=== PATIENT | female | born 1985 | race Caucasian/White ===

== ENCOUNTER 2022-10-27 16:14 | Emergency (ER) | payer MEDICAID, SELFPAY ==
[2022-10-27 16:15] VITALS: BP 140/79; PULSE 69; RESP 16; TEMP 36.2; O2SAT 99; BMI 33.6
--- NOTE | 2022-10-27 16:21 | EKG12_ITS ---
Test Reason : PALPATATIONS Blood Pressure : / mmHG Vent. Rate : 064 BPM Atrial Rate : 064 BPM P-R Int : 148 ms QRS Dur : 088 ms QT Int : 436 ms P-R-T Axes : 033 041 029 degrees QTc Int : 449 ms Normal sinus rhythm Normal ECG Confirmed by CARLOS CAT, WYATT ([id number]), can sorter SAMINA NEGRETE ([id number]) on 10/31/2022 8:39:08 AM Referred By: Confirmed By:IRWIN GONZALEZ MD
--- NOTE | 2022-10-27 16:24 | EDS_ITS ---
HPI History of Present Illness Chief Complaint: Palpitations PFSH PFSH Home Medications alprazolam 0.5 mg tablet 0.5 mg PO TID PRN PRN Anxiety 07/01/14 [History Last Taken 02/17/16 13:00] naproxen 500 mg tablet 500 mg PO BID #20 tabs 02/17/16 [Rx Last Taken Unknown] Allergy/AdvReac Type Severity Reaction Status Date / Time cephalexin monohydrate Allergy Hives Verified 11/03/15 11:57 [From Keflex] ciprofloxacin [From Cipro] Allergy Hives Verified 11/03/15 11:57 ciprofloxacin HCl Allergy Hives Verified 11/03/15 11:57 [From Cipro] sulfamethoxazole Allergy Hives Verified 11/03/15 11:57 [From Bactrim] trimethoprim [From Bactrim] Allergy Hives Verified 11/03/15 11:57 Surgical History (Updated 10/27/22 @ 16:24 by Coy Lam) Status post surgical removal of both fallopian tubes Social History Smoking Status: Current every day smoker EXAM Physical Exam Const Vital Signs: 10/27/22 16:15 Temperature 97.1 F L Temperature Source Temporal Pulse Rate 69 Respiratory Rate 16 Blood Pressure 140/79 H Blood Pressure Mean 99 Pulse Ox 99 Oxygen Delivery Method Room Air MDM MDM MDM Narrative Medical decision making narrative: HISTORY OF PRESENT ILLNESS: 36-year-old female here with concern for palpitations. She is currently asymptomatic at this time. States this began over the last day. States she was outside more than usual this weekend but says she drink plenty of water. She notes 3 episodes of chest discomfort but denies chest pain or shortness of breath at this time. Denies any bleeding diathesis. The patient denies recent surgery in the last 4 weeks or immobilization in the last 3 days, denies previous diagnosis of DVT or PE, hemoptysis, unilateral leg swelling or malignancy with treatment the last 6 months. No estrogen use noted. She denies any syncope. Denies any focal loss of sensation. Denies any family history of early cardiac . Denies any history of CAD, abnormal heart rhythms, heart failure or surgery to her heart. REVIEW OF SYSTEMS: Pertinent positives: Palpitations Pertinent negatives: Chest pain, shortness of breath, leg swelling, syncope PHYSICAL EXAM: Nursing triage notes reviewed, Vital signs reviewed Constitutional: please see mdm HENT: MMM Eyes: Pupils equal round and reactive to light, Extraocular muscles intact, no proptosis Neck: No stridor, no JVD, full neck ROM, no thyromegaly Lungs: Clear to auscultation, No wheezing or rales. No increased work of breathing, no conversational dyspnea, no accessory muscle use, no nasal flaring. No respiratory distress noted Heart: Regular rate and rhythm, No murmurs, No rubs and No gallops, 2+ distal pulses (radial, femoral, posterior tibial) in all extremities Abdomen: Soft, there is no tenderness, rigidity, rebound or guarding, no obvious peritoneal signs, no palpable pulsatile abdominal masses, no auscultated abdominal bruit : No CVAT Extremities: No edema Neuro: No focal neurological deficits, cranial nerves II through XII intact, 5/5 strength in all extremities. Intact sensation to light touch in all extremities, 2+ reflexes bilateral patella tendons. Normal gait. No ataxia. Skin: No rash or lesions noted MEDICAL DECISION MAKING: Chief Complaint: Palpitations External records reviewed: EKG from 2016 showed, normal sinus rhythm, normal axis, normal intervals, no STEMI, no WPW, no ARVD, no Brugada syndrome Factors affecting care: none Social determinants of health: Denies illicit drug use such as methamphetamine or cocaine History obtained from others: none Consults: none ALL IMAGES (IF OBTAINED) HAVE BEEN PERSONALLY REVIEWED AND INTERPRETED BY MYSELF. EKG with normal sinus rhythm, normal axis, normal intervals, no ST or T wave changes to suggest ischemia. No evidence of WPW, Brugada, ARVD. MDM Narrative: Patient was hemodynamically stable, afebrile, nontoxic-appearing. Patient appears well-hydrated. There is no bleeding diathesis noted on exam. Heart and lungs were clear. Pulses were symmetric. I considered the following differential diagnosis: Arrhythmia, myocardial ischemia, dehydration, anemia, thyroid dysfunction EKG without evidence of arrhythmia, myocardial ischemia. The patient was well- hydrated on exam. She had no bleeding diathesis. She no proptosis or overt vital sign abnormalities to suggest hyperthyroidism. She did not use drugs. She denied any chest pain or shortness of breath. For this patient for a life- limiting etiology at this time. Given the patient's young age, limited past medical history and normal EKG there is no indication for further testing at this time. I gave follow-up instructions her PCP for Holter monitor, echocardiogram and other testing that here she is always appropriate. If strict return precautions with the patient. The patient and/or family, caregivers express understanding. The patient and/or family, caregivers agrees with the plan. Shared decision making: I will have a discussion with the patient and or visitors regarding risk/benefits of further testing or admission. They will be made aware of of the risk/benefits inherent in this decision they will be given the opportunity to voice understanding. Total critical care time today provided was at least 0 minutes. This excludes separately billable procedures. Critical care time (if documented) is secondary to the patient having high probability of clinically significant/life threatening deterioration in the patient's condition which required my urgent intervention. Discharge Plan Triage Chief Complaint: Palpitations ED Provider: Ramon Hay Dx/Rx/DC Orders Clinical Impression: Palpitations Prescriptions: No Action alprazolam 0.5 MG tablet 0.5 mg PO TID PRN PRN (Reason: Anxiety) naproxen 500 MG tablet 500 mg PO BID Qty: 20 0RF Primary Care Provider: Care Physician,No Primary Referrals: Christina Grajeda MD [Med Staff - Active Staff] - Activity Restrictions/Additional Instructions: Thank you for trusting us with your care today! Please drink plenty of fluids. I recommend Pedialyte, body armor and Gatorade. Please return to the emergency department if your symptoms change or worsen. Specifically if you lose consciousness, develop chest pain, develop racing he art, develop leg swelling, develop focal numbness weakness or loss of sensation. Please follow with your primary care physician for further outpatient evaluation and management. Disposition Disposition: Home, Self Care
== END 2022-10-27 16:58 | disposition home or self-care (01) ==
LOC: ED 16:56
PROVIDERS: Emergency Provider Emergency Medicine; Visit Provider Emergency Medicine
DX: R00.2 Palpitations (principal); F17.200 Nicotine dependence, unspecified, uncomplicated
CPT/HCPCS: 93005; 99282

== ENCOUNTER 2023-03-05 16:52 | Emergency (ER) | payer MEDICAID, SELFPAY ==
[2023-03-05 16:53] VITALS: BP 132/80; PULSE 80; RESP 14; TEMP 36.8; O2SAT 100; BMI 32.7
--- NOTE | 2023-03-05 17:24 | ED.VIS.LOWEX ---
HPI History of Present Illness HPI Narrative: Right ankle pain, swelling and redness after joint injection at 9 AM this morning. Chief Complaint: Lower Extremity Injury Informant: patient and spouse/S.O. Occured/Mechanism Mechanism/Context: No injury and No blunt trauma Onset/Context/Timing Onset: Today and Hours Context: Gradual Onset Timing: Continuous Quality of Pain: Dull and Aching Current Severity: Mild Maximum Severity: Mild Associated Symptoms Associated Symptoms: Negative for Parasthesia, Weakness or Loss of Funtion Narrative Narrative: 37-year-old female has had 3 prior fractures to her right ankle. Never needed surgery. She sees an orthopedic physician in [facility] [place], Dr. Frederick. Their office did a right ankle joint injection today by the nurse practitioner using dexamethasone single-use vial. Patient's had this done 2 other times of the last year and a half. Never had any problems. 2 to 3 hours after the injection today has developed redness, swelling and pain in her right ankle. Denies any fall or trauma. No history of gout. No fever. Prior similar symptoms: No Recent Illness/Hospitalization: No PFSH PFSH Medical History Ankle fracture, left Ankle fracture, right Home Medications alprazolam 0.5 mg tablet 0.5 mg PO TID PRN PRN Anxiety 07/01/14 [History Last Taken 02/17/16 13:00] naproxen 500 mg tablet 500 mg PO BID #20 tabs 02/17/16 [Rx Last Taken Unknown] Allergy/AdvReac Type Severity Reaction Status Date / Time cephalexin monohydrate Allergy Hives Verified 03/05/23 16:53 [From Keflex] ciprofloxacin [From Cipro] Allergy Hives Verified 03/05/23 16:53 ciprofloxacin HCl Allergy Hives Verified 03/05/23 16:53 [From Cipro] sulfamethoxazole Allergy Hives Verified 03/05/23 16:53 [From Bactrim] trimethoprim [From Bactrim] Allergy Hives Verified 03/05/23 16:53 Surgical History Status post surgical removal of both fallopian tubes Social History Smoking Status: Current every day smoker tobacco type: cigarettes ROS ROS ED ROS Narrative Recent URI. Review of Systems ROS Unobtainable: Denies due to encephalopathy Constitutional Constitutional ED: Denies chills or fever(s) Eyes Eyes: Denies blurry vision ENT ENT ED: Denies ear pain Cardiovascular Cardiovascular: Denies chest pain Respiratory/Chest Respiratory/Chest: Reports cough Gastrointestinal Gastrointestinal: Denies abdominal pain Genitourinary Genitourinary ED: Denies dysuria Musculoskeletal Musculoskeletal: Denies arthralgias Integumentary Denies abscess Neurologic Neurologic: Denies headache(s) Psychiatric Psychiatric: Denies anxiety Endocrine Endocrinology: Denies polydipsia or polyphagia Hematologic/Lymphatic Hematologic/Lymphatic: Denies easy bleeding or easy bruising Allergic/Immunologic Allergic/Immunologic ED: Denies mouth swelling, tongue swelling or urticaria EXAM Physical Exam Narrative Exam Narrative: 2-year-old female no acute distress. Vital signs stable afebrile. H EENT exam unremarkable. Neck nontender. Lungs clear. Heart regular rhythm. Rate about 80. Abdomen soft nontender. Moving all 4 extremities. Neurovascular intact. Right hip and knee nontender full range of motion. No inguinal lymphadenopathy. Right ankle minimal swelling. There is redness just above the ankle to about the midfoot. Warm to the touch. She can do flexion extension mild discomfort. Mildly tender. DP pulse intact. Able to wiggle her toes. Normal touch sensation. Calf nontender nonswollen. No lymphangitic streaking. Other extremities are unremarkable. Const Vital Signs: 03/05/23 16:53 Temperature 98.2 F Temperature Source Temporal Pulse Rate 80 Respiratory Rate 14 Blood Pressure 132/80 H Blood Pressure Mean 97 Pulse Ox 100 Oxygen Delivery Method Room Air Positive well nourished and well developed; Negative for cachectic or contractures General Appearance ED: well developed and NAD; Negative for cachectic or contractures Nutritional Appearance: Negative for cachectic HEENT Reports moist mucous membranes normocephalic and atraumatic; Negative for trauma or tenderness Eyes PERRL Neck full ROM and supple Thyroid: Negative for tender Lymph Lymphatic: Negative for other Chest Wall inspection of chest normal and palpation of chest normal Chest: Negative for other Resp normal respiratory effort, no retractions and clear to auscultation bilaterally Effort and Inspection: Negative for pain with movement Auscultation: Negative for rales, rhonchi or wheezes Cardio regular rate, regular rhythm, S1 normal heart sound, S2 normal heart sound and no murmurs Rate: Negative for bradycardia or tachycardic Rhythm: Negative for abnormal rhythm Bruits: Negative for other GI non-tender, non-distended and no masses Inspection: Negative for abdominal distention Auscultation: normoactive bowel sounds Palpation: soft; Negative for tender or guarding Bladder / Kidney Exam: No other Back/Spine no CVA tenderness General Back: Negative for CVA tenderness Cervical Spine: Negative for cervical spine tenderness Thoracic Spine / Upper Back: Negative for thoracic spinal tenderness Lumbar Spine / Lower Back: Negative for lumbar spinal tenderness Extremity full ROM; Negative for normal to inspection Extremity Narrative: Right ankle mildly tender. Mild swelling. Redness. Warm to touch. Normal range of motion. Only mild discomfort. Neurovascular intact right foot. Normal DP pulse. Able to wiggle her toes. Normal touch sensation. General Extremety ED: Yes edema and weight-bearing difficulty; Negative for cyanosis General Extremity: edema and weight-bearing difficulty; Negative for cyanosis Neuro oriented x3 and CN's II-XII intact bilaterally Sensorium / Orientation: alert, oriented to person, oriented to place and oriented to time; Negative for orientation impaired, confused, lethargic or stuporous Motor Exam: strength 5/5 throughout Psych mental status grossly normal Speech: No other Mood & Affect: Negative for anxious Skin no wounds Lesions: no lesions Rashes: no rashes Trauma: Negative for abrasion, laceration or puncture MDM MDM MDM Narrative Medical decision making narrative: 37-year-old female status post right ankle joint injection done around 9 AM this morning. Several hours later developed pain and redness. Clinically looks infected but the timeline does not make a lot of sense since it is only now about 8 to 9 hours after the injection. I spoke to the orthopedic physician on-call for that office. He is knows the patient and we discussed her case. She will be given a dose of IV antibiotics Unasyn. Her white count is elevated 17,000 and I will reevaluate her tomorrow. Could this be infection versus a reaction to the shot. Repeat exam patient is doing well at 7:35 PM. She will follow-up with her orthopedic physician in [facility] [place], Dr. Frederick, tomorrow. He and I discussed her care over the phone. She did receive a dose of IV Unasyn here. This is either a reaction to the steroid injection versus early infection which clinically does not make sense by the timing. History & Record Review Discussion w/independent historian: Patient Lab Data Attestation: I reviewed the patient's lab results. Lab results narrative: CBC shows a white count of 17,000. H&H 14 and 44. Platelets 406. C-reactive protein is elevated at 4.39. Sed rate is normal at 15. Labs: Laboratory Results - last 24 hr 03/05/23 17:35 WBC 17.0 H RBC 5.04 Hgb 14.8 Hct 44.5 MCV 88.3 MCH 29.4 MCHC 33.3 RDW Std Deviation 40.3 RDW Coeff of Cristy 12.5 Plt Count 406 MPV 8.9 Immature Gran % (Auto) 1.900 H Neut % (Auto) 84.7 H Lymph % (Auto) 10.4 L [place] % (Auto) 2.5 Eos % (Auto) 0.1 Baso % (Auto) 0.4 Absolute Neuts (auto) 14.4 H Absolute Lymphs (auto) 1.77 Nucleated RBC % 0 ESR 15 C-React Prot Ext Range 4.39 H Discharge Plan Triage Chief Complaint: Lower Extremity Injury ED Provider: Edward Vasquez Dx/Rx/DC Orders Clinical Impression: Localized adverse drug reaction Prescriptions: No Action alprazolam 0.5 MG tablet 0.5 mg PO TID PRN PRN (Reason: Anxiety) naproxen 500 MG tablet 500 mg PO BID Qty: 20 0RF Primary Care Provider: Care Physician,No Primary Referrals: Care Physician,No Primary [Primary Care Provider] - Activity Restrictions/Additional Instructions: Call and follow-up with your orthopedic doctor, Dr. Frederick by 9 AM tomorrow morning. If they do not call you first. Ice and elevate your ankle. Motrin and Tylenol for pain and swelling. Very important to follow-up with them to make sure this is an either a local reaction versus an early infection. We did give you a dose of IV Unasyn. Your laboratories tonight showed an elevated white count of 17,000. An elevated CRP of 4.39. And a normal sedimentation rate of 15. Disposition Disposition: Home, Self Care
[2023-03-05 17:45] LABS: Absolute Lymphocyte Count 1.77 X10^3/uL (0.83-4.51); Absolute Neutrophil Count 14.4 X10^3/uL (2.0-7.7); Basophil# 0.07 X10^3/uL; Basophil% 0.4 % (0-1); Eosinophil# 0.01 X10^3/uL; Eosinophils% 0.1 % (0-5); Hematocrit 44.5 % (37-47); Hemoglobin 14.8 g/dL (12.0-15.0); Lymphocyte # 1.77 X10^3/ul (0.83-4.51); Lymphocyte % 10.4 % (19-41); Mean Corp Hgb Conc 33.3 g/dL (32-36); Mean Corpuscular Hgb 29.4 pg (27.0-32.0); Mean Corpuscular Volume 88.3 fL (81-99); Mean Platelet Vol. 8.9 fl (6.2-12.0); Monocyte# 0.42 X10^3/uL; Monocyte% 2.5 % (0-10); NRBC Flagged by Analyzer 0 % (0-5); Neutrophil # 14.37 X10^3/uL (2.7-7.7); Neutrophil % 84.7 % (47-70); Platelet Count 406 K/mm3 (150-450); RBC Distribution Width CV 12.5 % (11.6-14.6); RBC Distribution Width SD 40.3 fl (35.1-43.9); Red Blood Count 5.04 M/mm3 (4.2-5.4)
[2023-03-05 17:59] LABS: CRP 4.39 mg/L (0.0-3.0)
[2023-03-05] MEDS: Ibuprofen 400 MG Tablet 800 MG PO (18:08)
[2023-03-05 18:16] LABS: Erythrocyte Sedimentation Rate 15 mm/hr (0-30)
[2023-03-05] MEDS: Ampicillin/Sulbactam 3 GM in 0.9% Normal Saline (100mL MB+) 100 ML IV (18:28)
== END 2023-03-05 20:27 | disposition home or self-care (01) ==
PROVIDERS: Emergency Provider Emergency Medicine; Referring Provider Emergency Medicine; Visit Provider Emergency Medicine
DX: M25.571 Pain in right ankle and joints of right foot (principal); T38.0X5A Adverse effect of glucocorticoids and synthetic analogues, initial encounter; F17.210 Nicotine dependence, cigarettes, uncomplicated; M25.471 Effusion, right ankle
CPT/HCPCS: 85025; 85652; 86140; 96365; 99283; J0295

== ENCOUNTER 2023-12-29 12:56 | Emergency (ER) | payer MEDICAID, SELFPAY ==
[2023-12-29 12:57] VITALS: BP 137/82; PULSE 60; RESP 16; TEMP 36.2; O2SAT 98; BMI 31.8
--- NOTE | 2023-12-29 13:19 | EDS_ITS ---
HPI History of Present Illness Chief Complaint: Palpitations Detail of Chief Complaint: Feel my heartbeat at night when I attempt to go to sleep Informant: patient Onset/Context/Timing Onset: Weeks Context: Sudden Onset Timing: Intermittent Quality: Palpitations Location: Chest Current Severity: Gone Maximum Severity: Moderate Worsened by: At nighttime when patient is lying down getting ready to go to sleep Relieved by: Nothing Associated Symptoms Associated Symptoms: Lightheadedness if she gets up quickly Narrative Narrative: Patient is a 38-year-old female who presents with palpitations for the past several weeks. She does check her heart rate and states is in 70s. She denies shortness of breath, diaphoresis, has had nausea. She reports lightheadedness if she gets up during the episode. She denies headache, visual, ocular auditory symptoms. She presently has no symptoms. She denies abdominal pain or back pain. Denies black or maroon-colored stool. She states she normally does not check. She denies history of VTE. She has no risk factors for VTE. She does admit to drinking 32 ounces of coffee in the morning. She does not have any caffeinated beverages during the day or at night. Prior similar symptoms: No Recent Illness/Hospitalization: No PFSH PFSH Medical History Ankle fracture, right Ankle fracture, left Home Medications ?Medication ?Instructions ?Recorded ?Last Taken ?Type alprazolam 0.5 mg tablet 0.5 mg PO TID PRN PRN Anxiety 07/01/14 02/17/16 13:00 History naproxen 500 mg tablet 500 mg PO BID #20 tabs 02/17/16 Unknown Rx Allergy/AdvReac Type Severity Reaction Status Date / Time cephalexin monohydrate (From Allergy Hives Verified 03/05/23 16:53 Keflex) ciprofloxacin (From Cipro) Allergy Hives Verified 03/05/23 16:53 ciprofloxacin HCl (From Allergy Hives Verified 03/05/23 16:53 Cipro) sulfamethoxazole (From Allergy Hives Verified 03/05/23 16:53 Bactrim) trimethoprim (From Bactrim) Allergy Hives Verified 03/05/23 16:53 Surgical History Status post surgical removal of both fallopian tubes Social History Smoking Status: Current every day smoker tobacco type: cigarettes ROS ROS ED Constitutional Constitutional ED: Denies chills, fever(s), subjective, sweats or weight loss Eyes Eyes: Denies blurry vision or change in vision ENT ENT ED: Denies ear pain, rhinorrhea or sore throat Cardiovascular Cardiovascular: Reports palpitations; Denies chest pain, orthopnea, paroxysmal nocturnal dyspnea or racing heartbeat Respiratory/Chest Respiratory/Chest: Denies cough, dyspnea, dyspnea on exertion, orthopnea or paroxysmal nocturnal dyspnea Gastrointestinal Gastrointestinal: Denies abdominal pain, diarrhea, melena, nausea or vomiting Musculoskeletal Musculoskeletal: Denies back pain Integumentary Denies rash Neurologic Neurologic: Denies weakness Hematologic/Lymphatic Hematologic/Lymphatic: Reports systems reviewed and no addt'l complaints, except as documented EXAM Physical Exam Const Vital Signs: 12/29/23 12:57 12/29/23 13:22 12/29/23 13:56 Temperature 97.2 F L Temperature Source Temporal Pulse Rate 60 Respiratory Rate 16 16 Respiratory Effort Normal Blood Pressure 137/82 H 122/66 H Blood Pressure Mean 100 84 Pulse Ox 98 Oxygen Delivery Method Room Air 12/29/23 14:00 Temperature Temperature Source Pulse Rate Respiratory Rate Respiratory Effort Blood Pressure 122/66 H Blood Pressure Mean 84 Pulse Ox Oxygen Delivery Method Positive well nourished and well developed General Appearance ED: well developed and NAD; Negative for pallor HEENT Reports moist mucous membranes HEENT Narrative: Ears are normal. Nares patent. Posterior pharynx is normal. Eyes PERRL and EOMs intact bilaterally General Eye ED: Negative for pale conjunctiva or scleral icterus Neck no lymphadenopathy, supple and no JVD Chest Wall inspection of chest normal and palpation of chest normal Resp normal respiratory effort and clear to auscultation bilaterally Cardio regular rate, regular rhythm, S1 normal heart sound, S2 normal heart sound and no murmurs GI normal to inspection, nondistended, normoactive bowel sounds, non-tender, non- distended, hepatosplenomegaly and no masses Extremity Extremity Narrative: There is no asymmetry, swelling, discoloration, leg vein distention, palpable cords or tenderness along the distribution of the deep venous system. Neuro oriented x3 and CN's II-XII intact bilaterally Sensorium / Orientation: alert Psych mental status grossly normal Skin no rashes or lesions noted and no wounds General Skin Exam: Negative for jaundice or pallor MDM MDM MDM Narrative Medical decision making narrative: Patient with palpitations. Doubt this is due to the caffeine that she drinks in the morning. This may be due to stress. She states she is under stress but then made the comment that is not everyone . Will obtain BMP to assess for electrolytes specifically potassium. EKG was obtained to see if there is any ectopy or evidence to suggest WPW, [place] long [place] syndrome, short [place] interval, Brugada or prolonged QT. Lab Data Attestation: I reviewed the patient's lab results. Labs: Laboratory Results - last 24 hr 12/29/23 13:27 Sodium 140 Potassium 3.6 Chloride 106 Carbon Dioxide 28.0 Anion Gap 6 BUN 16 Creatinine 0.86 Estim Creat Clear Calc 109.27 Est GFR (MDRD) Af Amer 94 Est GFR (MDRD) Non-Af 78 BUN/Creatinine Ratio 18.6 Glucose 93 Calcium 9.7 EKG Initial EKG: Attestation: I personally reviewed and interpreted this EKG as follows: Interpretation: Sinus Rhythm (Rate is 60. EKG is normal. [place] interval is 154 ms per cures duration 86 ms per QT duration 418 ms. [place] is normal.) Discharge Plan Triage Chief Complaint: Palpitations ED Provider: Maurice Mercado Dx/Rx/DC Orders Clinical Impression: Palpitations Instructions: ED Palpitations Prescriptions: No Action alprazolam 0.5 MG tablet 0.5 mg PO TID PRN PRN (Reason: Anxiety) naproxen 500 MG tablet 500 mg PO BID Qty: 20 0RF Primary Care Provider: Care Physician,No Primary Referrals: Care Physician,No Primary [Primary Care Provider] - Activity Restrictions/Additional Instructions: Follow-up with your doctor. The name of your doctor will be located on the insurance card submitted to you by [facility] Print Language: Upper Sorbian Disposition Disposition: Home, Self Care
[2023-12-29 13:49] LABS: Anion Gap 6 (5-15); BUN 16 mg/dL (7-18); BUN/Creat Ratio 18.6 RATIO (10-20); Calcium,Total 9.7 mg/dL (8.5-10.1); Chloride 106 mmol/L (98-107); Creatinine, Serum 0.86 mg/dL (0.55-1.02); EST Glomerular Filtration Rate 78 mL/min (>60); Est Glom Filt Rate - Afr Amer 94 mL/min (>60); Estimated Creatinine Clearance 109.27 ml/min; Glucose 93 mg/dL (74-106); Potassium 3.6 mmol/L (3.5-5.1); Sodium Level 140 mmol/L (136-145)
[2023-12-29 13:56] VITALS: BP 122/66; RESP 16
[2023-12-29 14:00] VITALS: BP 122/66
[2023-12-29 14:43] VITALS: BP 118/74; PULSE 78; RESP 16; TEMP 36.7; O2SAT 97
== END 2023-12-29 14:44 | disposition home or self-care (01) ==
PROVIDERS: Emergency Provider Emergency Medicine; Visit Provider Emergency Medicine
DX: R00.2 Palpitations (principal)
CPT/HCPCS: 80048; 93005; 99284; A4216

== ENCOUNTER → 2024-02-10 | Outpatient (CLI) | payer MEDICAID, SELFPAY ==
[2024-02-10 12:57] LABS: Absolute Lymphocyte Count 3.19 X10^3/uL (0.83-4.51); Absolute Neutrophil Count 5.8 X10^3/uL (2.0-7.7); Basophil# 0.09 X10^3/uL; Basophil% 0.9 % (0-1); Eosinophil# 0.32 X10^3/uL; Eosinophils% 3.2 % (0-5); Hematocrit 42.3 % (37-47); Hemoglobin 13.9 g/dL (12.0-15.0); Lymphocyte # 3.19 X10^3/ul (0.83-4.51); Lymphocyte % 32.3 % (19-41); Mean Corp Hgb Conc 32.9 g/dL (32-36); Mean Corpuscular Hgb 29.4 pg (27.0-32.0); Mean Corpuscular Volume 89.4 fL (81-99); Mean Platelet Vol. 8.9 fl (6.2-12.0); Monocyte# 0.48 X10^3/uL; Monocyte% 4.9 % (0-10); NRBC Flagged by Analyzer 0 % (0-5); Neutrophil # 5.75 X10^3/uL (2.7-7.7); Neutrophil % 58.2 % (47-70); Platelet Count 347 K/mm3 (150-450); RBC Distribution Width SD 39.6 fl (35.1-43.9); Red Blood Count 4.73 M/mm3 (4.2-5.4); White Blood Count 9.9 K/mm3 (4.4-11.0)
[2024-02-10 13:23] LABS: Hemoglobin A1c 5.5 % (3.8-5.6)
[2024-02-10 13:29] LABS: ALB/GLOB Ratio 1.3 RATIO (0.9-2.4); AST(SGOT) 14 U/L (15-37); Alanine Aminotransfer ALT/SGPT 23 U/L (13-56); Albumin, Serum 3.9 g/dL (3.2-5.0); Alkaline Phosphatase 74 U/L (45-117); Anion Gap 5 (5-15); BUN 14 mg/dL (7-18); BUN/Creat Ratio 18.3 RATIO (10-20); Calcium,Total 9.1 mg/dL (8.5-10.1); Chloride 109 mmol/L (98-107); Cholesterol 217 mg/dL (200); Creatinine, Serum 0.76 mg/dL (0.55-1.02); EST Glomerular Filtration Rate 89 mL/min (>60); Est Glom Filt Rate - Afr Amer 108 mL/min (>60); Globulin 3.1 g/dL (2.2-4.2); Glucose 92 mg/dL (74-106); High Density Lipoprotein 41 mg/dL; Iron 75 ug/dL (50-170); Iron Binding Capacity,Total 354 ug/dL (250-450); PERCENT IRON SATURATION 21.2 % (15.0-55.0); Sodium Level 139 mmol/L (136-145); T4 Free Direct 0.81 ng/dL (0.76-1.46); Triglycerides 315 mg/dL; Very Low Density Lipoprotein 63 mg/dL (5-40)
[2024-02-10 13:50] LABS: Vitamin B12 272 pg/mL (211-911); Vitamin D,25 Hydroxy 27.5 ng/mL
== END | disposition home or self-care (01) ==
LOC: VSLAB 11:48
PROVIDERS: PCP Nurse Practitioner Family; Visit Provider Nurse Practitioner Family
DX: Z00.00 Encounter for general adult medical examination without abnormal findings (principal); R00.2 Palpitations; E55.9 Vitamin D deficiency, unspecified; D64.9 Anemia, unspecified
CPT/HCPCS: 36415; 80053; 80061; 82306; 82607; 83036; 83540; 83550; 84439; 84443; 85025

== ENCOUNTER 2024-03-04 12:21 | Emergency (ER) | payer MEDICAID, SELFPAY ==
[2024-03-04 12:22] VITALS: BP 113/88; PULSE 62; RESP 18; TEMP 36.6; O2SAT 98; BMI 33.3
--- NOTE | 2024-03-04 12:30 | CT_ITS ---
STUDY: CT ABDOMEN AND PELVIS WITH CONTRAST REASON FOR EXAM: Female, 38 years old. Left lower quadrant pain RADIATION DOSAGE (If Supplied By Facility): CTDIvol = ( 16.08 ) mGy, DLP = ( 1175.25 ) mGycm TECHNIQUE: Transaxial images were obtained from the dome of the diaphragm to the symphysis pubis without oral contrast. IV 100mL Isovue-370 was administered. Sagittal and coronal images were reconstructed. Individualized dose optimization techniques were used for this CT. COMPARISON: None. FINDINGS: The visualized lung bases are unremarkable. The visualized portions of the heart are within normal limits. Liver is unremarkable aside from a 2 cm hemangioma in the right lobe. Normal gallbladder and extrahepatic biliary system. Normal spleen. Normal pancreas. Normal bilateral adrenal glands. Normal right kidney. Normal left kidney. Normal visualized stomach. Normal small intestine. Normal colon. The appendix is visualized and appears normal. Appendix seen on coronal recon image 54 Normal abdominal aorta. Normal inferior vena cava. Normal retroperitoneum. Normal urinary bladder. Uterus is enlarged and contains a low-density 6 cm cystic structure that is impinging upon the endometrium. No suspicious adnexal mass or free fluid additionally there is a left adnexal lesion containing fat and calcifications consistent with a dermoid. It measures approximately 1.5 cm. Normal abdominal wall. Normal osseous structures. CT/Abdomen/Pelvis W IV Cont ONLY IMPRESSION: 2 cm likely hemangioma within the right lobe of the liver, no specific follow-up needed. Enlarged uterus containing a 6.3 cm cystic structure, likely a myometrial cyst. This could be more accurately evaluated with ultrasound. There is also a 1.5 cm dermoid in the left ovary. This could explain the patient''s left pelvic pain. No free intraperitoneal fluid, air, or suspicious adenopathy, normal appendix visualized Electronically Signed: Hernesto Man MD at 14:00 EST Reading Location ID and State: [facility] / [place] , Service support ,
--- NOTE | 2024-03-04 12:34 | EDS_ITS ---
<Statement entered by Genaro Olivier DO - 03/04/24 16:22> Patient was seen and examined with physician assistant account executive Sally All components of the history and physical confirmed and agreed. History of present illness and physical exam: Patient is a 38-year-old female with past medical history anxiety who presents to the emergency department with a chief complaint of left-sided abdominal pain. Patient states that she developed pain last night and has been persistent therefore she came here for further evaluation management. States that she had normal bowel movement this morning. Patient states that she has had a tubal ligation but denies any other abdominal surgeries. States that she is finishing up her current menstrual cycle and feels that these are not menstrual cramps. Review of systems: Agree with above Physical exam: Agree with above MDM Patient is a 38-year-old female who presents to the emerged part with a chief complaint of left-sided abdominal pain. Patient will have a workup performed here on the differential diagnose includes Melamin to diverticulitis, appendicitis, pancreatitis, ovarian cyst, UTI, pyelonephritis, musculoskeletal strain. Once workup is obtained reviewed she will be reevaluated. Patient CBC was reviewed and showed evidence of leukocytosis of 11,000, hemoglobin stable 13.4, plate count was noted to be normal at 296. Patient's sodium was noted to be normal at 140, potassium normal 3.9, creatinine normal at 0.82. Patient's AST and ALT were 19 and 26 respectively with a normal total bilirubin 0.40. Patient's urinalysis showed negative leukocyte esterase negative nitrites no white blood cells seen and 1+ bacteria. Patient's test was negative. Patient's CT abdomen pelvis with IV contrast showed 2 cm likely hemangioma within the right lobe of the liver no specific follow-up needed. Enlarged uterus containing a 6.3 cm cystic structure likely a myometrial cyst. This could be further evaluated with ultrasound there is also a 1.5 cm dermoid in the left ovary. No free air, fluid or suspicious adenopathy normal appendix is visualized. Patient's ultrasound transvaginal was reviewed and showed a 7 cm x 6.2 cm x 5.6 cm uterine fibroid. 1.5 x 1.2 x 1.2 cm echogenic nodule the left ovary may represent a dermoid. Patient was given a hard copy of the result of this and was advised to take this to her OB appointment on the of this month that she was supposed to follow-up with and establish with. Did discuss results with the patient and she would like to go home at this point time. She was also encouraged to follow-up with a primary care physician. She was given prescription for Bentyl. She was advised to use ibuprofen and Tylenol for pain control. All question concerns answered she was discharged home in stable condition. Plan: Final impression: Abdominal pain Ovarian cyst left Uterine fibroid Disposition: Patient will be discharged home in stable condition Supervising attending attestation: Genaro Olivier D.O. HPI HPI - GI History of Present Illness Chief Complaint: Abd Pain Narrative Narrative: Patient presenting today with nonradiating dull and aching left lower quadrant abdominal pain she has had constantly since last night. She had a bowel movement this morning that was normal. She has had intermittent nausea. She denies fevers, chills, vomiting, diarrhea, and urinary symptoms. She is currently on her menstrual period but reports these do not feel like normal menstrual cramps. She denies any history of kidney stones or diverticulitis, she has a history of a tubal ligation but otherwise no other abdominal surgeries. She has a PMH of anxiety. [facility] Medical History Palpable mass of soft tissue of knee Ankle fracture, right Ankle fracture, left Home Medications ?Medication ?Instructions ?Recorded ?Last Taken ?Type alprazolam 0.5 mg tablet 0.5 mg PO TID PRN PRN Anxiety 07/01/14 02/17/16 13:00 History naproxen 500 mg tablet 500 mg PO BID #20 tabs 02/17/16 Unknown Rx dicyclomine 10 mg capsule 20 mg (2 x 10 mg) PO TID PRN 03/04/24 Unknown Rx abdominal pain 7 days #42 caps Allergy/AdvReac Type Severity Reaction Status Date / Time cephalexin monohydrate (From Allergy Hives Verified 03/04/24 12:22 Keflex) ciprofloxacin (From Cipro) Allergy Hives Verified 03/04/24 12:22 ciprofloxacin HCl (From Allergy Hives Verified 03/04/24 12:22 Cipro) sulfamethoxazole (From Allergy Hives Verified 03/04/24 12:22 Bactrim) trimethoprim (From Bactrim) Allergy Hives Verified 03/04/24 12:22 Surgical History History of tubal ligation Status post surgical removal of both fallopian tubes Social History (Updated 03/04/24 @ 13:19 by Tia Theodore) household members: spouse and family housing: house Smoking Status: Current every day smoker tobacco type: cigarettes alcohol intake: never ROS ROS ED Constitutional Constitutional ED: Denies chills or fever(s) Cardiovascular Cardiovascular: Denies chest pain Respiratory/Chest Respiratory/Chest: Denies dyspnea Gastrointestinal Gastrointestinal: Reports abdominal pain and nausea; Denies constipation, diarrhea, melena or vomiting Genitourinary Genitourinary ED: Denies dysuria, hematuria or urinary urgency Musculoskeletal Musculoskeletal: Denies arthralgias or myalgias Integumentary Denies rash Neurologic Neurologic: Denies weakness EXAM Physical Exam Const Vital Signs: 03/04/24 12:22 03/04/24 14:21 Temperature 97.9 F Temperature Source Oral Pulse Rate 62 66 Respiratory Rate 18 16 Blood Pressure 113/88 H Blood Pressure Mean 96 Pulse Ox 98 100 Oxygen Delivery Method Room Air Positive well nourished, well developed and no apparent distress General Appearance ED: well developed HEENT Reports normocephalic and head/scalp atraumatic Mouth ED: Yes moist mucous membranes normal Eyes PERRL and EOMs intact bilaterally Neck full ROM and supple Chest Wall inspection of chest normal Resp normal respiratory effort and clear to auscultation bilaterally Cardio regular rate and regular rhythm GI soft to palpation, non-distended and no masses GI Narrative: Minimal tenderness left lower quadrant, minimal tenderness to McBurney's point, no rigidity or guarding, no right upper quadrant tenderness. Back/Spine normal ROM and normal to inspection Extremity normal to inspection and full ROM Neuro oriented x3, CN's II-XII intact bilaterally, moves all extremities, no focal motor deficits and no sensory deficits noted Sensorium / Orientation: awake and alert Psych mental status grossly normal and thought process normal Skin no rashes or lesions noted and no wounds
--- NOTE | 2024-03-04 12:34 | ED.VIS.GI ---
HPI HPI - GI History of Present Illness Chief Complaint: Abd Pain Narrative Narrative: Patient presenting today with nonradiating dull and aching left lower quadrant abdominal pain she has had constantly since last night. She had a bowel movement this morning that was normal. She has had intermittent nausea. She denies fevers, chills, vomiting, diarrhea, and urinary symptoms. She is currently on her menstrual period but reports these do not feel like normal menstrual cramps. She denies any history of kidney stones or diverticulitis, she has a history of a tubal ligation but otherwise no other abdominal surgeries. She has a PMH of anxiety. PFS PFS Medical History Palpable mass of soft tissue of knee Ankle fracture, right Ankle fracture, left Home Medications ?Medication ?Instructions ?Recorded ?Last Taken ?Type alprazolam 0.5 mg tablet 0.5 mg PO TID PRN PRN Anxiety 07/01/14 02/17/16 13:00 History naproxen 500 mg tablet 500 mg PO BID #20 tabs 02/17/16 Unknown Rx dicyclomine 10 mg capsule 20 mg (2 x 10 mg) PO TID PRN 03/04/24 Unknown Rx abdominal pain 7 days #42 caps Allergy/AdvReac Type Severity Reaction Status Date / Time cephalexin monohydrate (From Allergy Hives Verified 03/04/24 12:22 Keflex) ciprofloxacin (From Cipro) Allergy Hives Verified 03/04/24 12:22 ciprofloxacin HCl (From Allergy Hives Verified 03/04/24 12:22 Cipro) sulfamethoxazole (From Allergy Hives Verified 03/04/24 12:22 Bactrim) trimethoprim (From Bactrim) Allergy Hives Verified 03/04/24 12:22 Surgical History History of tubal ligation Status post surgical removal of both fallopian tubes Social History (Updated 03/04/24 @ 13:19 by Tia Theodore) household members: spouse and family housing: house Smoking Status: Current every day smoker tobacco type: cigarettes alcohol intake: never ROS ROS ED Constitutional Constitutional ED: Denies chills or fever(s) Cardiovascular Cardiovascular: Denies chest pain Respiratory/Chest Respiratory/Chest: Denies dyspnea Gastrointestinal Gastrointestinal: Reports abdominal pain and nausea; Denies constipation, diarrhea, melena or vomiting Genitourinary Genitourinary ED: Denies dysuria, hematuria or urinary urgency Musculoskeletal Musculoskeletal: Denies arthralgias or myalgias Integumentary Denies rash Neurologic Neurologic: Denies weakness EXAM Physical Exam Const Vital Signs: 03/04/24 12:22 03/04/24 14:21 Temperature 97.9 F Temperature Source Oral Pulse Rate 62 66 Respiratory Rate 18 16 Blood Pressure 113/88 H Blood Pressure Mean 96 Pulse Ox 98 100 Oxygen Delivery Method Room Air Positive well nourished, well developed and no apparent distress General Appearance ED: well developed HEENT Reports normocephalic and head/scalp atraumatic Mouth ED: Yes moist mucous membranes normal Eyes PERRL and EOMs intact bilaterally Neck full ROM and supple Chest Wall inspection of chest normal Resp normal respiratory effort and clear to auscultation bilaterally Cardio regular rate and regular rhythm GI soft to palpation, non-distended and no masses GI Narrative: Minimal tenderness left lower quadrant, minimal tenderness to McBurney's point, no rigidity or guarding, no right upper quadrant tenderness. Back/Spine normal ROM and normal to inspection Extremity normal to inspection and full ROM Neuro oriented x3, CN's II-XII intact bilaterally, moves all extremities, no focal motor deficits and no sensory deficits noted Sensorium / Orientation: awake and alert Psych mental status grossly normal and thought process normal Skin no rashes or lesions noted and no wounds MDM MDM MDM Narrative Medical decision making narrative: Patient presenting today with left lower quadrant abdominal pain started last night. She is nontoxic-appearing and in no acute distress, her vitals are unremarkable. Labs will be obtained as well as a CT scan of the abdomen and pelvis to assess for diverticulitis, kidney stone, ovarian cyst, and other etiology. I did offer analgesia and she declined. Her labs are largely unremarkable. CT scan of the abdomen and pelvis shows a myometrial cyst and a 1.5 cm dermoid in the left ovary. Transvaginal ultrasound obtained and shows a 7 cm x 6 cm x 5.6 cm uterine fibroid and the 1.5 cm dermoid on the left ovary. No evidence of ovarian torsion. She does have a follow-up with gynecology this month, recommended that she follow-up closely with them. She will be given a prescription for Bentyl. She can alternate Tylenol and ibuprofen as needed for her pain. She will be discharged home in stable condition. Lab Data Attestation: I reviewed the patient's lab results. Lab results narrative: WBC 11.1, CMP, lipase unremarkable. UA shows 1+ bacteria with 5-10 squamous epithelial cells, negative for UTI. Labs: Laboratory Results - last 24 hr 03/04/24 03/04/24 12:45 12:52 WBC 11.1 H RBC 4.51 Hgb 13.4 Hct 40.1 MCV 88.9 MCH 29.7 MCHC 33.4 RDW Std Deviation 40.8 RDW Coeff of Cristy 12.5 Plt Count 296 MPV 9.0 Immature Gran % (Auto) 0.400 Neut % (Auto) 66.1 Lymph % (Auto) 23.3 [place] % (Auto) 6.2 Eos % (Auto) 3.5 Baso % (Auto) 0.5 Absolute Neuts (auto) 7.3 Absolute Lymphs (auto) 2.58 Nucleated RBC % 0 Sodium 140 Potassium 3.9 Chloride 109 H Carbon Dioxide 26.0 Anion Gap 5 BUN 17 Creatinine 0.82 Estim Creat Clear Calc 117.30 Est GFR (MDRD) Af Amer 99 Est GFR (MDRD) Non-Af 82 BUN/Creatinine Ratio 20.6 H Glucose 126 H Calcium 9.1 Total Bilirubin 0.40 AST 19 ALT 26 Alkaline Phosphatase 82 Total Protein 6.8 Albumin 3.7 Globulin 3.1 Albumin/Globulin Ratio 1.2 Lipase 40 Urine Color Straw Urine Clarity Clear Urine pH 6.0 Ur Specific [place] 1.020 Urine Protein Negative Urine Glucose (UA) Normal Urine Ketones Negative Urine Occult Blood 50 H Urine Nitrite Negative Urine Bilirubin Negative Urine Urobilinogen Normal Ur Leukocyte Esterase Negative Urine RBC 10-25 SEEN Urine WBC 0 SEEN Ur Squamous Epith Cells 5-10 SEEN Urine Bacteria 1+ Urine Mucus 0 SEEN Urine Test Negative Radiography Diagnostic Testing: Clinical Impression(s) from Imaging Studies Abdomen/Pelvis CT 03/04/24 12:30 IMPRESSION: 2 cm likely hemangioma within the right lobe of the liver, no specific follow-up needed. Enlarged uterus containing a 6.3 cm cystic structure, likely a myometrial cyst. This could be more accurately evaluated with ultrasound. There is also a 1.5 cm dermoid in the left ovary. This could explain the patient''s left pelvic pain. No free intraperitoneal fluid, air, or suspicious adenopathy, normal appendix visualized Electronically Signed: Hernesto Man MD at 14:00 EST , Transvaginal US 03/04/24 14:04 IMPRESSION: 7 cm x 6.2 cm x 5.6 cm uterine fibroid. 1.5 cm x 1.2 cm x 1.2 cm echogenic nodule in the left ovary. This may represent a dermoid. Electronically Signed: Maxime Aguiar MD at 15:05 EST , Discharge Plan Triage Chief Complaint: Abd Pain ED Midlevel Provider: Columba Piedra ED Provider: Genaro Olivier Dx/Rx/DC Orders Clinical Impression: Complex cyst of left ovary, Abdominal pain Instructions: ED Ovarian Cyst Prescriptions: New dicyclomine 10 mg capsule 20 mg PO TID PRN (Reason: abdominal pain) 7 Days Qty: 42 0RF No Action alprazolam 0.5 MG tablet 0.5 mg PO TID PRN PRN (Reason: Anxiety) naproxen 500 MG tablet 500 mg PO BID Qty: 20 0RF Primary Care Provider: Hillary Coffey Referrals: Hillary Coffey, [facility]OT[facility] [Primary Care Provider] - Activity Restrictions/Additional Instructions: Follow-up with gynecology and return for any other concerns. Print Language: [place] Disposition Disposition: Home, Self Care
[2024-03-04 12:51] LABS: Absolute Lymphocyte Count 2.58 X10^3/uL (0.83-4.51); Absolute Neutrophil Count 7.3 X10^3/uL (2.0-7.7); Basophil# 0.06 X10^3/uL; Basophil% 0.5 % (0-1); Eosinophil# 0.39 X10^3/uL; Eosinophils% 3.5 % (0-5); Hematocrit 40.1 % (37-47); Hemoglobin 13.4 g/dL (12.0-15.0); Lymphocyte # 2.58 X10^3/ul (0.83-4.51); Lymphocyte % 23.3 % (19-41); Mean Corp Hgb Conc 33.4 g/dL (32-36); Mean Corpuscular Hgb 29.7 pg (27.0-32.0); Mean Corpuscular Volume 88.9 fL (81-99); Monocyte# 0.69 X10^3/uL; Monocyte% 6.2 % (0-10); NRBC Flagged by Analyzer 0 % (0-5); Neutrophil # 7.32 X10^3/uL (2.7-7.7); Neutrophil % 66.1 % (47-70); Platelet Count 296 K/mm3 (150-450); RBC Distribution Width CV 12.5 % (11.6-14.6); RBC Distribution Width SD 40.8 fl (35.1-43.9); Red Blood Count 4.51 M/mm3 (4.2-5.4); White Blood Count 11.1 K/mm3 (4.4-11.0)
[2024-03-04 12:57] LABS: Mucous, Urine 0 SEEN /hpf (<or=2+); White Blood Cells 0 SEEN /hpf (0-5)
[2024-03-04 13:00] LABS: Color, Urine Straw (Yellow); Glucose, Dipstick Normal (Normal); Ketone-Dipstick Negative (Negative); Leukocyte Esterase-Dipstick Negative /ul (Negative); Nitrite-Dipstick Negative (Negative); Occult Blood-Urine 50 /ul (Negative); Protein-Dipstick Negative (Negative); Urine Bilirubin Dipstick Negative (Negative); Urine Clarity Clear (Clear); Urine Urobilinogen Normal (Normal)
[2024-03-04 13:05] LABS: Internal QC Validated? YES +Cl - CLEAR BKGD; Pregnancy, Urine Negative Negative
[2024-03-04 13:12] LABS: Bacteria 1+ /hpf (None Seen); Red Blood Cells-Urine 10-25 SEEN /hpf (0-5); Squamous Epithelial Cells - UA 5-10 SEEN /hpf (5-10)
[2024-03-04 13:18] LABS: ALB/GLOB Ratio 1.2 RATIO (0.9-2.4); AST(SGOT) 19 U/L (15-37); Alanine Aminotransfer ALT/SGPT 26 U/L (13-56); Albumin, Serum 3.7 g/dL (3.2-5.0); Alkaline Phosphatase 82 U/L (45-117); Anion Gap 5 (5-15); BUN 17 mg/dL (7-18); BUN/Creat Ratio 20.6 RATIO (10-20); Calcium,Total 9.1 mg/dL (8.5-10.1); Chloride 109 mmol/L (98-107); Creatinine, Serum 0.82 mg/dL (0.55-1.02); EST Glomerular Filtration Rate 82 mL/min (>60); Est Glom Filt Rate - Afr Amer 99 mL/min (>60); Globulin 3.1 g/dL (2.2-4.2); Glucose 126 mg/dL (74-106); Lipase 40 U/L (13-75); Potassium 3.9 mmol/L (3.5-5.1); Protein, Total 6.8 g/dL (6.4-8.2); Sodium Level 140 mmol/L (136-145)
--- NOTE | 2024-03-04 14:04 | US_ITS ---
STUDY: ULTRASOUND OF THE FEMALE PELVIS - COMPLETE REASON FOR EXAM: Female, 38 years old. LLQ pain LMP: March 02, 2024. TECHNIQUE: Transvaginal TECHNICAL QUALITY: Adequate. COMPARISON: Comparison is made with prior study dated November 03, 2015. FINDINGS: The uterus is anteverted and is in a midline position. The uterus measures 10.1 cm x 7.3 cm x 5.6 cm. Normal uterine cervix. The endometrium measures 6 mm in thickness, and is hyperechoic. There is no demonstrated endometrial mass. There is a 7 cm x 6.2 cm x 5.6 cm fundal fibroid. I.U.D. - The patient does not have an I.U.D. The right ovary is visualized. The right ovary measures 1.6 cm x 1.7 cm x 1.8 cm. There is no right ovarian cyst or ovarian mass. There is no visualized right adnexal mass or complex lesion. There is normal arterial and normal venous vascularity. The left ovary is visualized. The left ovary measures 2.2 cm x 5.7 cm x 3 cm. There is a 1.5 mm x 1.2 cm x 1.2 cm echogenic nodule in the left ovary. This may represent a focal fat deposit in a dermoid. There is no visualized left adnexal mass or complex lesion. There is normal arterial and normal venous vascularity. There is no fluid in the cul-de-sac. US/Transvaginal Non- IMPRESSION: 7 cm x 6.2 cm x 5.6 cm uterine fibroid. 1.5 cm x 1.2 cm x 1.2 cm echogenic nodule in the left ovary. This may represent a dermoid. Electronically Signed: Maxime Aguiar MD at 15:05 EST ,
[2024-03-04 14:21] VITALS: PULSE 66; RESP 16; O2SAT 100
[2024-03-04 15:49] VITALS: BP 126/84; PULSE 66; RESP 16; TEMP 36.4; O2SAT 100
== END 2024-03-04 15:50 | disposition home or self-care (01) ==
PROVIDERS: Physician Assistant; Emergency Provider Emergency Medicine; PCP Nurse Practitioner Family; Referring Provider Emergency Medicine; Visit Provider Emergency Medicine
DX: D27.1 Benign neoplasm of left ovary (principal); D25.9 Leiomyoma of uterus, unspecified; F17.210 Nicotine dependence, cigarettes, uncomplicated; F41.9 Anxiety disorder, unspecified; N85.8 Other specified noninflammatory disorders of uterus; Z98.51 Tubal ligation status
CPT/HCPCS: 74177; 76830; 80053; 81001; 81025; 83690; 85025; 99283; Q9967; A4216

== ENCOUNTER → 2024-10-08 | Outpatient (CLI) | payer MEDICAID, SELFPAY ==
--- NOTE | 2024-10-08 09:50 | RAD_ITS ---
EXAM: XR Cervical Spine, 4 or 5 Views CLINICAL INDICATION: RADICULOPATHY, CERVICAL REGION TECHNIQUE: Frontal, lateral and bilateral oblique views of the cervical spine. COMPARISON: No relevant prior studies available. FINDINGS: VERTEBRAE: Straightening of cervical spine alignment. Mild endplate degenerative changes and disc disease of C4-C7. No acute fracture. DISC SPACES: No acute findings. No significant narrowing. SOFT TISSUES: Unremarkable. RAD/Cerv Spine 2 or 3 Views IMPRESSION: Degenerative changes as above. Reading [facility]
--- OUTSIDE RECORDS SUMMARY | 2024-10-08 16:51 | XMS RPT_ITS | CCD ---
Author Organization [facility] Clini[employer]vt Care Team Providers Care Electric Serviceman Name Role Phone NILDA ORTEGA Unavailable Unavailable [email or web address], Unavailable Unavailable Diana, Anvita Unavailable Unavailable Rony Shraddha Mariposa Unavailable Kassy Ashley Primary Care Provider Kassy Ashley Primary Care Provider [phone] Kassy Ashley MD Primary Care Provider [phone] Kassy Ashley MD Primary Care Provider Kassy Ashley MD Primary Care Provider Unavailable Primary Care Provider Unavailabl e Unavailable Primary Care Provider Unavailabl e Cody Brown Primary Care Unavailable Clifton Multani Attending Unavailable Stephanie ROUTE SERVICE MANAGER - Cody PASTRANA Primary Care Provid er CODY BROWN Primary Care Unavailable SELF, SELF Referring Unavailable CODY BROWN Primary Care Unavailable CODY BROWN Attending Unavailable CODY BROWN Primary Care Unavailable CODY BROWN Attending Unavailable SELF, SELF Referring Unavailable Cody Brown CNP Primary Care Provider No Family, Physician Primary Care Unavailable CODY BROWN Primary Care Unavailable KASSY ASHLEY Primary Care Unavailable CODY BROWN Referring Unavailable CODY BROWN Primary Care Unavailable CODY BROWN Primary Care Unavailable CODY BROWN Referring Unavailable CODY BROWN Primary Care Unavailable No Family, Physician Primary Care Unavailable Pcp ROUTE SERVICE MANAGER, No Primary Care Provider Unavailabl Mercedes Burk MD Primary Care Provider [phone] MERCEDES GRANADOS Attending Unavailable FURNESS, MERCEDES T Primary Care Unavailable FURNESS, MERCEDES T Primary Care Unavailable Unavailable Primary Care Provider Unavailabl e Unavailable Primary Care Provider Unavailabl e FURNESS, MERCEDES T Referring Unavailable FURNESS, MERCEDES T Primary Care Unavailable AIMEE, HILLARY Primary Care Unavailable Aimee ROUTE SERVICE MANAGER-CONTROL CLERK REPAIRS, Hillary Primary Care Provider PROVIDER, UNKNOWN Admitting Unavailable ILIA REYES Attending Unavailable VIRGEN BURGESS Referring Unavailable PROVIDER, UNKNOWN Admitting Unavailable ILIA REYES Attending Unavailable VIRGEN BURGESS Attending Unavailable PROVIDER, UNKNOWN Admitting Unavailable ILIA REYES Referring Unavailable NOLA COOK Attending Unavailable PROVIDER, UNKNOWN Admitting Unavailable Ilia Reyes MD Unavailable Aimee MINE FOREMAN-C, [facility] Primary Care Provider [phone] Aimee MINE FOREMAN-C, Hillary Referring Provider Charan Lake Attending Provider [facility], [facility] Primary Care UnavailEmanuel Gregorio Attending Unavailable Emanuel Higuera Referring Unavailable Aimee VS, [facility] Referring Unavailabl e Aimee VSC, [facility] Primary Care Unavailabl e Aimee VSC, Hillary Attending Unavailabl e Aimee VSC, Hillary Referring Unavailabl e Aimee VSC, [facility] Primary Care Unavailabl e Corby Byrne Attending Unavailable Aimee VSC, [facility] Referring Unavailabl e Aimee VSC, [facility] Primary Care UnavailEmanuel Gregorio Attending Unavailable Balaji Philippe Attending Unavailable [facility], [facility] Primary Care Unavailabl e Aimee VSC, Hillary Referring Unavailabl e Charan Lake Attending Unavailable Aimee VS, [facility] Primary Care Unavailabl e Aimee VSC, [facility] Primary Care Unavailabl e Aimee VSC, Hillary Attending Unavailabl e Genaro Olivier Attending Unavailable Genaro Olivier Referring Unavailable [facility], [facility] Primary Care Unavailabl e Mercado Maurice Attending Unavailable Care Physician, No Primary Primary Care Unava ilable Allergies Allergy Classification Reported Allergen(s) Allergy Type Date of Onset Reaction(s) Facility Cephalosporins (antibiotic) (1 source) Cephalexin Drug Allergy 05-16-19 13 [facility] Quinolones (antibiotic) (1 source) Ciprofloxacin Drug Allergy 05-16-19 13 [facility] Sulfamethoxazole / Trimethoprim (1 source) Sulfamethoxazole / Trimethoprim Drug Allergy 05-16-19 13 [facility] (1 source) Cephalexin; Translations: [Keflex] Drug Allergy [facility] Work Phone: (1 source) Ciprofloxacin; Translations: [Cipro] Drug Allergy [facility] Work Phone: (20 sources) Codeine; Translations: [CODEINE] Drug Allergy 06-23-19 24 Other [facility] (2 sources) Penicillins Allergy to substance (disorder) [facility] Work Phone: (20 sources) Cephalexin; Translations: [cephalexin] Drug Allergy 05-16-19 13 [place], [place] (20 sources) Ciprofloxacin; Translations: [ciprofloxacin] Drug Allergy 05-16-19 13 [place], [place] (20 sources) Sulfamethoxazole / Trimethoprim; Translations: [SULFAMETHOXAZOLE-TR IMETHOPRIM] Drug Allergy 05-16-19 13 [place], [place] (20 sources) Hydroxyquinolines Propensity to adverse reactions to drug 04-10-19 19 [place], [place] (20 sources) Sulfamethoxazole; Translations: [sulfamethoxazole] Drug Allergy 03-26-20 13 [place], [facility] (4 sources) Trimethoprim; Translations: [trimethoprim] Drug Allergy 11-03-19 16 [facility] Rep[facility] (3 sources) Cephalexin; Translations: [cephalexin monohydrate] Drug Allergy 11-03-19 16 [facility] (3 sources) Ciprofloxacin; Translations: [ciprofloxacin HCl] Drug Allergy 11-03-19 16 [facility] (20 sources) FLUoxetine; Translations: [FLUOXETINE HCL] Drug Allergy 03-19-20 Other: See Comments, Other [facility] Work Phone: (20 sources) Sertraline; Translations: [SERTRALINE HCL] Drug Allergy 03-19-20 Other: See Comments, Other [facility] Work Phone: (1 source) Ciprofloxacin Drug Allergy 09-16-[address] [facility] Repository Medications Current Medications Medication Drug Class(es) Dates Sig (Normalized) Sig (Original) acetaminophen 325 mg / HYDROcodone bitartrate 5 mg oral tablet (1 source) Opioid Agonist Start: 05-11-2020 take 1 tablet by mouth every four hours as needed hydroCODone-acetam inophen 5-325 MG tablet Indications: Sprain of right ankle, unspecified ligament, initial encounter Take 1 tablet by mouth every 4 hours as needed for up to 3 days. 5 tablet 0 05/11/2020 Active ALPRAZolam 0.5 mg oral tablet (20 sources) Benzodiazepine Start: 08-10-2020 End: 09-10-2020 take 1 tablet by mouth four times daily for anxiety ALPRAZolam (XANAX) 0.5 MG tablet Indications: Anxiety take 1 tablet by mouth four times a day if needed for anxiety 120 tablet 2 08/10/2020 09/10/2020 Active Start: 05-28-2020 End: 06-27-2020 take 1 tablet by mouth four times daily for anxiety ALPRAZolam (XANAX) 0.5 MG tablet Indications: Anxiety take 1 tablet by mouth four times a day if needed for anxiety 120 tablet 2 05/28/2020 06/27/2020 Active Start: 04-17-2020 End: 05-17-2020 take 1 tablet by mouth four times daily as needed for anxiety ALPRAZolam (XANAX) 0.5 MG tablet Indications: Anxiety Take 1 tablet by mouth 4 times daily as needed for Anxiety for up to 30 days. 120 tablet 0 04/17/2020 05/17/2020 Active Start: 07-12-2019 End: 08-11-2019 take 1 tablet by mouth four times daily as needed for anxiety ALPRAZolam (XANAX) 0.5 MG tablet Indications: Anxiety Take 1 tablet by mouth 4 times daily as needed for Anxiety for up to 30 days. 120 tablet 0 07/12/2019 08/11/2019 Active Start: 06-07-2019 End: 07-07-2019 take 1 tablet by mouth four times daily as needed for anxiety ALPRAZolam (XANAX) 0.5 MG tablet Indications: Anxiety Take 1 tablet by mouth 4 times daily as needed for Anxiety for up to 30 days. 120 tablet 0 06/07/2019 07/07/2019 Active Start: 04-26-2019 End: 05-26-2019 take 1 tablet by mouth four times daily as needed for anxiety ALPRAZolam (XANAX) 0.5 MG tablet Indications: Anxiety Take 1 tablet by mouth 4 times daily as needed for Anxiety for up to 30 days. 120 tablet 0 04/26/2019 05/26/2019 Active Start: 03-15-2019 End: 04-14-2019 take 1 tablet by mouth four times daily as needed for anxiety ALPRAZolam (XANAX) 0.5 MG tablet Indications: Anxiety Take 1 tablet by mouth 4 times daily as needed for Anxiety for up to 30 days. 120 tablet 0 03/15/2019 04/14/2019 Active Start: 11-16-2018 End: 12-16-2018 take 1 tablet by mouth four times daily as needed for anxiety ALPRAZolam (XANAX) 0.5 MG tablet Indications: Anxiety Take 1 tablet by mouth 4 times daily as needed for Anxiety for up to 30 days. 120 tablet 0 11/16/2018 12/16/2018 Active Start: 10-14-2018 End: 11-13-2018 take 1 tablet by mouth four times daily as needed for anxiety ALPRAZolam (XANAX) 0.5 MG tablet Indications: Anxiety Take 1 tablet by mouth 4 times daily as needed for Anxiety for up to 30 days. 120 tablet 0 10/14/2018 11/13/2018 Active Start: 07-01-2014 take 1 tablet by mateus three times daily as needed for anxiety Alprazolam 0.5 MG tablet Active 0.5 mg PO 3 TIMES DAILY NEEDED as needed for Anxiety July 01, 2014 12:00am take 2 tablets by mo [facility] three times daily Xanax Oral Tablet 0.5 mg take 2 tablets (1 mg) by oral route 3 times per day Comment on above: Take 1 tablet by mateus three times daily as needed for Anxiety. amoxicillin 875 mg oral tablet (1 source) Penicillin-class Antibacterial Start: 9 End: 9 take 1 tablet by mouth twice daily amoxicillin (AMOXIL) 875 MG tablet Take 1 tablet by mouth 2 times daily for 10 days 20 tablet 0 12/15/2018 12/25/2018 Active amoxicillin 875 mg / clavulanate 125 mg oral tablet (3 sources) Penicillin-class Antibacterial Start: 0 End: 0 take 1 tablet by mouth twice daily amoxicillin-clavula analia (AUGMENTIN) 875-125 MG per tablet Take 1 tablet by mouth 2 times daily for 10 days 20 tablet 0 07/25/2019 08/04/2019 Active Start: 07-25-2019 End: 07-25-2019 amoxicillin-clavulanate (AUG MENTIN) 875-125 MG per tablet 1 tablet benzoyl peroxide 100 mg/ml medicated liquid soap (18 sources) Start: 03-12-2021 Benzoyl Peroxi de (BENZAC AC) 10 % external wash Indications: Acne vulgaris Apply topically 2 times daily. Reduce usage if excessive drying or peeling occurs. 140 g 1 03/12/2021 Active Start: 05-24-2020 Benzoyl Peroxi de (BENZAC AC) 10 % external wash Indications: Acne vulgaris Apply topically 2 times daily. Reduce usage if excessive drying or peeling occurs. 140 g 1 05/24/2020 Active Start: 02-15-2020 Benzoyl Peroxi de (BENZAC AC) 10 % external wash Indications: Acne vulgaris Apply topically 2 times daily. Reduce usage if excessive drying or peeling occurs. 140 g 1 02/15/2020 Active Start: 07-12-2019 Benzoyl Peroxi de (BENZAC AC) 10 % external wash Indications: Acne vulgaris Apply topically 2 times daily. Reduce usage if excessive drying or peeling occurs. 140 g 1 07/12/2019 Active Start: 02-10-2019 End: 03-23-2019 Benzoyl Peroxide (BENZAC AC) 10 % external wash Indications: Acne vulgaris Apply topically 2 times daily. Reduce usage if excessive drying or peeling occurs. 140 g 1 02/10/2019 03/23/2019 Discontinued clindamycin 10 mg/ml topical solution (20 sources) Lincosamide Antibacterial Start: 05-22-2021 clindamycin (CLEOCIN T) 1 % external solution Indications: Acne vulgaris APPLY TOPICALLY 2 TIMES A DAY AFTER ACNE IS CLEANED WITH BENZOYL PEROXIDE 60 mL 1 05/22/2021 Active Start: 03-17-2020 clindamycin (C LEOCIN-T) 1 % external solution Indications: Acne vulgaris Apply topically 2 times daily after acne is cleaned with benzoyl peroxide. 60 mL 1 03/17/2020 Active Start: 07-26-2019 End: 07-26-2019 clindamycin (CLEOCIN) 600 mg in dextrose 5 % 50 mL IVPB Start: 02-10-2019 End: 03-23-2019 clindamycin (CLEOCIN-T) 1 % external solution Indications: Acne vulgaris Apply topically 2 times daily after acne is cleaned with benzoyl peroxide. 60 mL 1 02/10/2019 03/23/2019 Discontinued End: 06-30-2019 CLINDAMYCIN HCL PO Take by m outh 0 06/30/2019 Discontinued (LIST CLEANUP) CLINDAMYCIN HCL PO Take by mouth 0 Active cyclobenzaprine hydrochloride 10 mg oral tablet (1 source) Muscle Relaxant Start: 07-29-2022 take 0.5-1 tablets by mouth three times daily as needed for pain Cyclobenzaprine 10 MG tablet Indications: Acute pain of right shoulder , Radicular pain in right arm Take 0.5-1 tablets by mouth 3 times daily as needed for Muscle spasms or Moderate Pain. 30 tablet 0 07/29/2022 Active 24 hr desvenlafaxine succinate 25 mg extended release oral tablet (3 sources) Serotonin and Norepinephrine Reuptake Inhibitor Start: 10-04-2016 take 1 tablet by mouth once daily desvenlafaxine succinate (PRISTIQ) 25 mg Tb24 Indications: Anxiety , Depression, unspecified depression type Take 25 mg by mouth once daily. 90 tablet 10/04/2016 Active Comment on above: Take 25 mg by mouth once daily. dicyclomine hydrochloride 10 mg oral capsule (1 source) Anticholinergic Start: 03-04-2024 take 2 capsules by mouth three times daily as needed for pain Dicyclomine 10 mg capsule Active 20 mg PO THREE TIMES A DAY as needed for abdominal pain 42 March 04, 2024 4:20pm doxycycline monohydrate 100 mg oral capsule (4 sources) Tetracycline-class Drug Start: 09-15-2024 take 1 capsule by mouth twice daily Doxycycline Monohydrate 100 mg capsule Active 100 mg PO TWICE A DAY September 15, 2024 12:00am Start: 06-23-2023 End: 06-30-2023 take 1 tablet by mouth twice daily doxycycline (Vibra-Tabs) 100 mg tablet Indications: Routine general medical examination at a health care facility Take 1 tablet (100 mg) by mouth 2 times a day for 7 days. Take with a full glass of water and do not lie down for at least 30 minutes after. 14 tablet 0 06/23/2023 06/30/2023 Active furosemide 20 mg oral tablet (2 sources) Loop Diuretic Start: 08-10-2020 End: 08-26-2020 take 1 tablet by mouth once daily furosemide (LASIX) 20 MG tablet Take 1 tablet by mouth daily for 3 days 3 tablet 0 08/23/2020 08/26/2020 Active Lactobacillus acidophilus (3 sources) LACTOBACILLUS ACIDOPHILUS (PROBIOTIC ORAL) Take by mouth once daily. Active LACTOBACILLUS AC IDOPHILUS (PROBIOTIC ORAL) Take by mouth once daily. 0 Active Comment on above: Take by mouth once d aily. methocarbamol 750 mg oral tablet (1 source) Muscle Relaxant Start: End: take 1 tablet by mouth four times daily methocarbamol (ROBAXIN-750) 750 MG tablet Take 1 tablet by mouth 4 times daily for 10 days 40 tablet 0 01/02/2022 01/12/2022 Active metroNIDAZOLE 500 mg oral tablet (2 sources) Nitroimidazole Antimicrobial Start: End: take 1 tablet by mouth twice daily metronidazole (FLAGYL) 500 MG tablet Indications: Acute vaginitis Take 1 Tablet by mouth 2 times daily for 7 days. 14 Tablet 02/11/2024 02/18/2024 Active mupirocin 0.02 mg/mg topical ointment (1 source) RNA Synthetase Inhibitor Antibacterial Start: End: mupirocin (BACTROBAN) 2 % ointment Apply topically 3 times daily. 15 g 0 12/15/2018 12/22/2018 Active naproxen 500 mg oral tablet (8 sources) Nonsteroidal Anti-inflammatory Drug Start: take 1 tablet by mouth twice daily at mealtime naproxen (NAPROSYN) 500 MG tablet Take 1 tablet by mouth 2 times daily (with meals) 14 tablet 1 07/11/2022 Active predniSONE 10 mg oral tablet (3 sources) Start: take 4 tablets by mouth once daily, then take 3 tablets by mouth once daily, then take 2 tablets by mouth once daily, then take 1 tablet by mouth once daily Prednisone 10 mg tablet Active 10 mg PO DAILY September 15, 2024 12:00am 4 tablets daily x3 days, then 3 tablets daily x3 days, then 2 tablets daily x3 days, then 1 tablet daily x3 days Start: 02-12-2024 End: 02-24-2024 Prednisone 5 mg tablets,dose pack Discontinued 0 PO per package directions 48 February 12, 2024 1:00am February 23, 2024 1:00am February 24, 2024 1:08am PO PER PKG DIR Start: 07-11-2022 End: 07-17-2022 take 6 tablets by mouth once daily, then take 5 tablets by mouth once daily, then take 4 tablets by mouth once daily, then take 3 tablets by mouth once daily, then take 2 tablets by mouth once daily, then take 1 tablet by mouth once daily predniSONE (DELTASONE) 10 MG tablet Take 6 tablets by mouth daily for 1 day, THEN 5 tablets daily for 1 day, THEN 4 tablets daily for 1 day, THEN 3 tablets daily for 1 day, THEN 2 tablets daily for 1 day, THEN 1 tablet daily for 1 day. 21 tablet 0 07/11/2022 07/17/2022 Active Vit-Fe Fumarate-FA ( 1+1 PO) (2 sources) End: 03-23-2019 Vit-Fe Fumarate-FA ( 1+1 PO) Take by mouth 0 03/23/2019 Discontinued Vit-Fe Fumarate-FA ( 1+1 PO) Take by mouth 0 Active propranolol hydrochloride 10 mg oral tablet (1 source) beta-Adrenergic Al Start: 06-19-2021 take 1 tablet by mouth three times daily propranolol (INDERAL) 10 MG tablet Indications: Anxiety Take 1 tablet by mouth 3 times daily 90 tablet 2 06/19/2021 Active Completed/Discontinued Medications Medication Drug Class(es) Dates Sig (Normalized) Sig (Original) chlorhexidine gluconate 1.2 mg/ml mouthwash (1 source) Start: 08-02-2019 End: 07-29-2022 chlorhexidine 0.12 % Solution oral solution Rinse mouth with 15mL for 30sec then spit BID 473 mL 0 08/02/2019 07/29/2022 Discontinued CLINDAMYCIN-BENZOYL PER-CLEANS EX (1 source) End: 07-29-2022 CLINDAMYCIN-BENZOYL PER-CLEANS EX Apply topically. 0 07/29/2022 Discontinued etodolac 300 mg oral capsule (4 sources) Nonsteroidal Anti-inflammatory Drug Start: 01-02-2022 End: 07-11-2022 etodolac (LODINE) 300 MG capsule Take 1 capsule by mouth in the morning and 1 capsule at noon and 1 capsule in the evening. 15 capsule 0 01/02/2022 07/11/2022 Discontinued Start: 07-26-2019 take 1 capsule by mo [facility] every eight hours etodolac (LODINE) 300 MG capsule Take 1 capsule by mouth every 8 hours 30 capsule 0 07/26/2019 Active ibuprofen 200 mg oral tablet (4 sources) Nonsteroidal Anti-inflammatory Drug Start: 03-09-2024 End: 03-09-2024 ibuprofen (MOTRIN) tablet Start: 03-06-2024 take 1 tablet by [facility] every six hours for pain ibuprofen 600 mg tablet Indications: Uterine leiomyoma, unspecified location , Cyst of left ovary Take 1 tablet (600 mg) by mouth every 6 hours if needed for moderate pain (4 - 6) for up to 30 doses. 30 tablet 03/06/2024 Active Start: 08-02-2019 End: 07-29-2022 take 1 tablet by mouth every six hours as needed ibuprofen 600 MG tablet Take 1 tablet by mouth every 6 hours as needed. 10 tablet 0 08/02/2019 07/29/2022 Discontinued End: 07-11-2022 take 2 tablets by mouth every six hours as needed for pain ibuprofen (ADVIL;MOTRIN) 200 MG tablet Take 2 tablets by mouth every 6 hours as needed for Pain 0 07/11/2022 Discontinued iopamidol (ISOVUE-370) 76 % injection 80 mL (1 source) Start: 07-26-2019 End: 07-26-2019 iopamidol (ISOVUE-370) 76 % injection 80 mL 1 ml ketorolac tromethamine 30 mg/ml injection (2 sources) Nonsteroidal Anti-inflammatory Drug, Cyclooxygenase Inhibitor Start: 03-06-2024 End: 03-06-2024 15 mg, intravenous, Once, On 03/06/24 at 1210, For 1 dose Start: 07-26-2019 End: 07-26-2019 ketorolac (TORADOL) injectio n 30 mg sertraline 50 mg oral tablet (2 sources) Serotonin Reuptake Inhibitor Start: 07-05-2022 End: 07-29-2022 take 0.5 tablet by mouth once daily, then take 1 tablet by mouth once daily Sertraline 50 MG tablet Take 0.5 tablets by mouth daily for 8 days, THEN 1 tablet daily. 45 tablet 0 07/05/2022 07/29/2022 Discontinued Start: 12-02-2018 End: 12-15-2018 take 1 tablet by mouth once daily sertraline (ZOLOFT) 50 MG tablet Indications: Anxiety Take 1 tablet by mouth daily 30 tablet 1 12/02/2018 12/15/2018 Discontinued (Side effects) Problems Active Problems Problem Classification Problem Date Documented Da te Episodic/Chronic Administrative/social admission (2 sources) Encounter for nonprocreative genetic counseling; Translations: [Patient care statuses] Onset: 04-09-2024 04-09-2024 Episodic Anxiety disorders (20 sources) Anxiety state, unspecified; Translations: [Posttraumatic stress disorder] Onset: 03-19-2018 04-10-2018 Chronic Benign neoplasm of uterus (3 sources) Leiomyoma of uterus, unspecified; Translations: [Uterine leiomyoma] Onset: 03-06-2024 Episodic Cardiac dysrhythmias (15 sources) Sinus bradycardia; Translations: [Sinus bradycardia] 04-10-2018 Chronic Conditions associated with dizziness or vertigo (1 source) Dizziness; Translations: [Dizziness and giddiness] Onset: 05-03-2022 05-03-2022 Episodic Coronary atherosclerosis and other heart disease (1 source) Other forms of angina pectoris; Translations: [Other forms of angina pectoris] Onset: 08-07-2021 Chronic Disorders of teeth and jaw (8 sources) Dental caries pit and fissure; Translations: [Dental caries of smooth surface] Onset: 04-08-2017 Episodic E Codes: Adverse effects of medical drugs (1 source) Adverse reaction to drug; Translations: [Unspecified adverse effect of unspecified drug, medicinal and biological substance] 03-13-2023 Episodic Esophageal disorders (1 source) Gastro-esophageal reflux disease with esophagitis; Translations: [Gastroesophageal reflux disease with esophagitis without hemorrhage] Chronic Immunizations and screening for infectious disease (1 source) Patient encounter status; Translations: [Encounter for screening for infections with a predominantly sexual mode of transmission] 03-09-2024 Episodic Inflammatory diseases of female pelvic organs (3 sources) Acute vaginitis; Translations: [Acute vaginitis] Onset: 02-11-2024 02-11-2024 Episodic Malaise and fatigue (1 source) Fatigue; Translations: [Fatigue, unspecified type] Episodic Mood disorders (6 sources) Depressive disorder; Translations: [Depression] Onset: 03-31-2004 Chronic Nonmalignant breast conditions (2 sources) Breast tenderness; Translations: [Breast tenderness] Episodic Nonmalignant breast conditions (2 sources) Lump in lower inner quadrant of right breast; Translations: [Mass of lower inner quadrant of right breast] Nonspecific chest pain (3 sources) Atypical chest pain; Translations: [Other chest pain] Onset: 05-03-2022 Episodic Other connective tissue disease (1 source) Muscle spasm of cervical muscle of neck; Translations: [Other muscle spasm] Episodic Other connective tissue disease (5 sources) Neuralgia and neuritis, unspecified; Translations: [Neuralgia and neuritis, unspecified] Onset: 07-29-2022 Episodic Other connective tissue disease (2 sources) Radicular pain; Translations: [Neuralgia and neuritis, unspecified] Episodic Other connective tissue disease (1 source) Neuralgia; Translations: [Neuralgia and neuritis, unspecified] Onset: 05-03-2022 05-03-2022 Episodic Other connective tissue disease (1 source) Pain in upper limb; Translations: [Pain in arm, unspecified] Onset: 05-03-2022 05-03-2022 Episodic Other ear and sense organ disorders (1 source) Otalgia of right ear; Translations: [Otalgia of right ear] Other eye disorders (2 sources) Inflammatory disorder of the eye; Translations: [Other specified disorders of eye and adnexa] Onset: 05-03-2022 05-03-2022 Episodic Other injuries and conditions due to external causes (1 source) Injury of right ankle; Translations: [Unspecified injury of right ankle, initial encounter] Onset: 05-03-2022 05-03-2022 Episodic Other lower respiratory disease (2 sources) Cough; Translations: [Cough] Onset: 05-03-2022 05-03-2022 Episodic Other non-traumatic joint disorders (3 sources) Shoulder pain; Translations: [Pain in right shoulder] Episodic Other non-traumatic joint disorders (5 sources) Pain in right shoulder; Translations: [Pain in right shoulder] Onset: 07-29-2022 Episodic Other non-traumatic joint disorders (1 source) Ankle instability; Translations: [Other instability, unspecified ankle] Onset: 05-03-2022 05-03-2022 Episodic Other non-traumatic joint disorders (1 source) Arthralgia of the ankle and/or foot; Translations: [Pain in unspecified ankle and joints of unspecified foot] Onset: 05-03-2022 05-03-2022 Episodic Other non-traumatic joint disorders (1 source) Acute ankle pain; Translations: [Pain in right ankle and joints of right foot] 03-05-2023 Episodic Other nutritional; endocrine; and metabolic disorders (1 source) Obese class I; Translations: [Obesity, unspecified] Onset: 05-03-2022 05-03-2022 Chronic Other nutritional; endocrine; and metabolic disorders (2 sources) Abnormal weight gain; Translations: [Abnormal weight gain] Onset: 05-03-2022 Episodic Other skin disorders (2 sources) Facial swelling ; Translations: [Localized swelling, mass and lump, head] Onset: 05-03-2022 05-03-2022 Episodic Other upper respiratory infections (4 sources) Streptococcal sore throat; Translations: [Streptococcal pharyngitis] Onset: 05-03-2022 05-03-2022 Episodic Ovarian cyst (4 sources) Unspecified ovarian cyst, left side; Translations: [Cyst of left ovary] Onset: 03-06-2024 Episodic Peripheral and visceral atherosclerosis (1 source) Peripheral vascular disease, unspecified; Translations: [Peripheral vascular disease, unspecified] Onset: 08-07-2021 Chronic Residual codes; unclassified (1 source) Edema of foot; Translations: [Localized edema] Episodic Residual codes; unclassified (1 source) Family history of malignant neoplasm of breast; Translations: [Family history of malignant neoplasm of breast] Onset: 04-09-2024 Episodic Residual codes; unclassified (1 source) Family history of malignant neoplasm of ovary; Translations: [Family history of malignant neoplasm of ovary] Onset: 04-09-2024 Episodic Residual codes; unclassified (1 source) Family history of malignant neoplasm, unspecified; Translations: [Family history of malignant neoplasm, unspecified] Onset: 03-30-2024 Episodic Residual codes; unclassified (1 source) Family history of breast cancer; Translations: [Family history of malignant neoplasm of breast] 04-09-2024 Episodic Residual codes; unclassified (1 source) Family history of malignant neoplasm of ovary; Translations: [Family history of malignant neoplasm of ovary] 04-09-2024 Episodic Residual codes; unclassified (2 sources) Family history of cancer; Translations: [Family history of malignant neoplasm, unspecified] 04-21-2024 Episodic Skin and subcutaneous tissue infections (3 sources) Impetigo; Translations: [Cellulitis of submental space ] Onset: 05-03-2022 05-03-2022 Episodic Spondylosis; intervertebral disc disorders; other back problems (1 source) Backache; Translations: [Dorsalgia, unspecified] Onset: 05-03-2022 05-03-2022 Episodic Superficial injury; contusion (2 sources) Abrasion of wrist, infected; Translations: [Abrasion of unspecified wrist, initial encounter] Onset: 05-03-2022 05-03-2022 Episodic Unclassified (1 source) Sprain of left ankle; Translations: [Sprain of left ankle, unspecified ligament, initial encounter] Past or Other Problems Problem Classification Problem Date Documented Date Episodic/Chronic Abdominal pain (3 sources) Pain in pelvis; Translations: [Pelvic and perineal pain] Onset: 04-06-2024 04-19-2024 Episodic Cardiac dysrhythmias (15 sources) Sinus bradycardia; Translations: [Bradycardia, unspecified] Onset: 05-03-2022 04-10-2018 Episodic Hemorrhage during ; abruptio placenta; placenta previa (2 sources) Threatened miscarriage in first trimester; Translations: [Threatened ] Onset: 05-04-2013 Resolved: 07-08-2014 05-03-2022 Episodic Other complications of (1 source) Maternal drug exposure; Translations: [Supervision of other high risk pregnancies, first trimester] Onset: 05-04-2013 Resolved: 07-08-2014 03-26-2021 Episodic Other complications of (1 source) Depressive disorder; Translations: [Other mental disorders complicating , unspecified trimester] Onset: 05-04-2013 Resolved: 07-08-2014 07-08-2014 Episodic Other complications of (1 source) High risk ; Translations: [Supervision of high risk , unspecified, unspecified trimester] Onset: 05-20-2013 Resolved: 07-08-2014 03-26-2021 Episodic Other complications of (1 source) Urinary tract infection in ; Translations: [Unspecified infection of urinary tract in , unspecified trimester] Onset: 06-22-2013 Resolved: 07-08-2014 03-26-2021 Episodic Other connective tissue disease (1 source) Other muscle spasm; Translations: [Other muscle spasm] Onset: 01-02-2022 Episodic Other connective tissue disease (3 sources) Synovial cyst of popliteal space [Kulkarni], left knee; Translations: [Synovial cyst of left popliteal space] Onset: 02-12-2024 02-12-2024 Episodic Other lower respiratory disease (1 source) Pleurodynia; Translations: [Pleurodynia] Onset: 05-18-2017 Episodic Other lower respiratory disease (1 source) Dyspnea, unspecified; Translations: [Dyspnea, unspecified] Onset: 08-07-2021 Episodic Other and delivery including normal (20 sources) Delivery normal; Translations: [Encounter for full-term uncomplicated delivery] Onset: 11-09-2013 11-09-2013 Episodic Other screening for suspected conditions (not mental disorders or infectious disease) (16 sources) Mammographic breast density; Translations: [Decreased vitamin D] Onset: 04-24-2022 Episodic Residual codes; unclassified (1 source) History of clinical finding in subject; Translations: [Personal history of other specified conditions] Onset: 05-04-2013 Resolved: 07-08-2014 03-26-2021 Episodic Residual codes; unclassified (1 source) FH: Bennington's chorea; Translations: [Family history of epilepsy and other diseases of the nervous system] Onset: 05-04-2013 Resolved: 07-08-2014 03-26-2021 Episodic Screening and history of mental health and substance abuse codes (1 source) Stopped smoking; Translations: [Personal history of nicotine dependence] Onset: 05-04-2013 Resolved: 07-08-2014 03-26-2021 Episodic Spontaneous (1 source) Miscarriage Episodic Results Test Name Value Interpretation Reference Range Facility Urgent Care Visit Reporton 0 09-15-2024 Urgent Care Visit Report [facility] [address], [address] [place] [address] OFFICE VISIT Date of Service: 09/15/24 MR#: [id number] Acct: [id number] Name: KHADRA NIEVES Rep #: [id number] 25 : 1985 Provider: EUGENIO Brush Age/Sex: 38/F Location: [facility] Status: Signed Intake Vital Signs 03/04/24 12:22 09/15/24 06:50 Height 5 ft 9 in BP 110/64 Blood Pressure Location Lt brachial Position Sitting Respiration 14 Pulse 58 L Pulse Source NIBP Temp 98.0 F Temp Source Oral Pulse Oximetry (%) 98 Oxygen Delivery Method room air Intake Visit Reasons: CONCERN FOR INSECT BITE/POISON BRET Chief Complaint: right thigh infection, rash Photograph Printer Required: No Is patient in pain?: Yes Allergies cephalexin monohydrate (From Keflex) Allergy (Verified 09/15/24 06:51) Hives ciprofloxacin (From Cipro) Allergy (Verified 09/15/24 06:51) Hives ciprofloxacin HCl (From Cipro) Allergy (Verified 09/15/24 06:51) Hives sulfamethoxazole (From Bactrim) Allergy (Verified 09/15/24 06:51) Hives trimethoprim (From Bactrim) Allergy (Verified 09/15/24 06:51) Hives Is last menstrual period known: No Post menopausal: No Patient : No Have you fallen in the past year?: No Nurse's Note: right upper thigh infection since this morning. + redness, + induration, no active drainage. also rash to bilateral legs and right arm x6 days with itching, concern for poison bret [facility] Medical History Palpable mass of soft tissue of knee Ankle fracture, right Ankle fracture, left Surgical History History of tubal ligation Status post surgical removal of both fallopian tubes Social History (Updated 03/04/24 @ 13:19 by Tia Theodore) household members: spouse and family housing: house Smoking Status: Current every day smoker tobacco type: cigarettes alcohol intake: never HPI HPI Chief Complaint: right thigh infection, rash Details: KHADRA NIEVES, is a 38 F who presents to the office today for initial evaluation status post poison bret exposure after pulling weeds in her yard approximately week ago. Additionally, new onset right inguinal lesion with localized pain/swelling noticed this morning upon awakening (unsure if insect bite or infected hair follicle, she says states). Patient states she has used multiple nsub-[id number]-[id number] topical applications as well as oral Benadryl without relief of symptoms. She notes pruritic rash to BUE, BLE with excoriations. No complaints of constricted/pruritic airway or chest pain/shortness of breath/wheeze/dyspnea on exertion. No other associated symptoms and no other alleviating/aggravati ng factors. ROS Const Constitutional: No other (As above) Exam Const General: cooperative, healthy appearing and no acute distress Nutritional Appearance: average body habitus Orientation: alert, awake and oriented x3 HENMT Head: normal to inspection Ears: hearing grossly normal bilaterally, external ears normal Nose: external nose normal, nares normal, septum normal and no nasal discharge Face and sinus: normal facial exam, sinuses nontender and face symmetric Mouth: oral mucosae normal, lip normal, tongue normal and oropharynx normal Throat: posterior oropharynx normal, tonsils normal, uvula midline and no postnasal drainage Eyes General: appearance normal, both eyes and all related structures Neck Neck: normal visual inspection, full ROM, no lymphadenopathy, no meningeal signs and supple Neck mass: No Thyroid: thyroid normal Lymphatic: no lymphadenopathy noted Chest Chest palpation inspection: normal inspection of the chest Resp Effort Inspection: normal respiratory effort and able to speak in complete sentences Cardio Rate: Bradycardic Pulses: radial pulses present GI Inspection: normal to inspection Skin General: no rashes or lesions noted Other: Except clustered vesicular rash to BUE, BLE. Also approximately 3 cm diameter erythematous raised lesion to right inguinal region with central hair follicle inflammation appreciated upon inspection without discharge from site Neuro General: patient alert, patient awake and patient oriented x3 Cognition: normal cognition Speech: speech normal Extrem General: normal to inspection Psych Appearance: grossly normal Mental Status: mental status grossly normal Mood: congruent mood Affect: normal affect Speech and Movement: speech and movement normal Attitude: cooperative Diagnoses Contact dermatitis due to poison bret L23.7 Folliculitis L73.9 Assessment and Plan Assessment and Plan (1) Contact dermatitis due to poison bret: Status: Acute (2) Folliculitis: Status: Acute Plan: Prednisone and doxycycl (more content not included)... Normal [facility] GENETIC TESTINGon 04-27-2024 [facility] Progress Noteson 04-08-2024 Space Operations Officer Authentication Interface Message Text Documentation: Mode: Telephone Patient Home Phone: Patient Work Phone: Patient Cell Preferred phone: [phone] Consent: I confirmed patient understanding of the risks and benefits of telehealth visits and obtained consent to proceed with the telehealth visit. Location of Patient: Home of patient Phone numbers Preferred Telephone visit was conducted with: Patient (Khadra Nieves) Reason for visit/issues reviewed: Family history of breast and ovarian cancers, to discuss genetic testing options CANCER GENETIC CLINIC EVALUATION Patient Name: Khadra Nieves : 1985 Referred by: Ilia Reyes MD [address] [place] [address] HISTORY OF PRESENT ILLNESS: Khadra Nieves is a 38 year old female referred for a family history of cancer and to discuss genetic testing options. CANCER MEDICAL HISTORY: Ms. Nieves does not have a personal history of cancer. ADDITIONAL MEDICAL HISTORY: No past medical history on file. FAMILY HISTORY: A four generation pedigree was obtained, and the significant findings are noted below. Cousin, ovarian cancer, dx 36y Cousin, passed from ovarian cancer at age 42y - Cousin, breast cancer, dx 22y - Mother, breast cancer, possible genetic testing, result information unavailable - Aunt, breast cancer PHYSICAL EXAM: Deferred COUNSELING: In about 5-10% of families, there is an inherited genetic finding that can make a person more susceptible to developing certain forms of cancer. Knowing whether an inherited risk is present in a family can provide useful information and care options that promote cancer prevention, risk reduction, and/or early detection. The option of genetic testing via a cancer panel (which would simultaneously analyze multiple cancer susceptibility genes) was presented. The CancerNextExpanded panel (76 genes) offered by [employer] was presented. We discussed that each gene on the panel has its own associated cancer types and risk levels, and that management plans would be made according to the current information regarding those risks for any gene(s) for which abnormal results are identified. The purpose of testing and potential outcomes for Ms. Nieves and her family were discussed. Lastly, we discussed the optional nature of testing. IMPRESSION: -Genetic testing recommendations: Based on the histories reported at this visit, genetic testing is recommended via a general cancer gene panel. -Screening recommendations: If genetic testing is positive, management recommendations will be made at that time according to available current national practice guidelines for any gene(s) in which abnormal results are obtained. If genetic testing is negative or not completed, it is recommended that Ms. Nieves proceed with cancer screenings as per her personal medical history and family history of cancer. OUTCOME: - Genetic testing in Ms. Nieves's family is recommended. - Rizwana's insurance pre-auth process was explained. She agreed with this plan. - Ms. Nieves elected to proceed with testing via the CancerNextExpanded panel (76 genes). - Order placed in [employer]. - Results expected in 2-3 weeks from time of draw. - Ms. Nieves will be contacted with her results, once available - by [employer] if normal/VUS, by phone call if abnormal - she agreed to this plan. - Further recommendations for Ms. iNeves and her family members will be made accordingly at that time. Please contact us with any additional questions or concerns. Nola Cook M.S., [facility] Licensed Genetic Counselor I spoke to the patient and I reviewed the genetic counselor's documentation and discussed the patient with them. I agree with the counselor's documentation as noted above and made corrections as appropriate. Ludmila Yap MD Director, Division of Genetics and Genomics CC: Ilia Reyes MD [address] [place], [place] [address] [address] For internal order use: Test portal/lab: [facility] Test name: CancerNextExpanded panel (76 genes total). SpecimenType: Saliva kit shipped by lab, no Metro collection needed Special instructions: None Normal The [employer] [facility] Progress Noteson 03-30-2024 Space Operations Officer Authentication Interface Message Text Pain Just got through menses and no issues. Family history of ovarian cancer. Ovarian cancer in cousin at 36. Another cousin of ovarian cancer at 42. Maternal cousin breast cancer age 22. Mother with breast cancer, believes she got genetic testing, doesn't have a good relationship with her so unsure of result. Maternal aunt breast cancer. Ilia Reyes MD Normal The [facility] HUMAN PAPILLOMA VIRUSon 02-28 HPV 16+18+31+33+35+39+45+5 1+52+56+58+59+68 DNA Probe+sig amp Ql (Cvx) Negative Negative [facility] Comment on above: A negative result do es not exclude the possibility of low levels of infection. Interpretation and review of laboratory results Normal [facility] This test is performed using an automated nucleic acid amplification assay ([employer], [employer] [place], [place]). This assay detects RNA of HPV types 16,18,31,33,35,39,45, 51,52,56,58,59,66 and 68 in cervical specimens. [facility] GC/CHLAMYDIA/TRICHOMONAS AMP LIFICATIONon 03-09-2024 C. trachomatis DNA YESENIA+probe Ql (Unsp spec) Negative Negative [facility] Interpretation and review of laboratory results Normal [facility] N. gonorrhoeae DNA YESENIA+probe Ql (Unsp spec) Negative Negative [facility] T. vaginalis DNA YESENIA+probe Ql (Unsp spec) Negative Negative [facility] This test is performed using an automated nucleic acid amplification assay ([employer] [facility] GC/CHLAMYDIA/TRICHOMON AMPLIFICATION CHLAMYDIA AMPLIFICATION: Negative GC AMPLIFICATION: Negative TRICHOMONAS AMPLIFICATION: Negative Normal Negative [facility] Comment on above: Order Comment: This test is performed using an automated nucleic acid amplification assay ([employer]). Performed By: #### G CT #### [facility] [address] [facility] [address] [place], [place] [address] HUMAN PAPILLOMA VIRUSon 02-28 HPV HIGH RISK Negative Normal Negative [facility] Comment on above: Order Comment: This test is performed using an automated nucleic acid amplification assay ([employer], [employer] [place], [place]). This assay detects RNA of HPV types 16,18,31,33,35,39,45,51,52,56,58,59,66 and 68 in cervical specimens. Result Comment: A ne gative result does not exclude the possibility of low levels of infection. Performed By: #### H PV #### [facility] [address] [place] [address], [id number] Progress Noteson 03-09-2024 Space Operations Officer Authentication Interface Message Text RESTAURANT MGR ANNUAL EXAM 03/09/24 38 year old yo female here to discuss recent abdominal/pelvic pain and follow In pain since Friday of last week. Period last Friday-. Has never had pain like this before. Feels like a major period cramp that hasn't gone away. Pain predominately left sided. Some nausea, no emesis. No fevers or chills. Was seen at [facility] and ED last and Sat, did not see gynecology during these encounters. 03/06/24 Pelvic US at FINDINGS: UTERUS: The uterus measures 12.3 x 5.9 x 6.9 cm. Fibroid in the fundal aspect of the uterus measuring 5.2 x 5.8 x 6 cm. ENDOMETRIUM: The endometrium measures 0.8 cm. No focal abnormality. RIGHT OVARY: Obscured by overlying bowel gas. LEFT OVARY: 4.6 x 2.3 x 2.5 cm. Echogenic lesion measuring 1.7 x 1.2 x 1.5 cm. Incidentally noted follicles. Arterial and venous flow present. OTHER: No significant pelvic free fluid. LMP:Patient's last menstrual period was 03/01/2024 (exact date). Menses: regular periods, last 3-4 days, normally mild period cramps Last pap: has been a few years Hx abnormal paps: unsure, doesn't think so Sexually active: occasionally, control: s/p 2019 STIs: negative, desires screening Vaginal discharge: none PMH, PSH, Soc Hx, Fam Hx, Meds, Allergies reviewed and updated in EPIC. Exam:BP 116/56 Pulse 60 Temp 99 ???F (37.2 ???C) (Temporal) Resp 14 Wt 202 lb 3.2 oz (91.7 kg) LMP 03/01/2024 (Exact Date) SpO2 100% @EXAMMB@ @PLANMB@ No diagnosis found. Ilia Reyes MD Normal The [employer] Space Operations Officer Authentication Interface Message Text Patient was identified by name and date of . Leyda Majano MA Normal [facility] CBC panel Auto (Bld)on 03-06 Erythrocyte distribution width (RBC) [Ratio] 12.3 % 11.5 - 14.5 % [facility] Hematocrit (Bld) [Volume fraction] 38.2 % 36.0 - 46.0 % [facility] Hemoglobin (Bld) [Mass/Vol] 12.6 g/dL 12.0 - 16.0 g/dL [facility] Interpretation and review of laboratory results Abnormal [facility] MCH (RBC) [Entitic mass] 29.7 pg 26.0 - 34.0 pg [facility] MCHC (RBC) [Mass/Vol] 33 g/dL 32.0 - 36.0 g/dL [facility] MCV (RBC) [Entitic vol] 90 fL 80 - 100 fL [facility] Nucleated RBC/100 WBC (Bld) [Ratio] 0 % [facility] Platelets (Bld) [#/Vol] 279 10*3/uL [facility] RBC (Bld) [#/Vol] 4.24 10*6/uL [facility] WBC (Bld) [#/Vol] 12.2 10*3/uL [facility] Erythrocyte distribution width (RBC) [Ratio] 12.3 % Normal 11.5-14.5 [facility] Comment on above: Performed By: #### 5 8410-2 #### DEE SOLIS ([id number]) [facility] ([facility]) [address] [place] [address] Hematocrit (Bld) [Volume fraction] 38.2 % Normal 36.0-46.0 [facility] Comment on above: Performed By: #### 5 8410-2 #### DEE SOLIS ([id number]) [facility] ([facility]) [address] [place] [address] Hemoglobin (Bld) [Mass/Vol] 12.6 g/dL Normal 12.0-16.0 [facility] Comment on above: Performed By: #### 5 8410-2 #### DEE SOLIS ([id number]) [facility] ([facility]) [address] [place] [address]118 MCH (RBC) [Entitic mass] 29.7 pg Normal 26.0-34.0 [facility] Comment on above: Performed By: #### 5 8410-2 #### DEE SOLIS ([id number]) [facility] ([facility]) [address] [place] [address]196 MCHC (RBC) [Mass/Vol] 33.0 g/dL Normal 32.0-36.0 [facility] Comment on above: Performed By: #### 5 8410-2 #### DEE SOLIS ([id number]) [facility] ([facility]) [address] [place] [address] MCV (RBC) [Entitic vol] 90 fL Normal 80-100 [facility] Comment on above: Performed By: #### 5 8410-2 #### DEE SOLIS ([id number]) [facility] ([facility]) [address] [place] [address] Nucleated RBC/100 WBC (Bld) [Ratio] 0.0 /100 WBCs Normal 0.0-0.0 [facility] Comment on above: Performed By: #### 5 8410-2 #### DEE SOLIS ([id number]) [facility] ([facility]) [address] [place] [address] 11636 Platelets (Bld) [#/Vol] 279 x10*3/uL Normal 150-450 [facility] Comment on above: Performed By: #### 5 8410-2 #### DEE SOLIS ([id number]) [facility] ([facility]) [address] [place] [address]78 RBC (Bld) [#/Vol] 4.24 x10*6/uL Normal 4.00-5.20 [facility] Comment on above: Performed By: #### 5 8410-2 #### DEE SOLIS ([id number]) [facility] ([facility]) [address] [place] [address] WBC (Bld) [#/Vol] 12.2 x10*3/uL High 4.4-11.3 [facility] Comment on above: Performed By: #### 5 8410-2 #### DEE SOLIS ([id number]) [facility] ([facility]) [address] [place] [address] Choriogonadotropin.beta subu niton 03-06-2024 HCG.beta subunit Qn m[IU]/mL Normal <5 [facility] Comment on above: Order Comment: Total HCG measurement is performed using the [employer] Access Immunoassay which detects intact HCG and free beta HCG subunit. This test is not indicated for use as a tumor marker. HCG testing is performed using a different test methodology at [facility] than other [facility]. Direct result comparison should only be made within the same method. Performed By: #### 2 1198-7 #### DEE SOLIS ([id number]) [facility] ([facility]) [address] [place] [address] Comprehensive metabolic 2000 panelon 03-06-2024 Albumin BCP dye [Mass/Vol] 4 g/dL 3.4 - 5.0 g/dL [facility] ALP [Catalytic activity/Vol] 61 U/L 33 - 110 U/L [facility] ALT With P-5'-P [Catalytic activity/Vol] 18 U/L 7 - 45 U/L [facility] Comment on above: Patients treated wit h Sulfasalazine may generate falsely decreased results for ALT. Anion gap [Moles/Vol] 9 mmol/L Low 10 - 2 0 mmol/L [facility] AST With P-5'-P [Catalytic activity/Vol] 14 U/L 9 - 39 U/L [facility] Bilirubin [Mass/Vol] 0.6 mg/dL 0.0 - 1 .2 mg/dL [facility] Calcium [Mass/Vol] 8.9 mg/dL 8.6 - 10. 3 mg/dL [facility] Chloride [Moles/Vol] 105 mmol/L 98 - 10 7 mmol/L [facility] CO2 [Moles/Vol] 27 mmol/L 21 - 32 mmol/L [facility] Creatinine [Mass/Vol] 0.69 mg/dL 0.50 - 1.05 mg/dL [facility] eGFR - PINF [facility] Comment on above: Calculations of karen mated GFR are performed using the 2020 CKD-EPI Study Refit equation without the race variable for the IDMS-Traceable creatinine methods. https://jasn.asnjournals.org/content//ASN.67955 94949 Glucose [Mass/Vol] 78 mg/dL 74 - 99 mg/dL [facility] Interpretation and review of laboratory results Abnormal [facility] Potassium [Moles/Vol] 4.2 mmol/L 3.5 - 5.3 mmol/L [facility] Protein [Mass/Vol] 6.3 g/dL Low 6.4 - 8.2 g/dL [facility] Sodium [Moles/Vol] 137 mmol/L 136 - 145 mmol/L [facility] Urea nitrogen [Mass/Vol] 13 mg/dL 6 - 23 mg/dL [facility] Albumin BCP dye [Mass/Vol] 4.0 g/dL Normal 3.4-5.0 [facility] Comment on above: Performed By: #### 2 4323-8 #### DEE SOLIS (05781) [facility] ([facility]) [address] [place] [address] ALP [Catalytic activity/Vol] 61 U/L Normal 33-110 [facility] Comment on above: Performed By: #### 2 4323-8 #### DEE SOLIS (99152) [facility] ([facility]) [address] [place] [address] 40514 ALT With P-5'-P [Catalytic activity/Vol] 18 U/L Normal 7-45 [facility] Comment on above: Result Comment: Isabela ents treated with Sulfasalazine may generate falsely decreased results for ALT. Performed By: #### 2 4323-8 #### DEE SOLIS (71899) [facility] ([facility]) [address] [place] [address] 10464 Anion gap [Moles/Vol] 9 mmol/L Low 10-20 [facility] Comment on above: Performed By: #### 2 4323-8 #### DEE SOLIS (39675) [facility] ([facility]) [address] [place] [address] 64566 AST With P-5'-P [Catalytic activity/Vol] 14 U/L Normal 9-39 [facility] Comment on above: Performed By: #### 2 4323-8 #### DEE SOLIS (19521) [facility] ([facility]) [address] [place] [address] 70664 Bilirubin [Mass/Vol] 0.6 mg/dL Normal 0.0-1.2 [facility] Comment on above: Performed By: #### 2 432-8 #### DEE SOLIS (75681) [facility] ([facility]) [address] [place] [address] 07559 Calcium [Mass/Vol] 8.9 mg/dL Normal 8.6-10.3 [facility] Comment on above: Performed By: #### 2 432-8 #### DEE SOLIS (85853) [facility] ([facility]) [address] [place] [address] 23081 Chloride [Moles/Vol] 105 mmol/L Normal 98-107 [facility] Comment on above: Performed By: #### 2 432-8 #### DEE SOLIS (53024) [facility] ([facility]) [address] [place] [address] 55169 CO2 [Moles/Vol] 27 mmol/L Normal 21-32 [facility] Comment on above: Performed By: #### 2 4323-8 #### DEE SOLIS (98386) [facility] ([facility]) [address] [place] [address] 65745 Creatinine [Mass/Vol] 0.69 mg/dL Normal 0.50-1.05 [facility] Comment on above: Performed By: #### 2 4323-8 #### DEE SOLIS (18521) [facility] ([facility]) [facility] [place] [address] GFR/1.73 sq M.predicted MDRD (S/P/Bld) [Vol rate/Area] mL/min/{1.73_m2} Normal >60 [facility] Comment on above: Result Comment: Calc ulations of estimated GFR are performed using the 2020 CKD-EPI Study Refit equation without the race variable for the IDMS-Traceable creatinine methods. https://jasn.asnjournals.org/content/early//ASN.75625 32536 Performed By: #### 2 4323-8 #### DEE SOLIS (15642) [facility] ([facility]) [address] [place] [address] 59983 Glucose [Mass/Vol] 78 mg/dL Normal 74-99 [facility] Comment on above: Performed By: #### 2 4323-8 #### DEE SOLIS (54258) [facility] ([facility]) [address] [place] [address] 97904 Potassium [Moles/Vol] 4.2 mmol/L Normal 3.5-5.3 [facility] Comment on above: Performed By: #### 2 4323-8 #### DEE SOLIS (73479) [facility] ([facility]) [address] [place] [address] 38450 Protein [Mass/Vol] 6.3 g/dL Low 6.4-8.2 [facility] Comment on above: Performed By: #### 2 4323-8 #### DEE SOLIS (45996) [facility] ([facility]) [address] [place] [address] 28592 Sodium [Moles/Vol] 137 mmol/L Normal 136-145 [facility] Comment on above: Performed By: #### 2 4323-8 #### DEE SOLIS (09004) [facility] ([facility]) [address] [place] [address] 42804 Urea nitrogen [Mass/Vol] 13 mg/dL Normal 6-23 [facility] Comment on above: Performed By: #### 2 4323-8 #### DEE SOLIS (76918) [facility] ([facility]) [address] [place], [place] [address] HCG.beta subunit Qnon 2023 Interpretation and review of laboratory results Normal [facility] Total HCG measuremen t is performed using the [employer] [place] Access Immunoassay which detects intact HCG and free beta HCG subunit. This test is not indicated for use as a tumor marker. HCG testing is performed using a different test methodology at [facility] than other [facility]. Direct result comparison should only be made within the same method. [facility] Lipaseon 03-06-2024 Lipase [Catalytic activity/Vol] 25 U/L U/L [facility] Lipase [Catalytic activity/V ol]on 03-06-2024 Interpretation and review of laboratory results Normal [facility] Venipuncture immediately after or during the administration of Metamizole may lead to falsely low results. Testing should be performed immediately prior to Metamizole dosing. [facility] Triacylglycerol lipaseon Lipase [Catalytic activity/Vol] 25 U/L Normal [facility] Comment on above: Order Comment: Venip uncture immediately after or during the administration of Metamizole may lead to falsely low results. Testing should be performed immediately prior to Metamizole dosing. Performed By: #### 3 040-3 #### DEE SOLIS (38270) [facility] ([facility]) [address] [place], [place] [address] US PELVIS TRANSABDOMINAL WIT H TRANSVAGINALon 03-06-2024 US PELVIS TRANSABDOMINAL WITH TRANSVAGINAL Interpreted By: Hakeem Beatty, STUDY: US PELVIS TRANSABDOMINAL WITH TRANSVAGINAL; 03/06/2024 1:51 pm INDICATION: Signs/Symptoms:known left ovarian cyst; worsening pain. COMPARISON: None. ACCESSION NUMBER(S): [id number] ORDERING CLINICIAN: RAJAT KAHN TECHNIQUE: Multiple multiplanar static juan scale, color and spectral waveform sonographic images of the pelvis were obtained. Transabdominal and transvaginal ultrasound was performed. FINDINGS: UTERUS: The uterus measures 12.3 x 5.9 x 6.9 cm. Fibroid in the fundal aspect of the uterus measuring 5.2 x 5.8 x 6 cm. ENDOMETRIUM: The endometrium measures 0.8 cm. No focal abnormality. RIGHT OVARY: Obscured by overlying bowel gas. LEFT OVARY: 4.6 x 2.3 x 2.5 cm. Echogenic lesion measuring 1.7 x 1.2 x 1.5 cm. Incidentally noted follicles. Arterial and venous flow present. OTHER: No significant pelvic free fluid. IMPRESSION: Echogenic lesion in the left ovary suggestive of a small dermoid cyst. Large uterine fibroid. Right ovary obscured. Signed by: Hakeem Beatty 03/06/2024 2:19 PM Dictation workstation: [id number] [facility] US Pelvis transvaginalon Echogenic lesion in the left ovary suggestive of a small dermoid cyst. Large uterine fibroid. Right ovary obscured. Signed by: Hakeem Beatty 03/06/2024 2:19 PM Dictation workstation: [id number] MMODAL Interpreted By: Hakeem Beatty, STUDY: US PELVIS TRANSABDOMINAL WITH TRANSVAGINAL; 03/06/2024 1:51 pm INDICATION: Signs/Symptoms:known left ovarian cyst; worsening pain. COMPARISON: None. ACCESSION NUMBER(S): [id number] ORDERING CLINICIAN: RAJAT KAHN TECHNIQUE: Multiple multiplanar static juan scale, color and spectral waveform sonographic images of the pelvis were obtained. Transabdominal and transvaginal ultrasound was performed. FINDINGS: UTERUS: The uterus measures 12.3 x 5.9 x 6.9 cm. Fibroid in the fundal aspect of the uterus measuring 5.2 x 5.8 x 6 cm. ENDOMETRIUM: The endometrium measures 0.8 cm. No focal abnormality. RIGHT OVARY: Obscured by overlying bowel gas. LEFT OVARY: 4.6 x 2.3 x 2.5 cm. Echogenic lesion measuring 1.7 x 1.2 x 1.5 cm. Incidentally noted follicles. Arterial and venous flow present. OTHER: No significant pelvic free fluid. MMODAL Hakeem Beatty MD - 03/06/2024 Interpreted By: Hakeem Beatty, STUDY: US PELVIS TRANSABDOMINAL WITH TRANSVAGINAL; 03/06/2024 1:51 pm INDICATION: Signs/Symptoms:known left ovarian cyst; worsening pain. COMPARISON: None. ACCESSION NUMBER(S): [id number] ORDERING CLINICIAN: RAJAT KAHN TECHNIQUE: Multiple multiplanar static juan scale, color and spectral waveform sonographic images of the pelvis were obtained. Transabdominal and transvaginal ultrasound was performed. FINDINGS: UTERUS: The uterus measures 12.3 x 5.9 x 6.9 cm. Fibroid in the fundal aspect of the uterus measuring 5.2 x 5.8 x 6 cm. ENDOMETRIUM: The endometrium measures 0.8 cm. No focal abnormality. RIGHT OVARY: Obscured by overlying bowel gas. LEFT OVARY: 4.6 x 2.3 x 2.5 cm. Echogenic lesion measuring 1.7 x 1.2 x 1.5 cm. Incidentally noted follicles. Arterial and venous flow present. OTHER: No significant pelvic free fluid. IMPRESSION: Echogenic lesion in the left ovary suggestive of a small dermoid cyst. Large uterine fibroid. Right ovary obscured. Signed by: Hakeem Beatty 03/06/2024 2:19 PM Dictation workstation: [id number] [facility] Work Phone: Radiology Study observation (narrative) [facility] Work Phone: US Pelvis transvaginalOrdere d By: Hakeem Beatty on 03-06-2024 [facility] Work Phone: Urinalysis complete W Reflex Culture panel (U)on 03-06-2024 Appearance (U) Clear Clear [facility] Bilirubin (U) [Mass/Vol] Negative NEGATIVE [facility] Color (U) Colorless Abnormal Light-Yello w, Yellow, Dark-Yellow [facility] Glucose Auto test strip (U) [Mass/Vol] Normal Normal mg/dL [facility] Interpretation and review of laboratory results Abnormal [facility] Ketones (U) [Mass/Vol] Negative NEGAT BECCA mg/dL [facility] Leukocyte esterase Auto test strip Ql (U) Negative NEGATIVE [facility] Nitrite Auto test strip Ql (U) Negative NEGATIVE [facility] pH (U) 6 [pH] 5.0, 5.5, 6.0, 6.5, 7.0, 7.5, 8.0 [facility] Protein (U) [Mass/Vol] Negative NEGAT BECCA, 10 (TRACE), 20 (TRACE) mg/dL [facility] RBC (U) [#/Vol] Negative NEGATIVE [facility] Specific gravity (U) [Rel density] 1.009 1.005 - 1.035 [facility] Urobilinogen (U) [Mass/Vol] Normal Normal mg/dL [facility] Appearance (U) Clear Normal Clear [facility] Comment on above: Performed By: #### 5 8077-9 #### DEE SOLIS ([id number]) [facility] ([facility]) [address] [place] [address] Bilirubin (U) [Mass/Vol] Negative Normal NEGATIVE [facility] Comment on above: Performed By: #### 5 8077-9 #### DEE SOLIS (20125) [facility] ([facility]) [address] [place] [address] Color (U) Colorless Normal Light-Yello w, Yellow, Dark-Yellow [facility] Comment on above: Performed By: #### 5 8077-9 #### DEE SOLIS (48450) [facility] ([facility]) [address] [place] [address] Glucose Auto test strip (U) [Mass/Vol] Normal Normal Normal [facility] Comment on above: Performed By: #### 5 8077-9 #### DEE SOLIS (77734) [facility] ([facility]) [address] [place] [address] 70350 Ketones (U) [Mass/Vol] Negative Normal [facility] Comment on above: Performed By: #### 5 8077-9 #### DEE SOLIS (11463) [facility] ([facility]) [address] [place] [address] 63811 Leukocyte esterase Auto test strip Ql (U) Negative Normal NEGATIVE [facility] Comment on above: Performed By: #### 5 8077-9 #### DEE SOLIS (55522) [facility] ([facility]) [address] [place] [address] 12869 Nitrite Auto test strip Ql (U) Negative Normal NEGATIVE [facility] Comment on above: Performed By: #### 5 8077-9 #### DEE SOLIS (48275) [facility] ([facility]) [address] [place] [address] 06966 pH (U) 6.0 [pH] Normal 5.0, 5.5, 6.0, 6.5, 7.0, 7.5, 8.0 [facility] Comment on above: Performed By: #### 5 8077-9 #### DEE SOLIS (67188) [facility] ([facility]) [address] [place] [address] 79295 Protein (U) [Mass/Vol] Negative Normal NEGAT BECCA, 10 (TRACE), 20 (TRACE) [facility] Comment on above: Performed By: #### 5 8077-9 #### DEE SOLIS (60922) [facility] ([facility]) [address] [place] [address] 33352 RBC (U) [#/Vol] Negative Normal NEGATIVE [facility] Comment on above: Performed By: #### 5 8077-9 #### DEE SOLIS (29437) [facility] ([facility]) [address] [place] [address] 57443 Specific gravity (U) [Rel density] 1.009 Normal 1.005-1.035 [facility] Comment on above: Performed By: #### 5 8077-9 #### DEE SOLIS (83254) [facility] ([facility]) [address] [place] [address] 07131 Urobilinogen (U) [Mass/Vol] Normal Normal Normal [facility] Comment on above: Performed By: #### 5 8077-9 #### PRICE BENEDICTLI (15563) [facility] ([facility]) [address] [place] [address] hCG, quantitative, on 03-06-2024 HCG.beta subunit Qn NINF [facility] Abdomen/Pelvis W IV Cont ONL Yon 03-04-2024 Abdomen/Pelvis W IV Cont ONLY [facility] Imaging Services [address] [place] [address] Abdomen/Pelvis W IV Cont ONLY MR#: [id number] Acct: [id number] Name: KHADRA NIEVES Rep #: [id number] : 1985 F 38 From: Irvin Man MD PCP: Hillary Coffey [facility] Status: REG ER Study: Abdomen/Pelvis W IV Cont ONLY Date of Exam: Exam# [id number] Ordering Dr: Columba Piedra [id number] STUDY: CT ABDOMEN AND PELVIS WITH CONTRAST REASON FOR EXAM: Female, 38 years old. Left lower quadrant pain RADIATION DOSAGE (If Supplied By Facility): CTDIvol = ( 16.08 ) mGy, DLP = ( 1175.25 ) mGycm TECHNIQUE: Transaxial images were obtained from the dome of the diaphragm to the symphysis pubis without oral contrast. IV 100mL Isovue-370 was administered. Sagittal and coronal images were reconstructed. Individualized dose optimization techniques were used for this CT. COMPARISON: None. FINDINGS: The visualized lung bases are unremarkable. The visualized portions of the heart are within normal limits. Liver is unremarkable aside from a 2 cm hemangioma in the right lobe. Normal gallbladder and extrahepatic biliary system. Normal spleen. Normal pancreas. Normal bilateral adrenal glands. Normal right kidney. Normal left kidney. Normal visualized stomach. Normal small intestine. Normal colon. The appendix is visualized and appears normal. Appendix seen on coronal recon image 54 Normal abdominal aorta. Normal inferior vena cava. Normal retroperitoneum. Normal urinary bladder. Uterus is enlarged and contains a low-density 6 cm cystic structure that is impinging upon the endometrium. No suspicious adnexal mass or free fluid additionally there is a left adnexal lesion containing fat and calcifications consistent with a dermoid. It measures approximately 1.5 cm. Normal abdominal wall. Normal osseous structures. CT/Abdomen/Pelvis W IV Cont ONLY IMPRESSION: 2 cm likely hemangioma within the right lobe of the liver, no specific follow-up needed. Enlarged uterus containing a 6.3 cm cystic structure, likely a myometrial cyst. This could be more accurately evaluated with ultrasound. There is also a 1.5 cm dermoid in the left ovary. This could explain the patient''s left pelvic pain. No free intraperitoneal fluid, air, or suspicious adenopathy, normal appendix visualized Electronically Signed: Hernesto Man MD at 14:00 EST , CC: [facility] Coffey; EUGENIO Toney Leather Grader: Signed Normal [facility] CBC W/Diff, Automatedon 12-0 Absolute Lymph 2.58 X10 3/uL Normal 0.83-4.[address] [facility] Comment on above: Performed By: #### L 500.4050, L501.2450, L100.0100 ####[facility] [address] [place], [address] Absolute Neut 7.3 X10 3/uL Normal 2.0-7.[address] [facility] Comment on above: Performed By: #### L 500.4050, L501.2450, L100.0100 ####[facility] [address] [place], [address] Basophils/100 WBC (Bld) 0.5 % Normal 0-[address] [facility] Comment on above: Performed By: #### L 500.4050, L501.2450, L100.0100 ####[facility] [address] [place], [address] Eosinophils/100 WBC (Bld) 3.5 % Normal 0-[address] [facility] Comment on above: Performed By: #### L 500.4050, L501.2450, L100.0100 ####[facility] [address] [place], [address] Erythrocyte distribution width (RBC) [Ratio] 12.5 % Normal 11.6-14.[address] [facility] Comment on above: Performed By: #### L 500.4050, L501.2450, L100.0100 ####[facility] [address] [place], [address] Hematocrit (Bld) [Volume fraction] 40.1 % Normal 37-[address] [facility] Comment on above: Performed By: #### L 500.4050, L501.2450, L100.0100 ####[facility] [address] [place], [address] Hemoglobin (Bld) [Mass/Vol] 13.4 g/dL Normal 12.0-15.[address] [facility] Comment on above: Performed By: #### L 500.4050, L501.2450, L100.0100 ####[facility] [address] [place], [address] IG% 0.400 Normal 0.0-0.[address] [facility] Comment on above: Result Comment: IG% - Immature Granulocytes (promyelocytes, myelocytes and metamyelocytes) > 1% indicates that a LEFT SHIFT is Present. Performed By: #### L 500.4050, L501.2450, L100.0100 ####[facility] [address] [place], [address] Lymphocytes/100 WBC (Bld) 23.3 % Normal 19-[address] [facility] Comment on above: Performed By: #### L 500.4050, L501.2450, L100.0100 ####[facility] [address] [place], [address] MCH (RBC) [Entitic mass] 29.7 pg Normal 27.0-32.[address] [facility] Comment on above: Performed By: #### L 500.4050, L501.2450, L100.0100 ####[facility] [address] [place], [address] MCHC (RBC) [Mass/Vol] 33.4 g/dL Normal 32-36 [facility] Comment on above: Performed By: #### L 500.4050, L501.2450, L100.0100 ####[facility] [address] [place], [address] MCV (RBC) [Entitic vol] 88.9 fL Normal 81-[address] [facility] Comment on above: Performed By: #### L 500.4050, L501.2450, L100.0100 ####[facility] [address] [place], [address] Monocytes/100 WBC (Bld) 6.2 % Normal 0-[address] [facility] Comment on above: Performed By: #### L 500.4050, L501.2450, L100.0100 ####[facility] [address] [place], [address] Neutrophils/100 WBC (Bld) 66.1 % Normal 47-[address] [facility] Comment on above: Performed By: #### L 500.4050, L501.2450, L100.0100 ####[facility] [address] [place], [address] Nucleated RBC (Bld) [#/Vol] 0 10*3/uL Normal 0-[address] [facility] Comment on above: Performed By: #### L 500.4050, L501.2450, L100.0100 ####[facility] [address] [place], [address] Platelet mean volume (Bld) [Entitic vol] 9.0 fL Normal 6.2-12.[address] [facility] Comment on above: Performed By: #### L 500.4050, L501.2450, L100.0100 ####[facility] [address] [place], [address] Platelets (Bld) [#/Vol] 296 10*3/uL Normal 150-[address] [facility] Comment on above: Performed By: #### L 500.4050, L501.2450, L100.0100 ####[facility] [address] [place], [address] RBC (Bld) [#/Vol] 4.51 10*6/uL Normal 4.2-5.4 [facility] Comment on above: Performed By: #### L 500.4050, L501.2450, L100.0100 ####[facility] [address] [place], [address] RDW SD 40.8 fl Normal 35.1-43.[address] [facility] Comment on above: Performed By: #### L 500.4050, L501.2450, L100.0100 ####[facility] [address] [place], [address] WBC (Bld) [#/Vol] 11.1 10*3/uL High 4.4-11.0 [facility] Comment on above: Performed By: #### L 500.4050, L501.2450, L100.0100 ####[facility] [address] [place], [address] Comprehensive Metabolic Prof [facility] 03-04-2024 Albumin [Mass/Vol] 3.7 g/dL Normal 3.2-5.0 [facility] Comment on above: Performed By: #### L 500.4050, L501.2450, L100.0100 ####[facility] [address] [place], [address] Albumin/Globulin [Mass ratio] 1.2 {ratio} Normal 0.9-2.[address] [facility] Comment on above: Performed By: #### L 500.4050, L501.2450, L100.0100 ####[facility] [address] [place], [address] ALK P 82 U/L Normal 45-[address] [facility] Comment on above: Performed By: #### L 500.4050, L501.2450, L100.0100 ####[facility] [address] [place], [address] ALT [Catalytic activity/Vol] 26 U/L Normal 13-[address] [facility] Comment on above: Performed By: #### L 500.4050, L501.2450, L100.0100 ####[facility] [address] [place], [address] AST [Catalytic activity/Vol] 19 U/L Normal 15-[address] [facility] Comment on above: Performed By: #### L 500.4050, L501.2450, L100.0100 ####[facility] [address] [place], [address] Bilirubin [Mass/Vol] 0.40 mg/dL Normal 0.20-1.00 [facility] Comment on above: Result Comment: For patients on eltrombopag therapy, use of Dimension [place] TBIL is not recommended. Performed By: #### L 500.4050, L501.2450, L100.0100 ####[facility] [address] [place], [address] BUN/CRE 20.6 RATIO High 10-[address] [facility] Comment on above: Performed By: #### L 500.4050, L501.2450, L100.0100 ####[facility] [address] [place], [address] CA,Total 9.1 mg/dL Normal 8.5-10.[address] [facility] Comment on above: Performed By: #### L 500.4050, L501.2450, L100.0100 ####[facility] [address] [place], [address] Chloride [Moles/Vol] 109 mmol/L High 98-107 [facility] Comment on above: Performed By: #### L 500.4050, L501.2450, L100.0100 ####[facility] [address] [place], [address] CO2 [Moles/Vol] 26.0 mmol/L Normal 21.0-32.[address] [facility] Comment on above: Performed By: #### L 500.4050, L501.2450, L100.0100 ####[facility] [address] [place], [address] Creatinine [Mass/Vol] 0.82 mg/dL Normal 0.55-1.02 [facility] Comment on above: Result Comment: The validity of the calculated GFR GFRAA in patients over 70 years has not been determined. Clinical correlation is essential. Performed By: #### L 500.4050, L501.2450, L100.0100 ####[facility] [address] [place], [address] ECRCL 117.30 ml/min Normal [facility] Comment on above: Performed By: #### L 500.4050, L501.2450, L100.0100 ####[facility] [address] [place], [address] EST GFR - AA 99 mL/min Normal >[address] [facility] Comment on above: Result Comment: Afri can Somali GFR Calc Performed By: #### L 500.4050, L501.2450, L100.0100 ####[facility] [address] [place], [address] GAP 5 Normal 5-[address] [facility] Comment on above: Performed By: #### L 500.4050, L501.2450, L100.0100 ####[facility] [address] [place], [address] GFR/1.73 sq M.predicted among non-blacks MDRD (S/P/Bld) [Vol rate/Area] 82 mL/min/{1.73_m2} Normal >[address] [facility] Comment on above: Result Comment: Non- GFR Calc Performed By: #### L 500.4050, L501.2450, L100.0100 ####[facility] [address] [place], [address] Globulin (S) [Mass/Vol] 3.1 g/dL Normal 2.2-4.[address] [facility] Comment on above: Performed By: #### L 500.4050, L501.2450, L100.0100 ####[facility] [address] [place], [address] Glucose [Mass/Vol] 126 mg/dL High 74-106 [facility] Comment on above: Result Comment: Fast ing Glucose result greater than or equal to 126 mg/dL suggests DIABETES MELLITUS per A.D.A. criteria. Performed By: #### L 500.4050, L501.2450, L100.0100 ####[facility] [address] [place], [address] Potassium [Moles/Vol] 3.9 mmol/L Normal 3.5-5.1 [facility] Comment on above: Performed By: #### L 500.4050, L501.2450, L100.0100 ####[facility] [address] [place], [address] Sodium [Moles/Vol] 140 mmol/L Normal 136-145 [facility] Comment on above: Performed By: #### L 500.4050, L501.2450, L100.0100 ####[facility] [address] [place], [address] T PROT 6.8 g/dL Normal 6.4-8.[address] [facility] Comment on above: Performed By: #### L 500.4050, L501.2450, L100.0100 ####[facility] [address] [place], [address] Urea nitrogen [Mass/Vol] 17 mg/dL Normal 7-[address] [facility] Comment on above: Performed By: #### L 500.4050, L501.2450, L100.0100 ####[facility] [address] [place], [address] Emergency Department Summary on 03-04-2024 Emergency Department Summary [facility] Medical Records Department [address] [place] [address] Emergency Department Summary 03/04/24 MR#: [id number] Acct: [id number] Name: KHADRA NIEVES Rep #: [id number] : 1985 38 From: Columba BECKER PCP: MARCELINA Freeman, [employer]C Status:DEP ER Location: ED Patient was seen and examined with physician diver assistant Sally All components of the history and physical confirmed and agreed. History of present illness and physical exam: Patient is a 38-year-old female with past medical history anxiety who presents to the emergency department with a chief complaint of left-sided abdominal pain. Patient states that she developed pain last night and has been persistent therefore she came here for further evaluation management. States that she had normal bowel movement this morning. Patient states that she has had a tubal ligation but denies any other abdominal surgeries. States that she is finishing up her current menstrual cycle and feels that these are not menstrual cramps. Review of systems: Agree with above Physical exam: Agree with above MDM Patient is a 38-year-old female who presents to the emerged part with a chief complaint of left- sided abdominal pain. Patient will have a workup performed here on the differential diagnose includes Melamin to diverticulitis, appendicitis, pancreatitis, ovarian cyst, UTI, pyelonephritis, musculoskeletal strain. Once workup is obtained reviewed she will be reevaluated. Patient CBC was reviewed and showed evidence of leukocytosis of 11,000, hemoglobin stable 13.4, plate count was noted to be normal at 296. Patient's sodium was noted to be normal at 140, potassium normal 3.9, creatinine normal at 0.82. Patient's AST and ALT were 19 and 26 respectively with a normal total bilirubin 0.40. Patient's urinalysis showed negative leukocyte esterase negative nitrites no white blood cells seen and 1+ bacteria. Patient's test was negative. Patient's CT abdomen pelvis with IV contrast showed 2 cm likely hemangioma within the right lobe of the liver no specific follow-up needed. Enlarged uterus containing a 6.3 cm cystic structure likely a myometrial cyst. This could be further evaluated with ultrasound there is also a 1.5 cm dermoid in the left ovary. No free air, fluid or suspicious adenopathy normal appendix is visualized. Patient's ultrasound transvaginal was reviewed and showed a 7 cm x 6.2 cm x 5.6 cm uterine fibroid. 1.5 x 1.2 x 1.2 cm echogenic nodule the left ovary may represent a dermoid. Patient was given a hard copy of the result of this and was advised to take this to her OB appointment on the of this month that she was supposed to follow-up with and establish with. Did discuss results with the patient and she would like to go home at this point time. She was also encouraged to follow-up with a primary care physician. She was given prescription for Bentyl. She was advised to use ibuprofen and Tylenol for pain control. All question concerns answered she was discharged home in stable condition. Plan: Final impression: Abdominal pain Ovarian cyst left Uterine fibroid Disposition: Patient will be discharged home in stable condition Supervising attending attestation: Genaro Olivier D.O. HPI HPI - GI History of Present Illness Chief Complaint: Abd Pain Narrative Narrative: Patient presenting today with nonradiating dull and aching left lower quadrant abdominal pain she has had constantly since last night. She had a bowel movement this morning that was normal. She has had intermittent nausea. She denies fevers, chills, vomiting, diarrhea, and urinary symptoms. She is currently on her menstrual period but reports these do not feel like normal menstrual cramps. She denies any history of kidney stones or diverticulitis, she has a history of a tubal ligation but otherwise no other abdominal surgeries. She has a PMH of anxiety. [facility] Medical History Palpable mass of soft tissue of knee Ankle fracture, right Ankle fracture, left Home Medications ???Medication ???Instructions ???Recorded ???Last Taken ???Type alprazolam 0.5 mg tablet 0.5 mg PO TID PRN PRN Anxiety 07/01/14 02/17/16 13:00 History naproxen 500 mg tablet 500 mg PO BID #20 tabs 02/17/16 Unknown Rx dicyclomine 10 mg capsule 20 mg (2 x 10 mg) PO TID PRN 03/04/24 Unknown Rx abdominal pain 7 days #42 caps Allergy/AdvReac Type Severity Reaction Status Date / Time cephalexin monohydrate (From Allergy Hives Verified 03/04/24 12:22 Keflex) ciprofloxacin (From Cipro) Allergy Hives Verified 03/04/24 12:22 ciprofloxacin HCl (From Allergy Hives Verified 03/04/24 12:22 Cipro) sulfamethoxazole (From Allergy Hives Verified 03/04/24 12:22 Bactrim) trime (more content not included)... Normal [facility] Lipaseon 03-04-2024 Lipase [Catalytic activity/Vol] 40 U/L Normal 13-[address] [facility] Comment on above: Result Comment: Lakeisha martínez note: LIPASE revised reference range effective 22. New Lipase methodology. Expected to produce lower values than the previous assay method. NEW Reference Range: 13 - 75 U/L Performed By: #### L 500.4050, L501.2450, L100.0100 ####[facility] [address] [place], [place], [address] ,Urineon 03-04-2024 Beta HCG ( test) Ql (U) Negative Normal [facility] Comment on above: Order Comment: COLLE CTOR TO SPECIFY Result Comment: Very dilute urine specimens, as indicated by a low specific gravity, may not contain denial management representative levels of hCG. If is still suspected, a first morning urine specimen should be collected 48 hours later and tested. Performed By: #### L 400.7600, L400.0001 ####[facility] [address] [place], [place], [address] Transvaginal Non-on 03-04-2024 Transvaginal Non- [facility] Imaging Services [address] [place], [place] [address] Transvaginal Non- MR#: [id number] Acct: [id number] Name: KHADRA NIEVES Rep #: [id number] : 1985 F 38 From: Maxime alcazar MD PCP: MARCELINA Freeman, [employer]C Status: REG ER Study: Transvaginal Non- Date of Exam: Exam# [id number] Ordering Dr: Columba Piedra [id number] STUDY: ULTRASOUND OF THE FEMALE PELVIS - COMPLETE REASON FOR EXAM: Female, 38 years old. LLQ pain LMP: March 02, 2024. TECHNIQUE: Transvaginal TECHNICAL QUALITY: Adequate. COMPARISON: Comparison is made with prior study dated November 03, 2015. FINDINGS: The uterus is anteverted and is in a midline position. The uterus measures 10.1 cm x 7.3 cm x 5.6 cm. Normal uterine cervix. The endometrium measures 6 mm in thickness, and is hyperechoic. There is no demonstrated endometrial mass. There is a 7 cm x 6.2 cm x 5.6 cm fundal fibroid. I.U.D. - The patient does not have an I.U.D. The right ovary is visualized. The right ovary measures 1.6 cm x 1.7 cm x 1.8 cm. There is no right ovarian cyst or ovarian mass. There is no visualized right adnexal mass or complex lesion. There is normal arterial and normal venous vascularity. The left ovary is visualized. The left ovary measures 2.2 cm x 5.7 cm x 3 cm. There is a 1.5 mm x 1.2 cm x 1.2 cm echogenic nodule in the left ovary. This may represent a focal fat deposit in a dermoid. There is no visualized left adnexal mass or complex lesion. There is normal arterial and normal venous vascularity. There is no fluid in the cul-de-sac. US/Transvaginal Non- IMPRESSION: 7 cm x 6.2 cm x 5.6 cm uterine fibroid. 1.5 cm x 1.2 cm x 1.2 cm echogenic nodule in the left ovary. This may represent a dermoid. Electronically Signed: Maxime Aguiar MD at 15:05 EST Reading Location ID and State: [address] [place] [address] , Service support , CC: [facility] JOVI Coffey; EUGENIO Toney Leather Grader: Signed Normal [facility] Urinalysis, Completeon 03-04 BACTERIA 1+ /hpf Normal None Seen [facility] Comment on above: Order Comment: COLLE CTOR TO SPECIFY Performed By: #### L 400.7600, L400.0001 ####[facility] [address] [place], [address] EPI,SQUAMOUS 5-10 SEEN Normal 5-[address] [facility] Comment on above: Order Comment: COLLE CTOR TO SPECIFY Performed By: #### L 400.7600, L400.0001 ####[facility] [address] [place], [address] RBC 10-25 SEEN Normal 0-[address] [facility] Comment on above: Order Comment: COLLE CTOR TO SPECIFY Performed By: #### L 400.7600, L400.0001 ####[facility] [address] [place], [address] BILIRUBIN URINE Negative Normal Negative [facility] Comment on above: Order Comment: COLLE CTOR TO SPECIFY Performed By: #### L 400.7600, L400.0001 ####[facility] [address] [place], [address] Clarity (U) Clear Normal Clear [facility] Comment on above: Order Comment: COLLE CTOR TO SPECIFY Performed By: #### L 400.7600, L400.0001 ####[facility] [address] [place], [address] Color (U) Straw Normal Yellow [facility] Comment on above: Order Comment: [facility] CTOR TO SPECIFY Performed By: #### L 400.7600, L400.0001 ####[facility] [address] [place], [address] GLUCOSE, UR Normal Normal Normal [facility] Comment on above: Order Comment: [facility] CTOR TO SPECIFY Performed By: #### L 400.7600, L400.0001 ####[facility] [address] [place], [address] KETONE UR Negative Normal Negative [facility] Comment on above: Order Comment: [facility] CTOR TO SPECIFY Performed By: #### L 400.7600, L400.0001 ####[facility] [address] [place], [address] LEUK ESTERASE Negative Normal Negative [facility] Comment on above: Order Comment: COLLE CTOR TO SPECIFY Performed By: #### L 400.7600, L400.0001 ####[facility] [address] [place], [address] Nitrite Ql (U) Negative Normal Negative [facility] Comment on above: Order Comment: VANNA CTOR TO SPECIFY Performed By: #### L 400.7600, L400.0001 ####[facility] [address] [place], [address] OCCULT BLOOD-UR 50 /ul Abnormal Negative [facility] Comment on above: Order Comment: VANNA CTOR TO SPECIFY Performed By: #### L 400.7600, L400.0001 ####[facility] [address] [place], [address] pH UR 6.0 Normal 5.0 - 8.[address] [facility] Comment on above: Order Comment: VANNA CTOR TO SPECIFY Performed By: #### L 400.7600, L400.0001 ####[facility] [address] [place], [address] PROT DIPSTX Negative Normal Negative [facility] Comment on above: Order Comment: VANNA CTOR TO SPECIFY Performed By: #### L 400.7600, L400.0001 ####[facility] [address] [place], [address] SP.GR. DIPSTX 1.020 Normal 1.002-1.[address] [facility] Comment on above: Order Comment: VANNA CTOR TO SPECIFY Performed By: #### L 400.7600, L400.0001 ####[facility] [address] [place], [address] UROBILI Normal Normal Normal [facility] Comment on above: Order Comment: VANNA CTOR TO SPECIFY Performed By: #### L 400.7600, L400.0001 ####[facility] [address] [place], [address] Mucus Ql (Urine sed) 0 SEEN Normal [facility] Comment on above: Order Comment: VANNA CTOR TO SPECIFY Performed By: #### L 400.7600, L400.0001 ####[facility] [address] [place], [address] WBC 0 SEEN Normal 0-[address] [facility] Comment on above: Order Comment: COLLE CTOR TO SPECIFY Performed By: #### L 400.7600, L400.0001 ####[facility] [address] [place], [address] Knee 4 or More Viewson 02-11 Knee 4 or More Views [facility] Radiology [address] [place] [address] Knee 4 or More Views MR#: [id number] Acct: [id number] Name: KHADRA NIEVES Rep #: [id number] : 1985 F 38 From: Adore donis MD PCP: MARCELINA Freeman, MINE [employer]EM[employer]-C Status: DEP AMB Study: Knee 4 or More Views Date of Exam: 02/12/24 Exam# [id number] Ordering Dr: Emanuel Higuera MD [id number] HISTORY: pain, bakers cyst. TECHNIQUE: XR Knee Complete 4 Views or More. COMPARISON: None. FINDINGS: BONES : No acute fracture identified. Small degenerative osteophytes present. JOINTS: No dislocation. Joint spaces maintained. Trace joint effusion. RAD/Knee 4 or More Views IMPRESSION: No acute fracture or dislocation identified in the left knee. Electronically Signed: Adore Lance MD at 15:59 EST , CC: [facility] MINE FOREMAN-C Hillary Coffey; Dr. Emanuel Higuera MD Leather Grader: Signed Normal [facility] Orthopedic Visit Reporton Orthopedic Visit Report [facility] [address] [place] [address] [address] [place] [address] OFFICE VISIT Date of Service: 02/12/24 MR#: [id number] Acct: [id number] Name: KHADRA NIEVES Rep #: [id number] : 1985 Provider: Dr. Emanuel hartley MD Age/Sex: 38/F Location: [facility] Status: Signed Intake Vital Signs 02/12/24 10:54 Height 5 ft 8 in Weight: 224 lb 4 oz BMI 34.0 BP 118/68 Blood Pressure Location Lt brachial Position Sitting Respiration 18 Pulse 67 Pulse Source Monitor Temp 97.9 F Temp Source Oral Pulse Oximetry (%) 95 Oxygen Delivery Method room air Intake Visit Reasons: LEFT KNEE Chief Complaint: Lump behind left knee Accompanied by: Self Is patient in pain?: Yes Pain scale (1-10): 5 Allergies cephalexin monohydrate (From Keflex) Allergy (Verified 02/12/24 14:06) Hives ciprofloxacin (From Cipro) Allergy (Verified 02/12/24 14:06) Hives ciprofloxacin HCl (From Cipro) Allergy (Verified 02/12/24 14:06) Hives sulfamethoxazole (From Bactrim) Allergy (Verified 02/12/24 14:06) Hives trimethoprim (From Bactrim) Allergy (Verified 02/12/24 14:06) Hives Medications ???Medication ???Instructions ???Recorded ???Confirmed ???Type alprazolam 0.5 mg tablet 0.5 mg PO TID PRN PRN Anxiety 07/01/14 02/12/24 History naproxen 500 mg tablet 500 mg PO BID #20 tabs 02/17/16 02/12/24 Rx prednisone 5 mg tablets in a dose See Rx Instructions PO PER PKG DIR 02/12/24 02/12/24 Rx pack knee swelling 12 days #48 tabs PFSH Medical History Palpable mass of soft tissue of knee Ankle fracture, right Ankle fracture, left Surgical History (Updated 02/12/24 @ 10:59 by Sarita Aguirre) History of tubal ligation Status post surgical removal of both fallopian tubes Social History Smoking Status: Current every day smoker tobacco type: cigarettes alcohol intake: never HPI LEFT KNEE Details: This documentation accurately reflects the service provided and the decisions made by me, Dr. Emanuel Higuera MD 02/12/24 6621. Part of today???s visit was documented by [ ], acting as scribe. KHADRA NIEVES is a 38 year old F here today for referred by the urgent care clinic for a painful Kulkarni's cyst of the left knee. Patient was there today this morning. smoker 1ppd. no on OCPs. no blood clots. hurts posteriorly getting worse over 3 weeks. no SOB no hemoptysis no pleuritic chest pain. no rendness or warmth, felt like trying to stretch a muscle. per urgent care notes C/O of lump behind left knee. Present for approximately one month with pain worsening this morning. Denies any recent injury. Palpable lump behind left knee. No redness noted. Tender to touch. Supplemental Info X-rays 4 views obtained of the left knee demonstrates very mild tricompartmental osteoarthritis and traction osteophyte formation at the inferior pole the patella Coding Level of Care Code Off vis,new,level 3 Diagnoses Synovial cyst of popliteal space [Kulkarni], left knee M71.22 Assessment and Plan Assessment and Plan (1) Synovial cyst of popliteal space [Kulkarni], left knee: Status: Acute Plan: 38-year-old female with a left knee Kulkarni's cyst. I explained the diagnosis prognosis different treatment options available include but not limited to rest ice anti-inflammatories active modific ations oral prednisone explained the side effect she would like to start there. We could try cortisone injection as well as needle ultrasound-guided aspiration and injection with the patient is quite hesitant about needles currently. We will try the oral medication and see if that works if not they will follow-up in clinic as well as I will go ahead and order a ultrasound of the knee to further characterize and diagnose the cyst to confirm that it does have the characteristic appearance is of a Kulkarni's cyst. Low suspicion of a deep vein thrombosis the patient is 1 pack-a-day smoker but does not have any other physical exam or symptoms or HPI findings consistent with that diagnosis so for now we will keep a close eye on things and red flag symptoms discussed. Orders: Orders Knee 4 or More Views Today M71.22 - Synovial cyst of popliteal space [Kulkarni], left knee Medications: New prednisone PO PER PKG DIR 12 days 48 tabs 0RF knee swelling M71.22 - Synovial cyst of popliteal space [Kulkarni], left knee Ortho Exam General General: Yes no acute distress Neurologic: Yes alert and Yes oriented x3 Psychologic: Yes reasonable and appropriate Right Knee Patella Translation: 2 Left Knee Skin/Wound: Yes CDI, No ecchymosis, No erythema and Yes swelling (mild fullness posterior capsule) Knee ROM: Yes ROM-Flexion 0-140 Exam (more content not included)... Normal [facility] Urgent Care Visit Reporton 1 04-13-2023 Urgent Care Visit Report [facility] [address], [address] [place] [address] OFFICE VISIT Date of Service: 02/12/24 MR#: [id number] Acct: [id number] Name: KHADRA NIEVES Rep #: [id number] : 1985 Provider: EUGENIO Tomlinson Age/Sex: 38/F Location: [facility] Status: Signed Intake Vital Signs 12/29/23 12:57 02/12/24 10:54 Height 5 ft 9 in 5 ft 8 in Weight: 224 lb 4 oz BMI 34.0 BP 118/68 Blood Pressure Location Lt brachial Position Sitting Respiration 18 Pulse 67 Pulse Source Monitor Temp 97.9 F Temp Source Oral Pulse Oximetry (%) 95 Oxygen Delivery Method room air Intake Visit Reasons: LUMP BEHIND L KNEE Chief Complaint: Lump behind left knee Photograph Printer Required: No Is patient in pain?: Yes Allergies cephalexin monohydrate (From Keflex) Allergy (Verified 02/12/24 10:56) Hives ciprofloxacin (From Cipro) Allergy (Verified 02/12/24 10:56) Hives ciprofloxacin HCl (From Cipro) Allergy (Verified 02/12/24 10:56) Hives sulfamethoxazole (From Bactrim) Allergy (Verified 02/12/24 10:56) Hives trimethoprim (From Bactrim) Allergy (Verified 02/12/24 10:56) Hives Medications ???Medication ???Instructions ???Recorded ???Confirmed ???Type alprazolam 0.5 mg tablet 0.5 mg PO TID PRN PRN Anxiety 07/01/14 02/12/24 History naproxen 500 mg tablet 500 mg PO BID #20 tabs 02/17/16 02/12/24 Rx Nurse's Note: C/O of lump behind left knee. Present for approximately one month with pain worsening this morning. Denies any recent injury. Palpable lump behind left knee. No redness noted. Tender to touch. [facility] Medical History (Updated 02/12/24 @ 11:05 by Corby BECKER, EUGENIO) Palpable mass of soft tissue of knee Ankle fracture, right Ankle fracture, left Surgical History (Updated 02/12/24 @ 10:59 by Sarita Aguirre) History of tubal ligation Status post surgical removal of both fallopian tubes Social History (Updated 02/12/24 @ 11:01 by Sarita Aguirre) Smoking Status: Current every day smoker tobacco type: cigarettes alcohol intake: never HPI HPI Chief Complaint: Lump behind left knee Details: KHADRA NIEVES, is a 38 F who presents to the office today for complaint of a lump behind the left knee. Patient states that she has noticed it for approximately the last month with pain worsening quite a bit today. She denies any injuries. No numbness, tingling or loss range of motion. No other associated symptoms or alleviating/aggravati ng factors. ROS Const Constitutional: No other (6 system ROS completed with pertinent findings in the HPI otherwise normal.) Exam Const General: cooperative and healthy appearing Skin General: no rashes or lesions noted Neuro General: patient alert Extrem Other: Palpable lump posterior left knee in the popliteal fossa with pain to palpation. Psych Appearance: grossly normal Mental Status: mental status grossly normal Coding Level of Care Code Off vis,new,level 3 Diagnoses Synovial cyst of popliteal space [Kulkarni], left knee M71.22 Assessment and Plan Assessment and Plan (1) Synovial cyst of popliteal space [Kulkarni], left knee: Status: Acute Orders: Referrals Orthopedics M71.22 - Synovial cyst of popliteal space [Kulkarni], left knee Plan Patient referred to orthopedics for further evaluation and treatment. Patient advised to use ibuprofen or Tylenol as needed for pain unless contraindicated. Patient verbalized understanding and agreement with all the above. 02/12/24 1356 Date Corby Hubbard Signature: Date (if applicable) CC: Normal [facility] Patient Instructionson 02-10 Space Operations Officer Authentication Interface Message Text Consider one of our [facility] locations (click or tap for locations and hours). Normal [employer] [facility] Progress Noteson 02-11-2024 Space Operations Officer Authentication Interface Message Text [facility] Virtual Visit Documentation: Mode: Video Consent: This visit was initiated by the patient. Audio and visual communication was utilized in real-time. I confirmed understanding of risks and benefits of telehealth visits and obtained consent to proceed with the telemedicine visit. Location of Patient: Home of patient Time-Based Billing Justifications: Charting in Epic Patient visit (including performing a medically appropriate exam) Obtaining history (or reviewing separately obtained history) Reviewing (chart, labs, and other clinical notes) Counseling/educating the patient/family/caregi jaky Ordering/interpreting (medications, tests, procedures) Chief Complaint Patient presents with Vaginal discharge Verified Patient Location: Yes Subjective Khadra Nieves is a 38 year old female with following pmh that presents for the below. There is no problem list on file for this patient. HPI Pt is c/o vaginal itching, with a white thin discharge, x 4d. Pt has h/o frequent BV, and this feels similar. No recent antibiotic use. No urinary complaints. No sores or rash. Pt says 2 weeks ago, she has starting using Dial Antibacterial soap due to h/o recurrent ingrown hairs and boils in the genital/groin area. Pt says her daughter changed laundry detergent 2 weeks ago and the daughter most likely is using the new detergent when washing pt's clothes. ALL cipro keflex bactrim -> hives LMP 1 week ago Review of Systems Constitutional: Negative for fever. Cardiovascular: Negative. Gastrointestinal: Negative. Genitourinary: Positive for vaginal discharge. Negative for dyspareunia, dysuria, flank pain, frequency, genital sores, hematuria, menstrual problem, urgency, vaginal bleeding and vaginal pain. Objective There were no vitals taken for this visit. Physical Exam Gen: A AND Ox3. Appears well, no acute distress. Eyes: No conjunctival injection. No discharge. Resp: breathing comfortably on room air. Abd: no tenderness on self palpation. Psych: normal mood and affect Findings obtained via virtual exam. Assessment AND Plan 1. Acute vaginitis Orders AND Meds Signed During This Encounter GYNECOLOGY SERVICE REQUEST metronidazole (FLAGYL) 500 MG tablet I offered options of either an in person EC visit today with a provider bill distributor visit with self swab orders however pt lives >one hour away from the locations. Pt wishes to establish care with gyne and is requesting referral. I recommended changing back to previously used laundry detergent, running an extra rinse cycle and rewashing all underpants. I also recommended resuming previously used body soap. Discharge Disposition: Home with advice This patient has been seen and evaluated today through virtual services in Urgent Care on a secure platform. Assessment, diagnosis, and treatment has been provided to the best capabilities available given the nature of the visit. Patient has been informed of possible worsening symptoms and has been advised to seek in-person medical care if symptoms worsen or do not improve with agreed-upon treatment. Patient verbalized understanding prior to end of call. Virgen Burgess PA-C Normal [facility] [employer] [facility] CBC W/Diff, Automatedon 01-29 Absolute Lymph 3.19 X10 3/uL Normal 0.83-4.[address] [facility] Comment on above: Performed By: #### L 100.0100, L501.9985, L501.9520, L503.0105, L506.1000, L500.4100, L500.4050, L503.6030, L506.0400 #### [facility] [address] [place], [address] Absolute Neut 5.8 X10 3/uL Normal 2.0-7.[address] [facility] Comment on above: Performed By: #### L 100.0100, L501.9985, L501.9520, L503.0105, L506.1000, L500.4100, L500.4050, L503.6030, L506.0400 #### [facility] [address] [place], [address] Basophils/100 WBC (Bld) 0.9 % Normal 0-[address] [facility] Comment on above: Performed By: #### L 100.0100, L501.9985, L501.9520, L503.0105, L506.1000, L500.4100, L500.4050, L503.6030, L506.0400 #### [facility] [address] [place], [address] Eosinophils/100 WBC (Bld) 3.2 % Normal 0-[address] [facility] Comment on above: Performed By: #### L 100.0100, L501.9985, L501.9520, L503.0105, L506.1000, L500.4100, L500.4050, L503.6030, L506.0400 #### [facility] [address] [place], [address] Erythrocyte distribution width (RBC) [Ratio] 12.0 % Normal 11.6-14.[address] [facility] Comment on above: Performed By: #### L 100.0100, L501.9985, L501.9520, L503.0105, L506.1000, L500.4100, L500.4050, L503.6030, L506.0400 #### [facility] [address] [place], [address] Hematocrit (Bld) [Volume fraction] 42.3 % Normal 37-[address] [facility] Comment on above: Performed By: #### L 100.0100, L501.9985, L501.9520, L503.0105, L506.1000, L500.4100, L500.4050, L503.6030, L506.0400 #### [facility] [address] [place], [address] Hemoglobin (Bld) [Mass/Vol] 13.9 g/dL Normal 12.0-15.[address] [facility] Comment on above: Performed By: #### L 100.0100, L501.9985, L501.9520, L503.0105, L506.1000, L500.4100, L500.4050, L503.6030, L506.0400 #### [facility] [address] [place], [address] IG% 0.500 Normal 0.0-0.[address] [facility] Comment on above: Result Comment: IG% - Immature Granulocytes (promyelocytes, myelocytes and metamyelocytes) > 1% indicates that a LEFT SHIFT is Present. Performed By: #### L 100.0100, L501.9985, L501.9520, L503.0105, L506.1000, L500.4100, L500.4050, L503.6030, L506.0400 #### [facility] [address] [place], [address] Lymphocytes/100 WBC (Bld) 32.3 % Normal 19-[address] [facility] Comment on above: Performed By: #### L 100.0100, L501.9985, L501.9520, L503.0105, L506.1000, L500.4100, L500.4050, L503.6030, L506.0400 #### [facility] [address] [place], [address] MCH (RBC) [Entitic mass] 29.4 pg Normal 27.0-32.[address] [facility] Comment on above: Performed By: #### L 100.0100, L501.9985, L501.9520, L503.0105, L506.1000, L500.4100, L500.4050, L503.6030, L506.0400 #### [facility] [address] [place], [address] MCHC (RBC) [Mass/Vol] 32.9 g/dL Normal 32-36 [facility] Comment on above: Performed By: #### L 100.0100, L501.9985, L501.9520, L503.0105, L506.1000, L500.4100, L500.4050, L503.6030, L506.0400 #### [facility] [address] [place], [address] MCV (RBC) [Entitic vol] 89.4 fL Normal 81-[address] [facility] Comment on above: Performed By: #### L 100.0100, L501.9985, L501.9520, L503.0105, L506.1000, L500.4100, L500.4050, L503.6030, L506.0400 #### [facility] [address] [place], [address] Monocytes/100 WBC (Bld) 4.9 % Normal 0-[address] [facility] Comment on above: Performed By: #### L 100.0100, L501.9985, L501.9520, L503.0105, L506.1000, L500.4100, L500.4050, L503.6030, L506.0400 #### [facility] [address] [place], [address] Neutrophils/100 WBC (Bld) 58.2 % Normal 47-[address] [facility] Comment on above: Performed By: #### L 100.0100, L501.9985, L501.9520, L503.0105, L506.1000, L500.4100, L500.4050, L503.6030, L506.0400 #### [facility] [address] [place], [address] Nucleated RBC (Bld) [#/Vol] 0 10*3/uL Normal 0-[address] [facility] Comment on above: Performed By: #### L 100.0100, L501.9985, L501.9520, L503.0105, L506.1000, L500.4100, L500.4050, L503.6030, L506.0400 #### [facility] [address] [place], [address] ( Platelet mean volume (Bld) [Entitic vol] 8.9 fL Normal 6.2-12.[address] [facility] Comment on above: Performed By: #### L 100.0100, L501.9985, L501.9520, L503.0105, L506.1000, L500.4100, L500.4050, L503.6030, L506.0400 #### [facility] [address] [place], [address] (531 Platelets (Bld) [#/Vol] 347 10*3/uL Normal 150-[address] [facility] Comment on above: Performed By: #### L 100.0100, L501.9985, L501.9520, L503.0105, L506.1000, L500.4100, L500.4050, L503.6030, L506.0400 #### [facility] [address] [place], [address] (337 RBC (Bld) [#/Vol] 4.73 10*6/uL Normal 4.2-5.4 [facility] Comment on above: Performed By: #### L 100.0100, L501.9985, L501.9520, L503.0105, L506.1000, L500.4100, L500.4050, L503.6030, L506.0400 #### [facility] [address] [place], [address] RDW SD 39.6 fl Normal 35.1-43.[address] [facility] Comment on above: Performed By: #### L 100.0100, L501.9985, L501.9520, L503.0105, L506.1000, L500.4100, L500.4050, L503.6030, L506.0400 #### [facility] [address] [place], [address] WBC (Bld) [#/Vol] 9.9 10*3/uL Normal 4.4-11.0 [facility] Comment on above: Performed By: #### L 100.0100, L501.9985, L501.9520, L503.0105, L506.1000, L500.4100, L500.4050, L503.6030, L506.0400 #### [facility] [address] [place], [address] Comprehensive Metabolic Prof [facility] 02-10-2024 Albumin [Mass/Vol] 3.9 g/dL Normal 3.2-5.0 [facility] Comment on above: Performed By: #### L 100.0100, L501.9985, L501.9520, L503.0105, L506.1000, L500.4100, L500.4050, L503.6030, L506.0400 #### [facility] [address] [place], [address] Albumin/Globulin [Mass ratio] 1.3 {ratio} Normal 0.9-2.[address] [facility] Comment on above: Performed By: #### L 100.0100, L501.9985, L501.9520, L503.0105, L506.1000, L500.4100, L500.4050, L503.6030, L506.0400 #### [facility] [address] [place], [address] ALK P 74 U/L Normal 45-[address] [facility] Comment on above: Performed By: #### L 100.0100, L501.9985, L501.9520, L503.0105, L506.1000, L500.4100, L500.4050, L503.6030, L506.0400 #### [facility] [address] [place], [address] ALT [Catalytic activity/Vol] 23 U/L Normal 13-[address] [facility] Comment on above: Performed By: #### L 100.0100, L501.9985, L501.9520, L503.0105, L506.1000, L500.4100, L500.4050, L503.6030, L506.0400 #### [facility] [address] [place], [address] AST [Catalytic activity/Vol] 14 U/L Low 15-[address] [facility] Comment on above: Performed By: #### L 100.0100, L501.9985, L501.9520, L503.0105, L506.1000, L500.4100, L500.4050, L503.6030, L506.0400 #### [facility] [address] [place], [address] Bilirubin [Mass/Vol] 0.30 mg/dL Normal 0.20-1.00 [facility] Comment on above: Result Comment: For patients on eltrombopag therapy, use of Dimension [place] TBIL is not recommended. Performed By: #### L 100.0100, L501.9985, L501.9520, L503.0105, L506.1000, L500.4100, L500.4050, L503.6030, L506.0400 #### [facility] [address] [place], [address] BUN/CRE 18.3 RATIO Normal 10-[address] [facility] Comment on above: Performed By: #### L 100.0100, L501.9985, L501.9520, L503.0105, L506.1000, L500.4100, L500.4050, L503.6030, L506.0400 #### [facility] [address] [place], [address] CA,Total 9.1 mg/dL Normal 8.5-10.[address] [facility] Comment on above: Performed By: #### L 100.0100, L501.9985, L501.9520, L503.0105, L506.1000, L500.4100, L500.4050, L503.6030, L506.0400 #### [facility] [address] [place], [address] Chloride [Moles/Vol] 109 mmol/L High 98-107 [facility] Comment on above: Performed By: #### L 100.0100, L501.9985, L501.9520, L503.0105, L506.1000, L500.4100, L500.4050, L503.6030, L506.0400 #### [facility] [address] [place], [address] CO2 [Moles/Vol] 26.0 mmol/L Normal 21.0-32.[address] [facility] Comment on above: Performed By: #### L 100.0100, L501.9985, L501.9520, L503.0105, L506.1000, L500.4100, L500.4050, L503.6030, L506.0400 #### [facility] [address] [place], [address] Creatinine [Mass/Vol] 0.76 mg/dL Normal 0.55-1.02 [facility] Comment on above: Result Comment: The validity of the calculated GFR GFRAA in patients over 70 years has not been determined. Clinical correlation is essential. Performed By: #### L 100.0100, L501.9985, L501.9520, L503.0105, L506.1000, L500.4100, L500.4050, L503.6030, L506.0400 #### [facility] [address] [place], [place], [id number] EST GFR - AA 108 mL/min Normal >[address] [facility] Comment on above: Result Comment: Afri can Somali GFR Calc Performed By: #### L 100.0100, L501.9985, L501.9520, L503.0105, L506.1000, L500.4100, L500.4050, L503.6030, L506.0400 #### [facility] [address] [place], [place], [id number] GAP 5 Normal 5-[address] [facility] Comment on above: Performed By: #### L 100.0100, L501.9985, L501.9520, L503.0105, L506.1000, L500.4100, L500.4050, L503.6030, L506.0400 #### [facility] [address] [place], [address] GFR/1.73 sq M.predicted among non-blacks MDRD (S/P/Bld) [Vol rate/Area] 89 mL/min/{1.73_m2} Normal >[address] [facility] Comment on above: Result Comment: Non- GFR Calc Performed By: #### L 100.0100, L501.9985, L501.9520, L503.0105, L506.1000, L500.4100, L500.4050, L503.6030, L506.0400 #### [facility] [address] [place], [address] Globulin (S) [Mass/Vol] 3.1 g/dL Normal 2.2-4.[address] [facility] Comment on above: Performed By: #### L 100.0100, L501.9985, L501.9520, L503.0105, L506.1000, L500.4100, L500.4050, L503.6030, L506.0400 #### [facility] [address] [place], [address] Glucose [Mass/Vol] 92 mg/dL Normal 74-106 [facility] Comment on above: Performed By: #### L 100.0100, L501.9985, L501.9520, L503.0105, L506.1000, L500.4100, L500.4050, L503.6030, L506.0400 #### [facility] [address] [place], [address] Potassium [Moles/Vol] 4.0 mmol/L Normal 3.5-5.1 [facility] Comment on above: Performed By: #### L 100.0100, L501.9985, L501.9520, L503.0105, L506.1000, L500.4100, L500.4050, L503.6030, L506.0400 #### [facility] [address] [place], [address] Sodium [Moles/Vol] 139 mmol/L Normal 136-145 [facility] Comment on above: Performed By: #### L 100.0100, L501.9985, L501.9520, L503.0105, L506.1000, L500.4100, L500.4050, L503.6030, L506.0400 #### [facility] [address] [place], [address] T PROT 7.0 g/dL Normal 6.4-8.[address] [facility] Comment on above: Performed By: #### L 100.0100, L501.9985, L501.9520, L503.0105, L506.1000, L500.4100, L500.4050, L503.6030, L506.0400 #### [facility] [address] [place], [address] Urea nitrogen [Mass/Vol] 14 mg/dL Normal 7-[address] [facility] Comment on above: Performed By: #### L 100.0100, L501.9985, L501.9520, L503.0105, L506.1000, L500.4100, L500.4050, L503.6030, L506.0400 #### [facility] [address] [place], [address] Hemoglobin A1con 02-10-2024 HbA1c (Bld) [Mass fraction] 5.5 % Normal 3.8-5.[address] [facility] Comment on above: Result Comment: Norm al < 5.7 % Prediabetic 5.7 - 6.4 % Diabetic >or= 6.5 % Please note range changes. Performed By: #### L 100.0100, L501.9985, L501.9520, L503.0105, L506.1000, L500.4100, L500.4050, L503.6030, L506.0400 #### [facility] [address] [place], [place], [phone] (208) Iron+Iron Binding Capacityon 02-10-2024 Iron [Mass/Vol] 75 ug/dL Normal 50-[address] [facility] Comment on above: Performed By: #### L 100.0100, L501.9985, L501.9520, L503.0105, L506.1000, L500.4100, L500.4050, L503.6030, L506.0400 ####[facility] [address] [place], [place], [phone]) IRON SATURATION 21.2 Normal 15.0-55.[address] [facility] Comment on above: Performed By: #### L 100.0100, L501.9985, L501.9520, L503.0105, L506.1000, L500.4100, L500.4050, L503.6030, L506.0400 ####[facility] [address] [place], [place], [phone] TIBC 354 ug/dL Normal 250-[address] [facility] Comment on above: Performed By: #### L 100.0100, L501.9985, L501.9520, L503.0105, L506.1000, L500.4100, L500.4050, L503.6030, L506.0400 ####[facility] [address] [place], [place], [phone] Lipid Profileon 02-10-2024 Cholesterol [Mass/Vol] 217 mg/dL High 200 [facility] Comment on above: Result Comment: <200 mg/dL Desirable 200-240 mg/dL Borderline >240 mg/dL High Risk Performed By: #### L 100.0100, L501.9985, L501.9520, L503.0105, L506.1000, L500.4100, L500.4050, L503.6030, L506.0400 #### [facility] [address] [place], [place], [phone] ([address] Cholesterol in HDL [Mass/Vol] 41 mg/dL Normal [facility] Comment on above: Result Comment: The drugs N-Acetylcysteine and Metamizole may falsely depress this assay. Reference Range HDL <40 mg/dL Low HDL Cholesterol HDL >or= 60 mg/dL High HDL Cholesterol Performed By: #### L 100.0100, L501.9985, L501.9520, L503.0105, L506.1000, L500.4100, L500.4050, L503.6030, L506.0400 #### [facility] [address] [place], [address] Cholesterol in LDL [Mass/Vol] 113 mg/dL Normal 0-[address] [facility] Comment on above: Performed By: #### L 100.0100, L501.9985, L501.9520, L503.0105, L506.1000, L500.4100, L500.4050, L503.6030, L506.0400 #### [facility] [address] [place], [address] Cholesterol in VLDL [Mass/Vol] 63 mg/dL High 5-[address] [facility] Comment on above: Performed By: #### L 100.0100, L501.9985, L501.9520, L503.0105, L506.1000, L500.4100, L500.4050, L503.6030, L506.0400 #### [facility] [address] [place], [place], [id number] Triglyceride [Mass/Vol] 315 mg/dL High [facility] Comment on above: Result Comment: The drugs N-Acetylcysteine and Metamizole may falsely depress this assay. Serum Triglycerides Reference Interval Normal <150 mg/dL Borderline high 150 - 199 mg/dL High 200 - 499 mg/dL Very High > or = 500 mg/dL Performed By: #### L 100.0100, L501.9985, L501.9520, L503.0105, L506.1000, L500.4100, L500.4050, L503.6030, L506.0400 #### [facility] [address] [place], [place], [id number] T4 Free Directon 02-10-2024 T4 FREE DIRECT 0.81 ng/dL Normal 0.76-1.[address] [facility] Comment on above: Performed By: #### L 100.0100, L501.9985, L501.9520, L503.0105, L506.1000, L500.4100, L500.4050, L503.6030, L506.0400 ####[facility] [address] [place], [address] Thyroid Stim Hormone (TSH)on 02-10-2024 TSH 1.020 uIU/mL Normal 0.358-3.[address] [facility] Comment on above: Performed By: #### L 100.0100, L501.9985, L501.9520, L503.0105, L506.1000, L500.4100, L500.4050, L503.6030, L506.0400 #### [facility] [address] [place], [address] Vitamin B12on 02-10-2024 Cobalamin (Vitamin B12) [Mass/Vol] 272 pg/mL Normal 211-[address] [facility] Comment on above: Performed By: #### L 100.0100, L501.9985, L501.9520, L503.0105, L506.1000, L500.4100, L500.4050, L503.6030, L506.0400 ####[facility] [address] [place], [address] Vitamin D,25 Hydroxyon 02-09 Vitamin D 25-OH 27.5 ng/mL Normal [facility] [facility] Comment on above: Result Comment: Maryana min D 25(OH) Status Range Deficiency <20 ng/mL (50nmol/L) Insufficiency 20 - 30 ng/mL (50 - 75 nmol/L) Sufficiency 30 - 100 ng/mL (75 - 250 nmol/L) Toxicity >100 ng/mL (>250 nmol/L) Performed By: #### L 100.0100, L501.9985, L501.9520, L503.0105, L506.1000, L500.4100, L500.4050, L503.6030, L506.0400 ####[facility] [address] [place], [address] Basic Metabolic Profile (BMP )on 12-29-2023 BUN/CRE 18.6 RATIO Normal 10-[address] [facility] Comment on above: Performed By: #### L 500.2500 ####[facility] [address] [place], [address] CA,Total 9.7 mg/dL Normal 8.5-10.[address] [facility] Comment on above: Performed By: #### L 500.2500 ####[facility] [address] [place], [address] Chloride [Moles/Vol] 106 mmol/L Normal 98-107 [facility] Comment on above: Performed By: #### L 500.2500 ####[facility] [address] [place], [address] CO2 [Moles/Vol] 28.0 mmol/L Normal 21.0-32.[address] [facility] Comment on above: Performed By: #### L 500.2500 ####[facility] [address] [place], [address] Creatinine [Mass/Vol] 0.86 mg/dL Normal 0.55-1.02 [facility] Comment on above: Result Comment: The validity of the calculated GFR GFRAA in patients over 70 years has not been determined. Clinical correlation is essential. Performed By: #### L 500.2500 ####[facility] [address] [place], [address] ECRCL 109.27 ml/min Normal [facility] Comment on above: Performed By: #### L 500.2500 ####[facility] [address] [place], [address] EST GFR - AA 94 mL/min Normal >[address] [facility] Comment on above: Result Comment: Afri can Somali GFR Calc Performed By: #### L 500.2500 ####[facility] [address] [place], [address] GAP 6 Normal 5-[address] [facility] Comment on above: Performed By: #### L 500.2500 ####[facility] [address] [place], [address] GFR/1.73 sq M.predicted among non-blacks MDRD (S/P/Bld) [Vol rate/Area] 78 mL/min/{1.73_m2} Normal >[address] [facility] Comment on above: Result Comment: Non- GFR Calc Performed By: #### L 500.2500 ####[facility] [address] [place], [address] Glucose [Mass/Vol] 93 mg/dL Normal 74-106 [facility] Comment on above: Performed By: #### L 500.2500 ####[facility] [address] [place], [id number] Potassium [Moles/Vol] 3.6 mmol/L Normal 3.5-5.1 [facility] Comment on above: Performed By: #### L 500.2500 ####[facility] [address] [place], [place], [phone] Sodium [Moles/Vol] 140 mmol/L Normal 136-145 [facility] Comment on above: Performed By: #### L 500.2500 ####[facility] [address] [place], [place], [phone] Urea nitrogen [Mass/Vol] 16 mg/dL Normal 7-[address] [facility] Comment on above: Performed By: #### L 500.2500 ####[facility] [address] [place], [place], [phone] CNOVon 12-29-2023 CNOV Office Visit ([facility] ) KHADRA NIEVES ([id number]) 1985 F Date Time Provider Department 12/29/23 12:45 PM TARUN NUNEZ [facility] During your visit today, we recorded the following information about you: Tarun Nunez APRN.CNP 12/29/2023 1:02 PM Signed Patient triaged at [facility]. Here today with right chest pain, heart fluttering/racing. I will refer to ER. Patient in no apparent distress at time of triage. Allergies As of Date: 12/29/2023 Noted Allergy Reaction BACTRIM (SULFAMETHOXAZOLE) 03/26/2013 2 - Rash 10 - Anaphylaxis CIPROFLOXACIN 03/26/2013 2 - Rash KEFLEX (CEPHALEXIN) 03/26/2013 2 - Rash PROZAC (FLUOXETINE HCL) 03/19/2016 14 - Other: See Comments Comments: Suicidal thoughts ZOLOFT (SERTRALINE HCL) 03/19/2016 14 - Other: See Comments Comments: Suicidal thoughts Date Reviewed: 03/05/2023 Reviewed by: Susan Stuart MA - Fully Assessed Primary Visit Diagnosis:Chest pain, unspecified type [R07.9] Other Visit Diagnosis:Palpitation s [R00.2] Prescriptions as of 12/29/2023 - ALPRAZolam (XANAX) 0.5 mg tablet Take 1 tablet by mouth three times daily as needed for Anxiety. - desvenlafaxine succinate (PRISTIQ) 25 mg Tb24 Take 25 mg by mouth once daily. - LACTOBACILLUS ACIDOPHILUS (PROBIOTIC ORAL) Take by mouth once daily. Problem List As Of Date 12/29/2023 Noted Resolved First trimester bleeding [O20.9] 05/04/2013 07/08/2014 Medication exposure during first trimester of p*05/04/2013 07/08/2014 Depression complicating , antepartum [*05/04/2013 07/08/2014 History of abnormal Pap smear [Z87.898] 05/04/2013 07/08/2014 Family history of Bennington's chorea [Z82.0] 05/04/2013 07/08/2014 Quit smoking [Z87.891] 05/04/2013 07/08/2014 Patient requested diagnostic testing [Z01.89] 05/04/2013 07/08/2014 Supervision of high-risk [O09.90] 05/20/2013 07/08/2014 UTI (urinary tract infection) during *06/22/2013 07/08/2014 Anxiety [F41.9] Depression [F32.A] 03/31/2004 Encounter Status:Closed by TARUN NUNEZ on 12/29/23 Normal [facility] Emergency Department Summary on 12-29-2023 Emergency Department Summary [facility] Medical Records Department [address] [place] [address] Emergency Department Summary 12/29/23 MR#: [id number] Acct: [id number] Name: KHADRA NIEVES Rep #: [id number] : 1985 38 From: Maurice Mercado MD PCP: Care Physician,No Primary Status:REG ER Location: ED HPI History of Present Illness Chief Complaint: Palpitations Detail of Chief Complaint: Feel my heartbeat at night when I attempt to go to sleep Informant: patient Onset/Context/Timing Onset: Weeks Context: Sudden Onset Timing: Intermittent Quality: Palpitations Location: Chest Current Severity: Gone Maximum Severity: Moderate Worsened by: At nighttime when patient is lying down getting ready to go to sleep Relieved by: Nothing Associated Symptoms Associated Symptoms: Lightheadedness if she gets up quickly Narrative Narrative: Patient is a 38-year-old female who presents with palpitations for the past several weeks. She does check her heart rate and states is in 70s. She denies shortness of breath, diaphoresis, has had nausea. She reports lightheadedness if she gets up during the episode. She denies headache, visual, ocular auditory symptoms. She presently has no symptoms. She denies abdominal pain or back pain. Denies black or maroon-colored stool. She states she normally does not check. She denies history of VTE. She has no risk factors for VTE. She does admit to drinking 32 ounces of coffee in the morning. She does not have any caffeinated beverages during the day or at night. Prior similar symptoms: No Recent Illness/Hospitalizati on: No PFSH PFSH Medical History Ankle fracture, right Ankle fracture, left Home Medications ???Medication ???Instructions ???Recorded ???Last Taken ???Type alprazolam 0.5 mg tablet 0.5 mg PO TID PRN PRN Anxiety 07/01/14 02/17/16 13:00 History naproxen 500 mg tablet 500 mg PO BID #20 tabs 02/17/16 Unknown Rx Allergy/AdvReac Type Severity Reaction Status Date / Time cephalexin monohydrate (From Allergy Hives Verified 03/05/23 16:53 Keflex) ciprofloxacin (From Cipro) Allergy Hives Verified 03/05/23 16:53 ciprofloxacin HCl (From Allergy Hives Verified 03/05/23 16:53 Cipro) sulfamethoxazole (From Allergy Hives Verified 03/05/23 16:53 Bactrim) trimethoprim (From Bactrim) Allergy Hives Verified 03/05/23 16:53 Surgical History Status post surgical removal of both fallopian tubes Social History Smoking Status: Current every day smoker tobacco type: cigarettes ROS ROS ED Constitutional Constitutional ED: Denies chills, fever(s), subjective, sweats or weight loss Eyes Eyes: Denies blurry vision or change in vision ENT ENT ED: Denies ear pain, rhinorrhea or sore throat Cardiovascular Cardiovascular: Reports palpitations; Denies chest pain, orthopnea, paroxysmal nocturnal dyspnea or racing heartbeat Respiratory/Chest Respiratory/Chest: Denies cough, dyspnea, dyspnea on exertion, orthopnea or paroxysmal nocturnal dyspnea Gastrointestinal Gastrointestinal: Denies abdominal pain, diarrhea, melena, nausea or vomiting Musculoskeletal Musculoskeletal: Denies back pain Integumentary Denies rash Neurologic Neurologic: Denies weakness Hematologic/Lymphatic Hematologic/Lymphatic : Reports systems reviewed and no addt'l complaints, except as documented EXAM Physical Exam Const Vital Signs: 12/29/23 12:57 12/29/23 13:22 12/29/23 13:56 Temperature 97.2 F L Temperature Source Temporal Pulse Rate 60 Respiratory Rate 16 16 Respiratory Effort Normal Blood Pressure 137/82 H 122/66 H Blood Pressure Mean 100 84 Pulse Ox 98 Oxygen Delivery Method Room Air 12/29/23 14:00 Temperature Temperature Source Pulse Rate Respiratory Rate Respiratory Effort Blood Pressure 122/66 H Blood Pressure Mean 84 Pulse Ox Oxygen Delivery Method Positive well nourished and well developed General Appearance ED: well developed and NAD; Negative for pallor HEENT Reports moist mucous membranes HEENT Narrative: Ears are normal. Nares patent. Posterior pharynx is normal. Eyes PERRL and EOMs intact bilaterally General Eye ED: Negative for pale conjunctiva or scleral icterus Neck no lymphadenopathy, supple and no JVD Chest Wall inspection of chest normal and palpation of chest normal Resp normal respiratory effort and clear to auscultation bilaterally Cardio regular rate, regular rhythm, S1 normal heart sound, S2 normal heart sound and no murmurs GI normal to inspection, nondistended, normoactive bowel sounds, non-tender, non-distended, hepatosplenomegaly and no masses Extremity Ext (more content not included)... Normal [facility] Study Interpretation of outs yeni studyon 07-03-2023 Outside images for comparison or treatment purposes, not interpreted by Radiologists. IMAGING Outside images for comparison or treatment purposes, not interpreted by Radiologists. IMAGING Outside images for comparison or treatment purposes, not interpreted by Radiologists. IMAGING Outside images for comparison or treatment purposes, not interpreted by Radiologists. IMAGING Outside images for comparison or treatment purposes, not interpreted by Radiologists. IMAGING Outside images for comparison or treatment purposes, not interpreted by Radiologists. IMAGING BI MAMMO BILATERAL SCREENING TOMOSYNTHESISon 06-26-2023 BI MAMMO BILATERAL SCREENING TOMOSYNTHESIS Interpreted By: Matheus Suárez, STUDY: BI MAMMO BILATERAL SCREENING TOMOSYNTHESIS; 06/26/2023 9:23 am ACCESSION NUMBER(S): [id number] ORDERING CLINICIAN: MERCEDES GRANADOS INDICATION: Screening. COMPARISON: Digital mammograms dated 05/05/2020 FINDINGS: CC and MLO 2D digital mammograms and digital breast tomosynthesis images were obtained of the bilateral breasts. 3-D volume images were reconstructed in 4 views at an independent workstation as 1 mm slices through the breasts in both the CC and MLO projections. Density: The breast tissue is heterogeneously dense, which may obscure small masses. No discrete mass or focal asymmetry is identified. No suspicious microcalcifications or foci of architectural distortion are seen. There has been no significant change. This study was interpreted with CAD. IMPRESSION: No mammographic evidence of malignancy. Based on the Tyrer-Cuzick model for breast cancer risk assessment, the patient's lifetime risk of breast cancer is 39.9%. Patients with over a 20% lifetime risk of developing breast cancer may benefit from additional screening with breast MRI or ultrasound. Please note that this estimate is based on responses provided on the patient questionnaire. For more information regarding high risk consultation, please call [phone]. BI-RADS CATEGORY: BI-RADS Category: 1 Negative. Recommendation: Routine Screening Mammogram in 1 Year. Recommended Date: 1 Year. Laterality: Bilateral. MACRO: None Signed by: Matheus Suárez 07/04/2023 8:33 AM Dictation workstation: [id number] Normal [facility] CBC panel Auto (Bld)on 06-24 Erythrocyte distribution width (RBC) [Ratio] 12.2 % Normal 11.5-14.5 [facility] Comment on above: Performed By: #### 5 8410-2 #### DEE SOLIS ([id number]) [facility] ([facility]) [address] [place] [address] 65248 Hematocrit (Bld) [Volume fraction] 42.1 % Normal 36.0-46.0 [facility] Comment on above: Performed By: #### 5 8410-2 #### DEE SOLIS (10461) [facility] ([facility]) [address] [place] [address] 43770 Hemoglobin (Bld) [Mass/Vol] 13.5 g/dL Normal 12.0-16.0 [facility] Comment on above: Performed By: #### 5 8410-2 #### DEE SOLIS (34251) [facility] ([facility]) [address] [place] [address] 33371 MCH (RBC) [Entitic mass] 29.3 pg Normal 26.0-34.0 [facility] Comment on above: Performed By: #### 5 8410-2 #### DEE SOLIS ([id number]) [facility] ([facility]) [address] [place] [address] 02213 MCHC (RBC) [Mass/Vol] 32.1 g/dL Normal 32.0-36.0 [facility] Comment on above: Performed By: #### 5 8410-2 #### DEE SOLIS (06534) [facility] ([facility]) [address] [place] [address] 63709 MCV (RBC) [Entitic vol] 92 fL Normal 80-100 [facility] Comment on above: Performed By: #### 5 8410-2 #### DEE SOLIS (55498) [facility] ([facility]) [address] [place] [address] 72950 Nucleated RBC/100 WBC (Bld) [Ratio] 0.0 /100 WBCs Normal 0.0-0.0 [facility] Comment on above: Performed By: #### 5 8410-2 #### DEE SOLIS (22991) [facility] ([facility]) [address] [place] [address] 85131 Platelets (Bld) [#/Vol] 337 x10*3/uL Normal 150-450 [facility] Comment on above: Performed By: #### 5 8410-2 #### DEE SOLIS (55236) [facility] ([facility]) [address] [place] [address] 79056 RBC (Bld) [#/Vol] 4.60 x10*6/uL Normal 4.00-5.20 [facility] Comment on above: Performed By: #### 5 8410-2 #### DEE SOLIS (16280) [facility] ([facility]) [address] [place] [address] 06759 WBC (Bld) [#/Vol] 7.8 x10*3/uL Normal 4.4-11.3 [facility] Comment on above: Performed By: #### 5 8410-2 #### DEE SOLIS (29504) [facility] ([facility]) [address] [place] [address] 84157 Cobalaminson 06-25-2023 Cobalamin (Vitamin B12) [Mass/Vol] 181 pg/mL Low 211-911 [facility] Comment on above: Performed By: #### 2 132-9 #### DEE SOLIS (48036) [facility] ([facility]) [address] [place] [address] 19162 Comprehensive metabolic 2000 panelon 06-25-2023 Albumin BCP dye [Mass/Vol] 4.3 g/dL Normal 3.4-5.0 [facility] Comment on above: Performed By: #### 2 4323-8 #### DEE SOLIS ([id number]) [facility] ([facility]) [address] [place] [address] 09410 ALP [Catalytic activity/Vol] 58 U/L Normal 33-110 [facility] Comment on above: Performed By: #### 2 4323-8 #### DEE SOLIS (32711) [facility] ([facility]) [address] [place] [address] 11296 ALT With P-5'-P [Catalytic activity/Vol] 11 U/L Normal 7-45 [facility] Comment on above: Result Comment: Isabela ents treated with Sulfasalazine may generate falsely decreased results for ALT. Performed By: #### 2 4323-8 #### DEE SOLIS (60507) [facility] ([facility]) [address] [place] [address] Anion gap [Moles/Vol] 10 mmol/L Normal 10-20 [facility] Comment on above: Performed By: #### 2 4322-8 #### DEE SOLIS (02636) [facility] ([facility]) [address] [place] [address] 64309 AST With P-5'-P [Catalytic activity/Vol] 12 U/L Normal 9-39 [facility] Comment on above: Performed By: #### 2 4322-8 #### DEE SOLIS (42871) [facility] ([facility]) [address] [place] [address] 03171 Bilirubin [Mass/Vol] 0.6 mg/dL Normal 0.0-1.2 [facility] Comment on above: Performed By: #### 2 4322-8 #### DEE SOLIS (54638) [facility] ([facility]) [address] [place] [address] 67101 Calcium [Mass/Vol] 9.3 mg/dL Normal 8.6-10.[address] [facility] Comment on above: Performed By: #### 2 4322-8 #### DEE SOLIS (81243) [facility] ([facility]) [address] [place] [address] 77224 Chloride [Moles/Vol] 106 mmol/L Normal 98-107 [facility] Comment on above: Performed By: #### 2 3-8 #### DEE SOLIS (81139) [facility] ([facility]) [address] [place] [address] CO2 [Moles/Vol] 28 mmol/L Normal 21-32 [facility] Comment on above: Performed By: #### 2 4323-8 #### DEE SOLIS (92369) [facility] ([facility]) [facility] [place] [address] Creatinine [Mass/Vol] 0.81 mg/dL Normal 0.50-1.05 [facility] Comment on above: Performed By: #### 2 4323-8 #### DEE SOLIS (52423) [facility] ([facility]) [address] [place] [address] 43873 GFR/1.73 sq M.predicted MDRD (S/P/Bld) [Vol rate/Area] mL/min/{1.73_m2} Normal >60 [facility] Comment on above: Result Comment: Calc ulations of estimated GFR are performed using the 2020 CKD-EPI Study Refit equation without the race variable for the IDMS-Traceable creatinine methods. https://jasn.asnjournals.org/content//ASN.68395 47681 Performed By: #### 2 4323-8 #### DEE SOLIS (45196) [facility] ([facility]) [address] [place] [address] 03003 Glucose [Mass/Vol] 90 mg/dL Normal 74-[address] [facility] Comment on above: Performed By: #### 2 4323-8 #### DEE SOLIS (04944) [facility] ([facility]) [address] [place] [address] 11818 Potassium [Moles/Vol] 4.3 mmol/L Normal 3.5-5.3 [facility] Comment on above: Performed By: #### 2 4323-8 #### DEE SOLIS ([id number]) [facility] ([facility]) [address] [place] [address] 61308 Protein [Mass/Vol] 6.3 g/dL Low 6.4-8.[address] [facility] Comment on above: Performed By: #### 2 4323-8 #### DEE SOLIS (59858) [facility] ([facility]) [address] [place] [address] 80039 Sodium [Moles/Vol] 140 mmol/L Normal 136-[address] [facility] Comment on above: Performed By: #### 2 4323-8 #### DEE SOLIS (79965) [facility] ([facility]) [address] [place] [address] 73647 Urea nitrogen [Mass/Vol] 14 mg/dL Normal 6-23 [facility] Comment on above: Performed By: #### 2 4323-8 #### DEE SOLIS (17021) [facility] ([facility]) [address] [place] [address] 31008 Lipid 1996 panelon 4 Cholesterol [Mass/Vol] 198 mg/dL Normal 0-199 [facility] Comment on above: Result Comment: Age Desirable Borderline High High 0-19 Y 0 - 169 170 - 199 >/= 200 20-24 Y 0 - 189 190 - 224 >/= 225 >24 Y 0 - 199 200 - 239 >/= 240 All ranges are based on fasting samples. Specific therapeutic targets will vary based on patient-specific cardiac risk. Pediatric guidelines reference:Pediatrics 2011, 128(S5).Adult guidelines reference: NCEP ATPIII Guidelines,VERONICA 2001, 258:2486-97 Venipuncture immediately after or during the administration of Metamizole may lead to falsely low results. Testing should be performed immediately prior to Metamizole dosing. Performed By: #### 2 4331-1 #### DEE SOLIS (22172) [facility] ([facility]) [address] [place] [address] 23766 Cholesterol in HDL [Mass/Vol] 45.0 mg/dL Normal [facility] Comment on above: Result Comment: Age Very Low Low Normal High 0-19 Y < 35 < 40 40-45 ---- 20-24 Y ---- < 40 >45 ---- >24 Y ---- < 40 40-60 >60 Performed By: #### 2 4331-1 #### DEE SOLIS (36988) [facility] ([facility]) [facility] [place] [address] Cholesterol in LDL [Mass/Vol] 107 mg/dL High <=99 [facility] Comment on above: Result Comment: Near Borderline AGE Desirable Optimal High High Very High 0-19 Y 0 - 109 --- 110-129 >/= 130 ---- 20-24 Y 0 - 119 --- 120-159 >/= 160 ---- >24 Y 0 - 99 100-129 130-159 160-189 >/=190 Performed By: #### 2 4331-1 #### DEE SOLIS (74330) [facility] ([facility]) [address] [place] [address] 56591 Cholesterol in VLDL [Mass/Vol] 46 mg/dL High 0-40 [facility] Comment on above: Performed By: #### 2 4331-1 #### DEE SOLIS (91446) [facility] ([facility]) [address] [place] [address] 39035 CHOLESTEROL/HDL RATIO 4.4 Normal [facility] Comment on above: Result Comment: Ref Values Desirable < 3.4 High Risk > 5.0 Performed By: #### 2 4331-1 #### DEE SOLIS (23100) [facility] ([facility]) [address] [place] [address] 32620 NON HDL CHOLESTEROL 153 mg/dL High 0-149 [facility] Comment on above: Result Comment: Age Desirable Borderline High High Very High 0-19 Y 0 - 119 120 - 144 >/= 145 >/= 160 20-24 Y 0 - 149 150 - 189 >/= 190 ---- >24 Y 30 mg/dL above LDL Cholesterol goal Performed By: #### 2 4331-1 #### DEE SOLIS (10492) [facility] ([facility]) [address] [place] [address] 96130 Triglyceride [Mass/Vol] 231 mg/dL High 0-149 [facility] Comment on above: Result Comment: Age Desirable Borderline High High Very High 0 D-90 D 19 - 174 ---- ---- ---- 91 D- 9 Y 0 - 74 75 - 99 >/= 100 ---- 10-19 Y 0 - 89 90 - 129 >/= 130 ---- 20-24 Y 0 - 114 115 - 149 >/= 150 ---- >24 Y 0 - 149 150 - 199 200- 499 >/= 500 Venipuncture immediately after or during the administration of Metamizole may lead to falsely low results. Testing should be performed immediately prior to Metamizole dosing. Performed By: #### 2 4331-1 #### PRICE IRMA ([id number]) [facility] ([facility]) [address] [place] [address] Thyrotropinon 06-25-2023 TSH Qn 1.10 m[IU]/L Normal 0.44-3.98 [facility] Comment on above: Order Comment: TSH t esting is performed using different testing methodology at [facility] than at other [facility]. Direct result comparisons should only be made within the same method. Performed By: #### 3 016-3 #### DEE SOLIS ([id number]) [facility] ([facility]) [address] [place] [address] CNOVon 03-05-2023 CNOV Office Visit (UCWSTR ) KHADRA NIEVES ([id number]) 1985 F Date Time Provider Department 03/05/23 4:30 PM [facility] During your visit today, we recorded the following information about you: Temperature Pulse Respiration Blood pressure 98.3 degrees 79/minute 20/minute 120/64 Weight 100.2 kg Kassy Limon APRN.CONTROL CLERK REPAIRS 03/05/2023 4:45 PM Signed This note was created using NoteWriter. Subjective Khadra Nieves is a 37 year old female. Patient reports she got a cortisone injection in her right ankle at [facility] in [place] this morning and on her way home she began having pain and swelling. Patient was directed to go to ER and she presented her. Objective BP 120/64 Pulse 79 Temp 36.8 ?C (98.3 ?F) Resp 20 Wt 100.2 kg (220 lb 12.8 oz) LMP 03/02/2016 (Exact Date) SpO2 99% BMI 35.10 kg/m? Physical Exam PHYSICAL EXAMINATION: General appearance: Crying, distressed Musculoskeletal: Positive findings: joint location: on right ankle pain, swelling, painful movement, loss of ROM, and extending up leg. Peripheral pulses: Normal Neuro: Gait normal. Reflexes normal and symmetric. Sensation grossly intact. Assessment and Plan ASSESSMENT/PLAN: 1. Acute right ankle pain - ICD9: 719.47, 338.19, ICD10: M25.571 -Patient referred to ER Kassy Limon APRN.CONTROL CLERK REPAIRS Allergies As of Date: 03/05/2023 Noted Allergy Reaction BACTRIM (SULFAMETHOXAZOLE) 03/26/2013 2 - Rash 10 - Anaphylaxis CIPROFLOXACIN 03/26/2013 2 - Rash KEFLEX (CEPHALEXIN) 03/26/2013 2 - Rash PROZAC (FLUOXETINE HCL) 03/19/2016 14 - Other: See Comments Comments: Suicidal thoughts ZOLOFT (SERTRALINE HCL) 03/19/2016 14 - Other: See Comments Comments: Suicidal thoughts Date Reviewed: 03/05/2023 Reviewed by: Susan Stuart MA - Fully Assessed Reason for Visit: Pain [78] Cmt: Right ankle pain, swelling after cortisol shot this morning Primary Visit Diagnosis:Acute right ankle pain [M25.571] Prescriptions as of 03/05/2023 - ALPRAZolam (XANAX) 0.5 mg tablet Take 1 tablet by mouth three times daily as needed for Anxiety. - desvenlafaxine succinate (PRISTIQ) 25 mg Tb24 Take 25 mg by mouth once daily. - LACTOBACILLUS ACIDOPHILUS (PROBIOTIC ORAL) Take by mouth once daily. Problem List As Of Date 03/05/2023 Noted Resolved First trimester bleeding [O20.9] 05/04/2013 07/08/2014 Medication exposure during first trimester of p*05/04/2013 07/08/2014 Depression complicating , antepartum [*05/04/2013 07/08/2014 History of abnormal Pap smear [Z87.898] 05/04/2013 07/08/2014 Family history of Makenzie's chorea [Z82.0] 05/04/2013 07/08/2014 Quit smoking [Z87.891] 05/04/2013 07/08/2014 Patient requested diagnostic testing [Z01.89] 05/04/2013 07/08/2014 Supervision of high-risk [O09.90] 05/20/2013 07/08/2014 UTI (urinary tract infection) during *06/22/2013 07/08/2014 Anxiety [F41.9] Depression [F32.A] 03/31/2004 Encounter Status:Closed by KASSY LIMON on 03/05/23 [facility] 12-30-2022 CNPN Telephone (MARKOINTPWA) KHADRA NIEVES ([id number]) 1985 F Date Time Provider Department 12/30/22 LORETA MOURA During your visit today, we recorded the following information about you: Mounika Jacobo 12/30/2022 3:43 PM Signed No Show Documentation Khadra Saniya no showed for an appointment on 12/30/22 with Loreta Moura DO at 3:20 pm. She was scheduled for est care/cpe. Attempted to contact the patient regarding missed appointment. Call dropped twice after connecting. Unsure if call ended on Pt end or not. Resources discussed/offered to patient: Na No show determined to be fault of patient: Yes This is the patients first no show in the last 12 months. Patient was rescheduled for Na. Letter mailed : No Is this the Third or Fourth No Show? Mikayla Jacobo December 30, 2022 3:42 PM Allergies As of Date: 12/30/2022 Noted Allergy Reaction BACTRIM (SULFAMETHOXAZOLE) 03/26/2013 2 - Rash 10 - Anaphylaxis CIPROFLOXACIN 03/26/2013 2 - Rash KEFLEX (CEPHALEXIN) 03/26/2013 2 - Rash PROZAC (FLUOXETINE HCL) 03/19/2016 14 - Other: See Comments Comments: Suicidal thoughts ZOLOFT (SERTRALINE HCL) 03/19/2016 14 - Other: See Comments Comments: Suicidal thoughts Date Reviewed: 08/12/2016 Reviewed by: Omari Sweeney Ma - Fully Assessed Reason for Visit: No Show [Other] Prescriptions as of 12/30/2022 - ALPRAZolam (XANAX) 0.5 mg tablet Take 1 tablet by mouth three times daily as needed for Anxiety. - desvenlafaxine succinate (PRISTIQ) 25 mg Tb24 Take 25 mg by mouth once daily. - LACTOBACILLUS ACIDOPHILUS (PROBIOTIC ORAL) Take by mouth once daily. Problem List As Of Date 12/30/2022 Noted Resolved First trimester bleeding [O20.9] 05/04/2013 07/08/2014 Medication exposure during first trimester of p*05/04/2013 07/08/2014 Depression complicating , antepartum [*05/04/2013 07/08/2014 History of abnormal Pap smear [Z87.898] 05/04/2013 07/08/2014 Family history of Bennington's chorea [Z82.0] 05/04/2013 07/08/2014 Quit smoking [Z87.891] 05/04/2013 07/08/2014 Patient requested diagnostic testing [Z01.89] 05/04/2013 07/08/2014 Supervision of high-risk [O09.90] 05/20/2013 07/08/2014 UTI (urinary tract infection) during *06/22/2013 07/08/2014 Anxiety [F41.9] Depression [F32.A] 03/31/2004 Encounter Status:Closed by MOUNIKA JAOCBO on 12/30/22 [facility] 12-27-2022 [facility] Telephone (AGINTMAC) ISHANOHKHADRA ([id number]) 1985 F Date Time Provider Department 12/27/22 LORETA MOURA During your visit today, we recorded the following information about you: Mounika Jacobo 12/27/2022 11:44 AM Signed I called the patient to confirm the appointment scheduled for 12/30/22. Patient confirmed. Mounika Lily December 27, 2022 11:44 AM Allergies As of Date: 12/27/2022 Noted Allergy Reaction BACTRIM (SULFAMETHOXAZOLE) 03/26/2013 2 - Rash 10 - Anaphylaxis CIPROFLOXACIN 03/26/2013 2 - Rash KEFLEX (CEPHALEXIN) 03/26/2013 2 - Rash PROZAC (FLUOXETINE HCL) 03/19/2016 14 - Other: See Comments Comments: Suicidal thoughts ZOLOFT (SERTRALINE HCL) 03/19/2016 14 - Other: See Comments Comments: Suicidal thoughts Date Reviewed: 08/12/2016 Reviewed by: Omari Sweeney Ma - Fully Assessed Reason for Visit: Appointment Reminder [Other] Prescriptions as of 12/27/2022 - ALPRAZolam (XANAX) 0.5 mg tablet Take 1 tablet by mouth three times daily as needed for Anxiety. - desvenlafaxine succinate (PRISTIQ) 25 mg Tb24 Take 25 mg by mouth once daily. - LACTOBACILLUS ACIDOPHILUS (PROBIOTIC ORAL) Take by mouth once daily. Problem List As Of Date 12/27/2022 Noted Resolved First trimester bleeding [O20.9] 05/04/2013 07/08/2014 Medication exposure during first trimester of p*05/04/2013 07/08/2014 Depression complicating , antepartum [*05/04/2013 07/08/2014 History of abnormal Pap smear [Z87.898] 05/04/2013 07/08/2014 Family history of Bennington's chorea [Z82.0] 05/04/2013 07/08/2014 Quit smoking [Z87.891] 05/04/2013 07/08/2014 Patient requested diagnostic testing [Z01.89] 05/04/2013 07/08/2014 Supervision of high-risk [O09.90] 05/20/2013 07/08/2014 UTI (urinary tract infection) during *06/22/2013 07/08/2014 Anxiety [F41.9] Depression [F32.A] 03/31/2004 Encounter Status:Closed by MOUNIKA JACOBO on 12/27/22 [facility] No Panel Informationon 08-02 Radiology Study observation (narrative) CAR JOSE [employer] Work Phone: [employer]on 08-02-2022 Microscopic observation Cyto stain Nom (Cvx) SEE BELOW [facility] Comment on above: Result Comment: Path Number: [id number] DIAGNOSIS Cervical-Endocervical material, (Thin prep vial, Imaging-assisted review): Specimen Adequacy: Satisfactory for evaluation. -Endocervical/transformation zone component is absent. Descriptive Diagnosis: NEGATIVE FOR INTRAEPITHELIAL LESION OR MALIGNANCY. Reactive cellular changes associated with inflammation. Case signed out at [facility], [address] [place] [address] [employer] Screener: [id number] Electronically Signed Out Scot Parra M.D. Case signed out at [facility] mk/08/02/2022 Procedure/Addendum HPV Procedure Report Date Ordered: 07/29/2022 Status: Signed Out Date Complete: 07/30/2022 By: System Interface Date Reported: 07/30/2022 Sample: HPV Type 16 Result: Not Detected Ref Range: (Not Detected) Sample: HPV Type 18 Result: Not Detected Ref Range: (Not Detected) Sample: Other High Risk HPV Result: DETECTED Ref Range: (Not Detected) Sample: HPV Interp Result: Ref Range: (Not Detected) This test amplifies and detects DNA of 14 high-risk HPV types associated with cervical cancer and its precursor lesions (HPV types 16,18, 31, 33, 35, 39, 45, 51, 52, 56, 58, 59, 66, and 68). Sensitivity may be affected by specimen collection methods, stage of infection, and the presence of interfering substances. Results should be interpreted in conjunction with other available laboratory and clinical data. A negative high-risk HPV result does not exclude the possibility of future cytologic HSIL or underlying CIN2-3 or cancer. This test is intended for medical purposes only and is not valid for the evaluation of suspected sexual abuse or for other forensic purposes. Performed at [facility], [address] [place] [address] . Source of Specimen: A: Cervical-Endocervical material, (Thin prep vial, Imaging-assisted review) HPV Reflex?......................HPV Regardless Clinical History Z12.4 Encounter for screening for malignant neoplasm of cervix Co-Test: ThinPrep Pap with high risk HPV testing Prior Normal Pap: 06/15 LMP: 06/30/2022 Interpretation performed at [facility] [address] [address] The Pap smear is a screening test primarily for squamous epithelial lesions, which is subject to both false negative and false positive results. Your patient should be reminded to consult you immediately if she experiences any suspicious signs or symptoms, regardless of her Pap smear result. GYNECOLOGIC CYTOLOGY REPORT Patient Name: KHADRA NIEVES [facility] Rec: [id number] [employer] [facility] ANATOMIC PATHOLOGY [address] [place] [id number] Performed By: #### C NTP, IPAP #### [facility] [address] [place] [id number] #### TRICV #### [facility] [address] XR CERVICAL SPINE (4-5 VIEWS )on 08-02-2022 XR CERVICAL SPINE (4-5 VIEWS) CERVICAL SPINE WITH OBLIQUE VIEWS (5 views): CLINICAL INFORMATION: Radicular pain in right arm TECHNIQUE: AP, lateral, odontoid, and both oblique views of the cervical spine were obtained. IMPRESSION: 1. Straightening of the normal cervical lordosis. Cannot exclude muscle spasm. 2. Slight disc space narrowing C5-6. No fracture. Prevertebral soft tissues unremarkable. 3. Mild uncinate spurring C5-6 with slight foraminal encroachment bilaterally.. All of the other foramina are well-maintained. This report has been created using voice recognition software. It may contain minor errors which are inherent in voice recognition technology. Final report electronically signed by Dr. Sonny Plata on 08/02/2022 9:06 AM Interpreted by: Sonny Plata MD Signed by: Sonny Plata MD 08/02/22 Final result Normal [facility] 1. Straightening of the normal cervical lordosis. Cannot exclude muscle spasm. 2. Slight disc space narrowing C5-6. No fracture. Prevertebral soft tissues unremarkable. 3. Mild uncinate spurring C5-6 with slight foraminal encroachment bilaterally.. All of the other foramina are well-maintained. This report has been created using voice recognition software. It may contain minor errors which are inherent in voice recognition technology. Final report electronically signed by Dr. Sonny Plata on 08/02/2022 9:06 AM [facility] CERVICAL SPINE WITH OBLIQUE VIEWS (5 views): CLINICAL INFORMATION: Radicular pain in right arm TECHNIQUE: AP, lateral, odontoid, and both oblique views of the cervical spine were obtained. [facility] Sonny Guzman MD - 08/02/2022 CERVICAL SPINE WITH OBLIQUE VIEWS (5 views): CLINICAL INFORMATION: Radicular pain in right arm TECHNIQUE: AP, lateral, odontoid, and both oblique views of the cervical spine were obtained. IMPRESSION: 1. Straightening of the normal cervical lordosis. Cannot exclude muscle spasm. 2. Slight disc space narrowing C5-6. No fracture. Prevertebral soft tissues unremarkable. 3. Mild uncinate spurring C5-6 with slight foraminal encroachment bilaterally.. All of the other foramina are well-maintained. This report has been created using voice recognition software. It may contain minor errors which are inherent in voice recognition technology. Final report electronically signed by Dr. Sonny Plata on 08/02/2022 9:06 AM [employer] [facility]) Phone: [employer] [facility] Phone: XR SHOULDER RIGHT (MIN 2 VIE WS)on 08-02-2022 Normal shoulder. This report has been created using voice recognition software. It may contain minor errors which are inherent in voice recognition technology. Final report electronically signed by Dr. Sonny Plata on 08/02/2022 9:04 AM [facility] Sonny Guzman MD - 08/02/2022 PROCEDURE: XR SHOULDER RIGHT (MIN 2 VIEWS) CLINICAL INFORMATION: Acute pain of right shoulder COMPARISON: No prior available. TECHNIQUE: 4 standard views of the right shoulder were obtained FINDINGS: No bone, joint, or soft tissue abnormality is seen. IMPRESSION: Normal shoulder. This report has been created using voice recognition software. It may contain minor errors which are inherent in voice recognition technology. Final report electronically signed by Dr. Sonny Plata on 08/02/2022 9:04 AM [employer] [facility]) Phone: XR SHOULDER RIGHT (MIN 2 VIE WS)Ordered By: Sonny Plata on 08-02-2022 [employer] [facility]) Phone: CT NG PROBE THIN PREPon 05-0 CHLAMYDIA PROBE THIN PREP Negative Normal [facility] Comment on above: Result Comment: CHLA MYDIA TRACHOMATIS DNA not detected by nucleic acid amplification. This test is intended for medical purposes only and is not valid for the evaluation of suspected sexual abuse or for other forensic purposes. In certain contexts, culture may be required to meet applicable laws and regulations for diagnosis of C. trachomatis and N. gonorrhoeae infections. Per 2014 CDC recommendations, this test does not include confirmation of positive results by an alternative nucleic acid target. Performed By: #### C NTP, IPAP #### [facility] [address] [place] [address] #### TRICV #### [facility] [address] GONORRHEA PROBE THIN PREP Negative Normal NEG [facility] Comment on above: Result Comment: NEIS SERIA GONORRHOEAE DNA not detected by nucleic acid amplification. This test is intended for medical purposes only and is not valid for the evaluation of suspected sexual abuse or for other forensic purposes. In certain contexts, culture may be required to meet applicable laws and regulations for diagnosis of C. trachomatis and N. gonorrhoeae infections. Per 2014 CDC recommendations, this test does not include confirmation of positive results by an alternative nucleic acid target. [facility] [address] [place] [address] Performed By: #### C NTP, IPAP #### [facility] [address] [facility] [address] #### TRICV #### [facility] [address] [facility] [address] TRICHOMONAS VAGINALIS BY TMA on 07-29-2022 [facility] MEDIA TYPE ThinPrep Normal [facility] Comment on above: Result Comment: AMEN DED on 07/29/22: Result in error was Thin Prep brush, verified at 15:49 on 07/26/22. Performed By: #### C NTP, IPAP #### [facility] [address] #### TRICV #### [facility] [address] [facility] [address] T. VAGINALIS BY TMA Negative Normal Negative [facility] Comment on above: Result Comment: Inte rpretive Information: Trichomonas vaginalis by TMA A negative result does not completely rule out infection with T. vaginalis. Results should be interpreted in conjunction with other clinical data. This test has not been validated for use with self-collected vaginal swab specimens from patients. This test is intended for medical purposes only and is not valid for the evaluation of suspected sexual abuse or for other forensic purposes. Performed By: [facility] [address] [place] [address] Fish Bin Tender: Tarun Sarabia MD, PhD Performed By: #### C NTP, IPAP #### [facility] [address] #### TRICV #### [facility] [address] [place] [facility] [address] CT NG PROBE THIN PREPon 06-30 SOURCE THIN PREP Cervical Normal [facility] Comment on above: Performed By: #### C NTP, IPAP #### [facility] [address] [facility] [address] #### TRICV #### [facility] [address] [place] [facility] [address] TRICHOMONAS VAGINALIS BY TMA on 07-26-2022 TRICH SPEC SOURCE Female (cervix) Normal [facility] Comment on above: Performed By: #### C NTP, IPAP #### [facility] [address] [place] [address] #### TRICV #### [facility] [address] [facility] [place] [address] ER Physician Documentationon 05-09-2022 ER Physician Documentation [facility] Patient: KHADRA NIEVES [address] : 1985 [place], [place] [address] Location: ER [phone] Unit #: [id number] ER Physician Documentation Service Date:05/09/22 ER Provider: Clifton Multani MD HPI - General Medical - Time Seen by Provider: 05/09/22 16:31 History of Present Illness Stated Complaint: POSS BLOOD CLOT RT LEG, HOT, TINGLING, NUMB History of Present Illness: Patient presents for evaluation of right posterior upper leg pain. She reports she woke this morning around 0330 with pain and took Advil with relief. Patient states she went to work, went home and took a nap. She woke from her nap with the pain again. She states the pain is posterior thigh radiating behind her knee and she describes it as sharp and cramping. She denies injury, fall, erythema, warmth, numbness. She smokes and is not on control. Review of Systems Review of Systems Constitutional: No symptoms EENT: No symptoms Respiratory: No symptoms Cardiac: No symptoms Abdomen/GI: No symptoms Skin: No symptoms Musculoskeletal: Muscle pain (right thigh) Neurological: No symptoms Psychiatric: No symptoms Past Family Social History Social History: Caffeine Amount: None Alcohol Amount: Socially/Occasionally Type o f Alcohol: Beer, Wine and Liquor Street Drugs: None and Denies Drug Use Smoking Status: Heavy tobacco smoker Type of Tobacco: Cigaret kayy Smoking Amount: < 1 pack per day Exam Physical Exam: Patient presentation: Well appearing General Appearance: Positive Re sting comfortable General Age: Appears stated age General Skin: N ormal for ethnicity General Habitus: Normal GeneralMental Status: Alert General hydration: Moist mucous membranes Orders/Results Orders: Orders US Venous Doppler Right Leg Stat US 05/09/22 16:48 Completed Vital Signs Vital Signs: Vital Signs 05/09/22 18:16 71 16 120/81 98 05/09/22 16:13 98.1 F 56 L 16 115/104 H 99 Medical Decision Making MDM: MDM: HPI: Patient presents for evaluation of right posterior upper leg pain. She reports she woke this morning around 0330 with pain and took Advil with relief. Patient states she went to work, went home and took a nap. She woke from her nap with the pain again. She states the pain is posterior thigh radiating behind her knee and she describes it as sharp and cramping. She denies injury, fall, erythema, warmth, numbness. She smokes and is not on control. PE: Tenderness to posterior thigh, no warmth, swelling, or erythema. Full ROM DD: I considered the following diagnoses, which include but are not limited to: DVT, strain Laboratory studies ordered today include: none Radiologic imaging ordered today include: US Doppler POC: Patient evaluated. Dr Multani evaluated the patient. Ordered US Doppler 1805: US Doppler normal. Dr Multani examined the patient. Patient and Dr Multani agreeable to discharge. 05/09/2022 [facility] Clifton Multani personally saw and evaluated the pt, discussed the management with the RAEANN, reviewed the RAEANN's note, and agrees with the documentation. Dr. Multani performed the substantive portion of the Medical Decision Making as documented by the RAEANN. Upon examination, pt is in no acute distress and has a normal neurological examination. Pt is tender on the posterior aspect of her right thigh with no swelling. Dr. Multani agrees with the POC of Dorcas Dennis PA-C. All questions were asked and answered. Pt understands and agrees with the POC. Patient will be discharged in excellent condition with a diagnosis of leg pain Pt instructed to follow-up with PCP in 2-3 days. Pt instructed to return to our ED with any new/worsening symptoms Shared Attending Note Shared Attending Note (OTONIEL 1,2,3): 05/09/2022 [facility] Room [address] Clifton Multani personally saw and evaluated the pt, discussed the management with the RAEANN, reviewed the RAEANN's note, and agrees with the documentation. Dr. Multani performed the substantive portion of the Medical Decision Making as documented by the RAEANN. Upon examination, pt is in no acute distress and has a normal neurological examination. Pt is tender on the posterior aspect of her right thigh with no swelling. Dr. Multani agrees with the POC of Dorcas Dennis PA-C. All questions were asked and answered. Pt understands and agrees with the POC. Scribe Attestation Scribe Attestation: By electronically signing this emergency patient record, the Emergency Physician attests that all entries made into the electronic medical record by the scribe prior to the Physician electronic signature reflect an accurate accounting of the evaluation and care rendered by that Emergency Physician. The Emergency Physician assumes full responsibility for those entries. The Emergency Physician also attests that any patient testing and treatment th (more content not included)... Normal [facility] US Venous Doppler Right Lego n 05-09-2022 US Venous Doppler Right Leg [facility] Radiology Department Patient: KHADRA NIEVES [address] : 1985 Sex: Nicholas Garcia [id number] Location: [place] [address] Unit #: [id number] Ordering Phys: Dorcas Dennis PA-C Exam Date: 05/09/22 Exam: US US Venous Doppler Right Leg Result: See Report INDICATION: posterior thigh pain EXAMINATION: US Venous Duplex LE Unilat / Limited TECHNIQUE: Juan scale, pulse wave, and color flow Doppler imaging was performed of the lower extremity venous system. The right greater saphenous, common femoral, femoral, and popliteal veins were interrogated. COMPARISON: None. __ FINDINGS: There is normal compression, augmentation, and signal throughout the visualized deep lower extremity veins. No mass or fluid collection. IMPRESSION: No sonographic evidence of deep venous thrombosis. Electronically Signed: Noman Zuniga MD at 17:59 EST , cc: Cody Brown CONTROL CLERK REPAIRS; Dorcas Dennis PA-C Dictated by: Noman Zuniga MD on 05/09/221758 Transcribed by: Noman Zuniga MD on 05/09/221758 Report Signed by: Nadia CAT,Noman Massey on 05/09/221758 Normal [facility] Complete Blood Counton 05-03 Basophils/100 WBC (Bld) 0.9 % Normal 0.0-3.0 [facility] Comment on above: Performed By: #### 1 081726, 2681710, 6281693, 4093140, 0286533 #### [facility] [address] [place] [address] Eosinophils/100 WBC (Bld) 2.8 % Normal 0.0-4.0 [facility] Comment on above: Performed By: #### 1 344898, 6948212, 3069618, 6645949, 8596038 #### [facility] [address] [place] [address] Erythrocyte distribution width (RBC) [Ratio] 12.8 % Normal 11.5-14.5 [facility] Comment on above: Performed By: #### 1 744486, 9301235, 1776845, 6282529, 1468286 #### [facility] [place] [address] Hematocrit (Bld) [Volume fraction] 39.9 % Normal 37.0-47.0 [facility] Comment on above: Performed By: #### 1 638924, 3364501, 8648639, 0543329, 9483819 #### [facility] [address] [place] [address] Hemoglobin (Bld) [Mass/Vol] 13.4 g/dL Normal 12.0-16.0 [facility] Comment on above: Performed By: #### 1 252594, 7675017, 5145975, 9337882, 8956629 #### [facility] [address] [place] [address] Lymphocytes/100 WBC (Bld) 25.5 % Normal 17.6-49.6 [facility] Comment on above: Performed By: #### 1 379125, 5276939, 5191568, 4569921, 3175985 #### [facility] [address] [place] [address] MCH (RBC) [Entitic mass] 29.8 pg Normal 28.0-32.0 [facility] Comment on above: Performed By: #### 1 969377, 1580213, 3993291, 5881035, 9262261 #### [facility] [address] [place] [address] MCHC (RBC) [Mass/Vol] 33.7 g/dL Normal 33.0-37.0 [facility] Comment on above: Performed By: #### 1 558194, 5372012, 6548074, 3817593, 8274489 #### [facility] [address] [place] [address] MCV (RBC) [Entitic vol] 88.3 fL Normal 81.0-99.0 [facility] Comment on above: Performed By: #### 1 390678, 0713298, 1985850, 4905185, 3983600 #### [facility] [address] [place] [address] Monocytes/100 WBC (Bld) 5.6 % Normal 4.1-12.4 [facility] Comment on above: Performed By: #### 1 192840, 7538229, 6603250, 0505685, 7493327 #### [facility] [address] [place] [address] Neutrophils/100 WBC (Bld) 65.2 % Normal 39.4-72.5 [facility] Comment on above: Performed By: #### 1 708675, 7056210, 2433882, 6944165, 1420536 #### [facility] [address] [place] [address] PLT 329 thou/cumm Normal 130-400 [facility] Comment on above: Performed By: #### 1 125830, 1079331, 0049817, 6497832, 1144420 #### [facility] [address] [place] [address] RBC 4.51 mil/cumm Normal 4.20-5.40 [facility] Comment on above: Performed By: #### 1 106492, 8820313, 3265687, 6149008, 4262900 #### [facility] [address] [place] [address] SCAN NO Normal NO [facility] Comment on above: Performed By: #### 1 477900, 8511190, 4025456, 8356701, 4504979 #### [facility] [address] [place] [address] WBC 12.3 thou/cumm High 4.8-10.8 [facility] Comment on above: Performed By: #### 1 911326, 9372145, 5417279, 6408361, 0416582 #### [facility] [address] [place] [address] Comprehensive Metabolic Prof ile (Random)on 05-03-2022 Albumin [Mass/Vol] 4.3 g/dL Normal 3.5-5.0 [facility] Comment on above: Performed By: #### 1 137957, 8416294, 2014170, 7523626, 6312944 #### [facility] [address] [place] [address] Albumin/Globulin [Mass ratio] 1.7 {ratio} High 1.2-1.5 [facility] Comment on above: Performed By: #### 1 475699, 4739234, 5167650, 8088920, 5421219 #### [facility] [address] [place] [id number] ALP [Catalytic activity/Vol] 66 U/L Normal 38-126 [facility] Comment on above: Performed By: #### 1 023529, 2017561, 2345060, 2487580, 3023133 #### [facility] [address] [place] [id number] ALT [Catalytic activity/Vol] 15 U/L Normal 7-35 [facility] Comment on above: Performed By: #### 1 632318, 0667155, 8738653, 1244688, 8499321 #### [facility] [address] [place] [address] AST [Catalytic activity/Vol] 14 U/L Normal 10-42 [facility] Comment on above: Performed By: #### 1 351271, 0819392, 9441458, 1632374, 3546417 #### [facility] [address] [place] [address] BILI 0.6 mg/dL Normal 0.3-1.2 [facility] Comment on above: Performed By: #### 1 313284, 1857125, 8571452, 0596567, 3815830 #### [facility] [address] [place] [address] Calcium [Mass/Vol] 9.6 mg/dL Normal 8.4-10.2 [facility] Comment on above: Performed By: #### 1 572700, 9933669, 8584590, 3139236, 9786288 #### [facility] [address] [place] [address] Chloride [Moles/Vol] 105 mmol/L Normal 98-107 [facility] Comment on above: Performed By: #### 1 808235, 7607845, 2721676, 9910247, 8837291 #### [facility] [address] [place] [address] CO2 [Moles/Vol] 29 mmol/L Normal 22-31 [facility] Comment on above: Performed By: #### 1 121752, 2782548, 2811889, 7416360, 5910601 #### [facility] [address] [place] [address] Creatinine [Mass/Vol] 0.7 mg/dL Normal 0.4-1.1 [facility] Comment on above: Performed By: #### 1 639071, 8878869, 6011175, 6692795, 5582891 #### [facility] [address] [place] [address] GFR/1.73 sq M.predicted among non-blacks MDRD (S/P/Bld) [Vol rate/Area] mL/min/{1.73_m2} Normal [facility] Comment on above: Result Comment: Karen mated Glomerular filtration Rate Reference Ranges: GFR, mL/min/1.73m2 >= 60 Adequate 30 - 59 Moderately decreased GFR 15 - 29 Severely decreased GFR <18 Kidney failure (or dialysis) GFR calculated using abbreviated MDRD formula. MDRD equation not suitable for patients who are under 18, have unstable creatinine concentrations Performed By: #### 1 719458, 1906634, 2036143, 1162372, 8275607 #### [facility] [address] [place] [address] Globulin (S) [Mass/Vol] 2.5 g/dL Low 2.9-3.3 [facility] Comment on above: Performed By: #### 1 286409, 2631927, 6408657, 4550997, 9783115 #### [facility] [address] [place] [address] Glucose [Mass/Vol] 84 mg/dL Normal 70-126 [facility] Comment on above: Result Comment: Refe rence Range for FASTING patients is 70-100 mg/dL Performed By: #### 1 371148, 7778644, 3222851, 4174388, 7374556 #### [facility] [address] [place] [address] Potassium [Moles/Vol] 4.3 mmol/L Normal 3.5-5.1 [facility] Comment on above: Performed By: #### 1 452943, 9719208, 8309346, 8831142, 3214311 #### [facility] [address] [place] [address] Protein [Mass/Vol] 6.8 g/dL Normal 6.4-8.3 [facility] Comment on above: Performed By: #### 1 243872, 7869241, 1100290, 9987089, 1690464 #### [facility] [address] [place] [address] Sodium [Moles/Vol] 140 mmol/L Normal 136-145 [facility] Comment on above: Performed By: #### 1 685759, 8868487, 4133642, 3747201, 9542722 #### [facility] [address] [place] [address] Urea nitrogen [Mass/Vol] 18 mg/dL Normal 7-22 [facility] Comment on above: Performed By: #### 1 518152, 8568988, 1401288, 1899894, 0363706 #### [facility] [address] [place] [address] Cortisolon 05-03-2022 CORTISOL 11.84 ug/dL Normal [facility] Comment on above: Order Comment: Perfo rmed by [facility] [address] [place] [address] Result Comment: Refe rence ranges AM serum (7-9AM): 4.82-19.5 ug/dl PM serum (3-5PM): 2.47-11.9 ug/dl Performed By: #### 1 862210, 1340877, 9625417, 8290675, 3414409 #### [facility] [address] [place] [address] CORTISOL SPECIMEN RANDOM Normal [facility] Comment on above: Order Comment: Perfo rmed by [facility] [address] [place] [address] Performed By: #### 1 876396, 5730213, 5280955, 3734603, 7233888 #### [facility] [address] [place] [address] TSH3 and FT4on 05-03-2022 Free T4 [Mass/Vol] 0.67 ng/dL Normal 0.61-1.12 [facility] Comment on above: Performed By: #### 1 904883, 9142701, 2570743, 6604615, 3363561 #### [facility] [address] [place] [address] TSH3 0.707 uIU/mL Normal 0.490-4.670 [facility] Comment on above: Performed By: #### 1 537366, 0881288, 5933607, 5743531, 7086126 #### [facility] [address] [place], [place] [address] Triiodothyronine, Free (Free T3)on 05-03-2022 Triiodothyronine, Free (Free T3) 2.9 pg/mL Normal 2.5-4.3 [facility] Comment on above: Result Comment: REFE RENCE INTERVAL: Triiodothyronine, Free (Free T3) Access complete set of age- and/or gender-specific reference intervals for this test in the [facility] Test Directory ([employer]). Performed By: [facility] [address] [place] [address] Fish Bin Tender: Tarun Sarabia MD, PhD Performed By: #### 1 826657, 9355804, 8222024, 3798049, 7839642 #### [facility] [address] [place], [place] [address] 25-hydroxyvitamin D3 [Mass/V ol]on 04-24-2022 Interpretation and review of laboratory results Abnormal [facility] ANION GAPon 04-24-2022 Anion gap [Moles/Vol] 11.0 mmol/L Normal 8.0-16.0 [facility] Comment on above: Result Comment: ANIO N GAP = Sodium -(Chloride + CO2) Performed By: #### E GFR1, BMP, ANION, LIPAS, CBCWD, VB12F, HEPPA, TROPT, MG, OSMOL, VD25 ####[facility] [address] [place] [address] Anion Gapon 04-24-2022 Anion gap [Moles/Vol] 11.0 mmol/L 8.0 - 16.0 meq/L [facility] Comment on above: ANION GAP = Sodium - (Chloride + CO2) Performed at [facility] [address] [address] BASIC METABOL PANELon 2022 Calcium [Mass/Vol] 8.8 mg/dL Normal 8.5-10.5 [facility] Comment on above: Performed By: #### E GFR1, BMP, ANION, LIPAS, CBCWD, VB12F, HEPPA, TROPT, MG, OSMOL, VD25 #### [address] [address] Chloride [Moles/Vol] 106 mmol/L Normal 98-111 [facility] Comment on above: Performed By: #### E GFR1, BMP, ANION, LIPAS, CBCWD, VB12F, HEPPA, TROPT, MG, OSMOL, VD25 #### [address] [address] CO2 [Moles/Vol] 23 mmol/L Normal 23-33 [facility] Comment on above: Performed By: #### E GFR1, BMP, ANION, LIPAS, CBCWD, VB12F, HEPPA, TROPT, MG, OSMOL, VD25 #### [address] [address] Creatinine [Mass/Vol] 0.7 mg/dL Normal 0.4-1.2 [facility] Comment on above: Performed By: #### E GFR1, BMP, ANION, LIPAS, CBCWD, VB12F, HEPPA, TROPT, MG, OSMOL, VD25 #### [address] [address] Glucose [Mass/Vol] 102 mg/dL Normal 70-108 [facility] Comment on above: Performed By: #### E GFR1, BMP, ANION, LIPAS, CBCWD, VB12F, HEPPA, TROPT, MG, OSMOL, VD25 #### [address] [address] Potassium [Moles/Vol] 4.1 mmol/L Normal 3.5-5.[address] [facility] Comment on above: Performed By: #### E GFR1, BMP, ANION, LIPAS, CBCWD, VB12F, HEPPA, TROPT, MG, OSMOL, VD25 #### [facility] [address] [place] [address] Sodium [Moles/Vol] 140 mmol/L Normal 135-145 [facility] Comment on above: Performed By: #### E GFR1, BMP, ANION, LIPAS, CBCWD, VB12F, HEPPA, TROPT, MG, OSMOL, VD25 #### [facility] [address] [place] [address] Urea nitrogen [Mass/Vol] 15 mg/dL Normal 7-22 [facility] Comment on above: Performed By: #### E GFR1, BMP, ANION, LIPAS, CBCWD, VB12F, HEPPA, TROPT, MG, OSMOL, VD25 #### [facility] [address] [place] [address] Basic metabolic 2000 panelon 04-24-2022 Calcium [Mass/Vol] 8.8 mg/dL 8.5 - 10. 5 mg/dL [facility] Comment on above: Performed at [facility] [address] [place] [address] Chloride [Moles/Vol] 106 mmol/L 98 - 11 1 meq/L [facility] CO2 [Moles/Vol] 23 mmol/L 23 - 33 meq/L [facility] Creatinine [Mass/Vol] 0.7 mg/dL 0.4 - 1.2 mg/dL [facility] Glucose [Mass/Vol] 102 mg/dL 70 - 108 mg/dL [facility] Potassium [Moles/Vol] 4.1 mmol/L 3.5 - 5.2 meq/L [facility] Sodium [Moles/Vol] 140 mmol/L 135 - 145 meq/L [facility] Urea nitrogen [Mass/Vol] 15 mg/dL 7 - 22 mg/dL [facility] [employer] CALCULATED OSMOLALITYon 04-01 Osmolality [Osmolality] 280.4 mosm/kg Normal 275.0-300.0 [facility] Comment on above: Performed By: #### E GFR1, BMP, ANION, LIPAS, CBCWD, VB12F, HEPPA, TROPT, MG, OSMOL, VD25 ####[facility] [place] [address] CBC WITH DIFFERENTIALon 04-01 ABS BASOPHILS 0.1 thou/mm3 Normal 0.0-0.1 [facility] Comment on above: Performed By: #### E GFR1, BMP, ANION, LIPAS, CBCWD, VB12F, HEPPA, TROPT, MG, OSMOL, VD25 #### [place] [address] ABS EOSINOPHILS 0.3 thou/mm3 Normal 0.0-0.4 [facility] Comment on above: Performed By: #### E GFR1, BMP, ANION, LIPAS, CBCWD, VB12F, HEPPA, TROPT, MG, OSMOL, VD25 #### [place] [address] ABS IMMATURE GRANS (IG) 0.03 thou/mm3 Normal 0.00-0.07 [facility] Comment on above: Performed By: #### E GFR1, BMP, ANION, LIPAS, CBCWD, VB12F, HEPPA, TROPT, MG, OSMOL, VD25 #### [place] [address] ABS LYMPHOCYTES 2.6 thou/mm3 Normal 1.0-4.8 [facility] Comment on above: Performed By: #### E GFR1, BMP, ANION, LIPAS, CBCWD, VB12F, HEPPA, TROPT, MG, OSMOL, VD25 #### [place] [address] ABS MONOCYTES 0.6 thou/mm3 Normal 0.4-1.3 [facility] Comment on above: Performed By: #### E GFR1, BMP, ANION, LIPAS, CBCWD, VB12F, HEPPA, TROPT, MG, OSMOL, VD25 #### [place] [address] ABS NEUTROPHILS 5.3 thou/mm3 Normal 1.8-7.7 [facility] Comment on above: Performed By: #### E GFR1, BMP, ANION, LIPAS, CBCWD, VB12F, HEPPA, TROPT, MG, OSMOL, VD25 #### [address] [address] Basophils/100 WBC (Bld) 0.9 % Normal [facility] Comment on above: Performed By: #### E GFR1, BMP, ANION, LIPAS, CBCWD, VB12F, HEPPA, TROPT, MG, OSMOL, VD25 #### [address] [address] Eosinophils/100 WBC (Bld) 3.4 % Normal [facility] Comment on above: Performed By: #### E GFR1, BMP, ANION, LIPAS, CBCWD, VB12F, HEPPA, TROPT, MG, OSMOL, VD25 #### [place] [address] Erythrocyte distribution width (RBC) [Ratio] 12.2 % Normal 11.5-14.5 [facility] Comment on above: Performed By: #### E GFR1, BMP, ANION, LIPAS, CBCWD, VB12F, HEPPA, TROPT, MG, OSMOL, VD25 #### [place] [address] Hematocrit (Bld) [Volume fraction] 41.0 % Normal 37.0-47.0 [facility] Comment on above: Performed By: #### E GFR1, BMP, ANION, LIPAS, CBCWD, VB12F, HEPPA, TROPT, MG, OSMOL, VD25 #### [address] [address] Hemoglobin (Bld) [Mass/Vol] 13.9 g/dL Normal 12.0-16.0 [facility] Comment on above: Performed By: #### E GFR1, BMP, ANION, LIPAS, CBCWD, VB12F, HEPPA, TROPT, MG, OSMOL, VD25 #### [address] [address] IMMATURE GRANS (IG) 0.3 % Normal [facility] Comment on above: Performed By: #### E GFR1, BMP, ANION, LIPAS, CBCWD, VB12F, HEPPA, TROPT, MG, OSMOL, VD25 #### [address] [address] Lymphocytes/100 WBC (Bld) 29.1 % Normal [facility] Comment on above: Performed By: #### E GFR1, BMP, ANION, LIPAS, CBCWD, VB12F, HEPPA, TROPT, MG, OSMOL, VD25 #### [address] [address] MCH (RBC) [Entitic mass] 30.6 pg Normal 26.0-33.0 [facility] Comment on above: Performed By: #### E GFR1, BMP, ANION, LIPAS, CBCWD, VB12F, HEPPA, TROPT, MG, OSMOL, VD25 #### [address] [address] MCHC (RBC) [Mass/Vol] 33.9 g/dL Normal 32.2-35.5 [facility] Comment on above: Performed By: #### E GFR1, BMP, ANION, LIPAS, CBCWD, VB12F, HEPPA, TROPT, MG, OSMOL, VD25 #### [address] [address] MCV (RBC) [Entitic vol] 90.3 fL Normal 81.0-99.0 [facility] Comment on above: Performed By: #### E GFR1, BMP, ANION, LIPAS, CBCWD, VB12F, HEPPA, TROPT, MG, OSMOL, VD25 #### [address] [address] Monocytes/100 WBC (Bld) 6.2 % Normal [facility] Comment on above: Performed By: #### E GFR1, BMP, ANION, LIPAS, CBCWD, VB12F, HEPPA, TROPT, MG, OSMOL, VD25 #### [address] [address] Neutrophils/100 WBC (Bld) 60.1 % Normal [facility] Comment on above: Performed By: #### E GFR1, BMP, ANION, LIPAS, CBCWD, VB12F, HEPPA, TROPT, MG, OSMOL, VD25 #### [address] [address] NRBC 0 /100 wbc Normal [facility] Comment on above: Performed By: #### E GFR1, BMP, ANION, LIPAS, CBCWD, VB12F, HEPPA, TROPT, MG, OSMOL, VD25 #### [address] [address] PLATELET 309 thou/mm3 Normal 130-400 [facility] Comment on above: Performed By: #### E GFR1, BMP, ANION, LIPAS, CBCWD, VB12F, HEPPA, TROPT, MG, OSMOL, VD25 #### [place] [address] Platelet mean volume (Bld) [Entitic vol] 9.1 fL Low 9.4-12.4 [facility] Comment on above: Performed By: #### E GFR1, BMP, ANION, LIPAS, CBCWD, VB12F, HEPPA, TROPT, MG, OSMOL, VD25 #### [place] [address] RBC 4.54 mill/mm3 Normal 4.20-5.40 [facility] Comment on above: Performed By: #### E GFR1, BMP, ANION, LIPAS, CBCWD, VB12F, HEPPA, TROPT, MG, OSMOL, VD25 #### [place] [address] RDW-SD 40.8 fL Normal 35.0-45.0 [facility] Comment on above: Performed By: #### E GFR1, BMP, ANION, LIPAS, CBCWD, VB12F, HEPPA, TROPT, MG, OSMOL, VD25 #### [place] [address] WBC 8.9 thou/mm3 Normal 4.8-10.8 [facility] Comment on above: Performed By: #### E GFR1, BMP, ANION, LIPAS, CBCWD, VB12F, HEPPA, TROPT, MG, OSMOL, VD25 #### [facility] [address] [place] [address] CBC with Auto Differentialon 04-24-2022 Basophils (Bld) [#/Vol] 0.1 10*3/uL [facility] Basophils/100 WBC (Bld) 0.9 % [facility] Eosinophils Absolute 0.3 [facility] Eosinophils/100 WBC (Bld) 3.4 % [facility] Erythrocyte distribution width (RBC) [Entitic vol] 40.8 fL 35.0 - 45.0 fL [facility] Erythrocyte distribution width (RBC) [Ratio] 12.2 % 11.5 - 14.5 % [facility] Hematocrit (Bld) [Volume fraction] 41.0 % 37.0 - 47.0 % [facility] Hemoglobin (Bld) [Mass/Vol] 13.9 g/dL [facility] Immature granulocytes (Bld) [#/Vol] 0.03 10*3/uL [facility] Immature granulocytes/100 WBC (Bld) 0.3 % [facility] Interpretation and review of laboratory results Abnormal [facility] Lymphocytes Absolute 2.6 [facility] Lymphocytes/100 WBC (Bld) 29.1 % [facility] MCH (RBC) [Entitic mass] 30.6 pg 26.0 - 33.0 pg [facility] MCHC (RBC) [Mass/Vol] 33.9 g/dL [facility] MCV (RBC) [Entitic vol] 90.3 fL 81.0 - 99.0 fL [facility] Monocytes Absolute 0.6 [facility] Monocytes/100 WBC (Bld) 6.2 % [facility] Neutrophils/100 WBC (Bld) 60.1 % [facility] Nucleated RBC/100 WBC (Bld) [Ratio] 0 % /100 wbc [facility] Comment on above: Performed at [facility] [address] [place] [address] Platelet mean volume (Bld) [Entitic vol] 9.1 fL Low 9.4 - 12.4 fL [facility] Platelets (Bld) [#/Vol] 309 10*3/uL [facility] RBC (Bld) [#/Vol] 4.54 10*6/uL [facility] Segs Absolute 5.3 [facility] WBC (Bld) [#/Vol] 8.9 10*3/uL [facility] EKG 12-LEADon 04-24-2022 EKG 12-LEAD 66 66 136 82 430 450 20 12 34 Normal sinus rhythm Cannot rule out Anterior infarct , age undetermined Abnormal ECG When compared with ECG of 03-AUG-2021 00:13, No significant change was found Confirmed by CUCO EASON MD ([id number]) on 04/24/2022 2:55:47 PM [email or web address]&Date=24-04-2022&Ti me=[id number]& TestType=ECG&Site=3&O utputType=PDF&Ext=PDF Normal [facility] GFR, ESTIMATEDon 04-24-2022 GFR/1.73 sq M.predicted MDRD (S/P/Bld) [Vol rate/Area] mL/min/{1.73_m2} Normal >60 [facility] Comment on above: Result Comment: Veronica atric calculator link https://www.kidney.org/professionals/kdoqi/gfr_calculatorped Effective Dec 31, 2021 These results are not intended for use in patients <18 years of age. eGFR results are calculated without a race factor using the 2020 CKD-EPI equation. Careful clinical correlation is recommended, particularly when comparing to results calculated using previous equations. The CKD-EPI equation is less accurate in patients with extremes of muscle mass, extra-renal metabolism of creatinine, excessive creatine ingestion, or following therapy that affects renal tubular secretion. Performed By: #### E GFR1, BMP, ANION, LIPAS, CBCWD, VB12F, HEPPA, TROPT, MG, OSMOL, VD25 ####[facility] [address] [place] [address] Glomerular Filtration Rate, Estimatedon 04-24-2022 GFR/1.73 sq M.predicted MDRD (S/P/Bld) [Vol rate/Area] - JUAN MANUEL YOON [facility] Comment on above: Pediatric calculator link https://www.kidney.org/professionals/kdoqi/gfr_calculatorped Effective Dec 31, 2021 These results are not intended for use in patients <18 years of age. eGFR results are calculated without a race factor using the 2020 CKD-EPI equation. Careful clinical correlation is recommended, particularly when comparing to results calculated using previous equations. The CKD-EPI equation is less accurate in patients with extremes of muscle mass, extra-renal metabolism of creatinine, excessive creatine ingestion, or following therapy that affects renal tubular secretion. Performed at [facility] [address] [place] [address] HEPATIC FUNCTION PANELon Albumin [Mass/Vol] 4.4 g/dL Normal 3.5-5.1 [facility] Comment on above: Performed By: #### E GFR1, BMP, ANION, LIPAS, CBCWD, VB12F, HEPPA, TROPT, MG, OSMOL, VD25 ####[address] [address] ALP [Catalytic activity/Vol] 73 U/L Normal 38-126 [facility] Comment on above: Performed By: #### E GFR1, BMP, ANION, LIPAS, CBCWD, VB12F, HEPPA, TROPT, MG, OSMOL, VD25 ####[facility] [address] [place] [address] ALT [Catalytic activity/Vol] 14 U/L Normal 11-66 [facility] Comment on above: Performed By: #### E GFR1, BMP, ANION, LIPAS, CBCWD, VB12F, HEPPA, TROPT, MG, OSMOL, VD25 ####[facility] [address] [place] [address] AST [Catalytic activity/Vol] 16 U/L Normal 5-40 [facility] Comment on above: Performed By: #### E GFR1, BMP, ANION, LIPAS, CBCWD, VB12F, HEPPA, TROPT, MG, OSMOL, VD25 ####[address] [place] [address] Bilirubin [Mass/Vol] 0.4 mg/dL Normal 0.3-1.2 [facility] Comment on above: Performed By: #### E GFR1, BMP, ANION, LIPAS, CBCWD, VB12F, HEPPA, TROPT, MG, OSMOL, VD25 ####[address] [place] [address] Bilirubin.indirect [Mass/Vol] mg/dL Normal 0.0-0.3 [facility] Comment on above: Performed By: #### E GFR1, BMP, ANION, LIPAS, CBCWD, VB12F, HEPPA, TROPT, MG, OSMOL, VD25 ####[address] [place] [address] Protein [Mass/Vol] 6.8 g/dL Normal 6.1-8.0 [facility] Comment on above: Performed By: #### E GFR1, BMP, ANION, LIPAS, CBCWD, VB12F, HEPPA, TROPT, MG, OSMOL, VD25 ####[place] [address] Hepatic function 2000 panelo n 04-24-2022 Albumin BCG dye [Mass/Vol] 4.4 g/dL 3.5 - 5.1 g/dL [facility] ALP [Catalytic activity/Vol] 73 U/L 38 - 126 U/L [facility] ALT No additional P-5'-P [Catalytic activity/Vol] 14 U/L 11 - 66 U/L [facility] AST [Catalytic activity/Vol] 16 U/L 5 - 40 U/L [facility] Bilirubin [Mass/Vol] 0.4 mg/dL 0.3 - 1 .2 mg/dL [facility] Bilirubin.conjugated [Mass/Vol] mg/dL 0.0 - 0.3 mg/dL [facility] Protein [Mass/Vol] 6.8 g/dL 6.1 - 8.0 g/dL [facility] Comment on above: Performed at [facility] [address] [place] [address] LIPASEon 04-24-2022 Lipase [Catalytic activity/Vol] 43.6 U/L Normal 5.6-51.3 [facility] Comment on above: Performed By: #### E GFR1, BMP, ANION, LIPAS, CBCWD, VB12F, HEPPA, TROPT, MG, OSMOL, VD25 ####[facility] [address] [place] [address] Lipaseon 04-24-2022 Lipase [Catalytic activity/Vol] 43.6 U/L 5.6 - 51.3 U/L [facility] Comment on above: Performed at [facility] [address] [place] [address] MAGNESIUMon 04-24-2022 Magnesium [Mass/Vol] 2.3 mg/dL Normal 1.6-2.4 [facility] Comment on above: Performed By: #### E GFR1, BMP, ANION, LIPAS, CBCWD, VB12F, HEPPA, TROPT, MG, OSMOL, VD25 ####[address] [address] Magnesiumon 04-24-2022 Magnesium [Mass/Vol] 2.3 mg/dL 1.6 - 2 .4 mg/dL [facility] Comment on above: Performed at [facility] [address] [place] [address] No Panel Informationon 04-24 [facility] Osmolalityon 04-24-2022 Osmolality Calc [Osmolality] 280.4 [facility] Comment on above: Performed at [facility] [address] [place] [address] T4 (FREE)on 04-24-2022 T4 (FREE) 1.07 ng/dL Normal 0.93-1.76 [facility] Comment on above: Performed By: #### F T4, TSH3 #### [address] [address] TROPONIN-Ton 04-24-2022 TROPONIN-T < 0.010 Normal [facility] Comment on above: Result Comment: <0.0 10 ng/ml Normal > or = 0.010 ng/ml Elevated (99%) Consistent with myocardial damage Cardiac troponin values can be elevated by many disease states in addition to acute ischemia. These include, but are not limited to: chronic renal failure, CHF, CVA, pulmonary embolus, COPD, myocardial trauma/surgery, myocarditis, pericarditis, tachycardia, aortic dissection, amyloidosis, sepsis and strenuous exercise. Serial measurement of troponin is strongly recommended as a first step in determining whether a low level elevation represents an acute or chronic condition. Performed By: #### E GFR1, BMP, ANION, LIPAS, CBCWD, VB12F, HEPPA, TROPT, MG, OSMOL, VD25 ####[facility] [employer] [address] [place] [address] TSH THIRD GENERATIONon 04-24 TSH THIRD GENERATION 2.990 uIU/mL Normal 0.400-4.200 [facility] Comment on above: Performed By: #### F T4, TSH3 #### [facility] [address] [place] [address] Troponinon 04-24-2022 Troponin T < 0.010 ng/ml [facility] Comment on above: <0.010 ng/ml Normal > or = 0.010 ng/ml Elevated (99%) Consistent with myocardial damage Cardiac troponin values can be elevated by many disease states in addition to acute ischemia. These include, but are not limited to: chronic renal failure, CHF, CVA, pulmonary embolus, COPD, myocardial trauma/surgery, myocarditis, pericarditis, tachycardia, aortic dissection, amyloidosis, sepsis and strenuous exercise. Serial measurement of troponin is strongly recommended as a first step in determining whether a low level elevation represents an acute or chronic condition. Performed at [facility] [address] UA WITH MICROSCOPICon 2022 BACTERIA NONE SEEN Normal FEW/NONE SEEN [facility] Comment on above: Performed By: #### U RCS2 #### [facility] [address] [place] [address] CASTS NONE SEEN Normal NONE SEEN [facility] Comment on above: Performed By: #### U RCS2 #### [facility] [address] [place] [address] CASTS 2 NONE SEEN Normal NONE SEEN [facility] Comment on above: Performed By: #### U RCS2 #### [facility] [address] [place] [address] Crystals LM Nom (Urine sed) NONE SEEN Normal NONE SEEN [facility] Comment on above: Performed By: #### U RCS2 #### [facility] [address] [place] [address] EPITHELIAL 0-2 Normal 3-5/hpf [facility] Comment on above: Performed By: #### U RCS2 #### [facility] [address] [place] [address] MISCELLANEOUS 2 NONE SEEN Normal [facility] Comment on above: Performed By: #### U RCS2 #### [facility] [address] [place] [address] 22543 RBC NONE SEEN Normal 0-2/hpf [facility] Comment on above: Performed By: #### U RCS2 #### [facility] [address] [place] [address] RENAL EPITHELIAL NONE SEEN Normal NONE SEEN [facility] Comment on above: Performed By: #### U RCS2 #### [facility] [address] [place] [address] WBC 0-2 Normal 0-4/hpf [facility] Comment on above: Performed By: #### U RCS2 #### [facility] [address] [place] [address] YEAST NONE SEEN Normal NONE SEEN [facility] Comment on above: Performed By: #### U RCS2 #### [facility] [address] [place] [address] Bilirubin Ql (U) Negative Normal NEGATIVE [facility] Comment on above: Performed By: #### U RCS2 #### [facility] [address] [place] [address] CHARACTER CLEAR Normal CLEAR-SL CLOUD [facility] Comment on above: Performed By: #### U RCS2 #### [facility] [address] [place] [address] Color (U) YELLOW Normal STRAW-YELLO W [facility] Comment on above: Performed By: #### U RCS2 #### [facility] [address] [place] [address] Glucose Ql (U) Negative Normal NEGATIVE [facility] Comment on above: Performed By: #### U RCS2 #### [facility] [address] [place] [address] Hemoglobin Ql (U) SMALL Abnormal NEGATIVE [facility] Comment on above: Performed By: #### U RCS2 #### [facility] [address] [place] [address] Ketones Ql (U) Negative Normal NEGATIVE [facility] Comment on above: Performed By: #### U RCS2 #### [facility] [address] [place] [address] LEUKOCYTES TRACE Abnormal NEGATIVE [facility] Comment on above: Performed By: #### U RCS2 #### [facility] [address] [place] [address] Nitrite Ql (U) Negative Normal NEGATIVE [facility] Comment on above: Performed By: #### U RCS2 #### [address] [address] pH (U) 7.0 [pH] Normal 5.0 - 9.0 [facility] Comment on above: Performed By: #### U RCS2 #### [address] [address] Protein Ql (U) Negative Normal NEGATIVE [facility] Comment on above: Performed By: #### U RCS2 #### [facility] [address] [place] [address] Specific gravity (U) [Rel density] 1.012 Normal 1.002-1.030 [facility] Comment on above: Performed By: #### U RCS2 #### [address] [address] Urobilinogen Qn (U) 0.2 {Nico'U}/dL Normal 0.0 - 1. 0 [facility] Comment on above: Performed By: #### U RCS2 #### [facility] [address] [place] [address] Urinalysis dipstick W Reflex Microscopic panel (U)on 04-24-2022 Bacteria LM Ql (Urine sed) NONE SEEN FEW/NONE SEEN /hpf [facility] Bilirubin Ql (U) Negative NEGATIVE [facility] CASTS 2 NONE SEEN NONE SEEN /lpf [facility] Casts LM.LPF (Urine sed) [#/Area] NONE SEEN NONE SEEN /lpf [facility] Character (U) CLEAR CLEAR-SL CLOUD [facility] Color, UA YELLOW STRAW-YELLO W [facility] Crystals LM Nom (Urine sed) NONE SEEN NONE SEEN [facility] Epithelial Cells, UA 0-2 3-5/hpf /hpf [facility] Epithelial cells.renal LM.HPF (Urine sed) [#/Area] NONE SEEN NONE SEEN [facility] Fungi.yeastlike LM Ql (Urine sed) NONE SEEN NONE SEEN [facility] Glucose Auto test strip Ql (U) Negative NEGATIVE mg/dl [facility] Hemoglobin Auto test strip Ql (U) SMALL Abnormal NEGATIVE [facility] Interpretation and review of laboratory results Abnormal [facility] Ketones Auto test strip Ql (U) Negative NEGATIVE [facility] MISCELLANEOUS 2 NONE SEEN [facility] Comment on above: Performed at [facility] [address] [place], [place] [id number] Nitrite Ql (U) Negative NEGATIVE [place] [facility] pH (U) 7.0 [pH] 5.0 - 9.0 [facility] Protein (U) [Mass/Vol] Negative NEGATIVE [facility] RBC, UA NONE SEEN 0-2/hpf /hpf [facility] Specific gravity Refractometry automated (U) [Rel density] 1.012 1.002 - 1.030 [facility] Urobilinogen, Urine 0.2 [facility] WBC LM.HPF (Urine sed) [#/Area] TRACE Abnormal NEGATIVE [facility] WBC LM.HPF (Urine sed) [#/Area] 0-2 0-4/hpf /hpf [facility] VITAMIN B12 FOLATEon 023 Cobalamin (Vitamin B12) [Mass/Vol] 293 pg/mL Normal 211-911 [facility] Comment on above: Performed By: #### E GFR1, BMP, ANION, LIPAS, CBCWD, VB12F, HEPPA, TROPT, MG, OSMOL, VD25 ####[facility] [employer] [address] [place] [address] FOLATE 11.8 ng/mL Normal 4.8-24.2 [facility] Comment on above: Performed By: #### E GFR1, BMP, ANION, LIPAS, CBCWD, VB12F, HEPPA, TROPT, MG, OSMOL, VD25 ####[facility] [employer] [address] [place] [address] VITAMIN D TOTAL 25 (OH)on VITAMIN D TOTAL 25 (OH) 27 ng/ml Low 30-100 [facility] Comment on above: Result Comment: Maryana min D Status Range Deficiency <20 ng/ml Insuffiency 20-30 ng/ml Sufficiency 30-100 ng/ml Toxicity >100 ng/ml Performed By: #### E GFR1, BMP, ANION, LIPAS, CBCWD, VB12F, HEPPA, TROPT, MG, OSMOL, VD25 ####[id number] [place] [address] Vitamin D 25 Hydroxyon 04-24 25-hydroxyvitamin D3 [Mass/Vol] 27 ng/mL Low 30 - 100 ng/ml [facility] Comment on above: Vitamin D Status Ran ge Deficiency <20 ng/ml Insuffiency 20-30 ng/ml Sufficiency 30-100 ng/ml Toxicity >100 ng/ml Performed at [facility] [address] [place] [address] Anion Gapon 08-03-2021 Anion gap [Moles/Vol] 13.0 mmol/L 8.0 - 16.0 meq/L [facility] Comment on above: ANION GAP = Sodium - (Chloride + CO2) Performed at [facility] [address] [place] [address] Basic Metabolic Panel w/ Ref mahin to MGon 08-03-2021 Calcium [Mass/Vol] 9.1 mg/dL 8.5 - 10. 5 mg/dL [facility] Comment on above: Performed at [facility] [address] [place] [address] Chloride [Moles/Vol] 104 mmol/L 98 - 11 1 meq/L [facility] CO2 [Moles/Vol] 21 mmol/L Low 23 - 33 meq/L [facility] Creatinine [Mass/Vol] 0.7 mg/dL 0.4 - 1.2 mg/dL [facility] Glucose [Mass/Vol] 103 mg/dL 70 - 108 mg/dL [facility] Interpretation and review of laboratory results Abnormal [facility] Potassium [Moles/Vol] 3.9 mmol/L 3.5 - 5.2 meq/L [facility] Sodium [Moles/Vol] 138 mmol/L 135 - 145 meq/L [facility] Urea nitrogen (BldV) [Mass/Vol] 21 mg/dL 7 - 22 mg/dL [facility] Brain Natriuretic Peptideon 08-03-2021 Natriuretic peptide B (Bld) [Mass/Vol] 22.2 pg/mL 0.0 - 450.0 pg/mL [facility] Comment on above: Values < 300 pg/ml rule out, or make the probability of heart failure highly unlikely. Values which rule in heart failue are as follows: AGE RANGE <50 years >450 pg/ml 50-75 years >900 pg/ml >75 years >1800 pg/ml Performed at [facility] [address] [place] [address] EKG 12 LeadOrdered By: Tressa Martinez on 08-03-2021 Atrial Rate 70 BPM [facility] Work Phone: P [place] 50 degrees [facility] Work Phone: P-R Interval 136 ms [facility] Work Phone: Q-T Interval 404 ms [facility] Work Phone: QRS Duration 90 ms [facility] Work Phone: QTc Calculation (Bazett) 436 ms [facility] Work Phone: R [place] 64 degrees [facility] Work Phone: T [place] 58 degrees [facility] Work Phone: Ventricular Rate 70 BPM [employer] Phone: [facility] Work Phone: EKG 12 Leadon 08-03-2021 Normal sinus rhythm with sinus arrhythmia Normal ECG When compared with ECG of 05-APR-2021 03:22, No significant change was found Confirmed by MITCHELL MARTINEZ MD ([id number]) on 08/03/2021 12:38:06 AM [facility] STR MUSE Mitchell Martinez MD - 08/03/2021 Normal sinus rhythm with sinus arrhythmia Normal ECG When compared with ECG of 05-APR-2021 03:22, No significant change was found Confirmed by MITCHELL MARTINEZ MD ([id number]) on 08/03/2021 12:38:06 AM [facility] Work Phone: Glomerular Filtration Rate, Estimatedon 08-03-2021 GFR/1.73 sq M.predicted MDRD (S/P/Bld) [Vol rate/Area] mL/min/{1.73_m2} ml/min[facility]1.[address] [facility] Comment on above: Stage Description GF R, ml/min/1.73 m2 - At increased risk > or = 60 (with chronic kidney disease risk factors) 1 Normal or increased GFR > or = 90 2 Mildly or decreased GFR 60 - 89 3 Moderately decreased GFR 30 - 59 4 Severely decreased GFR 15 - 29 5 Kidney failure <15 (or dialysis) Estimated GFR calculated using abbreviated MDRD formula as recommended by National Kidney Foundation. Calculation based upon serum creatinine and adjusted for age, gender & race. Maryjane. Internal Med., Vol. 139 (2) pg 137-147. Performed at [facility] [address] [place] [address] Lipaseon 08-03-2021 Lipase [Catalytic activity/Vol] 34.7 U/L 5.6 - 51.3 U/L [facility] [employer] Comment on above: Performed at [facility] [address] [place] [address] No Panel Informationon 08-03 [facility] [employer] [facility] Osmolalityon 08-03-2021 Osmolality Calc 278.9 [facility] Comment on above: Performed at [facility] [address] [place] [address] Troponinon 08-03-2021 Troponin T < 0.010 ng/ml [facility] Comment on above: <0.010 ng/ml Normal > or = 0.010 ng/ml Elevated (99%) Consistent with myocardial damage Cardiac troponin values can be elevated by many disease states in addition to acute ischemia. These include, but are not limited to: chronic renal failure, CHF, CVA, pulmonary embolus, COPD, myocardial trauma/surgery, myocarditis, pericarditis, tachycardia, aortic dissection, amyloidosis, sepsis and strenuous exercise. Serial measurement of troponin is strongly recommended as a first step in determining whether a low level elevation represents an acute or chronic condition. Performed at [facility] [address] [place] [address] XR CHEST PORTABLEon 08-04-19 Impression: No acute pathology. This document has been electronically signed by: Elizabeth Coughlin MD on 08/03/2021 01:09 AM [facility] Exam: 1V chest Comparison: CR,SR - XR CHEST PORTABLE - 04/05/2021 03:29 AM EST Findings: Mediastinum: No cardiac silhouette enlargement. Lungs: No infiltrate or mass. Pleura: No pneumothorax or significant effusion. Bones: No acute pathology. [facility] Elizabeth Coughlin MD - 08/03/2021 Exam: 1V chest Comparison: CR,SR - XR CHEST PORTABLE - 04/05/2021 03:29 AM EST Findings: Mediastinum: No cardiac silhouette enlargement. Lungs: No infiltrate or mass. Pleura: No pneumothorax or significant effusion. Bones: No acute pathology. IMPRESSION: Impression: No acute pathology. This document has been electronically signed by: Elizabeth Coughlin MD on 08/03/2021 01:09 AM [employer] Phone: Radiology Study observation (narrative) [employer] Phone: XR CHEST PORTABLEOrdered By: Elizabeth Coughlin on 08-03-2021 [employer] Phone: Anion GapOrdered By: Juan Alberto baron on 08-23-2020 Anion gap [Moles/Vol] 10.0 mmol/L 8.0 - 16.0 meq/L [employer] Phone: Comment on above: ANION GAP = Sodium - (Chloride + CO2) Performed at [facility] [address] [place] [address] Basic Metabolic Panel w/ Ref mahin to MGOrdered By: Juan Alberto Horton on 08-23-2020 Calcium [Mass/Vol] 9.5 mg/dL 8.5 - 10. 5 mg/dL [employer] Phone: Comment on above: Performed at [facility] [employer] [facility] [address] [place] [address] Chloride [Moles/Vol] 105 mmol/L 98 - 11 1 meq/L [employer] Phone: CO2 [Moles/Vol] 25 mmol/L 23 - 33 meq/L [employer] Phone: Creatinine [Mass/Vol] 0.8 mg/dL 0.4 - 1.2 mg/dL [employer] Phone: Glucose [Mass/Vol] 106 mg/dL 70 - 108 mg/dL [employer] Phone: Potassium [Moles/Vol] 4.1 mmol/L 3.5 - 5.2 meq/L [employer] Phone: Sodium [Moles/Vol] 140 mmol/L 135 - 145 meq/L [employer] Phone: Urea nitrogen (BldV) [Mass/Vol] 20 mg/dL 7 - 22 mg/dL [employer] Phone: Brain Natriuretic PeptideOrd ered By: Juan Alberto Horton on 08-23-2020 Natriuretic peptide B (Bld) [Mass/Vol] 30.7 pg/mL 0.0 - 450.0 pg/mL [employer] Phone: Comment on above: Values < 300 pg/ml rule out, or make the probability of heart failure highly unlikely. Values which rule in heart failue are as follows: AGE RANGE <50 years >450 pg/ml 50-75 years >900 pg/ml >75 years >1800 pg/ml Performed at [facility] [address] [place] [address] [facility] Work Phone: CBC Auto DifferentialOrdered By: Juan Alberto Horton on 08-23-2020 Basophils (Bld) [#/Vol] 0.1 10*3/uL [employer] Phone: Basophils/100 WBC (Bld) 0.6 % [facility] Work Phone: Eosinophils Absolute 0.5 [employer] Work Phone: Eosinophils/100 WBC (Bld) 3.8 % [employer] Phone: Erythrocyte distribution width (RBC) [Ratio] 12.7 % 11.5 - 14.5 % [employer] Phone: Erythrocyte distribution width (RBC) [Ratio] 43.7 fL 35.0 - 45.0 fL [facility] Work Phone: Hematocrit (Bld) [Volume fraction] 42.4 % 37.0 - 47.0 % [facility] Work Phone: Hemoglobin.gastrointes tinal spec 1 Ql (Stl) 13.6 [employer] [facility] Work Phone: Immature Grans (Abs) 0.09 [employer] Work Phone: Immature granulocytes/100 WBC (Bld) 0.7 % [facility] Work Phone: Interpretation and review of laboratory results Abnormal [facility] Work Phone: Lymphocytes Absolute 3.4 [employer] Work Phone: Lymphocytes/100 WBC (Bld) 27.4 % [facility] Work Phone: MCH (RBC) [Entitic mass] 30.0 pg 26.0 - 33.0 pg [facility] Work Phone: MCHC (RBC) [Mass/Vol] 32.1 g/dL Low [facility] [employer] Work Phone: MCV (RBC) [Entitic vol] 93.6 fL 81.0 - 99.0 fL [facility] [employer] Work Phone: Monocytes Absolute 0.8 [facility] [employer] Work Phone: Monocytes/100 WBC (Bld) 6.1 % [facility] [employer] Work Phone: nRBC 0 /100 wbc [facility] [employer] Work Phone: Comment on above: Performed at [facility] [address] [place] [address] Platelet mean volume (Bld) [Entitic vol] 9.2 fL Low 9.4 - 12.4 fL [facility] [employer] Phone: Platelets (Bld) [#/Vol] 258 10*3/uL [facility] [employer] Work Phone: RBC (Bld) [#/Vol] 4.53 10*6/uL [facility] [employer] Work Phone: Segmented neutrophils/100 WBC (Bld) 61.4 % [facility] [employer] Phone: Segs Absolute 7.6 [facility] Work Phone: WBC (Bld) [#/Vol] 12.4 10*3/uL High [facility] [employer] Work Phone: [facility] [employer] Work Phone: D-dimer, quantitativeOrdered By: Juan Alberto Horton on 08-23-2020 D-Dimer, Quant [facility] Work Phone: Comment on above: NEGATIVE REFERENCE R RAYMOND: 0-500 ng/mL(FEU) NEGATIVE: With a low to medium pretest probability (Wells score), a normal result rules out a pulmonary embolism and venous thrombosis. POSITIVE REFERENCE RANGE: >500 ng/mL(FEU) POSITIVE: It is recommended that when an abnormal D-Dimer concentration (>500 ng/mL) is obtained along with clinically significant risk factors, symptoms or signs of DVT or PE, that further diagnostic testing be performed. Performed at [facility] [address] [place] [address] [employer] Phone: Glomerular Filtration Rate, EstimatedOrdered By: Juan Alberto Horton on 08-23-2020 GFR/1.73 sq M.predicted MDRD (S/P/Bld) [Vol rate/Area] 81 mL/min/{1.73_m2} Abnormal ml/min/1.73 m2 [employer] Phone: Comment on above: Stage Description GF R, ml/min/1.73 m2 - At increased risk > or = 60 (with chronic kidney disease risk factors) 1 Normal or increased GFR > or = 90 2 Mildly or decreased GFR 60 - 89 3 Moderately decreased GFR 30 - 59 4 Severely decreased GFR 15 - 29 5 Kidney failure <15 (or dialysis) Estimated GFR calculated using abbreviated MDRD formula as recommended by National Kidney Foundation. Calculation based upon serum creatinine and adjusted for age, gender & race. Maryjane. Internal Med., Vol. 139 (2) pg 137-147. Performed at [facility] [address] [place] [address] Interpretation and review of laboratory results Abnormal [employer] Phone: No Panel InformationOrdered By: Juan Alberto Horton on 08-23-2020 [employer] Phone: OsmolalityOrdered By: Juan Alberto mcmanus on 08-23-[address] [facility] Work Phone: Comment on above: Performed at [employer] [address] [place] [address] XR ANKLE LEFT (MIN 3 VIEWS)o n 06-02-2020 No fracture or dislocation. Final report electronically signed by Dr. Mathieu Darden on 06/02/2020 2:53 PM [employer] Phone: PROCEDURE: XR ANKLE LEFT (MIN 3 VIEWS) CLINICAL INFORMATION: Pain following a fall TECHNIQUE: 3 views of the left ankle COMPARISON: Left ankle 11/08/2017 FINDINGS: There is no fracture or dislocation. Joint spaces, including the ankle mortise, are preserved. No osseous bodies are identified. There is minimal soft tissue swelling adjacent to the lateral malleolus. [employer] Phone: Sam, [employer] Incoming Radiant Results From [facility] [employer] - 06/02/2020 2:55 PM EST PROCEDURE: XR ANKLE LEFT (MIN 3 VIEWS) CLINICAL INFORMATION: Pain following a fall TECHNIQUE: 3 views of the left ankle COMPARISON: Left ankle 11/08/2017 FINDINGS: There is no fracture or dislocation. Joint spaces, including the ankle mortise, are preserved. No osseous bodies are identified. There is minimal soft tissue swelling adjacent to the lateral malleolus. IMPRESSION: No fracture or dislocation. Final report electronically signed by Dr. Mathieu Darden on 06/02/2020 2:53 PM [employer] Phone: XR FOOT LEFT (MIN 3 VIEWS)on 06-02-2020 No fracture or dislocation. Final report electronically signed by Dr. Mathieu Darden on 06/02/2020 2:55 PM [employer] Phone: PROCEDURE: XR FOOT LEFT (MIN 3 VIEWS) CLINICAL INFORMATION: Pain following a fall TECHNIQUE: 4 views of the left foot COMPARISON: None FINDINGS: There is no fracture or dislocation. Joint spaces are preserved. No soft tissue or osseous abnormalities are identified. MeetMe Phone: Sam, [employer] Incoming Radiant Results From [employer] - 06/02/2020 2:57 PM EST PROCEDURE: XR FOOT LEFT (MIN 3 VIEWS) CLINICAL INFORMATION: Pain following a fall TECHNIQUE: 4 views of the left foot COMPARISON: None FINDINGS: There is no fracture or dislocation. Joint spaces are preserved. No soft tissue or osseous abnormalities are identified. IMPRESSION: No fracture or dislocation. Final report electronically signed by Dr. Mathieu Darden on 06/02/2020 2:55 PM MeetMe Phone: [facility] DIGITAL DIAGNOSTIC W OR WO CAD RIGHTon 05-12-2020 IMPRESSION: Mammogra m BI-RADS: Post Procedure Mammogram for Marker Placement There was a successful marker clip placement in the right breast lower inner aspect posterior depth. #[id number] - [facility] DIGITAL DIAGNOSTIC W OR WO CAD RIGHT UNILATERAL RIGHT DIGITAL DIAGNOSTIC MAMMOGRAM WITH CAD: 05/12/2020 CLINICAL: Post bx clip placement. Mass right breast LIQ tribell clip. Comparison is made to exam dated: 05/12/2020 ultrasound biopsy - [facility]. The tissue of the right breast is extremely dense, which lowers the sensitivity of mammography. Current study was also evaluated with a Computer Aided Detection (CAD) system. There is a marker clip in the appropriate position in the right breast lower inner aspect posterior depth. This marker clip placement is at biopsy site. Dr. Sally Trinidad nn/penrad:05/12/2020 13:52:01 copy to: Cherise Torres MD, [facility] [place], fax: [phone] Technical Laboratory Asst: Lorri Trinidad RT(R[place] [address] MeetMe Phone: Sam, [facility] Incoming Radiant Results From [employer] - 05/12/2020 2:20 PM EST IMPRESSION: Mammogram BI-RADS: Post Procedure Mammogram for Marker Placement There was a successful marker clip placement in the right breast lower inner aspect posterior depth. #[id number] - [facility] DIGITAL DIAGNOSTIC W OR WO CAD RIGHT UNILATERAL RIGHT DIGITAL DIAGNOSTIC MAMMOGRAM WITH CAD: 05/12/2020 CLINICAL: Post bx clip placement. Mass right breast LIQ tribell clip. Comparison is made to exam dated: 05/12/2020 ultrasound biopsy - [facility]. The tissue of the right breast is extremely dense, which lowers the sensitivity of mammography. Current study was also evaluated with a Computer Aided Detection (CAD) system. There is a marker clip in the appropriate position in the right breast lower inner aspect posterior depth. This marker clip placement is at biopsy site. Dr. Sally Trinidad nn/penrad:05/12/2020 13:52:01 copy to: Cherise Torres MD, [facility] [place], fax: [phone] Technical Laboratory Asst: Lorri ROTH(R)(Alessia)TRISTANDE, [place] [id number] Work Phone: [facility] US GUIDED BREAST BIOPSY W LOC DEVICE 1ST LESION RIGHTon 05-12-2020 IMPRESSION: ULTRASOUND GUIDED BIOPSY Ultrasound guided biopsy of the lesion in the right breast lower inner aspect posterior depth was successful with no apparent post procedure complications. Waiting for pathology results. A final report will be issued when these become available. #[id number] - [facility] GUID NDL BIOPSY RIGHT ULTRASOUND GUIDED BIOPSY RIGHT BREAST WITH MARKING DEVICE INSERTED AND POST DIGITAL MAMMOGRAPHIC IMAGIN05/12/2020 CLINICAL: Mass right breast LIQ tribell clip. Correlation is made to exams dated: 05/05/2020 ultrasound and 05/05/2020 mammogram - [facility]. An ultrasound guided biopsy using real-time ultrasound was performed for the circumscribed oval lesion located in the right breast lower inner aspect posterior depth. This was described on the previous mammography and ultrasound reports. The skin was prepped in the usual manner. Local anesthetic was administered to the access site. The abnormality was approached from the lateral aspect. A new 14 gauge biopsy needle was placed adjacent to the abnormality through an introducer device under ultrasound guidance. Once the needle was documented to be in the correct location, four cores were obtained using Sertera. A tribell clip was inserted into the biopsy cavity. A skin closure strip and a sterile dressing were applied to the access site. As a separate procedure in a separate room with a dedicated machine, post procedure digital mammographic imaging demonstrates the clip at the targeted area. The specimens were sent to the laboratory for pathological analysis. Dr. Sally pringle/tamia:05/12/2020 13:51:18 copy to: Cherise Torres MD, [facility] [place], fax: [phone] Technical Laboratory Asst: Pasquale Darden [facility], [address] Work Phone: Sam, [facility] Incoming Radiant Results From [employer] - 05/12/2020 2:20 PM EST IMPRESSION: ULTRASOUND GUIDED BIOPSY Ultrasound guided biopsy of the lesion in the right breast lower inner aspect posterior depth was successful with no apparent post procedure complications. Waiting for pathology results. A final report will be issued when these become available. #[id number] - [facility] US GUID NDL BIOPSY RIGHT ULTRASOUND GUIDED BIOPSY RIGHT BREAST WITH MARKING DEVICE INSERTED AND POST DIGITAL MAMMOGRAPHIC IMAGIN05/12/2020 CLINICAL: Mass right breast LIQ tribell clip. Correlation is made to exams dated: 05/05/2020 ultrasound and 05/05/2020 mammogram - [facility]. An ultrasound guided biopsy using real-time ultrasound was performed for the circumscribed oval lesion located in the right breast lower inner aspect posterior depth. This was described on the previous mammography and ultrasound reports. The skin was prepped in the usual manner. Local anesthetic was administered to the access site. The abnormality was approached from the lateral aspect. A new 14 gauge biopsy needle was placed adjacent to the abnormality through an introducer device under ultrasound guidance. Once the needle was documented to be in the correct location, four cores were obtained using Sertera. A tribell clip was inserted into the biopsy cavity. A skin closure strip and a sterile dressing were applied to the access site. As a separate procedure in a separate room with a dedicated machine, post procedure digital mammographic imaging demonstrates the clip at the targeted area. The specimens were sent to the laboratory for pathological analysis. Dr. Sally Trinidad nn/tamia:05/12/2020 13:51:18 copy to: Cherise Torres MD, [facility] [place], fax: [phone] Technical Laboratory Asst: Pasquale Darden [facility], [facility] [address] [facility] Work Phone: CBC With Auto Differentialon 05-01-2020 Basophils (Bld) [#/Vol] 0.1 10*3/uL [place] Basophils/100 WBC (Bld) 0.6 % [place] Eosinophils (Bld) [#/Vol] 0.4 10*3/uL [place] Eosinophils/100 WBC (Bld) 3.5 % [place] Erythrocyte distribution width (RBC) [Ratio] 12.6 % 11.5 - 14.5 % [place] Hematocrit (Bld) [Volume fraction] 41.0 % 37 - 47 % [place] Hemoglobin (Bld) [Mass/Vol] 13.1 g/dL [place] Immature Grans (Abs) 0.02 [place] Immature granulocytes (Bld) [#/Vol] 0.2 % [place] Interpretation and review of laboratory results Abnormal [place] Lymphocytes (Bld) [#/Vol] 3.3 10*3/uL [place] Lymphocytes/100 WBC (Bld) 29.4 % [place] MCH (RBC) [Entitic mass] 30.6 pg 26 - 33 pg [place] MCHC (RBC) [Mass/Vol] 32.0 g/dL [place] MCV (RBC) [Entitic vol] 95.8 fL 81 - 99 fL [place] Monocytes (Bld) [#/Vol] 0.8 10*3/uL [place] Monocytes/100 WBC (Bld) 7 % [place] Nucleated RBC/100 WBC (Bld) [Ratio] 0 % /100 wbc [place] Comment on above: Performed at [facility] [address] [place] [address] Platelet mean volume (Bld) [Entitic vol] 10.4 fL 9.4 - 12.4 fL [place] Platelets (Bld) [#/Vol] 338 10*3/uL [place] RBC (Bld) [#/Vol] 4.28 10*6/uL [place] RDW-SD 44.6 fL 35 - 45 fL [place] Segmented neutrophils/100 WBC (Bld) 59.3 % [place] Segs Absolute 6.6 [place] WBC (Bld) [#/Vol] 11.1 10*3/uL [place] Rapid influenza A/B antigens on 05-01-2020 Flu A Antigen Negative NEGATIVE [place] Flu B Antigen Negative NEGATIVE [place] Comment on above: Performed at [facility] [address] [place] [address] Anion Gapon 07-26-2019 Anion gap [Moles/Vol] 11.0 mmol/L 8 - 16 meq/L [place] Comment on above: ANION GAP = Sodium - (Chloride + CO2) Performed at [facility] [address] [place] [address] Basic Metabolic Panelon 06-30 Calcium [Mass/Vol] 8.9 mg/dL 8.5 - 10. 5 mg/dL [place] Comment on above: Performed at [facility] [address] [place] [address] Chloride [Moles/Vol] 107 mmol/L 98 - 11 1 meq/L [place] CO2 [Moles/Vol] 23 mmol/L 23 - 33 meq/L [place] Creatinine [Mass/Vol] 0.7 mg/dL 0.4 - 1.2 mg/dL [place] Glucose [Mass/Vol] 92 mg/dL 70 - 108 mg/dL [place] Potassium [Moles/Vol] 3.8 mmol/L 3.5 - 5.2 meq/L [place] Sodium [Moles/Vol] 141 mmol/L 135 - 145 meq/L [place] Urea nitrogen [Mass/Vol] 10 mg/dL 7 - 22 mg/dL [place] CBC Auto Differentialon 06-30 Basophils (Bld) [#/Vol] 0.1 10*3/uL [place] Basophils/100 WBC (Bld) 0.4 % [place] Eosinophils (Bld) [#/Vol] 0.4 10*3/uL [place] Eosinophils/100 WBC (Bld) 2.7 % [place] Erythrocyte distribution width (RBC) [Ratio] 12.5 % 11.5 - 14.5 % [place] Hematocrit (Bld) [Volume fraction] 44.6 % 37 - 47 % [place] Hemoglobin (Bld) [Mass/Vol] 14.4 g/dL [place] Immature Grans (Abs) 0.06 [place] Immature granulocytes (Bld) [#/Vol] 0.4 % [place] Interpretation and review of laboratory results Abnormal [place] Lymphocytes (Bld) [#/Vol] 3.5 10*3/uL [place] Lymphocytes/100 WBC (Bld) 25.6 % [place] MCH (RBC) [Entitic mass] 31.0 pg 26 - 33 pg [place] MCHC (RBC) [Mass/Vol] 32.3 g/dL [place] MCV (RBC) [Entitic vol] 95.9 fL 81 - 99 fL [place] Monocytes (Bld) [#/Vol] 0.9 10*3/uL [place] Monocytes/100 WBC (Bld) 6.7 % [place] Nucleated RBC/100 WBC (Bld) [Ratio] 0 % /100 wbc [place] Comment on above: Performed at [facility] [address] [place] [address] Platelet mean volume (Bld) [Entitic vol] 9.1 fL Low 9.4 - 12.4 fL [place] Platelets (Bld) [#/Vol] 306 10*3/uL [place] RBC (Bld) [#/Vol] 4.65 10*6/uL [place] RDW-SD 44.4 fL 35 - 45 fL [place] Segmented neutrophils/100 WBC (Bld) 64.2 % [place] Segs Absolute 8.7 [place] WBC (Bld) [#/Vol] 13.5 10*3/uL [place] CT MAXILLOFACIAL W CONTRASTo n 07-26-[address] wit h contrast. INDICATION: Facial swelling. TECHNIQUE: The patient received 80 cc Isovue-370 IV. Multiplanar reformatted images are acquired. Dose reducing algorithms to limitation exposure are utilized. FINDINGS: The nasal bones and septum are intact. The bony orbits are normal. The globes and intraconal contents are negative for active pathology. Paranasal sinuses show partial opacification of the sphenoid air space. There is no obvious acute soft tissue inflammatory process or fluid collection identified. There is upper cervical soft tissues are negative for pathologic appearing adenopathy changes. The parotid and submandibular glands appear grossly intact. The inferior cranial fossa structures are negative. [place] 1. Negative exam for acute appearing pathology process. 2. Correlation with clinical exam. Final report electronically signed by Dr. Saravanan Vital on 07/26/2019 2:15 AM [place], [place] Sam, [facility] Incoming Radiant Results From [employer] - 07/26/2019 2:[address] with contrast. INDICATION: Facial swelling. TECHNIQUE: The patient received 80 cc Isovue-370 IV. Multiplanar reformatted images are acquired. Dose reducing algorithms to limitation exposure are utilized. FINDINGS: The nasal bones and septum are intact. The bony orbits are normal. The globes and intraconal contents are negative for active pathology. Paranasal sinuses show partial opacification of the sphenoid air space. There is no obvious acute soft tissue inflammatory process or fluid collection identified. There is upper cervical soft tissues are negative for pathologic appearing adenopathy changes. The parotid and submandibular glands appear grossly intact. The inferior cranial fossa structures are negative. IMPRESSION: 1. Negative exam for acute appearing pathology process. 2. Correlation with clinical exam. Final report electronically signed by Dr. Saravanan Vital on 07/26/2019 2:15 AM [place] Glomerular Filtration Rate, Estimatedon 07-26-2019 Est, Glom Filt Rate >90 ml/min/1 .73 m2 [place] Comment on above: Stage Description GF R, ml/min/1.73 m2 - At increased risk > or = 60 (with chronic kidney disease risk factors) 1 Normal or increased GFR > or = 90 2 Mildly or decreased GFR 60 - 89 3 Moderately decreased GFR 30 - 59 4 Severely decreased GFR 15 - 29 5 Kidney failure <15 (or dialysis) Estimated GFR calculated using abbreviated MDRD formula as recommended by National Kidney Foundation. Calculation based upon serum creatinine and adjusted for age, gender & race. Maryjane. Internal Med., Vol. 139 (2) pg 137-147. Performed at [facility] [address] [place] [address] HCG Qualitative, Serumon Preg, Serum Negative NEGATIVE [place] Comment on above: Performed at [facility] [address] [place] [address] Osmolalityon 07-26-2019 Osmolality Calc 279.9 [place], [place] Comment on above: Performed at [facility] ion [facility] [address] [place] [address] Acetaminophen levelon 2019 Acetaminophen [Mass/Vol] < 5.0 0 - 20 ug/mL [place] Comment on above: Performed at [facility] [address] [place] [address] Anion Gapon 07-25-2019 Anion gap [Moles/Vol] 13.0 mmol/L 8 - 16 meq/L [place] Comment on above: ANION GAP = Sodium - (Chloride + CO2) Performed at [facility] [address] [place] [address] CBC Auto Differentialon 06-30 Basophils (Bld) [#/Vol] 0.1 10*3/uL [place] Basophils/100 WBC (Bld) 0.5 % [place] Eosinophils (Bld) [#/Vol] 0.3 10*3/uL [place] Eosinophils/100 WBC (Bld) 2.2 % [place] Erythrocyte distribution width (RBC) [Ratio] 12.6 % 11.5 - 14.5 % [place] Hematocrit (Bld) [Volume fraction] 41.7 % 37 - 47 % [place] Hemoglobin (Bld) [Mass/Vol] 13.5 g/dL [place] Immature Grans (Abs) 0.05 [place] Immature granulocytes (Bld) [#/Vol] 0.4 % [place] Interpretation and review of laboratory results Abnormal [place] Lymphocytes (Bld) [#/Vol] 3.5 10*3/uL [place] Lymphocytes/100 WBC (Bld) 25.3 % [place] MCH (RBC) [Entitic mass] 31.0 pg 26 - 33 pg [place] MCHC (RBC) [Mass/Vol] 32.4 g/dL [place] MCV (RBC) [Entitic vol] 95.6 fL 81 - 99 fL [place] Monocytes (Bld) [#/Vol] 1.0 10*3/uL [place] Monocytes/100 WBC (Bld) 7.2 % [place] Nucleated RBC/100 WBC (Bld) [Ratio] 0 % /100 wbc [place] Comment on above: Performed at [facility] [address] [place] [address] Platelet mean volume (Bld) [Entitic vol] 9.2 fL Low 9.4 - 12.4 fL [place] Platelets (Bld) [#/Vol] 314 10*3/uL [place] RBC (Bld) [#/Vol] 4.36 10*6/uL [place] RDW-SD 44.3 fL 35 - 45 fL [place] Segmented neutrophils/100 WBC (Bld) 64.4 % [place] Segs Absolute 9.0 [place] WBC (Bld) [#/Vol] 13.9 10*3/uL [place] Comprehensive Metabolic Pane eleanor 07-25-2019 Albumin [Mass/Vol] 4.4 g/dL 3.5 - 5.1 g/dL [place] ALP [Catalytic activity/Vol] 67 U/L 38 - 126 U/L [place] ALT [Catalytic activity/Vol] 14 U/L 11 - 66 U/L [place] Comment on above: Performed at [facility] [address] [place] [address] AST [Catalytic activity/Vol] 14 U/L 5 - 40 U/L [place] Bilirubin Ql (U) 0.7 mg/dL 0.3 - 1.2 mg/dL [place] Calcium [Mass/Vol] 9.1 mg/dL 8.5 - 10. 5 mg/dL [place] Chloride [Moles/Vol] 102 mmol/L 98 - 11 1 meq/L [place] CO2 [Moles/Vol] 22 mmol/L Low 23 - 33 meq/L [place] Creatinine [Mass/Vol] 0.6 mg/dL 0.4 - 1.2 mg/dL [place] Glucose [Mass/Vol] 87 mg/dL 70 - 108 mg/dL [place] Potassium [Moles/Vol] 3.2 mmol/L Low 3.5 - 5.2 meq/L [place] Protein [Mass/Vol] 6.6 g/dL 6.1 - 8 g/dL [place] Sodium [Moles/Vol] 137 mmol/L 135 - 145 meq/L [place] Urea nitrogen [Mass/Vol] 8 mg/dL 7 - 22 mg/dL [place] Ethanolon 07-25-2019 ETHYL ALCOHOL, SERUM 0.07 % 0.00 [place] Comment on above: Performed at [facility] [address] [place] [address] Glomerular Filtration Rate, Estimatedon 07-25-2019 Est, Glom Filt Rate >90 ml/min/1 .73 m2 [place] Comment on above: Stage Description GF R, ml/min/1.73 m2 - At increased risk > or = 60 (with chronic kidney disease risk factors) 1 Normal or increased GFR > or = 90 2 Mildly or decreased GFR 60 - 89 3 Moderately decreased GFR 30 - 59 4 Severely decreased GFR 15 - 29 5 Kidney failure <15 (or dialysis) Estimated GFR calculated using abbreviated MDRD formula as recommended by National Kidney Foundation. Calculation based upon serum creatinine and adjusted for age, gender & race. Maryjane. Internal Med., Vol. 139 (2) pg 137-147. Performed at [facility] [address] [place] [address] HCG Qualitative, Serumon Preg, Serum Negative NEGATIVE [place] Comment on above: Performed at [facility] [address] [place] [address] Osmolalityon 07-25-2019 Osmolality Calc 271.5 [place] Comment on above: Performed at [facility] [address] [place] [address] Otheron 07-25-2019 Interpretation and review of laboratory results Abnormal [place] Salicylate Levelon 0 Salicylate, Serum < 0.3 Low 2 - 10 mg/dL [place] Comment on above: Performed at [facility] [address] [place] [address] TSH with Reflexon 07-25-2019 TSH Qn 0.987 m[IU]/L [place] Comment on above: Performed at [facility] [address] [place] [address] Rapid influenza A/B antigens on 06-15-2019 Flu A Antigen Negative NEGATIVE [place] Flu B Antigen Negative NEGATIVE [place] Comment on above: Performed at [facility] [address] [place] [address] STREP A ANTIGENon 06-15-2019 GROUP A STREP CULTURE, REFLEX Negative [place] Comment on above: Performed at [facility] [address] [place] [address] Strep A culture, throaton REFLEX THROAT C + S INDICATED [place] Comment on above: Performed at [facility] [address] [place] [address] CBCon 05-31-2019 Erythrocyte distribution width (RBC) [Ratio] 12.5 % 11.5 - 14.5 % [place] Hematocrit (Bld) [Volume fraction] 40.6 % 37 - 47 % [place] Hemoglobin (Bld) [Mass/Vol] 13.0 g/dL [place] Interpretation and review of laboratory results Abnormal [place] MCH (RBC) [Entitic mass] 31.2 pg 26 - 33 pg [place] MCHC (RBC) [Mass/Vol] 32.0 g/dL [place] MCV (RBC) [Entitic vol] 97.4 fL 81 - 99 fL [place] Platelet mean volume (Bld) [Entitic vol] 10.2 fL 9.4 - 12.4 fL [place] Comment on above: Performed at [facility] [address] [place] [address] Platelets (Bld) [#/Vol] 294 10*3/uL [place] RBC (Bld) [#/Vol] 4.17 10*6/uL [place] RDW-SD 44.9 fL 35 - 45 fL [place] WBC (Bld) [#/Vol] 10.2 10*3/uL [facility] [place] Anion GapOrdered By: Michael Ferrer on 03-23-2019 Anion gap [Moles/Vol] 15.0 mmol/L 8 - 16 meq/L [employer] Phone: Comment on above: ANION GAP = Sodium - (Chloride + CO2) Performed at [facility] [address] [place] [address] Basic Metabolic PanelOrdered By: Michael Ferrer on 03-23-2019 Calcium [Mass/Vol] 9.9 mg/dL 8.5 - 10. 5 mg/dL [employer] Phone: Comment on above: Performed at [facility] [address] [place] [address] Chloride [Moles/Vol] 106 mmol/L 98 - 11 1 meq/L [employer] Phone: CO2 [Moles/Vol] 23 mmol/L 23 - 33 meq/L [employer] Phone: Creatinine [Mass/Vol] 0.6 mg/dL 0.4 - 1.2 mg/dL [employer] Phone: Glucose [Mass/Vol] 98 mg/dL 70 - 108 mg/dL [employer] Phone: Potassium [Moles/Vol] 3.8 mmol/L 3.5 - 5.2 meq/L [employer] Phone: Sodium [Moles/Vol] 144 mmol/L 135 - 145 meq/L [employer] Phone: Urea nitrogen [Mass/Vol] 11 mg/dL 7 - 22 mg/dL [employer] Phone: CBC auto differentialOrdered By: Michael Ferrer on 03-23-2019 Basophils (Bld) [#/Vol] 0.1 10*3/uL [employer] Phone: Basophils/100 WBC (Bld) 0.4 % [employer] Phone: Eosinophils Absolute 0.1 [employer] Phone: Eosinophils/100 WBC (Bld) 0.7 % [facility] [employer] Phone: Erythrocyte distribution width (RBC) [Ratio] 12.4 % 11.5 - 14.5 % [facility] [employer] Phone: Hematocrit (Bld) [Volume fraction] 44.3 % 37 - 47 % [facility] [employer] Phone: Hemoglobin (Bld) [Mass/Vol] 14.6 g/dL [facility] Phone: Immature Grans (Abs) 0.05 [facility] [employer] Phone: Immature granulocytes/100 WBC (Bld) 0.4 % [facility] Phone: Interpretation and review of laboratory results [facility]normal [facility] Phone: Lymphocytes Absolute 2.2 [facility] [employer] Phone: Lymphocytes/100 WBC (Bld) 16.3 % [facility] [employer] Phone: MCH (RBC) [Entitic mass] 30.9 pg 26 - 33 pg [facility] [employer] Phone: MCHC (RBC) [Mass/Vol] 33.0 g/dL [facility] [employer] Work Phone: MCV (RBC) [Entitic vol] 93.9 fL 81 - 99 fL [facility] [employer] Phone: Monocytes Absolute 0.6 [facility] [employer] Phone: Monocytes/100 WBC (Bld) 4.6 % [facility] [employer] Phone: nRBC 0 /[address] [facility] Phone: Comment on above: Performed at [facility] [address] [place] [address] Platelet mean volume (Bld) [Entitic vol] 9.0 fL Low 9.4 - 12.[address] [facility] [facility] Phone: Platelets (Bld) [#/Vol] 343 10*3/uL [employer] Work Phone: RBC (Bld) [#/Vol] 4.72 10*6/uL [employer] Work Phone: RDW-SD 43.1 fL 35 - 45 fL [employer] Work Phone: Segmented neutrophils/100 WBC (Bld) 77.6 % [employer] Work Phone: Segs Absolute 10.6 [employer] Work Phone: WBC (Bld) [#/Vol] 13.6 10*3/uL [employer] Work Phone: EthanolOrdered By: Michael pleitez on 03-23-2019 ETHYL ALCOHOL, SERUM 0.03 % 0.00 [employer] Work Phone: Comment on above: Performed at [facility] [address] [place] [address] Glomerular Filtration Rate, EstimatedOrdered By: Michael Ferrer on 03-23-2019 Est, Glom Filt Rate >90 ml/min/1 .73 m2 [employer] Phone: Comment on above: Stage Description GF R, ml/min/1.73 m2 - At increased risk > or = 60 (with chronic kidney disease risk factors) 1 Normal or increased GFR > or = 90 2 Mildly or decreased GFR 60 - 89 3 Moderately decreased GFR 30 - 59 4 Severely decreased GFR 15 - 29 5 Kidney failure <15 (or dialysis) Estimated GFR calculated using abbreviated MDRD formula as recommended by National Kidney Foundation. Calculation based upon serum creatinine and adjusted for age, gender & race. Maryjane. Internal Med., Vol. 139 (2) pg 137-147. Performed at [facility] [address] [place] [address] HCG Qualitative, SerumOrdere d By: Michael Ferrer on 03-23-2019 Preg, Serum Negative NEGATIVE [facility] Work Phone: Comment on above: Performed at [facility] [address] [place], [place] [id number] Hepatic function panelOrdere d By: Michael Ferrer on 03-23-2019 Albumin [Mass/Vol] 5 g/dL 3.5 - 5.1 g/dL [facility] Work Phone: ALP [Catalytic activity/Vol] 68 U/L 38 - 126 U/L [facility] Work Phone: ALT [Catalytic activity/Vol] 12 U/L 11 - 66 U/L [facility] Work Phone: AST [Catalytic activity/Vol] 13 U/L 5 - 40 U/L [facility] Work Phone: Bilirubin [Mass/Vol] 0.3 mg/dL 0.3 - 1 .2 mg/dL [facility] Work Phone: Bilirubin.indirect [Mass/Vol] mg/dL 0 - 0.3 mg/dL [facility] Work Phone: Protein [Mass/Vol] 7.6 g/dL 6.1 - 8 g/dL [facility] Work Phone: Comment on above: Performed at [facility] [address] [place] [address] OsmolalityOrdered By: Michael Ferrer on 03-23-2019 Osmolality Calc 286.2 [facility] Work Phone: Comment on above: Performed at [facility] [address] [place] [address] Anion GapOrdered By: Debbie Horn on 03-16-2019 Anion gap [Moles/Vol] 12.0 mmol/L 8 - 16 meq/L [facility] Work Phone: Comment on above: ANION GAP = Sodium - (Chloride + CO2) Performed at [facility] [address] [place] [address] CBC auto differentialOrdered By: Montse Horn on 03-16-2019 Basophils (Bld) [#/Vol] 0.1 10*3/uL [facility] Work Phone: Basophils/100 WBC (Bld) 0.6 % [facility] Work Phone: Eosinophils Absolute 0.3 [facility] [employer] Work Phone: Eosinophils/100 WBC (Bld) 2.9 % [facility] [employer] Phone: Erythrocyte distribution width (RBC) [Ratio] 12.5 % 11.5 - 14.5 % [facility] [employer] Phone: Hematocrit (Bld) [Volume fraction] 40.2 % 37 - 47 % [facility] [employer] Phone: Hemoglobin (Bld) [Mass/Vol] 12.7 g/dL [facility] Phone: Immature Grans (Abs) 0.03 [facility] Phone: Immature granulocytes/100 WBC (Bld) 0.3 % [facility] Phone: Interpretation and review of laboratory results Abnormal [facility] [employer] Phone: Lymphocytes Absolute 2.0 [facility] Phone: Lymphocytes/100 WBC (Bld) 20.6 % [facility] [employer] Phone: MCH (RBC) [Entitic mass] 30.2 pg 26 - 33 pg [facility] [employer] Phone: MCHC (RBC) [Mass/Vol] 31.6 g/dL Low [facility] [employer] Work Phone: MCV (RBC) [Entitic vol] 95.5 fL 81 - [address] [facility] [facility] Phone: Monocytes Absolute 0.5 [facility] [employer] Phone: Monocytes/100 WBC (Bld) 5.5 % [facility] [employer] Phone: nRBC 0 /[address] [facility] Phone: Comment on above: Performed at [facility] [address] [place] [address] Platelet mean volume (Bld) [Entitic vol] 9.3 fL Low 9.4 - 12.4 fL [facility] Work Phone: Platelets (Bld) [#/Vol] 282 10*3/uL [facility] Work Phone: RBC (Bld) [#/Vol] 4.21 10*6/uL [facility] Work Phone: RDW-SD 43.9 fL 35 - 45 fL [facility] Work Phone: Segmented neutrophils/100 WBC (Bld) 70.1 % [facility] Work Phone: Segs Absolute 6.9 [employer] Work Phone: WBC (Bld) [#/Vol] 9.9 10*3/uL [facility] Work Phone: Comprehensive Metabolic Pane lOrdered By: Montse Horn on 03-16-2019 Albumin [Mass/Vol] 4.1 g/dL 3.5 - 5.1 g/dL [facility] Work Phone: ALP [Catalytic activity/Vol] 50 U/L 38 - 126 U/L [employer] Phone: ALT [Catalytic activity/Vol] 11 U/L 11 - 66 U/L [employer] Phone: Comment on above: Performed at [facility] [address] [place] [address] AST [Catalytic activity/Vol] 14 U/L 5 - 40 U/L [facility] Work Phone: Bilirubin [Mass/Vol] 0.4 mg/dL 0.3 - 1 .2 mg/dL [employer] Phone: Calcium [Mass/Vol] 9.0 mg/dL 8.5 - 10. 5 mg/dL [employer] Phone: Chloride [Moles/Vol] 110 mmol/L 98 - 11 1 meq/L [employer] Phone: CO2 [Moles/Vol] 23 mmol/L 23 - 33 meq/L [employer] Phone: Creatinine [Mass/Vol] 0.6 mg/dL 0.4 - 1.2 mg/dL [employer] Phone: Glucose [Mass/Vol] 101 mg/dL 70 - 108 mg/dL [employer] Phone: Potassium [Moles/Vol] 3.8 mmol/L 3.5 - 5.2 meq/L [employer] Phone: Protein [Mass/Vol] 6.2 g/dL 6.1 - 8 g/dL [employer] Phone: Sodium [Moles/Vol] 145 mmol/L 135 - 145 meq/L [employer] Phone: Urea nitrogen [Mass/Vol] 15 mg/dL 7 - 22 mg/dL [employer] Phone: Glomerular Filtration Rate, EstimatedOrdered By: Montse Horn on 03-16-2019 Est, Glom Filt Rate >90 ml/min/1 .73 m2 [employer] Phone: Comment on above: Stage Description GF R, ml/min/1.73 m2 - At increased risk > or = 60 (with chronic kidney disease risk factors) 1 Normal or increased GFR > or = 90 2 Mildly or decreased GFR 60 - 89 3 Moderately decreased GFR 30 - 59 4 Severely decreased GFR 15 - 29 5 Kidney failure <15 (or dialysis) Estimated GFR calculated using abbreviated MDRD formula as recommended by National Kid[employer]. Calculation based upon serum creatinine and adjusted for age, gender & race. Maryjane. Internal Med., Vol. 139 (2) pg 137-147. Performed at [facility] [address] [place] [address] HCG, quantitative, Ordered By: Montse Horn on 03-16-2019 hCG,Beta Subunit,Qual,Serum 5.2 High [employer] Phone: Comment on above: Gestational Referenc e Ranges 0 - 1 Weeks 5 - 50 mIU/ml 1 - 2 Weeks 50 - 100 mIU/ml 2 - 3 Weeks 100 - 5,000 mIU/ml 3 - 4 Weeks 500 - 10,000 mIU/ml 1 - 2 Months 1,000 - 200,000 mIU/ml 2 - 3 Months 10,000 - 100,000 mIU/ml 2nd Trimester 3,000 - 5,000 mIU/ml 3rd Trimester 1,000 - 50,000 mIU/ml Male <2 - 5 mIU/ml Performed at [facility] [address] [place] [address] Interpretation and review of laboratory results Abnormal [facility] Work Phone: OsmolalityOrdered By: Jeffrey Simpsontone on 03-16-2019 Osmolality Calc 289.7 [facility] Work Phone: Comment on above: Performed at [facility] [address] [place] [address] STREP A ANTIGENon 12-15-2018 GROUP A STREP CULTURE, REFLEX Positive Abnormal [place], [place] Comment on above: Performed at [facility] [address] [place] [address] Interpretation and review of laboratory results Abnormal [place], [place] Strep A culture, throaton REFLEX THROAT C + S NOT INDICATED [place], [place] Comment on above: Performed at [facility] [address] [place] [address] RPR SCREENon 06-04-2017 RPR TITER NOT INDIC. Normal NOT INDIC. [facility] Comment on above: Result Comment: Test performed at [facility] [address] [place] [id number] [id number] [facility] Accreditation Number [id number] RPR SCREEN NON-REACTIVE Normal NON-REACTIV E [facility] HEPATITIS B SURFACE AGon HEPATITIS B SURFACE AG Negative Normal NEGATIVE [facility] Comment on above: Result Comment: This result was obtained with the [employer] HBsAg immunoassay. Results obtained from other manufacturers' assay methods may not be used interchangeably. HEPATITIS C ABon 06-03-2017 HEPATITIS C AB Negative Normal NEGATIVE [facility] Comment on above: Result Comment: EFFECTIVE 05/12/2017 CLINICAL CHEMISTRY PLATFORM CHANGES IN MAIN LABORATORY ARE ASSOCIATED WITH REFERENCE RANGE CHANGES FOR A NUMBER OF ANALYTES. PLEASE REVIEW REFERENCE INTERVALS CAREFULLY [facility] [address] [place], [place] [address]Laboratory Director: Raphael Lowry M.D.CLIA No. [id number] CAP Accreditation No. [id number] HIV-1,2 COMBO AG/ABon 2017 HIV-1,2 COMBO AG/AB NON-REACTIVE Normal NON-REAC TIV E [facility] UA w reflex C&Son 05-18-2017 Reflex Culture? URINE CULTURE NOT INDICATED Normal [facility] Comment on above: Performed By: #### U A w reflex C&S, HCG,QUAL URINE ####[address] [place] [address] Urine, crystals in sediment NONE SEEN Normal NONE SEEN [facility] Comment on above: Performed By: #### U A w reflex C&S, HCG,QUAL URINE ####[facility] [place] [address] Urine, bacteria in sediment Negative Normal [facility] Comment on above: Performed By: #### U A w reflex C&S, HCG,QUAL URINE ####[address] [place] [address] Urine, casts in sediment NONE SEEN Normal NONE SEEN [facility] Comment on above: Performed By: #### U A w reflex C&S, HCG,QUAL URINE ####[address] [place] [address] Urine, mucus presence in sediment Negative Normal NEGATIVE [facility] Comment on above: Performed By: #### U A w reflex C&S, HCG,QUAL URINE ####[address] [place] [address] Urine, epithelial cells in sediment 1+ per LPF Normal NEGATIVE [facility] Comment on above: Performed By: #### U A w reflex C&S, HCG,QUAL URINE ####[address] [place] [address] Erythrocytes (RBC) NONE SEEN Normal NONE SEEN [facility] Comment on above: Performed By: #### U A w reflex C&S, HCG,QUAL URINE ####[address] [place] [address] WBC (Leukocytes) NONE SEEN Normal NONE SEEN [facility] Comment on above: Performed By: #### U A w reflex C&S, HCG,QUAL URINE ####[address] [place] [address] Urine, leukocyte esterase presence Negative Normal NEGATIVE [facility] Comment on above: Performed By: #### U A w reflex C&S, HCG,QUAL URINE ####[address] [place] [address] Urine, nitrite presence Negative Normal NEGATIVE [facility] Comment on above: Performed By: #### U A w reflex C&S, HCG,QUAL URINE ####[address] [place] [address] Urobilinogen, Dipstick 0.2 Normal 0.2 - 1.0 [facility] Comment on above: Performed By: #### U A w reflex C&S, HCG,QUAL URINE ####[address] [place] [address] Protein, Qual Negative Normal NEGATIVE [facility] Comment on above: Performed By: #### U A w reflex C&S, HCG,QUAL URINE ####[address] [place] [address] Urine, pH 7.0 [pH] Normal 5.0 - 9.0 [facility] Comment on above: Performed By: #### U A w reflex C&S, HCG,QUAL URINE ####[address] [place] [address] Blood, Dipstick Negative Normal NEGATIVE [facility] Comment on above: Performed By: #### U A w reflex C&S, HCG,QUAL URINE ####[address] [place] [address] Urine, specific gravity 1.020 Normal 1.005 - 1.030 [facility] Comment on above: Performed By: #### U A w reflex C&S, HCG,QUAL URINE ####[address] [place] [address] Bilirubin (direct) Negative Normal NEGATIVE [facility] Comment on above: Performed By: #### U A w reflex C&S, HCG,QUAL URINE ####[address] [place] [address] Glucose mass conc Negative Normal NEGATIVE [facility] Comment on above: Performed By: #### U A w reflex C&S, HCG,QUAL URINE ####[address] [place] [address] Ketone, Dipstick Negative Normal NEGATIVE [facility] Comment on above: Performed By: #### U A w reflex C&S, HCG,QUAL URINE ####[facility] [place] [address] Urine, character CLEAR Normal CLEAR [facility] Comment on above: Performed By: #### U A w reflex C&S, HCG,QUAL URINE ####[address] [place] [address] Urine, color YELLOW Normal [facility] Comment on above: Performed By: #### U A w reflex C&S, HCG,QUAL URINE ####[address] [place] [address] XR CHEST P/L (2 view)on 05-01 XR CHEST P/L (2 view) CHEST TWO VIEW WIT H RIGHT RIB SERIES - MAY 18, 2017HISTORY: Cough for one week. Rib pain.FINDINGS: PA and lateral views of the chest were obtained in addition to four views of the right ribs. The lungs are clear of consolidations and no effusions are identified. The heart size is within normal limits. The osseous structures appear to be intact, without a rib fracture identified.IMPRESSION : No acute osseous or pulmonary finding.Report electronically signed by: Dr. Alexander Rushing [facility] XR RIBS UNI RTon 05-18-2017 XR RIBS UNI RT CHEST TWO VIEW WITH RIGHT RIB SERIES - MAY 18, 2017HISTORY: Cough for one week. Rib pain.FINDINGS: PA and lateral views of the chest were obtained in addition to four views of the right ribs. The lungs are clear of consolidations and no effusions are identified. The heart size is within normal limits. The osseous structures appear to be intact, without a rib fracture identified.IMPRESSION : No acute osseous or pulmonary finding.Report electronically signed by: Dr. Alexander Rushing [facility] hCG, Qualitative-Urineon Internal Control ACCEPTABLE Normal [facility] Comment on above: Performed By: #### U A w reflex C&S, HCG,QUAL URINE ####[address] [place] [address] HCG.beta subunit ( test) Ql (U) Negative Normal NEGATIVE [facility] Comment on above: Performed By: #### U A w reflex C&S, HCG,QUAL URINE ####[address] [place] [address] Age at Specimen Collection = Normal [facility] Comment on above: Performed By: #### U A w reflex C&S, HCG,QUAL URINE ####[address] [place] [address] Otheron 04-08-2017 Yes Invalid Interpretation Code [facility] Current Invalid Interpretation Code [facility] mtaylor Invalid Interpretation Code [facility] 3.0 Count Invalid Interpretation Code [facility] Otheron 06-20-2011 0 Invalid Interpretation Code [facility] 3 Invalid Interpretation Code [facility] 21 Invalid Interpretation Code < 7 [facility] 3 Invalid Interpretation Code [facility] 0 Invalid Interpretation Code [facility] 8.0 Units Invalid Interpretation Code < 9 [facility] 0.0 Units Invalid Interpretation Code <= 0 [facility] 2 Invalid Interpretation Code [facility] Vital Signs Date Time Vital Sign Value Performing Clinician Facility 09-15-2024 06:50-0400 Body temperature 98 [degF] Hillary Coffey MINE FOREMAN-C Work Phone: [facility] 09-15-2024 06:50-0400 Diastolic blood pressure 64 mm[Hg] Hillary Coffey MINE FOREMAN-C Work Phone: [facility] 09-15-2024 06:50-0400 Heart rate 58 /min Hillary Coffey MINE FOREMAN-C Work Phone: [facility] 09-15-2024 06:50-0400 Respiratory rate 14 /min Hillary Coffey MINE FOREMAN-C Work Phone: [facility] 09-15-2024 06:50-0400 SaO2% (BldA) [Mass fraction] 98 % Hillary Coffey MINE FOREMAN-C Work Phone: [facility] 09-15-2024 06:50-0400 Systolic blood pressure 110 mm[Hg] Hillary Coffey MINE FOREMAN-C Work Phone: [facility] 03-09-2024 08:58-0500 Body temperature 99 [degF] Il[facility]yes MD [facility] 03-09-2024 08:58-0500 Body weight 91.72 kg Ilia Reyes MD [facility] 03-09-2024 08:58-0500 Diastolic blood pressure 56 mm[Hg] Ilia Reyes MD [facility] 03-09-2024 08:58-0500 Heart rate 60 /min Ilia Reyes MD [facility] 03-09-2024 08:58-0500 Respiratory rate 14 /min Ilia Reyes MD Work Phone: [employer] 03-09-2024 08:58-0500 SaO2% (BldA) [Mass fraction] 100 % Ilia Reyes MD Work Phone: [employer] 03-09-2024 08:58-0500 Systolic blood pressure 116 mm[Hg] Ilia Reyes MD Work Phone: [facility] 03-06-2024 13:00-0500 Diastolic blood pressure 67 mm[Hg] Hillary Coffey APRN-CONTROL CLERK REPAIRS Work Phone: 4(078)[phone] [place] [address] 03-06-2024 13:00-0500 Heart rate 56 /min Hillary Coffey APRN-CONTROL CLERK REPAIRS Work Phone: [phone])[phone] [place] [address] 03-06-2024 13:00-0500 Respiratory rate 17 /min Hillary Coffey APRN-CONTROL CLERK REPAIRS Work Phone: 6(825)[phone] [place] [address] 03-06-2024 13:00-0500 SaO2% (BldA) [Mass fraction] 99 % Hillary Coffey APRN-CONTROL CLERK REPAIRS Work Phone: 6(807)104-736515 [address] 03-06-2024 13:00-0500 Systolic blood pressure 108 mm[Hg] Hillary Coffey APRN-CONTROL CLERK REPAIRS Work Phone: 6(991)527-564515 [address] 03-06-2024 11:49-0500 Body height 175.3 cm Hillary Coffey APRN-CONTROL CLERK REPAIRS Work Phone: 0(706)[phone] [place] [address] 03-06-2024 11:49-0500 Body mass index (BMI) [Ratio] 31.9 kg/m2 Hillary Coffey ROUTE SERVICE MANAGER-CONTROL CLERK REPAIRS Work Phone: 3([phone] [address] 03-06-2024 11:49-0500 Body temperature 98.1 [degF] Hillary Coffey APRN-CONTROL CLERK REPAIRS Work Phone: [phone])[phone] [place] [address] 03-06-2024 11:49-0500 Body weight 97.98 kg Hillary Coffey APRN-CONTROL CLERK REPAIRS Work Phone: 9(228)[phone] [place] [address] 06-26-2023 09:25-0400 Body height 175.3 cm [facility] 06-26-2023 09:25-0400 Body mass index (BMI) [Ratio] 31.6 kg/m2 [facility] 06-26-2023 09:25-0400 Body weight 97.07 kg [facility] 06-23-2023 16:13-0400 Body weight 97.61 kg Mercedes Granados MD Work Phone: [facility] 06-23-2023 16:13-0400 Diastolic blood pressure 68 mm[Hg] Mercedes Granados MD Work Phone: [facility] 06-23-2023 16:13-0400 Heart rate 62 /min Mercedes Granados MD Work Phone: [facility] 06-23-2023 16:13-0400 SaO2% (BldA) [Mass fraction] 99 % Mercedes Granados MD Work Phone: [facility] 06-23-2023 16:13-0400 Systolic blood pressure 116 mm[Hg] Mercedes Granados MD Work Phone: [facility] 03-05-2023 16:31-0500 Body temperature 98.29 [degF] [employer] Work Phone: [facility] 03-05-2023 16:31-0500 Body weight 100.15 kg [employer] Work Phone: [facility] 03-05-2023 16:31-0500 Diastolic blood pressure 64 mm[Hg] [employer] Work Phone: [facility] 03-05-2023 16:31-0500 Heart rate 79 /min [employer] Work Phone: [facility] 03-05-2023 16:31-0500 Respiratory rate 20 /min [employer] Work Phone: [facility] 03-05-2023 16:31-0500 SaO2% (BldA) [Mass fraction] 99 % [employer] Work Phone: [facility] 03-05-2023 16:31-0500 Systolic blood pressure 120 mm[Hg] [employer] Work Phone: [facility] 10-27-2022 16:15-0400 Body height 175.26 cm [facility] 10-27-2022 16:15-0400 Body mass index (BMI) [Ratio] 33.6 kg/m2 [facility] 10-27-2022 16:15-0400 Body temperature 97.1 [degF] [facility] 10-27-2022 16:15-0400 Body weight 103.41 kg [facility] 10-27-2022 16:15-0400 Diastolic blood pressure 79 mm[Hg] [facility] 10-27-2022 16:15-0400 Heart rate 69 /min [facility] 10-27-2022 16:15-0400 Respiratory rate 16 /min [facility] 10-27-2022 16:15-0400 SaO2% (BldA) [Mass fraction] 99 % [facility] 10-27-2022 16:15-0400 Systolic blood pressure 140 mm[Hg] [facility] 07-29-2022 10:50-0400 Body mass index (BMI) [Ratio] 35.4 kg/m2 Cody Brown CNP Work Phone: [employer] 07-29-2022 10:50-0400 Body weight 102.51 kg Cody Brown CNP Work Phone: [facility] 07-29-2022 10:50-0400 Diastolic blood pressure 71 mm[Hg] Cody Brown CNP Work Phone: [employer] 07-29-2022 10:50-0400 Heart rate 61 /min Cody Brown CNP Work Phone: [facility] 07-29-2022 10:50-0400 Systolic blood pressure 120 mm[Hg] Cody Brown CNP Work Phone: [facility] 07-11-2022 18:59-0400 Body height 172.7 cm Cody Brown APRN - CONTROL CLERK REPAIRS Work Phone: [employer] 07-11-2022 18:59-0400 Body mass index (BMI) [Ratio] 32.99 kg/m2 Cody Brown APRN - CONTROL CLERK REPAIRS [facility] 07-11-2022 18:59-0400 Body temperature 97.9 [degF] Cody Brown APRN - CONTROL CLERK REPAIRS Work Phone: [employer] 07-11-2022 18:59-0400 Body weight 98.43 kg Cody Sehikh [facility] Work Phone: [employer] 07-11-2022 18:59-0400 Diastolic blood pressure 67 mm[Hg] Cody Brown APRN [facility] Work Phone: [employer] 07-11-2022 18:59-0400 Heart rate 63 /min Cody Brown APRN [facility] Work Phone: [employer] 07-11-2022 18:59-0400 Respiratory rate 18 /min Cody Brown APRN [facility] Work Phone: [employer] 07-11-2022 18:59-0400 SaO2% (BldA) [Mass fraction] 100 % Cody Brown APRN [facility] Work Phone: [employer] 07-11-2022 18:59-0400 Systolic blood pressure 130 mm[Hg] Cody Brown APRN [facility] Work Phone: [employer] 04-24-2022 04:48-0500 Diastolic blood pressure 57 mm[Hg] [employer] 04-24-2022 04:48-0500 Heart rate 66 /min [facility] 04-24-2022 04:48-0500 Respiratory rate 18 /min [facility] 04-24-2022 04:48-0500 SaO2% (BldA) [Mass fraction] 99 % [employer] 04-24-2022 04:48-0500 Systolic blood pressure 124 mm[Hg] [employer] 04-24-2022 02:05-0500 Body height 172.7 cm [facility] 04-24-2022 02:05-0500 Body mass index (BMI) [Ratio] 33.45 kg/m2 [employer] 04-24-2022 02:05-0500 Body temperature 97.9 [degF] [facility] 04-24-2022 02:05-0500 Body weight 99.79 kg [facility] [employer] 01-02-2022 07:27-0400 Body height 172.7 cm [facility] [employer] 01-02-2022 07:27-0400 Body mass index (BMI) [Ratio] 33.45 kg/m2 [facility] [employer] 01-02-2022 07:27-0400 Body temperature 97.59 [degF] [facility] [employer] 01-02-2022 07:27-0400 Body weight 99.79 kg [facility] [employer] 01-02-2022 07:27-0400 Diastolic blood pressure 77 mm[Hg] [facility] [employer] 01-02-2022 07:27-0400 Heart rate 57 /min [facility] [employer] 01-02-2022 07:27-0400 Respiratory rate 18 /min [facility] [employer] 01-02-2022 07:27-0400 SaO2% (BldA) [Mass fraction] 99 % [facility] [employer] 01-02-2022 07:27-0400 Systolic blood pressure 120 mm[Hg] [facility] [employer] 08-03-2021 00:20-0400 Body height 175.3 cm Kassy Ashley MD Work Phone: [facility] [employer] 08-03-2021 00:20-0400 Body mass index (BMI) [Ratio] 33.97 kg/m2 Kassy Ashley MD Work Phone: [facility] [employer] 08-03-2021 00:20-0400 Body temperature 97.5 [degF] Kassy Ashley MD Work Phone: [facility] [employer] 08-03-2021 00:20-0400 Body weight 104.33 kg Kassy Ashley MD Work Phone: [facility] [employer] 08-03-2021 00:20-0400 Diastolic blood pressure 75 mm[Hg] Kassy Ashley MD Work Phone: [facility] [employer] 08-03-2021 00:20-0400 Heart rate 87 /min Kassy Ashley MD Work Phone: [facility] [employer] 08-03-2021 00:20-0400 Respiratory rate 16 /min Kassy Ashley MD Work Phone: [facility] 08-03-2021 00:20-0400 SaO2% (BldA) [Mass fraction] 100 % Kassy Ashley MD Work Phone: [facility] 08-03-2021 00:20-0400 Systolic blood pressure 149 mm[Hg] Kassy Ashley MD Work Phone: [facility] 08-23-2020 17:12-0400 Body height 175.3 cm [employer] Work Phone: [facility] Work Phone: 08-23-2020 17:12-0400 Body mass index (BMI) [Ratio] 31.45 kg/m2 [employer] Phone: [facility] Work Phone: 08-23-2020 17:12-0400 Body temperature 97.81 [degF] [employer] Work Phone: [facility] Work Phone: 08-23-2020 17:12-0400 Body weight 96.62 kg [employer] Work Phone: [employer] Phone: 08-23-2020 17:12-0400 Diastolic blood pressure 66 mm[Hg] [employer] Work Phone: [facility] Work Phone: 08-23-2020 17:12-0400 Heart rate 69 /min [employer] Work Phone: [employer] Phone: 08-23-2020 17:12-0400 Respiratory rate 18 /min [employer] Work Phone: [facility] Work Phone: 08-23-2020 17:12-0400 SaO2% (BldA) [Mass fraction] 99 % [employer] Work Phone: [facility] Work Phone: 08-23-2020 17:12-0400 Systolic blood pressure 142 mm[Hg] Juan Alberto Horton DO Work Phone: [facility] Work Phone: 06-02-2020 14:26-0500 BMI (Body Mass Index) 30.72 kg/m2 [facility] Work Phone: 06-02-2020 14:26-0500 Body Temperature 97.3 [degF] [facility] Work Phone: 06-02-2020 14:26-0500 Body weight 94.35 kg Kassy [employer] Phone: 06-02-2020 14:26-0500 BP Diastolic 77 mm[Hg] [facility] Work Phone: 06-02-2020 14:26-0500 BP Systolic 127 mm[Hg] Kassy [employer] Work Phone: 06-02-2020 14:26-0500 Height 175.3 cm Kassy [employer] Work Phone: 06-02-2020 14:26-0500 Pulse (Heart Rate) 62 /min Kassy Lozano [facility] Work Phone: 06-02-2020 14:26-0500 Pulse Oximetry 100 % Kassy Ashley [facility] Work Phone: 06-02-2020 14:26-0500 Respiratory Rate 16 /min Kassy [employer] Work Phone: 07-26-2019 01:23-0400 BMI (Body Mass Index) 27.83 kg/m2 [facility] [place] 07-26-2019 01:23-0400 Body Temperature 97.39 [degF] [facility] [place] 07-26-2019 01:23-0400 Body weight 83.01 kg Kassy Ashley [facility], [place] 07-26-2019 01:23-0400 BP Diastolic 81 mm[Hg] [facility] [place] [place] 07-26-2019 01:23-0400 BP Systolic 121 mm[Hg] [facility] [place] 07-26-2019 01:23-0400 Height 172.7 cm Kassy Ashley [facility], [place] 07-26-2019 01:23-0400 Pulse (Heart Rate) 77 /min Kassy Lozano [facility] [place], [place] 07-26-2019 01:23-0400 Pulse Oximetry 99 % Kassy Lozano [facility], [place] 07-26-2019 01:23-0400 Respiratory Rate 18 /min Kassy Lozano [facility], [place] 07-25-2019 00:47-0400 BP Diastolic 68 mm[Hg] [facility] [place] 07-25-2019 00:47-0400 BP Systolic 131 mm[Hg] Wil [facility] , [place] 07-25-2019 00:47-0400 Pulse (Heart Rate) 61 /min Wil [facility], [place] 07-25-2019 00:47-0400 Pulse Oximetry 99 % Wil [facility] , [place] 07-25-2019 00:47-0400 Respiratory Rate 19 /min [facility] [place] [place] 07-24-2019 23:40-0400 BMI (Body Mass Index) 27.83 kg/m2 Wil [facility], [place] 07-24-2019 23:40-0400 Body Temperature 98.01 [degF] [facility] [place] 07-24-2019 23:40-0400 Body weight 83.01 kg Wil [facility] , [place] 06-30-2019 08:10-0400 BMI (Body Mass Index) 26.76 kg/m2 Sveta Armando [facility], [place] 06-30-2019 08:10-0400 Body Temperature 98.01 [degF] Sveta Armando [facility], [place] 06-30-2019 08:10-0400 Body weight 79.83 kg Sveta Armando [facility] , [place] 06-30-2019 08:10-0400 BP Diastolic 63 mm[Hg] [facility] , [place] 06-30-2019 08:10-0400 BP Systolic 107 mm[Hg] Sveta Armando [facility] , [place] 06-30-2019 08:10-0400 Height 172.7 cm Sveta Tr [facility] , [place] 06-30-2019 08:10-0400 Pulse (Heart Rate) 58 /min [facility], [place] 06-30-2019 08:10-0400 Pulse Oximetry 98 % [facility] , [place] 06-30-2019 08:10-0400 Respiratory Rate 16 /min Sveta Tr Lozano [facility], [place] 06-15-2019 10:52-0400 BMI (Body Mass Index) 27.57 kg/m2 Kassy Ashley [facility], [place] 06-15-2019 10:52-0400 Body Temperature 97.7 [degF] [facility] [place] 06-15-2019 10:52-0400 Body weight 79.83 kg Kassy Ashley [facility], [place] 06-15-2019 10:52-0400 BP Diastolic 63 mm[Hg] [facility] [place] 06-15-2019 10:52-0400 BP Systolic 111 mm[Hg] [facility] [place] 06-15-2019 10:52-0400 Height 170.2 cm Kassy Ashley [facility], [place] 06-15-2019 10:52-0400 Pulse (Heart Rate) 63 /min Kassy Lozano [facility], [place] 06-15-2019 10:52-0400 Pulse Oximetry 99 % Kassy Ashley [facility], [place] 06-15-2019 10:52-0400 Respiratory Rate 16 /min Kassy Ashley [facility], [place] 05-20-2019 12:00-0500 BMI (Body Mass Index) 28.66 kg/m2 [facility] [place] 05-20-2019 12:00-0500 Body Temperature 98.1 [degF] Kassy Ashley [facility], [place] 05-20-2019 12:00-0500 Body weight 83.01 kg Kassy Ashley [facility], [place] 05-20-2019 12:00-0500 BP Diastolic 64 mm[Hg] [facility] [place] 05-20-2019 12:00-0500 BP Systolic 127 mm[Hg] Kassy Ashley [facility], [place] 05-20-2019 12:00-0500 Height 170.2 cm Kassy Ashley [facility], [place] 05-20-2019 12:00-0500 Pulse (Heart Rate) 66 /min Kassy Lozano [facility], [place] 05-20-2019 12:00-0500 Pulse Oximetry 99 % Kassy Ashley [facility], [place] 05-20-2019 12:00-0500 Respiratory Rate 16 /min Kassy Ashley [facility], [place] 03-23-2019 07:39-0500 Body temperature 97.5 [degF] Kassy Ashley MD Work Phone: [facility] Work Phone: 03-23-2019 07:39-0500 Diastolic blood pressure 77 mm[Hg] Kassy Ashley MD Work Phone: [facility] Work Phone: 03-23-2019 07:39-0500 Heart rate 68 /min Kassy Ashley MD Work Phone: [facility] Work Phone: 03-23-2019 07:39-0500 Respiratory rate 18 /min Kassy Ashley MD Work Phone: [facility] Work Phone: 03-23-2019 07:39-0500 SaO2% (BldA) [Mass fraction] 98 % Kassy Ashley MD Work Phone: [facility] Work Phone: 03-23-2019 07:39-0500 Systolic blood pressure 111 mm[Hg] Kassy Ashley MD Work Phone: [facility] Work Phone: 03-16-2019 09:11-0500 Body temperature 97.81 [degF] Kassy Ashley MD Work Phone: [facility] Work Phone: 03-16-2019 08:37-0500 Diastolic blood pressure 63 mm[Hg] Kassy Ashley MD Work Phone: [facility] Work Phone: 03-16-2019 08:37-0500 Heart rate 62 /min Kassy Ashley MD Work Phone: [facility] Work Phone: 03-16-2019 08:37-0500 Respiratory rate 17 /min Kassy Ashley MD Work Phone: [facility] Work Phone: 03-16-2019 08:37-0500 SaO2% (BldA) [Mass fraction] 100 % aKssy Ashley MD Work Phone: [facility] Work Phone: 03-16-2019 08:37-0500 Systolic blood pressure 119 mm[Hg] Kassy Ashley MD Work Phone: [facility] Work Phone: 03-16-2019 07:08-0500 Body height 175.3 cm Kassy Ashley MD Work Phone: [facility] Work Phone: 03-16-2019 07:08-0500 Body mass index (BMI) [Ratio] 24.66 kg/m2 Kassy Ashley MD Work Phone: [facility] Work Phone: 03-16-2019 07:08-0500 Body weight 75.75 kg Kassy Ashley MD Work Phone: [facility] Work Phone: 12-15-2018 08:16-0400 Body Temperature 99.5 [degF] [facility] [place] [place] 12-15-2018 08:16-0400 BP Diastolic 77 mm[Hg] Kasys Lozano [facility], [place] 12-15-2018 08:16-0400 BP Systolic 118 mm[Hg] [facility], [place] 12-15-2018 08:16-0400 Pulse (Heart Rate) 78 /min Kassy Lozano [facility], [place] 12-15-2018 08:16-0400 Pulse Oximetry 98 % Kassy Ashley [facility], [place] 12-15-2018 08:16-0400 Respiratory Rate 16 /min Kassy Lozano [facility], [place] 11-13-2018 15:30-0400 BMI (Body Mass Index) 27.06 kg/m2 Kassy Ashley [facility], [place] 11-13-2018 15:30-0400 Body Temperature 98.1 [degF] Kassy Ashley [facility], [place] 11-13-2018 15:30-0400 Body weight 80.74 kg Kassy Ashley [facility], [place] 11-13-2018 15:30-0400 BP Diastolic 79 mm[Hg] Kassy Ashley [facility], [place] 11-13-2018 15:30-0400 BP Systolic 114 mm[Hg] Kassy Ashley [facility], [place] 11-13-2018 15:30-0400 Height 172.7 cm Kassy Ashley [facility], [place] 11-13-2018 15:30-0400 Pulse (Heart Rate) 55 /min Kassy oLzano [facility], [place] 11-13-2018 15:30-0400 Pulse Oximetry 98 % Kassy Ashley [facility], [place] 11-13-2018 15:30-0400 Respiratory Rate 16 /min [facility] [place] [place] 03-02-2018 15:20-0500 BP Diastolic 64 mm[Hg] [facility] 03-02-2018 15:20-0500 BP Systolic 110 mm[Hg] [facility] 03-02-2018 15:20-0500 Pulse (Heart Rate) 70 /min [facility] 04-09-2017 12:06-0500 BP Diastolic 56 mm[Hg] [facility] 04-09-2017 12:06-0500 BP Systolic 111 mm[Hg] [facility] 04-09-2017 12:06-0500 Pulse (Heart Rate) 67 /min [facility] 04-08-2017 10:36-0500 BP Diastolic 51 mm[Hg] [facility] 04-08-2017 10:36-0500 BP Systolic 74 mm[Hg] [facility] 04-08-2017 10:36-0500 Pulse (Heart Rate) 56 /min [facility] 08-26-2012 11:58-0400 Body Temperature 97.6 [degF] [facility] 08-26-2012 11:58-0400 BP Diastolic 64 mm[Hg] [facility] 08-26-2012 11:58-0400 BP Systolic 112 mm[Hg] [facility] 08-26-2012 11:58-0400 Pulse (Heart Rate) 69 /min [facility] 06-20-2011 12:35-0400 Body Temperature 97.3 [degF] [facility] 06-20-2011 12:35-0400 BP Diastolic 54 mm[Hg] [facility] 06-20-2011 12:35-0400 BP Systolic 110 mm[Hg] [facility] 06-20-2011 12:35-0400 Pulse (Heart Rate) 66 /min [facility] Encounters Encounter Date Encounter Type Care Provider Facility Start: 09-15-2024 End: 09-15-2024 Patient encounter procedure Charan Overton [facility] Work Phone: Start: 09-15-2024 End: 09-15-2024 ambulatory Hillary Coffey MINE FOREMAN-C Work Phone: [facility] Work Phone: Start: 05-24-2024 ambulatory Hillary Coffey VSC Fa cility:[facility] Start: 04-09-2024 End: 04-30-2024 Phys/qhp telephone evaluation 21-30 min Nola Cook MS Work Phone: [facility] Pediatric [facility]etics Comment on above: Encounter for nonpro creative genetic counseling and testing (Primary Dx); Family history of breast cancer; Family history of ovarian cancer Start: 04-09-2024 ambulatory ILIA REYES Facility: [facility] Start: 03-30-2024 End: 04-19-2024 Phys/qhp telephone evaluation 5-10 min Ilia Reyes MD Work Phone: [facility] Comment on above: Pelvic pain (Primary Dx); Family history of cancer Start: 03-30-2024 End: 04-19-2024 ambulatory UNKNOWN PROVIDER Facility:[facility] Start: 03-09-2024 End: 03-15-2024 Office outpatient new 30 minutes Ilia Reyes MD Work Phone: [facility] Comment on above: Encounter for screen ing for cervical cancer (Primary Dx); Screening for STD (sexually transmitted disease) Start: 03-09-2024 End: 03-15-2024 ambulatory VIRGEN BURGESS Facility:[facility] Start: 03-06-2024 End: 03-06-2024 Emergency department patient visit [facility] Work Phone: Comment on above: Uterine leiomyoma, u nspecified location (Primary Dx); Cyst of left ovary Start: 03-04-2024 End: 03-04-2024 Emergency department patient visit Genaro Olivier Facility:[facility] Start: 03-02-2024 ambulatory [facility] Fa cility:[facility] Start: 02-12-2024 End: 02-12-2024 ambulatory [facility] Facility:[facility] Start: 02-12-2024 End: 02-12-2024 ambulatory [facility] Facility:[facility] Start: 02-11-2024 End: 02-11-2024 E-mail encounter from caregiver Carrie Love [facility] Start: 02-11-2024 End: 02-11-2024 Patient encounter procedure Carrie Love [facility] Ob[facility]etric[facility]Gynecology Comment on above: [facility] MGR Referral Start: 02-11-2024 End: 02-11-2024 Office outpatient visit 15 minutes Virgen Burgess PA-C Work Phone: [facility] Comment on above: Acute vaginitis (Vivian sveta Dx) Start: 02-11-2024 End: 02-11-2024 ambulatory VIRGEN BURGESS Facility:[facility] Start: 02-10-2024 End: 02-10-2024 ambulatory [facility] Facility:[facility] Start: 12-29-2023 End: 12-29-2023 Emergency department patient visit Maurice Mercado Facility:[facility] Start: 12-29-2023 End: 12-29-2023 ambulatory Facility:[facility] Start: 12-29-2023 End: 12-29-2023 Patient encounter procedure Tarun Nunez APRN.CNP Work Phone: [facility] Comment on above: Chest pain, unspecif ied type (Primary Dx); Palpitations Start: 07-03-2023 End: 07-03-2023 Subsequent hospital visit by physician Rad External Film EF RAD EXTERNAL FILM VIRTUAL Comment on above: Arrived Start: 06-26-2023 End: 06-26-2023 ambulatory MERCEDES Jessee [facility] Start: 06-26-2023 End: 06-26-2023 Subsequent hospital visit by physician Refugio [id number] Mamm[facility] Comment on above: Encounter for screen ing mammogram for breast cancer Start: 06-25-2023 End: 06-26-2023 ambulatory [facility] Start: 06-25-2023 End: 06-26-2023 Encounter for general adult medical examination without abnormal findings [facility] Start: 06-23-2023 End: 06-23-2023 ambulatory [facility] Ambulatory Start: 06-23-2023 End: 06-23-2023 Encounter for general adult medical examination without abnormal findings [facility] Ambulatory Start: 06-23-2023 End: 06-23-2023 Initial preventive medicine new pt age 18-39yrs Mercedes Granados MD Work Phone: [facility] Comment on above: Routine general medi avery examination at a health care facility (Primary Dx); Encounter for screening mammogram for breast cancer Start: 06-23-2023 End: 06-23-2023 Patient encounter status Mercedes Granados MD Work Phone: [facility] Work Phone: Start: 03-05-2023 End: 03-05-2023 ambulatory Facility:[facility] Start: 03-05-2023 End: 03-05-2023 Patient encounter procedure [facility] Work Phone: [facility] Comment on above: Acute right ankle pa in (Primary Dx) Start: 12-27-2022 Telephone encounter Loreta Bower rp DO Work Phone: [facility] Comment on above: Appointment Reminder Start: 10-27-2022 End: 10-27-2022 Emergency department patient visit [facility] Work Phone: Start: 08-02-2022 End: 08-03-2022 ambulatory [facility] Start: 08-02-2022 End: 08-02-2022 Subsequent hospital visit by physician Gerard Bess Xr Rm 1 [facility] Radiology Comment on above: Acute pain of right shoulder; Radicular pain in right arm Start: 07-29-2022 ambulatory [facility] Start: 07-29-2022 End: 07-29-2022 Office outpatient visit 15 minutes Cody Brown CONTROL CLERK REPAIRS Work Phone: [facility] Comment on above: Acute pain of right shoulder (Primary Dx); Radicular pain in right arm Start: 07-25-2022 ambulatory [facility] Start: 07-11-2022 End: 07-11-2022 Emergency department patient visit [facility] Start: 07-11-2022 End: 07-11-2022 Subsequent hospital visit by physician Cody Brown ROUTE SERVICE MANAGER - CONTROL CLERK REPAIRS Work Phone: [facility] Start: 05-14-2022 ambulatory [facility] Start: 05-09-2022 End: 05-09-2022 Emergency department patient visit Cody Brown Facility:[facility] Start: 05-03-2022 ambulatory SELF SELF [facility] Start: 05-03-2022 Encounter for genera l adult medical examination without abnormal findings [facility] Start: 04-24-2022 End: 04-24-2022 Emergency department patient visit Physician [facility] Start: 04-24-2022 End: 04-24-2022 Emergency department patient visit [facility] Comment on above: Anxiety state (Prima ry Dx); Low vitamin D level Start: 01-02-2022 End: 01-02-2022 Emergency department patient visit Physician Mikayla Kell [facility] Start: 01-02-2022 End: 01-02-2022 Emergency department patient visit [facility] Comment on above: Trapezius muscle spa sm (Primary Dx) Start: 08-07-2021 End: 08-07-2021 ambulatory KASSY Frausto [facility] Start: 08-03-2021 End: 08-03-2021 Emergency department patient visit Kassy Ashley MD Work Phone: [facility] Comment on above: Atypical chest pain (Primary Dx); Gastroesophageal reflux disease with esophagitis without hemorrhage; Right shoulder pain, unspecified chronicity Start: 08-23-2020 End: 08-23-2020 Emergency department patient visit Juan Alberto Horton DO Work Phone: [facility] Comment on above: Pedal edema (Primary Dx) Start: 06-02-2020 End: 06-02-2020 Subsequent hospital visit by physician Kassy Bess [facility] Comment on above: Sprain of left ankle , unspecified ligament, initial encounter (Primary Dx) Start: 05-12-2020 End: 05-12-2020 Subsequent hospital visit by physician Str Mammography Rm 1 [facility] Comment on above: Mass of lower inner quadrant of right breast Start: 05-05-2020 End: 05-05-2020 Subsequent hospital visit by physician Str Mammography Rm 1 [facility] Comment on above: Breast tenderness Breast density Start: 05-01-2020 End: 05-01-2020 Subsequent hospital visit by physician Kassy Bess Comment on above: Fatigue, unspecified type Start: 07-26-2019 End: 07-26-2019 Emergency department patient visit Kassy Ashley [facility] Comment on above: Dental caries (Prima ry Dx); Facial swelling Start: 07-24-2019 End: 07-25-2019 Emergency department patient visit Wil Fulleri Work Phone: [facility] Comment on above: Depression, unspecif ied depression type (Primary Dx); Abrasion of wrist with infection, unspecified laterality, initial encounter; Tooth infection Start: 06-30-2019 End: 06-30-2019 Subsequent hospital visit by physician Sveta Armando Work Phone: [facility] Comment on above: Streptococcal sore t hroat (Primary Dx) Start: 06-15-2019 End: 06-15-2019 Subsequent hospital visit by physician Kassy Bess [facility] Comment on above: Cough (Primary Dx) Start: 05-31-2019 End: 05-31-2019 Subsequent hospital visit by physician Kassy Bess Start: 05-20-2019 End: 05-20-2019 Subsequent hospital visit by physician Kassy Bess [facility] Comment on above: Otalgia of right ear (Primary Dx) Start: 03-23-2019 End: 03-23-2019 Emergency department patient visit Kassy Ashley MD Work Phone: [facility] Comment on above: Depression, unspecif ied depression type (Primary Dx) Start: 03-16-2019 End: 03-16-2019 Emergency department patient visit Kassy Ashley MD Work Phone: [facility] Comment on above: Spontaneous (Primary Dx) Start: 12-15-2018 End: 12-15-2018 Subsequent hospital visit by physician Kassy Bess [facility] Comment on above: Strep pharyngitis (P rimary Dx); Impetigo Start: 11-13-2018 End: 11-13-2018 Subsequent hospital visit by physician Kassy Ashley [facility] Comment on above: Irritation of right eye (Primary Dx) Start: 03-02-2018 Dental examination Marty yi [facility] Start: 03-02-2018 Dental Lucita Sam Other [facility] Start: 05-18-2017 End: 05-18-2017 Emergency department patient visit NILDA ORTEGA Facility:[facility] Start: 04-09-2017 Dental examination Marty yi [facility] Start: 04-09-2017 Dental Keisha Al-Qu ishi Other [facility] Start: 04-08-2017 Dental examination Marty Diana He alth [facility] Start: 04-08-2017 Dental Martinez Sigala Other [facility] Start: 09-29-2013 Dental Shraddha gallegos Other [facility] Start: 05-04-2013 End: 07-08-2014 Patient requested procedure Tarun Nunez CONTROL CLERK REPAIRS Work Phone: [facility] Start: 08-26-2012 Dental examination Marty Diana He alth [facility] Start: 08-26-2012 Dental Martinez Sigala Other [facility] Start: 06-20-2011 Dental examination Marty Mathew [facility] Start: 06-20-2011 Dental Martinez Sigala Other [facility] Procedures Date Procedure Procedure Detail Performing Clinician Start: 04-27-2024 GENETIC TESTING Teddy Cook MS Work Phone: Start: 03-09-2024 Human papillomavirus DNA detection Ilia Reyes MD Work Phone: Start: 03-09-2024 Microscopic observat ion [Identifier] in Cervix by Cyto stain Ilia Reyes MD Work Phone: Start: 03-06-2024 Us transvaginal Rajat Kahn PA-C Work Phone: Start: 03-06-2024 Comprehensive metabo lic panel Rajat Kahn PA-C Work Phone: Start: 03-06-2024 Urnls dip stick/tabl et rgnt auto w/o microscopy Rajat Kahn PA-C Work Phone: Start: 07-03-2023 End: 07-03-2023 Study Interpretation of outside study Mercedes Granados MD Work Phone: Start: 06-26-2023 BI MAMMO BILATERAL SCREENING TOMOSYNTHESIS MERCEDES KUMARICARLOS Start: 06-25-2023 CBC panel - Blood by Automated count MERCEDES GRANADOS Start: 06-25-2023 Comprehensive metabo lic 2000 panel - Serum or Plasma MERCEDES GRANADOS Start: 06-25-2023 Cyanocobalamin vitamin b-12 MERCEDES GRANADOS Start: 06-25-2023 Lipid panel MERCEDES KLAUS TONY Start: 06-25-2023 Thyrotropin [Units/v olume] in Serum or Plasma MERCEDES GRANADOS Start: 06-25-2023 Lipid 1996 panel - S bao or Plasma Refugio Mammo Start: 08-02-2022 Radex spine cervical 4 or 5 views Cody Brown ROUTE SERVICE MANAGER - CONTROL CLERK REPAIRS Work Phone: Start: 07-25-2022 Microscopic observat ion [Identifier] in Cervix by Cyto stain Str 1 Start: 04-24-2022 Anion gap [Moles/Vol] K risty Mariposa Osorio ROUTE SERVICE MANAGER - CONTROL CLERK REPAIRS Work Phone: Start: 04-24-2022 Basic metabolic pane l calcium total Lisbeth Osorio ROUTE SERVICE MANAGER - CONTROL CLERK REPAIRS Work Phone: Start: 04-24-2022 GLOMERULAR FILTRATIO N RATE, ESTIMATED Lisbeth Osorio ROUTE SERVICE MANAGER - CONTROL CLERK REPAIRS Work Phone: Start: 04-24-2022 Hepatic function panel Lisbeth Osorio ROUTE SERVICE MANAGER - CONTROL CLERK REPAIRS Work Phone: Start: 04-24-2022 Urinalysis dipstick W Reflex Microscopic panel - Urine Lisbeth Osorio ROUTE SERVICE MANAGER - CONTROL CLERK REPAIRS Work Phone: Start: 04-24-2022 Ecg routine ecg w/le ast 12 lds w/i&r Lisbeth Osorio ROUTE SERVICE MANAGER - CONTROL CLERK REPAIRS Work Phone: Start: 08-03-2021 Radiologic exam ches t single view Sally Lam ROUTE SERVICE MANAGER - CONTROL CLERK REPAIRS Work Phone: Start: 08-03-2021 Anion gap [Moles/Vol] N vince Lam ROUTE SERVICE MANAGER - [employer] Work Phone: Start: 08-03-2021 Assay of lipase Sally Lam ROUTE SERVICE MANAGER - [employer] Work Phone: Start: 08-03-2021 BASIC METABOLIC PANE L W/ REFLEX TO MG FOR LOW K Sally Lam ROUTE SERVICE MANAGER - CONTROL CLERK REPAIRS Work Phone: Start: 08-03-2021 GLOMERULAR FILTRATIO N RATE, ESTIMATED Sally Lam ROUTE SERVICE MANAGER [employer] Work Phone: Start: 08-03-2021 Hepatic function panel Sally Lam ROUTE SERVICE MANAGER [employer] Work Phone: Start: 08-03-2021 Ecg routine ecg w/le ast 12 lds i&r only Sally Lam ROUTE SERVICE MANAGER [employer] Work Phone: Start: 08-23-2020 Anion gap [Moles/Vol] S eth Agiro DO Work Phone: Start: 08-23-2020 BASIC METABOLIC PANE L W/ REFLEX TO MG FOR LOW K Juan Alberto Agiro DO Work Phone: Start: 08-23-2020 GLOMERULAR FILTRATIO N RATE, ESTIMATED Juan Alberto Agiro DO Work Phone: Start: 08-23-2020 Natriuretic peptide Set h Agiro DO Work Phone: Start: 06-02-2020 Radex ankle complete minimum 3 views Jose Blunt Work Phone: Start: 06-02-2020 Radex foot complete minimum 3 views Jose Blunt Work Phone: Start: 05-12-2020 Diagnostic mammograp hy computer-aided detcj uni Sally Trinidad Work Phone: Start: 05-12-2020 Intro/sheath, non-laser Sally Trinidad Work Phone: Start: 05-01-2020 Iaadiadoo influenza Larry srinath Ashley Work Phone: Start: 05-01-2020 Blood count complete auto&auto difrntl wbc Kassy Ashley Work Phone: Start: 07-26-2019 Ct maxillofacial w/c ontrast material Lisbeth Osorio Work Phone: Start: 07-26-2019 Anion gap [Moles/Vol] K risty Mariposa sOorio Work Phone: Start: 07-26-2019 Assay of osmolality blood Lisbeth Osorio Work Phone: Start: 07-26-2019 Basic metabolic pane l calcium total Lisbeth Mariposa Devon Work Phone: Start: 07-26-2019 Blood count complete auto&auto difrntl wbc Lisbeth Osorio Work Phone: Start: 07-26-2019 GLOMERULAR FILTRATIO N RATE, ESTIMATED Lisbeth Osorio Work Phone: Start: 07-26-2019 Gonadotropin chorion ic qualitative Lisbeth Mariposa Devon Work Phone: Start: 07-25-2019 Anion gap [Moles/Vol] J esthela James Work Phone: Start: 07-25-2019 Assay of acetaminophen Wil James Work Phone: Start: 07-25-2019 Assay of ethanol Wil C ui Work Phone: Start: 07-25-2019 Assay of osmolality blood Wil James Work Phone: Start: 07-25-2019 Assay of salicylate Ninoska n James Work Phone: Start: 07-25-2019 Assay of thyroid stimulating hormone tsh Wil James Work Phone: Start: 07-25-2019 Blood count complete auto&auto difrntl wbc Wil James Work Phone: Start: 07-25-2019 Comprehensive metabo lic panel Wil James Work Phone: Start: 07-25-2019 GLOMERULAR FILTRATIO N RATE, ESTIMATED Wil James Work Phone: Start: 07-25-2019 Gonadotropin chorion ic qualitative Wil James Work Phone: Start: 06-15-2019 Iaadiadoo influenza Chp Ed Physician Start: 06-15-2019 Cul prsmptv pthgnc o rganism scrn w/colony estimj Chp Ed Physician Start: 06-15-2019 STREP A ANTIGEN Chp Ed Physician Start: 05-31-2019 Blood count complete automated Cherise L Melissa Work Phone: Start: 03-23-2019 Drug screen, single Trung kim BECKER Work Phone: Start: 03-23-2019 Anion gap [Moles/Vol] J carlitos BECKER Work Phone: Start: 03-23-2019 Assay of ethanol Michael BECKER Work Phone: Start: 03-23-2019 Basic metabolic pane l calcium total Michael BECKER Work Phone: Start: 03-23-2019 GLOMERULAR FILTRATIO N RATE, ESTIMATED Michael BECKER Work Phone: Start: 03-23-2019 Hepatic function panel Michael BECKER Work Phone: Start: 03-16-2019 Anion gap [Moles/Vol] J vanesa Horn PA-C Work Phone: Start: 03-16-2019 Comprehensive metabo lic panel Montse Horn PA-C Work Phone: Start: 03-16-2019 GLOMERULAR FILTRATIO N RATE, ESTIMATED Montse Horn PA-C Work Phone: Start: 12-15-2018 Cul prsmptv pthgnc o rganism scrn w/colony estimj Chp Ed Physician Start: 12-15-2018 STREP A ANTIGEN p Ed Physician Start: 03-02-2018 Expanded function de ntal auxiliary code Anvita Diana Start: 04-09-2017 Expanded function de ntal auxiliary code Marty Ortiz Start: 04-08-2017 Caries Risk Assessme nt, High Risk Marty Ortiz Start: 04-08-2017 Nutritional counseli ng for the control of dental disease Marty Ortiz Start: 09-29-2013 HIV SCREENING REFUSE D* in house Marty Ortiz Start: 09-29-2013 ORAL HYGIENE INSTRUCTIONS Marty Ortiz Start: 05-19-2013 Microscopic observat ion [Identifier] in Cervix by Cyto stain Virgen Burgess PA-C Work Phone: Start: 08-26-2012 Bitewings - four films Marty Ortiz Start: 08-26-2012 Currently sees dental A trinidadrussell Ortiz Start: 08-26-2012 HIV SCREENING* in house---negative ruddy Marty Ortiz Start: 08-26-2012 Intraoral - periapic al - each additional film Marty Ortiz Start: 08-26-2012 intraoral - periapic al first film Marty Ortiz Start: 08-26-2012 Periodic Oral Examination Marty Ortiz Start: 08-26-2012 Prophylaxis - adult Anv russell Diana Start: 06-20-2011 HIV Refused Marty gutierrez Plan of Treatment Date Care Activity Detail Author Start: 2034 Shingles (RZV) Vacci ne (1 of 2) Shingles (RZV) Vaccine (1 of 2) [facility] Start: 2034 Shingles Vaccine (1 of 2) Shingles Vaccine (1 of 2) [place] Start: 2034 Zoster Vaccines (1 o f 2) Zoster Vaccines (1 of 2) [facility] Start: 09-24-2028 DTaP/Tdap/Td vaccine (2 - Td or Tdap) DTaP/Tdap/Td vaccine (2 - Td or Tdap) [facility] Start: 09-24-2028 DTaP/Tdap/Td vaccine (2 - Td) DTaP/Tdap/Td vaccine (2 - Td) [place] Start: 09-24-2028 DTaP/Tdap/Td Vaccine s (2 - Td or Tdap) DTaP/Tdap/Td Vaccines (2 - Td or Tdap) [facility] Start: 09-24-2028 Tetanus vaccination TETANUS [facility] Start: 09-24-2028 Urine microalbumin profile DTaP,Tdap,Td Vaccine (2 - Td or Tdap) [facility] Start: 06-24-2028 Lipid panel Lipid Panel [facility] Start: 03-09-2027 Screening for malign ant neoplasm of cervix Pap Smear [facility] Start: 07-25-2025 Screening for malign ant neoplasm of cervix [facility] Start: 2024 Screening for malign ant neoplasm of breast Breast cancer screen [facility] Start: 06-23-2024 Yearly Adult Physical Yearly Adult P hysical [facility] Start: 03-30-2024 End: 03-30-2024 Telemedicine consultation with patient 03/30/2024 10:00 AM EST Telemedicine [facility] [place] [address] Ilia Reyes MD [address] [place] [id number] [facility] Start: 02-25-2024 End: 02-25-2024 Patient encounter procedure 02/25/2024 10:30 AM EST Office Visit [facility] Mariposa Armijo COMMUNITY NURSE [address] [place] [address] Elysia Kirk MD [address] [place] [address] [facility] Mariposa Armijo COMMUNITY NURSE Start: 11-30-2023 Covid-19 Vaccine ( season) Covid-19 Vaccine ( season) [facility] Start: 11-30-2023 Influenza vaccination [facility] Start: 06-26-2023 End: 06-26-2023 Patient encounter procedure 06/26/2023 9:00 AM EDT Appointment [facility] [address] [place] [address] [facility] Start: 06-23-2023 End: 06-22-2024 CBC panel - Blood by Automated count CBC Lab Routine Routine general medical examination at a health care facility Expected: 06/23/2023 (Approximate), Expires: 06/22/2024 [facility] Work Phone: Comment on above: Expected: 06/23/2023 (Approximate), Expires: 06/22/2024 Start: 06-23-2023 End: 06-22-2024 Cobalamin (Vitamin B12) [Mass/volume] in Serum or Plasma Vitamin B12 Lab Routine Routine general medical examination at a health care facility Expected: 06/23/2023 (Approximate), Expires: 06/22/2024 [facility] Work Phone: Comment on above: Expected: 06/23/2023 (Approximate), Expires: 06/22/2024 Start: 06-23-2023 End: 06-22-2024 Comprehensive metabolic 2000 panel - Serum or Plasma Comprehensive Metabolic Panel Lab Routine Routine general medical examination at a health care facility Expected: 06/23/2023 (Approximate), Expires: 06/22/2024 [facility] Work Phone: Comment on above: Expected: 06/23/2023 (Approximate), Expires: 06/22/2024 Start: 06-23-2023 End: 08-22-2024 DBT Breast - bilateral BI mammo bilateral screening tomosynthesis Imaging Routine Encounter for screening mammogram for breast cancer Expected: 06/23/2023, Expires: 08/22/2024 [facility] Service Area Work Phone: Comment on above: Expected: 06/23/2023 , Expires: 08/22/2024 Start: 06-23-2023 End: 06-22-2024 Lipid 1996 panel - Serum or Plasma Lipid Panel Lab Routine Routine general medical examination at a health care facility Expected: 06/23/2023 (Approximate), Expires: 06/22/2024 [facility] Work Phone: Comment on above: Expected: 06/23/2023 (Approximate), Expires: 06/22/2024 Start: 06-23-2023 End: 06-22-2024 Thyrotropin [Units/volume] in Serum or Plasma Thyroid Stimulating Hormone Lab Routine Routine general medical examination at a health care facility Expected: 06/23/2023 (Approximate), Expires: 06/22/2024 [facility] Work Phone: Comment on above: Expected: 06/23/2023 (Approximate), Expires: 06/22/2024 Start: 05-03-2023 Screening for malign ant neoplasm of cervix CERVICAL CANCER SCREENING DISCUSSION [facility] Start: 11-29-2022 Influenza vaccination Influenza Vacc ine (#1) [facility] Start: 10-29-2022 Influenza vaccination Flu vacc ine (Season Ended) [facility] Start: 08-21-2022 End: 08-21-2022 Patient encounter procedure 08/21/2022 Office Visit Cardiology Steve Juarez MD [address] [address] [facility] Cardiology Start: 08-15-2022 End: 08-15-2022 Telemedicine consultation with patient 08/15/2022 Telemedicine Family Medicine Cody Brown, CONTROL CLERK REPAIRS [address] [place] [address] [facility] Start: 08-13-2022 End: 08-13-2022 Patient encounter procedure 08/13/2022 Office Visit Cardiology Steve Juarez MD [address] [address] [facility] Cardiology Start: 07-29-2022 End: 07-30-2023 XR Cervical spine 4 Views XR SPINE CERVICAL 4 VIEWS Imaging Routine Radicular pain in right arm Expected: 07/29/2022 (Approximate), Expires: 07/30/2023 [facility] Phone: Comment on above: Expected: 07/29/2022 (Approximate), Expires: 07/30/2023 Start: 07-29-2022 End: 07-30-2023 XR Shoulder - right 2 Views XR SHOULDER RIGHT MIN 2 VIEWS Imaging STAT Acute pain of right shoulder Expected: 07/29/2022 (Approximate), Expires: 07/30/2023 [facility] Phone: Comment on above: Expected: 07/29/2022 (Approximate), Expires: 07/30/2023 Start: 06-19-2022 Depression Screen Depression Screen [facility] Start: 03-31-2022 Depression Assessment Depression Ass [facility] Start: 11-29-2021 Influenza vaccination Flu vacc ine (Season Ended) [facility] Start: 10-29-2021 Influenza vaccination Flu vaccine (# 1) [employer] Start: 08-23-2021 Creatinine measurement Creatinine mo nitoring [employer] Phone: Start: 08-23-2021 Potassium monitoring Potassium monit oring [employer] Phone: Start: 11-29-2020 Influenza vaccination Flu vacc ine (Season Ended) [employer] Phone: Start: 05-12-2020 End: 05-12-2020 Appointment 05/12/2020 Appointment Radiology [facility] Start: 12-09-2019 Diabetes screen Diabetes screen [facility] Start: 11-30-2019 [facility] [place] [place] Start: 08-18-2019 End: 08-18-2019 Office Visit 08/18/2019 Office Visit Family Medicine Kassy Ashley MD [address] [place] [address] [phone] [facility] [employer] [facility] Start: 12-22-2018 End: 12-22-2018 Office Visit 12/22/2018 Office Visit Family Medicine Kassy Ashley MD [address] [place] [address] [phone] [facility] Start: 12-18-2018 End: 12-18-2018 Office Visit 12/18/2018 Office Visit Family Medicine Lino Archibald MD [address] [facility] [address] [place] [address] [phone] [facility] Start: 11-29-2018 Influenza vaccination Flu vaccine (# 1) [facility] Start: 05-19-2018 Pap Testing Pap Testing [facility] Start: 05-19-2016 Screening for malign ant neoplasm of cervix [facility] Start: 2014 HPV Testing HPV Testing [facility] Start: 2014 Screening for malign ant neoplasm of cervix [facility] Start: 12-09-2011 HPV Vaccine (optiona l start 27-45 years) HPV Vaccine (optional start 27-45 years) [facility] Start: 2005 Cervical cancer screen Cervical canc er screen [place] Start: 2005 Screening for malign ant neoplasm of cervix [facility] Start: 12-09-2003 Hepatitis A (HAV) Vaccine (optional start 19+ years) Hepatitis A (HAV) Vaccine (optional start 19+ years) [facility] Start: 12-09-2003 Hepatitis B vaccination Hepati tis B (HBV) Vaccine (1 of 3 - 19+ 3-dose series) [facility] Start: 12-09-2003 Hepatitis B Vaccine (1 of 3 - 19+ 3-dose series) Hepatitis B Vaccine (1 of 3 - 19+ 3-dose series) [facility] Start: 12-09-2003 Hepatitis B Vaccines (1 of 3 - 19+ 3-dose series) Hepatitis B Vaccines (1 of 3 - 19+ 3-dose series) [facility] Start: 12-09-2003 Pneumococcal vaccination Pneumococcal Vaccine(s) (1 of 2 - PCV) [facility] Start: 12-09-2003 Urine microalbumin profile DTaP,Tdap,Td Vaccine (1 - Tdap) [facility] Start: 2002 Hepatitis C Screening Hepatitis C Sc reening [facility] Start: 2002 Hepatitis C screening [facility] Start: 2002 Tdap Booster Tdap Booster [facility] Start: 12-09-1999 HIV screening [facility] Start: 1997 Varicella vaccination Varicell a Vaccines (1 of 2 - 13+ 2-dose series) [facility] Start: 1997 Varicella Vaccine (1 of 2 - 13+ 2-dose series) Varicella Vaccine (1 of 2 - 13+ 2-dose series) [place] Start: 1996 COVID-19 Vaccine (1) COVID-19 Vaccin e (1) [facility] Work Phone: Start: 1990 Pneumococcal 0-64 ye ars Vaccine (1 - PCV) Pneumococcal 0-64 years Vaccine (1 - PCV) [facility] Start: 1990 Pneumococcal 0-64 ye ars Vaccine (1 of 1 - PPSV23) Pneumococcal 0-64 years Vaccine (1 of 1 - PPSV23) [place] Start: 1990 Pneumococcal 0-64 ye ars Vaccine (1 of 2 - PPSV23) Pneumococcal 0-64 years Vaccine (1 of 2 - PPSV23) [facility] [employer] Phone: Start: 1990 Pneumococcal vaccination [facility] Start: 1990 PNEUMOCOCCAL VACCINE SERIES (1 - PCV) PNEUMOCOCCAL VACCINE SERIES (1 - PCV) [facility] Start: 1989 COVID-19 Vaccine (1) COVID-19 Vaccin e (1) [facility] Start: 1985 MMR Vaccines (1 of 1 - Standard series) MMR Vaccines (1 of 1 - Standard series) [facility] Start: 1985 Varicella vaccination Varicell a Vaccines (1 of 2 - 2-dose childhood series) [facility] Start: 1985 Varicella vaccine (1 of 2 - 2-dose childhood series) Varicella vaccine (1 of 2 - 2-dose childhood series) [facility] Start: 06-07-1985 COVID-19 Vaccine (#1) COVID-19 Vacci ne (#1) [facility] Start: 1984 Hepatitis B Vaccine (1 of 3 - 3-dose series) Hepatitis B Vaccine (1 of 3 - 3-dose series) [facility] Start: 1984 Hepatitis B Vaccines (1 of 3 - 3-dose series) Hepatitis B Vaccines (1 of 3 - 3-dose series) [facility] Start: 1984 Hepatitis C screening HEPATITI S C VIRUS SCREENING [facility] Start: 1984 HIV screening HIV Screening [facility] Start: 1984 Lipid panel Lipid Panel [facility] Start: 1984 Yearly Adult Physical Yearly Adult P hysical [facility] CBC W Auto Different ial panel - Blood CBC with Auto Differential Lab STAT 08/03/2021 12:20 AM EDT [facility] Work Phone: End: 05-01-2020 COVID-19 Ambulatory COVID-19 Ambulatory Lab Routine Fatigue, unspecified type 1 Occurrences starting 05/01/2020 until 05/01/2020 [employer] Comment on above: 1 Occurrences starti ng 05/01/2020 until 05/01/2020 COVID-19 Ambulatory COVID-19 Amb ulatory Lab Routine Fatigue, unspecified type 05/01/2020 4:00 PM EST [employer] End: 06-15-2019 Culture, Throat Culture, Throat Microbiology Routine Once for 1 Occurrences starting 06/15/2019 until 06/15/2019 [employer] [place] Comment on above: Once for 1 Occurrenc es starting 06/15/2019 until 06/15/2019 Culture, Throat Culture, Throat Microbiology Routine 06/15/2019 11:11 AM EDT [employer], [place] End: 06-26-2023 DBT Breast - bilateral [facility] Service Area Work Phone: Comment on above: Once for 1 Occurrenc es starting 06/26/2023 until 06/26/2023 EKG Emergency EKG Emergency EC G STAT 04/24/2022 2:04 AM EST [employer] Work Phone: End: 03-06-2024 Extra Urine [employer] Work Phone: Comment on above: Once for 1 Occurrenc es starting 03/06/2024 until 03/06/2024 End: 12-15-2018 Group A Strep, Reflex Group A Strep, Reflex Lab STAT One Time for 1 Occurrences starting 12/15/2018 until 12/15/2018 [place] Comment on above: One Time for 1 Occur rences starting 12/15/2018 until 12/15/2018 End: 06-15-2019 Group A Strep-Reflex Group A Strep-Reflex Lab STAT One Time for 1 Occurrences starting 06/15/2019 until 06/15/2019 [place] Comment on above: One Time for 1 Occur rences starting 06/15/2019 until 06/15/2019 End: 05-31-2019 HCG, Quantitative, HCG, Quantitative, Lab Routine Once for 1 Occurrences starting 05/31/2019 until 05/31/2019 [place] Comment on above: Once for 1 Occurrenc es starting 05/31/2019 until 05/31/2019 HCG, Quantitative, HCG, Quantitative, Lab Routine 05/31/2019 6:41 PM [place] Hepatic function 200 0 panel - Serum or Plasma Hepatic Function Panel Lab STAT [facility]/03[facility]21 [facility] Work Phone: End: 05-31-2019 Hepatitis B Surface Antigen Hepatitis B Surface Antigen Lab Routine Once for 1 Occurrences starting 05/31/2019 until 05/31/2019 [place] Comment on above: Once for 1 Occurrenc es starting 05/31/2019 until 05/31/2019 Hepatitis B Surface Antigen Hepatitis B Surface Antigen Lab Routine 05/31/2019 6:41 PM [place] End: 05-31-2019 Hepatitis C Antibody Hepatitis C Antibody Lab Routine Once for 1 Occurrences starting 05/31/2019 until 05/31/2019 [place] Comment on above: Once for 1 Occurrenc es starting 05/31/2019 until 05/31/2019 Hepatitis C Antibody Hepatitis C Antibody Lab Routine 05/31/2019 6:41 PM [place] End: 05-31-2019 HIV Screen HIV Screen Lab Routine Once for 1 Occurrences starting 05/31/2019 until 05/31/2019 [place] Comment on above: Once for 1 Occurrenc es starting 05/31/2019 until 05/31/2019 HIV Screen HIV Screen Lab R outine 05/31/2019 6:41 PM NABIL [facility] End: 05-05-2020 ABELARDO JACEK DIGITAL DIAGNOSTIC BILATERAL ABELARDO JACEK DIGITAL DIAGNOSTIC BILATERAL Imaging Routine Breast tenderness 1 Occurrences starting 05/05/2020 until 05/05/2020 [facility] Comment on above: 1 Occurrences starti ng 05/05/2020 until 05/05/2020 ABELARDO JACEK DIGITAL DIAGNOSTIC BILATERAL ABELARDO JACEK DIGITAL DIAGNOSTIC BILATERAL Imaging Routine Breast tenderness 05/05/2020 3:05 PM [facility] Microscopic examinat ion of cervical Papanicolaou smear PAP SMEAR Anatomic Pathology Routine Encounter for screening for cervical cancer 03/09/2024 10:10 AM EST [employer] Work Phone: Patient referral [facility] Work Phone: Rapid drug screen, urine Rapid drug screen, urine Lab Routine 03/23/2019 7:56 AM [facility] Work Phone: End: 06-15-2019 Rapid influenza A/B antigens Rapid influenza A/B antigens Microbiology STAT One Time for 1 Occurrences starting 06/15/2019 until 06/15/2019 [facility] [place] Comment on above: One Time for 1 Occur rences starting 06/15/2019 until 06/15/2019 End: 05-31-2019 RPR Reflex to Titer and TPPA RPR Reflex to Titer and TPPA Lab Routine Once for 1 Occurrences starting 05/31/2019 until 05/31/2019 [facility] [place] Comment on above: Once for 1 Occurrenc es starting 05/31/2019 until 05/31/2019 RPR Reflex to Titer and TPPA RPR Reflex to Titer and TPPA Lab Routine 05/31/2019 6:41 PM NABIL [facility] End: 04-24-2022 Thyrotropin [Units/volume] in Serum or Plasma TSH Lab Routine One Time for 1 Occurrences starting 04/24/2022 until 04/24/2022 [facility] [employer] Work Phone: Comment on above: One Time for 1 Occur rences starting 04/24/2022 until 04/24/2022 End: 04-24-2022 Thyroxine (T4) free [Mass/volume] in Serum or Plasma T4, Free Lab Routine One Time for 1 Occurrences starting 04/24/2022 until 04/24/2022 [employer] Work Phone: Comment on above: One Time for 1 Occur rences starting 04/24/2022 until 04/24/2022 End: 03-06-2024 Urinalysis complete W Reflex Culture panel - Urine [facility] Service Area Work Phone: Comment on above: Once (Lab) for 1 Occ urrences starting 03/06/2024 until 03/06/2024 End: 07-25-2019 Urine Drug Screen Urine Drug Screen Lab STAT One Time for 1 Occurrences starting 07/25/2019 until 07/25/2019 [employer] [place] Comment on above: One Time for 1 Occur rences starting 07/25/2019 until 07/25/2019 End: 05-05-2020 US BREAST LIMITED LEFT US BREAST LIMITED LEFT Imaging Routine Breast tenderness 1 Occurrences starting 05/05/2020 until 05/05/2020 [employer] Comment on above: 1 Occurrences starti ng 05/05/2020 until 05/05/2020 US BREAST LIMITED LEFT US BREAST LIMITED LEFT Imaging Routine Breast tenderness 05/05/2020 3:42 PM [employer] End: 05-05-2020 US BREAST LIMITED RIGHT US BREAST LIMITED RIGHT Imaging Routine Breast density 1 Occurrences starting 05/05/2020 until 05/05/2020 [employer] Comment on above: 1 Occurrences starti ng 05/05/2020 until 05/05/2020 US BREAST LIMITED RIGHT US BREAS T LIMITED RIGHT Imaging Routine Breast density 05/05/2020 3:43 PM [employer] [place] End: 04-24-2022 Vitamin B12 & Folate [employer] Work Phone: Comment on above: One Time for 1 Occur rences starting 04/24/2022 until 04/24/2022 [facility] Immun[facility] Immunization Date Immunization Notes Care Provider Fa barrie 09-24-2018 tetanus toxoid, redu darline diphtheria toxoid, and acellular pertussis vaccine, adsorbed [facility] Payers Date Payer Category Payer Self-pay 2023 Medicaid HMO [id number] 2022 Medicaid [place] [employer] [place] [employer] [id number] 2022-Present [phone] [address] [place] [address] Medicaid [id number] 2020 Unknown [id number] 2018 Unknown [id number] 2017 Medicaid (Managed Care) [facility] [id number] 2011 Unknown [id number] 2017 Unknown [facility] xxxxxxxxxxxx 2017-Present [phone] [address] [place] [address] xxxxxxxxxxxx [id number] 2012 Unknown [id number] 2011 Unknown [id number] 1984 Unknown [id number] 1984 Unknown [id number] 1984 Unknown [id number] 1984 Unknown [id number] 1984 Unknown [id number] 1985 Unknown [id number] 2.16.840.1.140981.3.579.2. 93 1985 Unknown [id number] 2.16.840.1.485106.3.579.2. 93 1985 Unknown [id number] 2.16.840.1.702498.3.579.2. 1984 Unknown [id number] 2.16.840.1.727976.3.579.2. 93 1984 Unknown [id number] 2.16.840.1.434392.3.579.2. 93 1984 Unknown [id number] 2.16.840.1.001323.3.579.2. 1243 1984 Unknown [id number] 2.16.840.1.013731.3.579.2. 1244 1984 Unknown [id number] 2.16.840.1.415256.3.579.2. 1242 1984 Unknown [id number] 2.16.840.1.592722.3.579.2. 124 1984 Unknown [id number] 2.16.840.1.926707.3.579.2. 1984 Unknown [id number] 2.16.840.1.891723.3.579.2. 732 1984 Unknown [id number] 2.16.840.1.497386.3.579.2. 732 1984 Unknown [id number] 2.16.840.1.484824.3.579.2. 732 Unknown [id number] 2.16.840.1.904445.3.579.2. 139 Unknown [id number] 2.16.840.1.044911.3.579.2. 462 Unknown [id number] 2.16.840.1.900177.3.579.2. 462 Unknown [id number] 2.16.840.1.435353.3.579.2. 462 Unknown [id number] 2.16.840.1.232091.3.579.2. 462 Unknown [id number] 2.16.840.1.912162.3.579.2. 462 Unknown [id number] 2.16.840.1.945085.3.579.2. 462 Unknown [id number] 2.16.840.1.477515.3.579.2. 462 Unknown [id number] 2.16.840.1.963370.3.579.2. 462 Unknown [id number] 2.16.840.1.270706.3.579.2. 462 Social History Date Type Detail Facility Start: 11-13-2018 End: 03-04-2024 Current every day smoker [facility] Start: 03-31-1999 End: 03-31-2021 History of tobacco use Cigarette Smoker [place] Start: 11-13-2018 End: 03-09-2024 Cigarettes smoked current (pack per day) - Reported [place] Start: 11-13-2018 End: 03-09-2024 Alcohol intake Yes [place] Start: 02-11-2017 End: 03-19-2018 Alcohol Comment occasional [place] Start: 1985 Sex Assigned At Not on file M [place] Start: 07-24-2019 End: 06-26-2023 Alcohol intake Current drinker of alcohol (finding) [facility] Work Phone: Exposure to SARS-CoV-2 (event) Unable to assess [facility] Start: 05-01-2020 End: 03-09-2024 Tobacco use and exposure Never used [facility] Start: 07-24-2021 End: 03-06-2024 Exposure to SARS-CoV-2 (event) Not sure [facility] Start: 06-19-2021 Tobacco smoking status NHIS Ex-smoker [employer] Phone: End: 03-31-2021 History of tobacco use Current smoker [employer] Phone: Start: 12-11-2020 History SDOH Financial 5 [employer] Phone: Start: 12-11-2020 History SDOH Food Worry 1 [employer] Phone: Start: 07-11-2022 Alcohol intake Ex-drinker (finding) [facility] [employer] Phone: Start: 05-03-2022 Tobacco Comment and pt vapes [employer] Phone: Start: 10-27-2022 Tobacco smoking status NHIS Unknown if ever smoked [facility] Start: 1985 Sex Assigned At Female [facility] Start: 08-12-2016 End: 03-05-2023 Alcohol intake Current non-drinker of alcohol (finding) [facility] National Score (1-100), lower number is lower risk 65 [facility] Start: 06-23-2023 Tobacco smoking status NHIS Never smoked tobacco [facility] Work Phone: Start: 02-11-2024 Sex Female (finding) Fernie lim Start: 09-01-2023 Gender identity Identifies as female gender (finding) [facility] Work Phone: Start: 09-01-2023 Sexual orientation Heterosexual (fin mackenzie) [facility] Work Phone: NEGATED: Highlighted row [facility] Mental Status Date Assessment Result Facility 10-27-2022 Cognitive function Level Of Cons ciousness Awake;Alert;Appropriate;Follow s Commands [facility] Work Phone: Clinical Notes 06-22-2013 to 09-15-2024 Note Date & Type Note Facility 09-15-[address] [facility] Services 09-15-2024 Progress note Note Date/Time September 15, 2024 7:06am [facility] [address], [address] [place] [address] OFFICE VISIT Date of Service: 09/15/24 MR#: [id number] Acct: [id number] Name: KHADRA NIEVES Rep #: [id number] : 1985 Provider: EUGENIO Brush Age/Sex: 38/F Location: [facility] Status: Signed Intake Vital Signs 03/04/24 12:22 09/15/24 06:50 Height 5 ft 9 in BP 110/64 Blood Pressure Location Lt brachial Position Sitting Respiration 14 Pulse 58 L Pulse Source NIBP Temp 98.0 F Temp Source Oral Pulse Oximetry (%) 98 Oxygen Delivery Method room air Intake Visit Reasons: CONCERN FOR INSECT BITE/POISON BRET Chief Complaint: right thigh infection, rash Photograph Printer Required: No Is patient in pain?: Yes Allergies cephalexin monohydrate (From Keflex) Allergy (Verified 09/15/24 06:51) Hives ciprofloxacin (From Cipro) Allergy (Verified 09/15/24 06:51) Hives ciprofloxacin HCl (From Cipro) Allergy (Verified 09/15/24 06:51) Hives sulfamethoxazole (From Bactrim) Allergy (Verified 09/15/24 06:51) Hives trimethoprim (From Bactrim) Allergy (Verified 09/15/24 06:51) Hives Is last menstrual period known: No Post menopausal: No Patient : No Have you fallen in the past year?: No Nurse's Note: right upper thigh infection since this morning. + redness, + induration, no active drainage. also rash to bilateral legs and right arm x6 days with itching, concern for poison bret [facility] Medical History Palpable mass of soft tissue of knee Ankle fracture, right Ankle fracture, left Surgical History History of tubal ligation Status post surgical removal of both fallopian tubes Social History (Updated 03/04/24 @ 13:19 by Tia Theodore) household members: spouse and family housing: house Smoking Status: Current every day smoker tobacco type: cigarettes alcohol intake: never HPI HPI Chief Complaint: right thigh infection, rash Details: KHADRA NIEVES, is a 38 F who presents to the office today for initial evaluation status post poison bret exposure after pulling weeds in her yard approximately week ago. Additionally, new onset right inguinal lesion with localized pain/swelling noticed this morning upon awakening (unsure if insect bite or infected hair follicle, she says states). Patient states she has used multiple [id number] topical applications as well as oral Benadryl without relief of symptoms. She notes pruritic rash to BUE, BLE with excoriations. No complaints of constricted/pruritic airway or chest pain/shortness of breath/wheeze/dyspnea on exertion. No other associated symptoms and no other alleviating/aggravating factors. ROS Const Constitutional: No other (As above) Exam Const General: cooperative, healthy appearing and no acute distress Nutritional Appearance: average body habitus Orientation: alert, awake and oriented x3 HENMT Head: normal to inspection Ears: hearing grossly normal bilaterally, external ears normal Nose: external nose normal, nares normal, septum normal and no nasal discharge Face and sinus: normal facial exam, sinuses nontender and face symmetric Mouth: oral mucosae normal, lip normal, tongue normal and oropharynx normal Throat: posterior oropharynx normal, tonsils normal, uvula midline and no postnasal drainage Eyes General: appearance normal, both eyes and all related structures Neck Neck: normal visual inspection, full ROM, no lymphadenopathy, no meningeal signsand supple Neck mass: No Thyroid: thyroid normal Lymphatic: no lymphadenopathy noted Chest Chest palpation & inspection: normal inspection of the chest Resp Effort & Inspection: normal respiratory effort and able to speak in complete sentences Cardio Rate: Bradycardic Pulses: radial pulses present GI Inspection: normal to inspection Skin General: no rashes or lesions noted Other: Except clustered vesicular rash to BUE, BLE. Also approximately 3 cm diameter erythematous raised lesion to right inguinal region with central hair follicle inflammation appreciated upon inspection without discharge from site Neuro General: patient alert, patient awake and patient oriented x3 Cognition: normal cognition Speech: speech normal Extrem General: normal to inspection Psych Appearance: grossly normal Mental Status: mental status grossly normal Mood: congruent mood Affect: normal affect Speech and Movement: speech and movement normal Attitude: cooperative Diagnoses Contact dermatitis due to poison bret L23.7 Folliculitis L73.9 Assessment and Plan Assessment and Plan (1) Contact dermatitis due to poison bret: Status: Acute (2) Folliculitis: Status: Acute Plan: Prednisone and doxycycline as prescribed today. Supportive measures as instructed today. Follow-up with PCP in 3 to 5 days should symptoms not improve, ED sooner should symptoms worsen or any other concerns develop. Patient states acknowledging understanding all the above. Coding Level of Care Code Off vis,est,level 3 Assessment and Plan Assessment and Plan Medications: New prednisone 4 tablets daily x3 days, then 3 tablets daily x3 days, then 2 tablets daily x3 days, then 1 tablet daily x3 days 10 mg PO DAILY 30 tabs 0RF doxycycline monohydrate 100 mg PO BID 20 caps 0RF Clinical Quality Measures Falls Risk Screening/Assistive Devices Have you fallen in the past year?: No 09/15/24 0706 <Electronically signed by Charan BECKER> Date _ Charan BECKER Cosigner Signature: Date (if applicable) CC: ~ [facility] Work Phone: 1(947) 684-181101-09-2025 History of Present illness Narrative* Ludmila Yap MD - 04/08/2024 10:01 AM EST Documentation: Mode: Telephone Patient Home Phone: Patient Work Phone: Patient Cell Preferred phone: [phone] Consent: I confirmed patient understanding of the risks and benefits of telehealth visits and obtained consent to proceed with the telehealth visit. Location of Patient: Home of patient Phone numbers Preferred Telephone visit was conducted with: Patient (Khadra Nieves) Reason for visit/issues reviewed: Family history of breast and ovarian cancers, to discuss genetic testing options CANCER GENETIC CLINIC EVALUATION Patient Name: Khadra Nieves : 1985 Referred by: Ilia Reyes MD [address] [place] [address] HISTORY OF PRESENT ILLNESS: Khadra Nieves is a 38 year old female referred for a family history of cancer and to discuss genetic testing options. CANCER MEDICAL HISTORY: Ms. Nieves does not have a personal history of cancer. ADDITIONAL MEDICAL HISTORY: No past medical history on file. FAMILY HISTORY: A four generation pedigree was obtained, and the significant findings are noted below. Cousin, ovarian cancer, dx 36y Cousin, passed from ovarian cancer at age 42y - Cousin, breast cancer, dx 22y - Mother, breast cancer, possible genetic testing, result information unavailable - Aunt, breast cancer PHYSICAL EXAM: Deferred COUNSELING: In about 5-10% of families, there is an inherited genetic finding that can make a person more susceptible to developing certain forms of cancer. Knowing whether an inherited risk is present in a family can provide useful information and care options that promote cancer prevention, risk reduction, and/or early detection. The option of genetic testing via a cancer panel (which would simultaneously analyze multiple cancer susceptibility genes) was presented. The CancerNextExpanded panel (76 genes) offered by [facility] was presented. We discussed that each gene on the panel has its own associated cancer types and risk levels, and that management plans would be made according to the current information regardingthose risks for any gene(s) for which abnormal results are identified. The purpose of testing and potential outcomes for Ms. Nieves and her family were discussed. Lastly, we discussed the optionalnature of testing. IMPRESSION: -Genetic testing recommendations: Based on the histories reported at this visit, genetic testing isrecommended via a general cancer gene panel. -Screening recommendations: If genetic testing is positive, management recommendations will be madeat that time according to available current national practice guidelines for any gene(s) in which abnormal results are obtained. If genetic testing is negative or not completed, it is recommended that Ms. Nieves proceed with cancer screenings as per her personal medical history and family history of cancer. OUTCOME: - Genetic testing in Ms. Nieves's family is recommended. - [facility]'s insurance pre-auth process was explained. She agreed with this plan. - Ms. Nieves elected to proceed with testing via the CancerNextExpanded panel (76 genes). - Order placed in Epic. - Results expected in 2-3 weeks from time of draw. - Ms. Nieves will be contacted with her results, once available - by [employer] if normal/VUS, by phone call if abnormal - she agreed to this plan. - Further recommendations for Ms. Nieves and her family members will be made accordingly at thattime. Please contact us with any additional questions or concerns. Nola Cook M.S., [facility] Licensed Genetic Counselor I spoke to the patient and I reviewed the genetic counselor's documentation and discussed the patient with them. I agree with the counselor's documentation as noted above and made corrections as appropriate. Ludmila Yap MD Director, Division of Genetics and Genomics CC: Ilia Reyes MD [address] [place] [address] For internal order use: Test portal/lab: [facility] Test name: CancerNextExpanded panel (76 genes total). SpecimenType: Saliva kit shipped by lab, no Metro collection needed Special instructions: None documented in this [id number] History of Present illness Narrative* Ilia Reyes MD - 03/30/2024 9:54 AM EST Pain Just got through menses and no issues. Family history of ovarian cancer. Ovarian cancer in cousin at 36. Another cousin of ovarian cancer at 42. Maternal cousin breast cancer age 22. Mother with breast cancer, believes she got genetic testing, doesn't have a good relationship with her so unsure of result. Maternal aunt breast cancer. Ilia Reyes MD documented in this [id number] History of Present illness Narrative* Ilia Reyes MD - 03/09/2024 9:22 AM EST [facility] ANNUAL EXAM 03/09/24 38 year old yo female here to discuss recent abdominal/pelvic pain and follow In pain since Friday of last week. Period last Friday-. Has never had pain like this before. Feels like a major period cramp that hasn't gone away. Pain predominately left sided. Some nausea, no emesis. No fevers or chills. Was seen at [facility] and ED last and Sat, did not seegynecology during these encounters. 03/06/24 Pelvic US at FINDINGS: UTERUS: The uterus measures 12.3 x 5.9 x 6.9 cm. Fibroid in the fundal aspect of the uterus measuring 5.2 x 5.8 x 6 cm. ENDOMETRIUM: The endometrium measures 0.8 cm. No focal abnormality. RIGHT OVARY: Obscured by overlying bowel gas. LEFT OVARY: 4.6 x 2.3 x 2.5 cm. Echogenic lesion measuring 1.7 x 1.2 x 1.5 cm. Incidentally noted follicles. Arterial and venous flow present. OTHER: No significant pelvic free fluid. LMP:Patient's last menstrual period was 03/01/2024 (exact date). Menses: regular periods, last 3-4 days, normally mild period cramps Last pap: has been a few years Hx abnormal paps: unsure, doesn't think so Sexually active: occasionally, control: s/p 2019 STIs: negative, desires screening Vaginal discharge: none PMH, PSH, Soc Hx, Fam Hx, Meds, Allergies reviewed and updated in EPIC. Exam:BP 116/56 Pulse 60 Temp 99 F (37.2 C) (Temporal) Resp 14 Wt 202 lb 3.2 oz (91.7 kg) LMP 03/01/2024 (Exact Date) SpO2 100% @EXAMMB@ @PLANMB@ No diagnosis found. Ilia Reyes MD * Leyda Majano MA - 03/09/2024 8:58 AM EST Patient was identified by name and date of . Leyda Majano MA documented in this [id number] Instructions* Patient Instructions* Virgen Burgess PA-C - 02/11/2024 8:22 AM EST [facility] (click or tap for locations and hours). documented in this [id number] History of Present illness Narrative* Virgen Burgess PA-C - 02/11/2024 8:06 AM EST Images from the original note were not included. [facility] Virtual Visit Documentation: Mode: Video Consent: This visit was initiated by the patient. Audio and visual communication was utilized in real-time. I confirmed understanding of risks and benefits of telehealth visits and obtained consent to proceed with the telemedicine visit. Location of Patient: Home of patient Time-Based Billing Justifications: Charting in Epic Patient visit (including performing a medically appropriate exam) Obtaining history (or reviewing separately obtained history) Reviewing (chart, labs, and other clinical notes) Counseling/educating the patient/family/caregiver Ordering/interpreting (medications, tests, procedures) Chief Complaint Patient presents with Vaginal discharge Verified Patient Location: Yes Subjective Khadra Nieves is a 38 year old female with following pmh that presents for the below. There is no problem list on file for this patient. HPI Pt is c/o vaginal itching, with a white thin discharge, x 4d. Pt has h/o frequent BV, and this feels similar. No recent antibiotic use. No urinary complaints. No sores or rash. Pt says 2 weeks ago, she has starting using Dial Antibacterial soap due to h/o recurrent ingrown hairs and boils in the genital/groin area. Pt says her daughter changed laundry detergent 2 weeks ago and the daughter most likely is using the new detergent when washing pt's clothes. ALL cipro keflex bactrim -> hives LMP 1 week ago Review of Systems Constitutional: Negative for fever. Cardiovascular: Negative. Gastrointestinal: Negative. Genitourinary: Positive for vaginal discharge. Negative for dyspareunia, dysuria, flank pain, frequency, genital sores, hematuria, menstrual problem, urgency, vaginal bleeding and vaginal pain. Objective There were no vitals taken for this visit. Physical Exam Gen: A&Ox3. Appears well, no acute distress. Eyes: No conjunctival injection. No discharge. Resp: breathing comfortably on room air. Abd: no tenderness on self palpation. Psych: normal mood and affect Findings obtained via virtual exam. Assessment & Plan 1. Acute vaginitis Orders & Meds Signed During This Encounter GYNECOLOGY SERVICE REQUEST metronidazole (FLAGYL) 500 MG tablet I offered options of either an in person MH EC visit today with a provider bill distributor visit with self swab orders however pt lives >one hour away from the locations. Pt wishes to establish care with gyne and is requesting referral. I recommended changing back to previously used laundry detergent, running an extra rinse cycle and rewashing all underpants. I also recommended resuming previously used body soap. Discharge Disposition: Home with advice This patient has been seen and evaluated today through virtual services in Urgent Care on a secure platform. Assessment, diagnosis, and treatment has been provided to the best capabilities available given the nature of the visit. Patient has been informed of possible worsening symptoms and has beenadvised to seek in-person medical care if symptoms worsen or do not improve with agreed- upon treatment. Patient verbalized understanding prior to end of call. Virgen Burgess PA-C documented in this [id number] NoteHNO ID: [id number] Author: TARUN NUNEZ APRN.ZEINA Service: ? Author Type: Nurse Practitioner Type: Progress Notes Filed: 12/29/2023 13:02 Note Text: Patient triaged at [facility]. Here today with right chest pain, heart fluttering/racing. I will refer to ER. Patient in no apparent distress at time of triage.[facility]09-30-2024 History of Present illness Narrative* Tarun Nunez APRN.CNP - 12/29/2023 1:02 PM EDT Patient triaged at [facility]. Here today with right chest pain, heart fluttering/racing. I will refer to ER. Patient in no apparent distress at time of triage. [facility] History of Present illness Narrative* Mercedes Granados MD - 06/23/2023 4:00 PM EDT Subjective Patient ID: Khadra Nieves is a 37 y.o. female who presents for [facility]. HPI Mom and maternal GM with breast cancer. Was not being followed at the previous practice, and is definitely due for mammogram. No lumps or bumps in either breast, no pain in either breast no dischargefrom either nipple. Will start with a screening mammogram and go from there. Also family history of ovarian cancer, she needs to follow-up with [facility]. We talked about my Jo or Tiger, she is having trouble in [place], also Dr. López urination. Basic labs last year were okay, still feeling little bit tired we will check some basic labs again today. Small area in the skin, looks more like a healing abscess. She says it has been there for 2 weeks getting a little bit worse. Doxycycline 100 mg twice a day for 7 days. If is not 100% better in 7 days she will call. Review of Systems Constitutional: Negative for fatigue. Respiratory: Negative for shortness of breath. Cardiovascular: Negative for chest pain and palpitations. Gastrointestinal: Negative for constipation and diarrhea. Skin: Negative for rash. Neurological: Negative for headaches. Objective BP 116/68 Pulse 62 Wt 97.6 kg (215 lb 3.2 oz) SpO2 99% Physical Exam Constitutional: Appearance: Normal appearance. HENT: Head: Normocephalic and atraumatic. Cardiovascular: Rate and Rhythm: Normal rate and regular rhythm. Heart sounds: Normal heart sounds. Pulmonary: Effort: Pulmonary effort is normal. Breath sounds: Normal breath sounds. Skin: General: Skin is warm and dry. Neurological: General: No focal deficit present. Mental Status: She is alert and oriented to person, place, and time. Psychiatric: Mood and Affect: Mood normal. Behavior: Behavior normal. Thought Content: Thought content normal. Judgment: Judgment normal. Assessment/Plan Problem List Items Addressed This Visit None Visit Diagnoses Codes Routine general medical examination at a health care facility - Primary Z00.00 Relevant Medications doxycycline (Vibra-Tabs) 100 mg tablet Other Relevant Orders CBC Comprehensive Metabolic Panel Thyroid Stimulating Hormone Lipid Panel Vitamin B12 Encounter for screening mammogram for breast cancer Z12.31 Relevant Orders BI mammo bilateral screening tomosynthesis [facility] Work Phone: 1(146) 308-670212-06-2023 NoteHNO ID: [id number] Author: Kassy Limon APRN.CONTROL CLERK REPAIRS Service: ? Author Type: Nurse Practitioner Type: Progress Notes Filed: 03/05/2023 4:45 PM Note Text: This note was created using netFactor. Subjective Khadra Nieves is a 37 year old female. Patient reports she got a cortisone injection in her right ankle at [facility] in [place] this morning and on her way home she began having pain and swelling. Patient was directed to go to ER and she presented her. Objective BP 120/64 Pulse 79 Temp 36.8 ?C (98.3 ?F) Resp 20 Wt 100.2 kg (220 lb 12.8 oz) LMP 03/02/2016 (Exact Date) SpO2 99% BMI 35.10 kg/m? Physical Exam PHYSICAL EXAMINATION: General appearance: Crying, distressed Musculoskeletal: Positive findings: joint location: on right ankle pain, swelling, painful movement, loss of ROM, and extending up leg. Peripheral pulses: Normal Neuro: Gait normal. Reflexes normal and symmetric. Sensation grossly intact. Assessment and Plan ASSESSMENT/PLAN: 1. Acute right ankle pain - ICD9: 719.47, 338.19, ICD10: M25.571 -Patient referred to ER Kassy Limon APRN.CNPBarnesville Hospital12-06-2023 History of Present illness Narrative* Kassy Limon APRN.CNP - 03/05/2023 4:41 PM EST This note was created using PPDairiter. Subjective Khadra Nieves is a 37 year old female. Patient reports she got a cortisone injection in her right ankle at [facility] in [place] this morning and on her way home she began having pain and swelling. Patient was directed to go to ER and she presented her. Objective BP 120/64 Pulse 79 Temp 36.8 C (98.3 F) Resp 20 Wt 100.2 kg (220 lb 12.8 oz) LMP 03/02/2016 (Exact Date) SpO2 99% BMI 35.10 kg/m Physical Exam PHYSICAL EXAMINATION: General appearance: Crying, distressed Musculoskeletal: Positive findings: joint location: on right ankle pain, swelling, painful movement, loss of ROM, and extending up leg. Peripheral pulses: Normal Neuro: Gait normal. Reflexes normal and symmetric. Sensation grossly intact. Assessment and Plan ASSESSMENT/PLAN: 1. Acute right ankle pain - ICD9: 719.47, 338.19, ICD10: M25.571 -Patient referred to ER Kassy Limon APRN.CONTROL CLERK REPAIRS documented in this encounterPrem[facility]09-29-2023 Miscellaneous Notes* Telephone Encounter - Mounika Jacobo - 12/27/2022 11:44 AM EDT I called the patient to confirm the appointment scheduled for 12/30/22. Patient confirmed. Mounika Jacobo December 27, 2022 11:44 AM documented in this encounterPremier Health07-30-2023 Discharge summary Author Ramon Hay [facility] October 27, 2022 4:52pm Note Date/Time October 27, 2022 4:25 pm [facility] Medical Records Department [address] [place] [address] Emergency Department Summary 10/27/22 MR#: [id number] Acct: [id number] Name: KHADRA NIEVES Rep #:[id number] : 1985 36 From: Ramon Sanon PCP: Care Physician,No Primary Status :PRE ER Location: ED HPI History of Present Illness Chief Complaint: Palpitations PFSH PFSH Home Medications alprazolam 0.5 mg tablet 0.5 mg PO TID PRN PRN Anxiety 07/01/14 [History Last Taken 02/17/16 13:00] naproxen 500 mg tablet 500 mg PO BID #20 tabs 02/17/16 [Rx Last Taken Unknown] Allergy/AdvReac Type Severity Reaction Status Date / Time cephalexin monohydrate Allergy Hives Verified 11/03/15 11:57 [From Keflex] ciprofloxacin [From Cipro] Allergy Hives Verified 11/03/15 11:57 ciprofloxacin HCl Allergy Hives Verified 11/03/15 11:57 [From Cipro] sulfamethoxazole Allergy Hives Verified 11/03/15 11:57 [From Bactrim] trimethoprim [From Bactrim] Allergy Hives Verified 11/03/15 11:57 Surgical History (Updated 10/27/22 @ 16:24 by Coy Lam) Status post surgical removal of both fallopian tubes Social History Smoking Status: Current every day smoker EXAM Physical Exam Const Vital Signs: 10/27/22 16:15 Temperature 97.1 F L Temperature Source Temporal Pulse Rate 69 Respiratory Rate 16 Blood Pressure 140/79 H Blood Pressure Mean 99 Pulse Ox 99 Oxygen Delivery Method Room Air MDM MDM MDM Narrative Medical decision making narrative: HISTORY OF PRESENT ILLNESS: 36-year-old female here with concern for palpitations. She is currently asymptomatic at this time. States this began over the last day. States she wasoutside more than usual this weekend but says she drink plenty of water. She notes 3 episodes of chest discomfort but denies chest pain or shortness of breath at this time. Denies any bleeding diathesis. The patient denies recent surgery in the last 4 weeks or immobilization in the last 3 days, denies previous diagnosis of DVT or PE, hemoptysis, unilateral leg swelling or malignancy with treatment the last 6 months. No estrogen use noted. She deniesany syncope. Denies any focal loss of sensation. Denies any family history of early cardiac . Denies any history of CAD, abnormal heart rhythms, heart failure or surgery to her heart. REVIEW OF SYSTEMS: Pertinent positives: Palpitations Pertinent negatives: Chest pain, shortness of breath, leg swelling, syncope PHYSICAL EXAM: Nursing triage notes reviewed, Vital signs reviewed Constitutional: please see mdm HENT: MMM Eyes: Pupils equal round and reactive to light, Extraocular muscles intact, no proptosis Neck: No stridor, no JVD, full neck ROM, no thyromegaly Lungs: Clear to auscultation, No wheezing or rales. No increased work of breathing, no conversational dyspnea, no accessory muscle use, no nasal flaring. No respiratory distress noted Heart: Regular rate and rhythm, No murmurs, No rubs and No gallops, 2+ distal pulses (radial, femoral, posterior tibial) in all extremities Abdomen: Soft, there is no tenderness, rigidity, rebound or guarding, no obviousperitoneal signs, no palpable pulsatile abdominal masses, no auscultated abdominal bruit : No CVAT Extremities: No edema Neuro: No focal neurological deficits, cranial nerves II through XII intact, 5/5strength in all extremities. Intact sensation to light touch in all extremities,2+ reflexes bilateral patella tendons. Normal gait. No ataxia. Skin: No rash or lesions noted MEDICAL DECISION MAKING: Chief Complaint: Palpitations External records reviewed: EKG from 2016 showed, normal sinus rhythm, normal axis, normal intervals, no STEMI, no WPW, no ARVD, no Brugada syndrome Factors affecting care: none Social determinants of health: Denies illicit drug use such as methamphetamine or cocaine History obtained from others: none Consults: none ALL IMAGES (IF OBTAINED) HAVE BEEN PERSONALLY REVIEWED AND INTERPRETED BY MYSELF. EKG with normal sinus rhythm, normal axis, normal intervals, no ST or T wave changes to suggest ischemia. No evidence of WPW, Brugada, ARVD. [facility] Narrative: Patient was hemodynamically stable, afebrile, nontoxic-appearing. Patient appears well-hydrated. There is no bleeding diathesis noted on exam. Heart andlungs were clear. Pulses were symmetric. I considered the following differential diagnosis: Arrhythmia, myocardial ischemia, dehydration, anemia, thyroid dysfunction EKG without evidence of arrhythmia, myocardial ischemia. The patient was well-hydrated on exam. She had no bleeding diathesis. She no proptosis or overt vital sign abnormalities to suggest hyperthyroidism. She did not use drugs. She denied any chest pain or shortness of breath. For this patient for a life-limiting etiology at this time. Given the patient's young age, limited past medical history and normal EKG there is no indication for further testing at this time. I gave follow-up instructions her PCP for Holter monitor, echocardiogram and other testing that here she is always appropriate. If strictreturn precautions with the patient. The patient and/or family, caregivers express understanding. The patient and/orfamily, caregivers agrees with the plan. Shared decision making: I will have a discussion with the patient and or visitors regarding risk/benefits of further testing or admission. They will be made aware of of the risk/benefits inherent in this decision they will be given the opportunity to voice understanding. Total critical care time today provided was at least 0 minutes. This excludes separately billable procedures. Critical care time (if documented) is secondary to the patient having high probability of clinically significant/life threatening deterioration in the patient's condition which required my urgent intervention. Discharge Plan Triage Chief Complaint: Palpitations ED Provider: Ramon Hay Dx/Rx/DC Orders Clinical Impression: Palpitations Prescriptions: No Action alprazolam 0.5 MG tablet 0.5 mg PO TID PRN PRN (Reason: Anxiety) naproxen 500 MG tablet 500 mg PO BID Qty: 20 0RF Primary Care Provider: Care Physician,Mikayla Primary Referrals: Christina Grajeda MD [Med Staff - Active Staff] - Activity Restrictions/Additional Instructions: Thank you for trusting us with your care today! Please drink plenty of fluids. I recommend Pedialyte, body armor and Gatorade. Please return to the emergency department if your symptoms change or worsen. Specifically if you lose consciousness, develop chest pain, develop racing heart, develop leg swelling, develop focal numbness weakness or loss of sensation. Please follow with your primary care physician for further outpatient evaluationand management. Disposition Disposition: Home, Self Care What to do if you have Problems For any increased pain, shortness of breath, bleeding, nausea or vomiting, chestpain, or any unexpected problems, contact your Primary Care Provider. Call [employer] [facility] ([phone]) or report to the closest Emergency Room. Call 911 if necessary. 10/27/22 [id number] <Electronically signed by Ramon Hay DO> Cosigner Signature (if applicable): CC: No Primary Care Physician ~ Signed [facility] Work Phone: 1([phone]) 141-507505-05-2023 NotePROCEDURE: XR SHOULDER RIGHT (MIN 2 VIEWS) CLINICAL INFORMATION: Acute pain of right shoulder COMPARISON: No prior available. TECHNIQUE: 4 standard views of the right shoulder were obtained FINDINGS: No bone, joint, or soft tissue abnormality is seen. IMPRESSION: Normal shoulder. This report has been created using voice recognition software. It may contain minor errors which are inherent in voice recognition technology. Final report electronically signed by Dr. Sonny Plata on 08/02/2022 9:04 AM Interpreted by: Sonny Plata MD Signed by: Sonny Plata MD 08/02/22 [facility]Saint [facility] NotePROCEDURE: XR SHOULDER RIGHT (MIN 2 VIEWS) CLINICAL INFORMATION: Acute pain of right shoulder COMPARISON: No prior available. TECHNIQUE: 4 standard views of the right shoulder were obtained FINDINGS: No bone, joint, or soft tissue abnormality is seen. [facility] [id number] History of Present illness Narrative* Cody Brown, [facility] - 07/29/2022 10:45 AM EDT CHIEF COMPLAINT Chief Complaint Patient presents with Shoulder Pain HPI Khadra Nieves is a 36 y.o. female presents today for complaints of right shoulder pain, onsetapproximately one month ago. Patient states that the pain actually radiates down her arm, does not report numbness/tingling however states that it feels weird . [facility] where she was given prednisone, naproxen, exercises. Has been doing home therapy daily, prednisone did temporarily help with the discomfort, states the pain has been getting worse and is still onthe naproxen. Went to a chiropractor two weeks ago where she states the pain was worse following the adjustment. Has been working quite a bit, manual labor. Denies any specific injury, however she noticed that the pain started after moving. REVIEW OF SYSTEMS Review of Systems Constitutional: Negative for activity change, appetite change, fatigue and fever. Musculoskeletal: Positive for arthralgias and myalgias. Negative for gait problem and joint swelling. Neurological: Negative for dizziness and light-headedness. See HPI for further details. Review of systems reviewed and otherwise negative. PAST MEDICAL HISTORY Past Medical History: Diagnosis Date Anxiety Depression anxiety FAMILY HISTORY Family History Problem Relation Age of Onset Breast Cancer Mother SOCIAL HISTORY Social History Socioeconomic History Marital status: Tobacco Use Smoking status: Every Day Packs/day: 0.50 Types: Cigarettes Smokeless tobacco: Never Tobacco comments: and pt vapes Substance and Sexual Activity Alcohol use: Yes Comment: occasional Drug use: No SURGICAL HISTORY Past Surgical History: Procedure Laterality Date TUBAL LIGATION CURRENT MEDICATIONS Current Outpatient Medications Medication Sig chlorhexidine 0.12 % Solution oral solution Rinse mouth with 15mL for 30sec then spit BID (Patient not taking: Reported on 05/03/2022) CLINDAMYCIN-BENZOYL PER-CLEANS EX Apply topically. (Patient not taking: Reported on 07/29/2022) Cyclobenzaprine 10 MG tablet Take 0.5-1 tablets by mouth 3 times daily as needed for Muscle spasms or Moderate Pain. hydroCODone-acetaminophen 5-325 MG tablet Take 1 tablet by mouth every 4 hours as needed for up to 3 days. ibuprofen 600 MG tablet Take 1 tablet by mouth every 6 hours as needed. (Patient not taking: Reported on 05/03/2022) naproxen 500 MG tablet Take 1 tablet by mouth 2 times daily with meals. Sertraline 50 MG tablet Take 0.5 tablets by mouth daily for 8 days, THEN 1 tablet daily. (Patient not taking: Reported on 07/29/2022) ALLERGIES Allergies Allergen Reactions Cephalexin Hives Ciprofloxacin Hives Codeine Pt states she is not allergic to codeine, She notes tachycardia and elevated BP Penicillins Pt states that she is not allergic to this Sulfamethoxazole-Trimethoprim Hives PHYSICAL EXAM VITAL SIGNS: BP 120/71 Pulse 61 Wt 102.5 kg (226 lb) BMI 35.40 kg/m Smoking Status Every Day Physical Exam Constitutional: Appearance: Normal appearance. She is not ill-appearing or toxic-appearing. HENT: Head: Normocephalic and atraumatic. Musculoskeletal: Right shoulder: Tenderness present. No swelling, effusion or crepitus. Normal range of motion. Decreased strength (Limited due to pain with abduction, push away test. No pain or limitations with empty can, rotation.). Neurological: Mental Status: She is alert and oriented to person, place, and time. Psychiatric: Mood and Affect: Mood normal. Behavior: Behavior normal. Thought Content: Thought content normal. Questioned bursitis, prednisone responsive. X-ray not yet completed, did follow with orthopedics [place] previously. FINAL IMPRESSION ICD-10-CM 1. Acute pain of right shoulder M25.511 XR SHOULDER RIGHT MIN 2 VIEWS Cyclobenzaprine 10 MG tablet 2. Radicular pain in right arm M79.2 XR SPINE CERVICAL 4 VIEWS Cyclobenzaprine 10 MG tablet PLAN: We will do an x-ray of the right shoulder, cervical spine. Continue naproxen as directed, with food. Will add cyclobenzaprine 1/2 to full tablet as needed. Referral to Orthopedics in [place]. Continue passive exercises at home. Rest, ice. Thank you for allowing me to see and care for you today, Cody Brown CNP documented in this encounterRailroad Silo Labs Phone: 1([phone]) 412-612505-01-2023 Instructions* Patient Instructions* Cody Brown CNP - 07/29/2022 10:45 AM EDT ICD-10-CM 1. Acute pain of right shoulder M25.511 XR SHOULDER RIGHT MIN 2 VIEWS Cyclobenzaprine 10 MG tablet 2. Radicular pain in right arm M79.2 XR SPINE CERVICAL 4 VIEWS Cyclobenzaprine 10 MG tablet PLAN: We will do an x-ray of the right shoulder, cervical spine. Continue naproxen as directed, with food. Will add cyclobenzaprine 1/2 to full tablet as needed. Referral to Orthopedics in [place]. Continue passive exercises at home. Rest, ice. Thank you for allowing me to see and care for you today, Cody Brown CNP documented in this encounterRailroad Silo Labs Phone: [phone]) 157-824801-25-2023 Hospital Discharge instructions* Discharge Instructions* CAR Champion CNP - 04/24/2022 4:46 AM EST Consider a good multi vitamin. Try children's multivitamins if you have questionable tolerance to vitamins. Follow up with your pcp or the family medicine clinic. Your Vitamin D level is minimally low so supplementation with D3 is recommended. Vitamin B12 and Folate are pending. Return for new or wo rsening symptoms. * Attachments The following attachments cannot be sent through Care Everywhere. * Anxiety Disorder (Surinamese) * Vitamin D: General Info (Surinamese) documented in this encounterBON [employer] Phone: [phone]) 570-722203-25-2014 History of Past illness Narrative* Problem Noted Date Diagnosed Date Resolved Date UTI (urinary tract infection ) during 06/22/2013 07/08/2014 Overview: 06/22/13 - rx macrobid, needs HUANG - KJ Supervision of high-risk 05/20/2013 07/08/2014 Overview: 05/20/13 - RA done, v23 - KJ First trimester bleeding 05/04/201312/2014 Overview: 05/04/2013She was seen March 26 for a threatened miscarriage by Dr. Calderon. An ultrasound was done April 13 that revealed an intrauterine at 9 weeks 1 day with positive cardiac activity. Patient denies any bleeding since March 26. She states she continues to notice lower pelvic pain every 2-3 days the past 2 weeks that last for 1-[address] De Guzman. Patient is to call/come in if she develops any bleeding, worsening of pain, or PRN problems. TKRN Medication exposure during f irst trimester of 05/04/2013 07/08/2014 Overview: 05/04/2013 patient currently taking Xanax. See depression problem list for details. TKRN Depression complicating , antepartum 05/04/19 14 07/08/2014 Overview: 07/15/13 - patient only taking xanax 0.5mg 1-2x per week, discussed patient with Dr. Jesus Calderon of [facility] & she stated patient is OK to deliver at [facility] on low dose of xanax but there is a risk of transport - 05/20/13 - discussed extensively risks of xanax during , also reviewed that it is a category D medication & we try to avoid use of category D medications in , patient states she has tried multiple medications to control her anxiety & depression in the past with no success until using xanax, she feels that she would be unable to continue the if she had to stop the xanax - KJ 05/04/2013Pt has a history of depression and anxiety diagnosed . She currently takes Xanax prescribed by her primary care physician Dr. Vargas in [place]. She states she has been on antidepressants for approximately 9 years. She is aware that Xanax is a category D medication. She states that she and her primary care physician have discussed the risks of taking this medication during , and patient states that she has decided to continue taking the medication. She states her brother is a pharmacist and she has discussed the risks of this medication with him as well. Patient states she has had depression after the of her second child. Discussed increased risks of depression during and and importance of reporting the development or worsening of symptoms should they occur. Pt denies ever having any suicidal thoughts or tendencies or thoughts of hurting others. Dr. De Guzman made aware the patient is taking this medication and that the patient has been advised to discontinue this due to be a category D, but she refuses to. TKRN History of abnormal Pap smear 05/04/2013 07/08/2014 Overview: 05/20/13 - pap today, no records available - KJ 05/04/2013Patient states she has had an abnormal Pap smear by Tawana Moreno NP in [place], [place]. She states that she had some kind of in office procedure although she is unaware of what procedure it was. Patient signed a release of records form to get her Pap report from [place], [place].TKRN Family history of Bennington's chorea 05/04/2013 07/08/2014 Overview: 05/04/2013 Patient's father had Makenzie's chorea. Patient states she has never had genetic testing because there has always been a question if he was really her father. Patient denies any other family members having Bennington's chorea.TKRN Quit smoking 05/04/2013 07/08/2014 Overview: 05/04/2013Pt recently quit smoking 03/23/2013. Discussed risks of smoking during and advised pt to continue not smoking. TKRN Patient requested diagnostic testing 05/04/2013 07/08/2014 Overview: 05/04/2013 Patient desires early screening in with sequential testing. [facility] She is scheduled for May 10 in [place] to have the nuchal translucency ultrasound done.TKRN documented as of this encounter (statuses as of 12/27/2022) [facility]03-25-2014 History of Past illness Narrative* Problem Noted Date Diagnosed Date Resolved Date UTI (urinary tract infection ) during 06/22/2013 07/08/2014 Overview: 06/22/13 - rx macrobid, needs HUANG - KJ Supervision of high-risk 05/20/2013 07/08/2014 Overview: 05/20/13 - RA done, v23 - KJ First trimester bleeding 05/04/201312/2014 Overview: 05/04/2013She was seen March 26 for a threatened miscarriage by Dr. Calderon. An ultrasound was done April 13 that revealed an intrauterine at 9 weeks 1 day with positive cardiac activity. Patient denies any bleeding since March 26. She states she continues to notice lower pelvic pain every 2-3 days the past 2 weeks that last for 1-[address] De Guzman. Patient is to call/come in if she develops any bleeding, worsening of pain, or PRN problems. TKRN Medication exposure during f irst trimester of 05/04/2013 07/08/2014 Overview: 05/04/2013 patient currently taking Xanax. See depression problem list for details. TKRN Depression complicating , antepartum 05/04/19 14 07/08/2014 Overview: 07/15/13 - patient only taking xanax 0.5mg 1-2x per week, discussed patient with Dr. Jesus Calderon of [facility] & she stated patient is OK to deliver at [facility] on low dose of xanax but there is a risk of transport - 05/20/13 - discussed extensively risks of xanax during , also reviewed that it is a category D medication & we try to avoid use of category D medications in , patient states she has tried multiple medications to control her anxiety & depression in the past with no success until using xanax, she feels that she would be unable to continue the if she had to stop the xanax - KJ 05/04/2013Pt has a history of depression and anxiety diagnosed . She currently takes Xanax prescribed by her primary care physician Dr. Vargas in [place]. She states she has been on antidepressants for approximately 9 years. She is aware that Xanax is a category D medication. She states that she and her primary care physician have discussed the risks of taking this medication during , and patient states that she has decided to continue taking the medication. She states her brother is a pharmacist and she has discussed the risks of this medication with him as well. Patient states she has had depression after the of her second child. Discussed increased risks of depression during and and importance of reporting the development or worsening of symptoms should they occur. Pt denies ever having any suicidal thoughts or tendencies or thoughts of hurting others. Dr. De Guzman made aware the patient is taking this medication and that the patient has been advised to discontinue this due to be a category D, but she refuses to. TKRN History of abnormal Pap smear 05/04/2013 07/08/2014 Overview: 05/20/13 - pap today, no records available - KJ 05/04/2013Patient states she has had an abnormal Pap smear by Tawana Moreno NP in [place], [place]. She states that she had some kind of in office procedure although she is unaware of what procedure it was. Patient signed a release of records form to get her Pap report from [place], [place].TKRN Family history of Makenzie's chorea 05/04/2013 07/08/2014 Overview: 05/04/2013 Patient's father had Makenzie's chorea. Patient states she has never had genetic testing because there has always been a question if he was really her father. Patient denies any other family members having Bennington's chorea.TKRN Quit smoking 05/04/2013 07/08/2014 Overview: 05/04/2013Pt recently quit smoking 03/23/2013. Discussed risks of smoking during and advised pt to continue not smoking. TKRN Patient requested diagnostic testing 05/04/2013 07/08/2014 Overview: 05/04/2013 Patient desires early screening in with sequential testing. [facility]. She is scheduled for May 10 in [place] to have the nuchal translucency ultrasound done.TKRN documented as of this encounter (statuses as of 03/06/2023) [facility]* Diagnosis Pedal edema- Primary Edema documented in this encounter [employer] Phone: evaluation note* Diagnosis Spontaneous - Primary Unspecified spontaneous without mention of complication documented in this encounter [employer] Phone: evaluation note* Diagnosis Depression, unspecified depression type- Primary documented in this encounter [employer] Phone: evaluation note* Diagnosis Atypical chest pain- Primary Other chest pain Gastroesophageal reflux disease with esophagitis without hemorrhage Right shoulder pain, unspecified chronicity documented in this encounter [employer] Phone: evaluation note* Diagnosis Trapezius muscle spasm- Primary Spasm of muscle documented in this encounter [employer] Phone: evaluation note* Diagnosis Anxiety state- Primary Anxiety state, unspecified Low vitamin D level documented in this encounter [employer] Phone: evaluation note* Diagnosis Acute pain of right shoulder- Primary Radicular pain in right arm Neuralgia, neuritis, and radiculitis, unspecified documented in this encounter [facility] Work Phone: Evaluation note* Diagnosis Acute pain of right shoulder Radicular pain in right arm Neuralgia, neuritis, and radiculitis, unspecified documented in this encounter [facility] Work Phone: evaluation noteNo assessment information available [facility] Work Phone: Evaluation note* Diagnosis Acute right ankle pain- Primary documented in this encounter [facility]* Diagnosis Routine general medical examination at a health care facility- Primary Encounter for screening mammogram for breast cancer documented in this encounter [facility] Work Phone: Evaluation note* Diagnosis Encounter for screening mammogram for breast cancer documented in this encounter [facility] Work Phone: Evaluation note* Diagnosis Chest pain, unspecified type- Primary Palpitations [facility] Diagnosis Acute vaginitis- Primary Vaginitis and vulvovaginitis, unspecified [facility] Diagnosis Uterine leiomyoma, unspecified location- Primary Cyst of left ovary Other and unspecified ovarian cyst documented in this encounter [facility] Work Phone: Evaluation note* Diagnosis Encounter for screening for cervical cancer- Primary Screening for STD (sexually transmitted disease) Screening examination for venereal disease [facility] Diagnosis Encounter for nonprocreative genetic counseling and testing- Primary Family history of breast cancer Family history of malignant neoplasm of breast Family history of ovarian cancer Family history of malignant neoplasm of ovary [facility] Diagnosis Pelvic pain- Primary Unspecified symptom associated with female genital organs Family history of cancer Family history of unspecified malignant neoplasm [facility]* Attachments The following attachments cannot be sent through Care Everywhere. * Edema: Leg and Ankle (Surinamese) [facility]* Attachments The following attachments cannot be sent through Care Everywhere. * Miscarriage (Surinamese) [facility] Discharge instructions* Attachments The following attachments cannot be sent through Care Everywhere. * Depression: Self Care (Surinamese) [facility]: [facility] Discharge instructions* Instructions* Sally Lam, CAR - ZEINA - 08/03/2021 Return to ER for worsening symptoms, inability to keep liquids down, inability to urinate for greater than 8 hours or difficulty breathing. Follow-up with your primary care provider. * Attachments The following attachments cannot be sent through Care Everywhere. * GERD (Surinamese) * Chest Pain: Musculoskeletal (Surinamese) * Shoulder Pain (Surinamese) documented in this [facility] [employer] Phone: Hospital Discharge instructions* Attachments The following attachments cannot be sent through Care Everywhere. * Shoulder Stretches: Exercises (Surinamese) * Shoulder Sprain (Surinamese) [facility] Discharge instructions Additional Instructions Thank you for trusting us with your care today! Please drink plenty of fluids. I recommend Pedialyte, body armor and Gatorade. Please return to the emergency department if your symptoms change or worsen. Specifically if you lose consciousness, develop chest pain, develop racing heart, develop leg swelling, develop focal numbness weakness or loss of sensation. Please follow with your primary care physician for further outpatient evaluation and management.[facility] Work Phone: Hospital Discharge instructions* Attachments The following attachments cannot be sent through Care Everywhere. * Ovarian Cyst ED (Surinamese) * Uterine fibroids (Surinamese) [facility]: Reason for referral (narrative)* Consultation (Routine) - New Request Specialty Diagnoses / Procedures Referred By Kalia longoria Referred To Contact Diagnoses Acute pain of right shoulder Radicular pain in right arm Cody Brown, CONTROL CLERK REPAIRS [address] [place] [address] Referral ID Status Reason Start Date Expiration Date V isits Requested Visits Authorized [id number] New Request 07/29/2022 08/23/2023 1 1 * Diagnostic X-Ray (Emergency) - New Request Specialty Diagnoses / Procedures Referred By Contsemaj t Referred To Contact Diagnoses Acute pain of right shoulder Procedures XR SHOULDER RIGHT MIN 2 VIEWS Cody Brown, CONTROL CLERK REPAIRS [address] [place] [address] Referral ID Status Reason Start Date Expiration Date V isits Requested Visits Authorized [id number] New Request 07/29/2022 08/23/2023 1 1 [employer] Work Phone: Reason for referral (narrative)No reason for referral information [facility] Work Phone: Summary Purpose Family History No Family History Records FoundNo Family History Records FoundNo Family History Records FoundNo Family History Records FoundNo Family History Records FoundNo Family History Records FoundNo Family History Records FoundNo Family History Records FoundNo Family History Records FoundNo Family History Records FoundNo Family History Records FoundNo Family History Records Found Advance Directives No Advanced Directives Records FoundDocuments on File Type Date Recorded Patient Cuff Presser Expl anation ACP-Advance Directive 11/12/2013 2:39 PM Latest Code Status on File Code Status Date Activated Date Inactivated Comments Full Code 11/09/2013 1:40 PM 11/11/2013 4:01 PM Full Code 11/09/2013 5:07 AM 11/09/2013 1:40 PM Documents on File Type Date Recorded Patient Cuff Presser Expl anation Advance Directives and Livin g Will Advance Directives and Livin g Will 11/12/2013 2:39 PM Power of Fur Dry Cleaner Documents on File Type Date Recorded Patient Cuff Presser Expl anation ACP-Advance Directive ACP-Advance Directive 11/12/2013 2:39 PM ACP-Power of Fur Dry Cleaner Documents on File Type Date Recorded Patient Cuff Presser Expl anation ACP-Advance Directive ACP-Advance Directive 11/12/2013 2:39 PM ACP-Power of Fur Dry Cleaner Latest Code Status on File Code Status Date Activated Date Inactivated Comments Full Code 11/09/2013 1:40 PM 11/11/2013 4:01 PM Full Code 11/09/2013 5:07 AM 11/09/2013 1:40 PM Documents on File Type Date Recorded Patient Cuff Presser Expl anation ACP-Advance Directive ACP-Power of Fur Dry Cleaner ACP-Advance Directive 11/12/2013 2:39 PM Latest Code Status on File Code Status Date Activated Date Inactivated Comments Full Code 11/09/2013 1:40 PM 11/11/2013 4:01 PM Code Status History Code Status Date Activated Date Inactivated Comments Full Code 11/09/2013 5:07 AM 11/09/2013 1:40 PM Advance Directive Response Recorded Date/ Time Advance Directives No January 2:45pm Living Will No October 27, 2022 4:24pm Power of Fur Dry Cleaner No October 27 4:24pm Advance Directive Response Recorded Date/ Time Advance Directives No January 2:45pm Discharge Instructions * Attachments The following attachments cannot be sent through Care Everywhere. * Eye Basics: General Info (Surinamese) documented in this encounter* Instructions* Ezequiel Mc APRN - CONTROL CLERK REPAIRS - 12/15/2018 Take antibiotics as prescribed until gone. Do not stop taking if even you start feeling better. Salt water gargles and/or throat spray/lozenges for pain relief. Do not share food, drinks, or utensils. Change tooth brush now and change again when symptoms are gone Saline rinses for sinus congestion Tylenol or Motrin for pain/fever/aches Follow up with the Urgent Care Center or with your family doctor in 3-4 days as needed if symptoms are not improving. Use the Bactroban ointment 3 times daily for 5 days to the areas on your face. * Attachments The following attachments cannot be sent through Care Everywhere. * Impetigo (Surinamese) * Strep Throat (Surinamese) documented in this encounter* Attachments The following attachments cannot be sent through Care Everywhere. * Abrasions (Surinamese) * Depression: Self Care (Surinamese) documented in this encounter* Instructions* Lisbeth Osorio APRN - CONTROL CLERK REPAIRS - 07/26/2019 Continue augmentin. Warm and cool compresses to the area. * Attachments The following attachments cannot be sent through Care Everywhere. * Tooth Decay (Surinamese) documented in this encounter* Instructions* Ezequiel Mc APRN - CONTROL CLERK REPAIRS - 06/15/2019 Can use [id number] medication as desired to suppress cough. Okay to return to work. Follow-up family doctor return to the urgent care as needed. * Attachments The following attachments cannot be sent through Care Everywhere. * Cough (Surinamese) documented in this encounter* Instructions* Sveta Armando, ROUTE SERVICE MANAGER - CONTROL CLERK REPAIRS - 06/30/2019 Patient finished antibiotics and is asymptomatic She may return to work as scheduled * Attachments The following attachments cannot be sent through Care Everywhere. * Strep Throat (Surinamese) documented in this encounter* Attachments The following attachments cannot be sent through Care Everywhere. * Ankle Sprain (Surinamese) * Ankle Sprain: Rehab Exercises (Surinamese) * RICE: General Info (Surinamese) documented in this encounter* Attachments The following attachments cannot be sent through Care Everywhere. * Earache: Adult (Surinamese) documented in this encounter Assessments Diagnosis Irritation of right eye- Primary Other ill-defined disorder of eye Diagnosis Strep pharyngitis- Primary Streptococcal sore throat Impetigo Diagnosis Depression, unspecified depression type Abrasion of wrist with infection, unspecified laterality, initial encounter Tooth infection Acute apical periodontitis of pulpal origin Diagnosis Dental caries Unspecified dental caries Facial swelling Swelling, mass, or lump in head and neck Diagnosis Cough Diagnosis Streptococcal sore throat Diagnosis Fatigue, unspecified type Diagnosis Breast tenderness Mastodynia Diagnosis Breast density Other sign and symptom in breast Diagnosis Mass of lower inner quadrant of right breast Diagnosis Mass of lower inner quadrant of right breast Diagnosis Sprain of left ankle, unspecified ligament, initial encounter- Primary Diagnosis Otalgia of right ear- Primary Otalgia, unspecified Reason for Referral Status Reason Specialty Diagnoses / Procedures Referre d By Contact Referred To Contact Open Radiology Diagnoses Breast density Procedures US BREAST LIMITED RIGHT Mike Arreaga MD [address] [place] [address] Status Reason Specialty Diagnoses / Procedures Referre d By Contact Referred To Contact Closed Radiology Diagnoses Mass of lower inner quadrant of right breast Procedures ABELARDO US GUIDED BREAST BIOPSY W LOC DEVICE 1ST LESION RIGHT Sally Trinidad MD [address] [facility] [place] [address] Specialty Diagnoses / Procedures Referred By Kalia longoria Referred To Contact Radiology Diagnoses Encounter for screening mammogram for breast cancer Procedures BI mammo bilateral screening tomosynthesis Mercedes Granados MD [address] [id number] Referral ID Status Reason Start Date Expiration Date Visits Requested Visits Authorized [id number] Authorized Perform Procedure 06/23/2023 06/22/2024 1 1 History of Present Illness * Lorri Trinidad - 05/12/2020 1:00 PM EST Breast Biopsy Flowsheet/Post-Operative Care Date of Procedure: 05/12/2020 Physician: Dr. Trinidad Technologist: Pasquale Darden [facility] Biopsy:ultrasound guided breast biopsy Lesion type: Non-palpable Breast: right Clock face position: Site #1: LIQ mid Primary Method of Detection: Mammogram Microcalcification's: no Distribution: N/A Asymmetry: symmetric Biopsy Method: Sertera: Site # 1 Gauge: 14 # of Passes: 4 Clip: Joaoell Pre-Op Assessment: (BI-RADS) 4. Suspicious Abnormality Patient Tolerated Procedure: good Complications: none Comments: none Post Operative Care Steri strips: Yes Dressing: Gauze, Tape Ice Applied to Site: Yes Evidence of Bleeding: No Pain Verbalized: No Written Discharge Instructions: Yes Condition at Discharge: good Time of Discharge: 1350 * Lorri Trinidad - 05/12/2020 1:00 PM EST [facility] Pre-Biopsy Assessment Patient Education Written information about procedure Yes right Procedural steps explained Yes Ultrasound Biopsy Post-op potential: bruising, hematoma, pain Yes Self-care: activity, care of dressing Yes Patient verbalized understanding Yes Consent signed and witnessed Yes Hormone Therapy Status: none Recent Medication: N/A Last Dose: none Hormone Replacement Therapy: no Previous Breast Biopsy: no Previous Diagnosis Cancer: no Hysterectomy:no Emotional Status: Calm Language or Physical Barriers: none Comments: none * Sally Trinidad MD - 05/12/2020 1:00 PM EST Formulation and discussion of sedation / procedure plans, risks, benefits, side effects and alternatives with patient and/or responsible adult completed. documented in this encounter Chief Complaint and Reason for Visit Chief Complaint PALPITATIONS Chief Complaint Admit Date CONCERN FOR INSECT BITE/POISON BRET September 15, 2024 6:43am Additional Source Comments INFORMATION SOURCE (unrecogn ized section and content) DATE CREATED AUTHOR 09/19/2017 [facility] DATE CREATED AUTHOR AUTHOR'S ORGANIZ ATION 09/19/2017 [facility] DATE CREATED AUTHOR AUTHOR'S ORGANIZ ATION 05/10/2022 [facility] DATE CREATED AUTHOR AUTHOR'S ORGANIZ ATION 07/29/2022 [facility] DATE CREATED AUTHOR AUTHOR'S ORGANIZ ATION 08/03/2022 [facility] DATE CREATED AUTHOR AUTHOR'S ORGANIZ ATION 01/03/2023 [facility] DATE CREATED AUTHOR AUTHOR'S ORGANIZ ATION 06/24/2023 [facility] DATE CREATED AUTHOR AUTHOR'S ORGANIZ ATION 06/29/2023 [facility] DATE CREATED AUTHOR AUTHOR'S ORGANIZ ATION 12/30/2023 [facility] DATE CREATED AUTHOR AUTHOR'S ORGANIZ ATION 03/09/2024 [facility] DATE CREATED AUTHOR AUTHOR'S ORGANIZ ATION 04/23/2024 [facility] DATE CREATED AUTHOR AUTHOR'S ORGANIZ ATION 09/18/2024 [facility] Reason for Visit (unrecogniz ed section and content) Reason Comments Eye Pain Reason Comments Pharyngitis Reason Comments Abrasion Psychiatric Evaluation Reason Comments Facial Swelling Dental Pain Reason Comments Influenza needs checked for th e flu and swabbed for strep for work Reason Comments Other Needs work slip to r eturn to work Status Reason Specialty Diagnoses / Procedures Referred By Contact Referred To Contact Pending Review Radiology Diagnoses Breast tenderness Procedures ABELARDO JACEK DIGITAL DIAGNOSTIC BILATERAL ABELARDO DIGITAL DIAGNOSTIC AUGMENTED BILATERAL Kassy Ashley MD [address] [place] [address] Status Reason Specialty Diagnoses / Procedures Referre d By Contact Referred To Contact Open Radiology Diagnoses Breast density Procedures US BREAST LIMITED RIGHT Mike Arreaga MD [address] [place] [address] Status Reason Specialty Diagnoses / Procedures Referred By Contact Referred To Contact Pending Review Radiology Diagnoses Breast tenderness Procedures US BREAST LIMITED LEFT US BREAST COMPLETE LEFT Kassy Ashley MD [address] [place] [address] Status Reason Specialty Diagnoses / Procedures Referred By Contact Referred To Contact Pending Review Radiology Diagnoses Mass of lower inner quadrant of right breast Procedures ABELARDO DIGITAL DIAGNOSTIC W OR WO CAD RIGHT ABELARDO DIGITAL DIAGNOSTIC W OR WO CAD LEFT Sally Trinidad MD [address] [place] [address] Status Reason Specialty Diagnoses / Procedures Referre d By Contact Referred To Contact Closed Radiology Diagnoses Mass of lower inner quadrant of right breast Procedures ABELARDO US GUIDED BREAST BIOPSY W LOC DEVICE 1ST LESION RIGHT Sally Trinidad MD [address] [place] [address] Reason Comments Foot Pain left foot initial in jury 05/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 jumping of golf cart Pain began yesterday Ankle Pain twisted ankle 05/31/20 Reason Comments Otalgia Reason Comments Joint Swelling Reason Comments Bleeding During Reason Comments Psychiatric Evaluation Reason Comments Chest Pain Reason Comments Arm Pain Arm Swelling Reason Comments Allergic Reaction mild Reason Comments Arm Pain Right- Shoulder and pain goes down the arm Reason Comments Shoulder Pain Reason Comments Appointment Reminder Reason Comments Pain Right ankle pain, sw elling after cortisol shot this morning Reason Comments Establish Care Specialty Diagnoses / Procedures Referred By Kalia longoria Referred To Contact Radiology Diagnoses Encounter for screening mammogram for breast cancer Procedures BI mammo bilateral screening tomosynthesis Mercedes Granados MD [address] [place] [address] Referral ID Status Reason Start Date Expiration Date Visits Requested Visits Authorized [id number] Authorized Perform Procedure 06/23/2023 06/22/2024 1 1 Reason Comments Vaginal discharge Reason Comments Abdominal Pain Patient was seen at [facility] and dx with uterine fibriods. Here today due to continued abd pain. States home pain meds are not helping. Unable to reach [employer]AURANT [employer]GR or PCP Reason Comments New patient, to establish relationship O vian cyst pain was seen in ER at on Friday and [facility] on Specialty Diagnoses / Procedures Referred By Kalia longoria Referred To Contact Gynecology Diagnoses Acute vaginitis Virgen Burgess PA-C [address] [place] [address] Phone: tel: fax: [facility] [address] [place] [address] Phone: tel: Referral ID Status Reason Start Date Expiration Date V isits Requested Visits Authorized [id number] Authorized 02/11/2024 02/10/2025 3 3 Reason Comments Consult with specialist Specialty Diagnoses / Procedures Referred By Kalia longoria Referred To Contact Pediatric Genetics Diagnoses Family history of cancer Ilia Reyes MD [address] [place] [address] Phone: tel: fax: [facility] [address] [place] [address] Phone: tel: Referral ID Status Reason Start Date Expiration Date V isits Requested Visits Authorized [id number] Authorized 03/30/2024 03/30/2025 3 3 Reason Comments Limited or partial exam Ordered Prescriptions (unrec ognized section and content) Prescription Sig Dispensed Refills Start Date End Da te furosemide (LASIX) 20 MG tablet Take 1 tablet by mouth daily for 3 days 3 tablet 0 08/23/2020 08/26/2020 Prescription Sig Dispensed Refills Start Date End Da te methocarbamol (ROBAXIN-750) 750 MG tablet Take 1 tablet by mouth 4 times daily for 10 days 40 tablet 0 01/02/2022 01/12/2022 etodolac (LODINE) 300 MG capsule Take 1 capsule by mouth in the morning and 1 capsule at noon and 1 capsule in the evening. 15 capsule 0 01/02/2022 Prescription Sig Dispensed Refills Start Date End Da te naproxen (NAPROSYN) 500 MG tablet Take 1 tablet by mouth 2 times daily (with meals) 14 tablet 1 07/11/2022 predniSONE (DELTASONE) 10 MG tablet Take 6 tablets by mouth daily for 1 day, THEN 5 tablets daily for 1 day, THEN 4 tablets daily for 1 day, THEN 3 tablets daily for 1 day, THEN 2 tablets daily for 1 day, THEN 1 tablet daily for 1 day. 21 tablet 0 07/11/2022 07/17/2022 Scheduled Active and Recently Administ ered Medications (unrecognized section and content) Medication Order 08/01/2021 08/02/2021 08/03/2021 aluminum & magnesium hydroxide-simethicone (MAALOX) 30 mL, lidocaine viscous hcl (XYLOCAINE) 5 mL (GI COCKTAIL) Oral, ONCE, On Fri08/03/21 at 0100, For 1 dose, Take 5 mL from lidocaine viscous 2% cup and mix with 30 mL of maalox and then administer. 0146 (Not Given - Pr ovider: Jyotsna Truong RN - Reason: Patient/family refused) pantoprazole (PROTONIX) tablet 40 mg 40 mg, Oral, ONCE, 1 dose, On Fri08/03/21 at 0100, Do not crush or break. 0147 (Not Given - Pr ovider: Jyotsna Truong RN - Reason: Patient/family refused) Scheduled Medication Order 03/04/2024 03/05/2024 03/06/2024 ketorolac (Toradol) injection 15 mg (COMPLETED) 15 mg, intravenous, Once, On 03/06/24 at 1210, For 1 dose 1248 (Given - Provid er: Carola Hong RN) Care Teams (unrecognized sec tion and content) Electric Serviceman Relationship Specialty Start Date End Date Kassy Ashley MD PCP - General Family Medicine 04/10/18 Electric Serviceman Relationship Specialty Start Date End Date Cody Brown, ROUTE SERVICE MANAGER - CONTROL CLERK REPAIRS [address] [place] [address] PCP - General Nurse Practitioner 07/11/22 Electric Serviceman Relationship Specialty Start Date End Date Cody Brown, CONTROL CLERK REPAIRS [address] [place] [address] PCP - General Certified Nurse Practitioner 05/03/22 Electric Serviceman Relationship Specialty Start Date End Date Cody Brown, ROUTE SERVICE MANAGER - CONTROL CLERK REPAIRS [address] [place] [address] PCP - General Nurse Practitioner 07/11/22 Electric Serviceman Relationship Specialty Start Date End Date Cody Brown, ROUTE SERVICE MANAGER - CONTROL CLERK REPAIRS [address] [place] [address] PCP - General Nurse Practitioner 07/11/22 Team Status: Active Member Role Status Dates No Primary Care Physician Family Provider Active No Primary Care Physician Primary Care Provider Active Team Status: Inactive Member Role Status Dates No Primary Care Physician Primary Care Provider Active Dr. Rmaon Hay , DO Emergency Provider Active Electric Serviceman Relationship Specialty Start Date End Date PcpMikayla APRN PCP - General 12/12/22 06/29/23 Electric Serviceman Relationship Specialty Start Date End Date Mercedes Granados MD [address] [place] [address] PCP - General Family Medicine 06/23/23 Electric Serviceman Relationship Specialty Start Date End Date Mercedes Granados MD [address] [phone] PCP - General Family Medicine 06/23/23 Electric Serviceman Relationship Specialty Start Date End Date Mercedes Granados MD [address] [phone] PCP - General Family Medicine 06/23/23 Electric Serviceman Relationship Specialty Start Date End Date iHllary Coffey ROUTE SERVICE MANAGER-CONTROL CLERK REPAIRS [address] [place] [id number] PCP - General Family Medicine 03/06/24 Electric Serviceman Relationship Specialty Start Date End Date Ilia Reyes MD [address] [place] [address] Physician Obstetrics/Gynecology 04/03/24 Electric Serviceman Relationship Specialty Start Date End Date Ilia Reyes MD [address] [place] [address] Physician Obstetrics/Gynecology 04/03/24 Team Status: Active Member Role Status Dates Hillary Coffey VSAlexander, MINE FOREMAN-C Primary Care Provider Activ e Team Status: Inactive Member Role Status Dates Hillary Coffey VSAlexander, MINE FOREMAN-C Primary Care Provider Activ e Start: September 15, 2024 End: September 15, 2024 Hillary HEWITT, MINE FOREMAN-C Referring Provider Active Start: September 15, 2024 End: September 15, 2024 Charan BECKER, PA Attending Provider Active Start: September 15, 2024 End: September 15, 2024 Goals (unrecognized section and content) Goals may be documented in a n alternate sectionGoals may be documented in an alternate section Source Comments (unrecognize d section and content) In the event this informatio n is protected by the Federal Confidentiality of Alcohol and Drug Abuse Patient Records regulations: The Federal rules restrict any use of the information to criminally investigate or prosecute any alcohol or drug abuse patient.[facility] the event this information is protected by the Federal Confidentiality of Alcohol and Drug Abuse Patient Records regulations: The Federal rules restrict any use of the information to criminally investigate or prosecute any alcohol or drug abuse patient.[facility] Health[facility] the event this information is protected by the Federal Confidentiality of Alcohol and Drug Abuse Patient Records regulations: The Federal rules restrict any use of the information to criminally investigate or prosecute any alcohol or drug abuse patient.[facility] FOR RECORDS PERTAINING TO PATIENTS WHO ARE OR HAVE BEEN ENROLLED IN A CHEMICAL DEPENDENCY/SUBSTANCEABUSE PROGRAM, SOME INFORMATION MAY BE OMITTED. This clinical summary was aggregated from multiple sources. Caution should be exercised in using it in the provision of clinical care. This summary normalizes information from multiple sources, and as a consequence, information in this document may materially change the coding, format and clinical context of patient data. In addition, data may be omitted in some cases. CLINICAL DECISIONS SHOULD BE BASED ON THE PRIMARY CLINICAL RECORDS. [facility]. provides no warranty or guarantee of the accuracy or completeness of information in this document.
== END | disposition home or self-care (01) ==
LOC: LAB 09:40 → RAD 09:42
PROVIDERS: PCP Nurse Practitioner Family; Referring Provider Chiropractor; Visit Provider Chiropractor
DX: M54.12 Radiculopathy, cervical region (principal)
CPT/HCPCS: 72040